=== PATIENT | female | born 1945 | race Caucasian/White ===

== ENCOUNTER 2016-04-08 10:30 | Inpatient (IN) | payer OTHER ==
[~2016-04-08] VITALS: Ht 165.1 cm; Wt 132.3 kg
[~2016-04-08 10:30] MED LIST: AMLO2.5T PO; CEPH500C2 PO; CYAN3INJ IM; HYDR12.56 PO; METH500T PO; PRAV20TA PO
[2016-04-08] MEDS ORDERED: SODIUM CHLORIDE 0.9% 1000ML 1,000 ML IV STA ×2 (10:47)
[2016-04-08] MEDS ORDERED: ONDANSETRON INJ 2 MG/ML 2 ML VIAL IV STA ×2 (10:47→12:35)
--- NOTE | 2016-04-08 10:55 | EMERGENCY ROOM VISIT NOTE ---
History Report prepared by Jordan: Chauncey Pinto Under the Supervision of: Dr. Stevie Kenney D.O. First contact with patient: 10:42 Stated Complaint: WEAKNESS, AB PAIN History of Present Illness The patient is a 70 year old female who presents to the Emergency Room with complaints of constant abdominal pain starting this morning. The patient states that she woke up and it felt like her muscles and organs were "rolling around". She additionally is complaining of nausea and vomiting. The patient denies any chest pain or shortness of breath. She states that she has a history of a hysterectomy, hernia repair, gastric bypass surgery, and a cholecystectomy. She states that she takes medication for hypertension, and she states that she took it this morning. The patient states that her last bowel movement was a day and a half ago, and she denies any diarrhea or hematochezia. Source of History: patient Onset: this morning Position: abdomen Timing: constant Associated Symptoms: + nausea, + vomiting, No SOB, No chest pain, No diarrhea, No hematochezia Review of Systems See HPI for pertinent positives & negatives. A total of 10 systems reviewed and were otherwise negative. Past Medical & Surgical Medical Problems: (1) Bowel obstruction (2) Hypertensive urgency Surgical Problems: (1) H/O gastric bypass (2) Hx of cholecystectomy Family History Patient reports no known family medical history. Social History Smoking Status: Former Smoker Alcohol Use: none Drug Use: none Marital Status: Occupation Status: retired Current/Historical Medications Scheduled Amlodipine Besylate (Norvasc), 2.5 MG PO DAILY Atorvastatin (Lipitor), 1 TAB PO DAILY Hydrochlorothiazide (Hctz), 12.5 MG PO DAILY Methocarbamol (Robaxin), 500 MG PO QID Allergies Coded Allergies: Oseltamivir (Verified Allergy, Mild, 04/08/16) Aspirin (Verified Adverse Reaction, Unknown, NO ASA DUE TO GASTRIC BYPASS , 04/08/16) NSAIDs (Unverified Adverse Reaction, Unknown, GI SXS, no NSAIDS due to gastric bypass, 04/08/16) Physical Exam Vital Signs Date Time Temp Pulse Resp B/P Pulse Ox O2 Delivery O2 Flow Rate FiO2 04/08/16 15:34 89 204/118 95 Nasal Cannula 2.0 04/08/16 15:08 85 04/08/16 14:26 88 16 190/93 91 Room Air 04/08/16 12:07 94 16 163/98 95 Room Air 04/08/16 10:46 90 04/08/16 10:44 36.7 90 16 200/118 94 Room Air Physical Exam GENERAL: Patient is awake, alert, and somewhat anxious and uncomfortable appearing. EYES: The conjunctivae are clear. The pupils are round and reactive. EARS, NOSE, MOUTH AND THROAT: The nose is without any evidence of any deformity. Mucous membranes are moist tongue is midline NECK: The neck is nontender and supple. RESPIRATORY: Normal respiratory effort is noted there is no evidence of wheezing rhonchi or rales CARDIOVASCULAR: Regular rate and rhythm noted there no murmurs rubs or gallops normal S1 normal S2 GASTROINTESTINAL: The abdomen is moderately distended and diffuse tenderness. No guarding or rigidity appreciated. Small open area on the lateral aspect of the horizontal surgical scar. Clear drainage noted MUSCULOSKELETAL/EXTREMITIES: There is no evidence of gross deformity full range of motion is noted in the hips and shoulders SKIN: Pedal edema bilaterally NEUROLOGIC: Patient is awake alert and oriented x3 strength Medical Decision & Procedures ER Provider Diagnostic Interpretation: Radiology results as stated below per my review and radiologist interpretation: KUB CLINICAL HISTORY: Abdominal pain and weakness COMPARISON STUDY: 01/09/2012 FINDINGS: There are postsurgical changes of bilateral total hip arthroplasties. There are postsurgical changes of a lower lumbar spinal fusion. There is nonspecific bowel gas pattern with mildly dilated left mid abdominal small bowel loops. IMPRESSION: Nonspecific bowel gas pattern with mildly dilated left mid abdominal small bowel loops measuring up to 43 mm in diameter Electronically signed by: Urbano Parry M.D. 04/08/2016 11:29 AM Dictated Date/Time: 04/08/2016 11:28 AM CHEST ONE VIEW PORTABLE CLINICAL HISTORY: Pain rating to the abdomen. Weakness. COMPARISON STUDY: 01/09/2012 FINDINGS: The heart is at the upper limits of normal in size given the AP technique. There is no focal pulmonary consolidation. There is no overt failure. There are no pleural effusions. There is no pneumoperitoneum. Postsurgical changes are present within the shoulders.[ IMPRESSION: No active disease in the chest. Electronically signed by: Urbano Parry M.D. 04/08/2016 11:31 AM Dictated Date/Time: 04/08/2016 11:[address] OF THE ABDOMEN AND PELVIS WITH CONTRAST CLINICAL HISTORY: Lower abdominal pain and vomiting. COMPARISON STUDY: CT of the abdomen and pelvis January 08, 2012 and KUB performed earlier today. TECHNIQUE: Following IV administration of 93 mL of Optiray-320, axial images of the abdomen and pelvis were obtained from the lung bases to the proximal femurs. Images were reviewed in the axial, sagittal, and coronal planes. IV contrast was administered without complication. Oral contrast was administered. CT DOSE: 1703.37 mGy.cm FINDINGS: The heart is moderately enlarged. There is no pneumatosis, free air or portal venous gas. Biliary ductal dilatation is unchanged since CT of January 08, 2012 and likely due to cholecystectomy. 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 The proximal to mid small bowel is fluid-filled and dilated. The distal small bowel is decompressed. There is a small amount of feces within several small bowel loops within the lower anterior aspect of the abdomen with a suspected transition shown on image 343 of 521. The small bowel proximal to the jejunojejunal anastomosis is also dilated and fluid-filled. There is mild infiltration adjacent to the duodenum which is moderately dilated and fluid-filled. The excluded stomach is not significantly distended. The jejunojejunal anastomosis appears widely patent. Images of the pelvis are degraded by streak artifact from bilateral hip arthroplasties. There is no lymphadenopathy. The spleen, adrenal glands, kidneys and pancreas are unremarkable. A fat-containing ventral hernia does not result in the bowel obstruction. IMPRESSION: Findings consistent with a moderate grade partial small bowel obstruction with transition within the anterior lower abdomen, likely within the mid ileum. Statistically, this obstruction is due to adhesions. Moderately dilated, fluid-filled duodenum without significant distention of the excluded stomach status post Indigo-en-Y gastric bypass. Mild infiltration adjacent to the duodenum is nonspecific but likely related to the obstruction. Close clinical monitoring is recommended. No free air, pneumatosis or portal venous gas. Electronically signed by: Sid Bravo M.D. 04/08/2016 2:17 PM Dictated Date/Time: 04/08/2016 1:54 PM Laboratory Results 04/08/16 11:05 Red Blood Count 5.58, Mean Corpuscular Volume 81.7, Mean Corpuscular Hemoglobin 27.2, Mean Corpuscular Hemoglobin Concent 33.3, Mean Platelet Volume 10.4, Neutrophils (%) (Auto) 89.6, Lymphocytes (%) (Auto) 5.0, Monocytes (%) (Auto) 4.8, Eosinophils (%) (Auto) 0.0, Basophils (%) (Auto) 0.1, Neutrophils # (Auto) 15.62, Lymphocytes # (Auto) 0.88, Monocytes # (Auto) 0.84, Eosinophils # (Auto) 0.00, Basophils # (Auto) 0.01 04/08/16 11:05 Test 04/08/16 11:05 White Blood Count 17.44 K/uL (4.8-10.8) Red Blood Count 5.58 M/uL (4.2-5.4) Hemoglobin 15.2 g/dL (12.0-16.0) Hematocrit 45.6 % (37-47) Mean Corpuscular Volume 81.7 fL (80-100) Mean Corpuscular Hemoglobin 27.2 pg (25-34) Mean Corpuscular Hemoglobin Concent 33.3 g/dl (32-36) Platelet Count 371 K/uL (130-400) Mean Platelet Volume 10.4 fL (7.4-10.4) Neutrophils (%) (Auto) 89.6 % Lymphocytes (%) (Auto) 5.0 % Monocytes (%) (Auto) 4.8 % Eosinophils (%) (Auto) 0.0 % Basophils (%) (Auto) 0.1 % Neutrophils # (Auto) 15.62 K/uL (1.4-6.5) Lymphocytes # (Auto) 0.88 K/uL (1.2-3.4) Monocytes # (Auto) 0.84 K/uL (0.11-0.59) Eosinophils # (Auto) 0.00 K/uL (0-0.5) Basophils # (Auto) 0.01 K/uL (0-0.2) RDW Standard Deviation 48.9 fL (36.4-46.3) RDW Coefficient of Variation 16.4 % (11.5-14.5) Immature Granulocyte % (Auto) 0.5 % Immature Granulocyte # (Auto) 0.09 K/uL (0.00-0.02) Prothrombin Time 11.0 SECONDS (9.0-12.0) Prothromb Time International Ratio 1.0 (0.9-1.1) Activated Partial Thromboplast Time 30.2 SECONDS (21.0-31.0) Partial Thromboplastin Ratio 1.2 Anion Gap 14.0 mmol/L (3-11) Est Creatinine Clear Calc Drug Dose 57.7 ml/min Estimated GFR () 53.0 Estimated GFR (Non- 45.8 BUN/Creatinine Ratio 13.6 (10-20) Calcium Level 9.7 mg/dl (8.5-10.1) Total Bilirubin 0.6 mg/dl (0.2-1) Direct Bilirubin 0.2 mg/dl (0-0.2) Aspartate Amino Transf (AST/SGOT) 23 U/L (15-37) Alanine Aminotransferase (ALT/SGPT) 26 U/L (12-78) Alkaline Phosphatase 115 U/L (45-117) Total Creatine Kinase 82 U/L (26-192) Creatine Kinase MB 4.7 ng/ml (0.5-3.6) Creatine Kinase MB Ratio 5.7 (0-3.0) Troponin I < 0.015 ng/ml (0-0.045) Total Protein 9.3 gm/dl (6.4-8.2) Albumin 3.8 gm/dl (3.4-5.0) Lipase 298 U/L (73-393) Laboratory results per my review. Medications Administered Medications (Trade) Dose Ordered Sig/Martha Route Start Time Stop Time Status Last Admin Dose Admin Sodium Chloride 1,000 ml @ 999 mls/hr Q1H1M STAT IV 04/08/16 10:47 04/08/16 11:47 DC 04/08/16 11:28 999 MLS/HR Sodium Chloride (Nss 1000ml) 1,000 ml @ 125 mls/hr Q8H STAT IV 04/08/16 10:47 04/08/16 18:46 04/08/16 12:05 125 MLS/HR Morphine Sulfate (MoRPHine SULFATE INJ) 4 mg Q15M PRN IV 04/08/16 11:00 04/22/16 10:59 04/08/16 15:31 4 MG Ondansetron HCl (Zofran Inj) 4 mg NOW STAT IV 04/08/16 10:47 04/08/16 10:49 DC 04/08/16 11:28 4 MG Ondansetron HCl (Zofran Inj) 4 mg NOW STAT IV 04/08/16 12:35 04/08/16 12:36 DC 04/08/16 12:37 4 MG ECG Indication: weakness Rate (beats per minute): 89 Rhythm: normal sinus Findings: ST depression (diffuse), no ectopy, other (No PVC) Comparison ECG Date: 01/13/2013 Change: Changes are new ED Course 1042: The patient was evaluated in room B8. A complete history and physical examination were performed. 1047: Zofran Inj 4mg IV, NSS 1,000 ml @ 125 mls/hr IV, NSS 1,000 ml @ 999 mls/ hr IV 1100: Morphine Sulfate 4mg IV 1235: Zofran Inj 4mg IV 1438: I discussed the patient's case with Dr. Mendoza. He is going to evaluate the patient for further treatment Medical Decision Differential diagnosis: Etiologies such as appendicitis, diverticulitis, PUD, biliary pathology, UTI, pancreatitis, obstruction, mesenteric ischemia, aortic pathology, infections, inflammatory bowel disease, renal colic, as well as others were entertained. Nursing notes reviewed. Additional history is obtained from the patient's family members. The patient is a 70-year-old female who presented to the emergency department for an evaluation of diffuse abdominal pain abdominal distention and nausea. The patient has had previous surgery in the past. The patient is had a history of bowel obstruction in the past. The patient was treated with IV fluids IV pain medicine and IV antiemetics. She was found have a significant elevation in the right blood cell count. CAT scan did reveal signs of small bowel obstruction. I discussed patient's laboratory and radiographic studies with her and her family members. I also discussed his case with the on-call [facility] hospitalist group. They have agreed to evaluate the patient in the emergency department for further management and disposition. Consults Time Called: 1431 Consulting Physician: Dr. Mendoza Returned Call: [phone] I discussed the patient's case with Dr. Mendoza. He is going to evaluate the patient for further treatment Impression Primary Impression: Small bowel obstruction Additional Impressions: Abdominal pain Nausea Scribe Attestation The scribe's documentation has been prepared under my direction and personally reviewed by me in its entirety. I confirm that the note above accurately reflects all work, treatment, procedures, and medical decision making performed by me. Departure Information Dispostion Being Evaluated By Hospitalist Referrals Daniel Escamilla III, M.D. (PCP) Problem Qualifiers Additional Impressions: Abdominal pain Abdominal location: generalized Qualified Codes: R10.84 - Generalized abdominal pain
[2016-04-08] MEDS ORDERED: OPTIRAY 320 IV PRN (11:00)
[2016-04-08] MEDS ORDERED: ATOR-22 PO (11:17)
[2016-04-08] MEDS: MoRPHine SULFATE 4 MG/ML 1 ML CARP\\VIAL IV PRN ×3 (11:28→15:31)
--- NOTE | 2016-04-08 11:30 | DIAGNOSTIC IMAGING REPORT ---
KUB CLINICAL HISTORY: Abdominal pain and weakness COMPARISON STUDY: 01/09/2012 FINDINGS: There are postsurgical changes of bilateral total hip arthroplasties. There are postsurgical changes of a lower lumbar spinal fusion. There is nonspecific bowel gas pattern with mildly dilated left mid abdominal small bowel loops. IMPRESSION: Nonspecific bowel gas pattern with mildly dilated left mid abdominal small bowel loops measuring up to 43 mm in diameter Electronically signed by: Urbano Parry M.D. 04/08/2016 11:29 AM Dictated Date/Time: 04/08/2016 11:28 AM
--- NOTE | 2016-04-08 11:33 | DIAGNOSTIC IMAGING REPORT ---
CHEST ONE VIEW PORTABLE CLINICAL HISTORY: Pain rating to the abdomen. Weakness. COMPARISON STUDY: 01/09/2012 FINDINGS: The heart is at the upper limits of normal in size given the AP technique. There is no focal pulmonary consolidation. There is no overt failure. There are no pleural effusions. There is no pneumoperitoneum. Postsurgical changes are present within the shoulders.[ IMPRESSION: No active disease in the chest. Electronically signed by: Urbano Parry M.D. 04/08/2016 11:31 AM Dictated Date/Time: 04/08/2016 11:31 AM
[2016-04-08 11:41] LABS: BASO % 0.1 %; BASO ABS # 0.01 K/uL (0-0.2); COMPLETE YES; HEMATOCRIT 45.6 % (37-47); IG% 0.5 %; LYMPH ABS # 0.88 K/uL (1.2-3.4); MEAN CELL VOLUME 81.7 fL (80-100); MEAN CORPUSCULAR HEMOGLOBIN 27.2 pg (25-34); MEAN CORPUSCULAR HGB CONC 33.3 g/dl (32-36); MEAN PLATELET VOLUME 10.4 fL (7.4-10.4); MONO % 4.8 %; NEUT % 89.6 %; PLATELET COUNT 371 K/uL (130-400); RED BLOOD COUNT 5.58 M/uL (4.2-5.4); WHITE BLOOD COUNT 17.44 K/uL (4.8-10.8)
[2016-04-08 11:54] LABS: PARTIAL THROMBOPLASTIN RATIO 1.2
[2016-04-08 12:00] LABS: ALT/SGPT 26 U/L (12-78); AST/SGOT 23 U/L (15-37); BLOOD UREA NITROGEN 16 mg/dl (7-18); BUN/CREATININE RATIO 13.6 (10-20); CALCIUM 9.7 mg/dl (8.5-10.1); CARBON DIOXIDE 26 mmol/L (21-32); CHLORIDE 96 mmol/L (98-107); GLUCOSE 137 mg/dl (70-99); POTASSIUM 3.5 mmol/L (3.5-5.1); SODIUM 136 mmol/L (136-145)
[2016-04-08 12:05] LABS: ALKALINE PHOSPHATASE 115 U/L (45-117); CKMB/CK RATIO 5.7 (0-3.0)
--- NOTE | 2016-04-08 14:18 | DIAGNOSTIC IMAGING REPORT ---
CT OF THE ABDOMEN AND PELVIS WITH CONTRAST CLINICAL HISTORY: Lower abdominal pain and vomiting. COMPARISON STUDY: CT of the abdomen and pelvis January 08, 2012 and KUB performed earlier today. TECHNIQUE: Following IV administration of 93 mL of Optiray-320, axial images of the abdomen and pelvis were obtained from the lung bases to the proximal femurs. Images were reviewed in the axial, sagittal, and coronal planes. IV contrast was administered without complication. Oral contrast was administered. CT DOSE: 1703.37 mGy.cm FINDINGS: The heart is moderately enlarged. There is no pneumatosis, free air or portal venous gas. Biliary ductal dilatation is unchanged since CT of January 08, 2012 and likely due to cholecystectomy. 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 The proximal to mid small bowel is fluid-filled and dilated. The distal small bowel is decompressed. There is a small amount of feces within several small bowel loops within the lower anterior aspect of the abdomen with a suspected transition shown on image 343 of 521. The small bowel proximal to the jejunojejunal anastomosis is also dilated and fluid-filled. There is mild infiltration adjacent to the duodenum which is moderately dilated and fluid-filled. The excluded stomach is not significantly distended. The jejunojejunal anastomosis appears widely patent. Images of the pelvis are degraded by streak artifact from bilateral hip arthroplasties. There is no lymphadenopathy. The spleen, adrenal glands, kidneys and pancreas are unremarkable. A fat-containing ventral hernia does not result in the bowel obstruction. IMPRESSION: Findings consistent with a moderate grade partial small bowel obstruction with transition within the anterior lower abdomen, likely within the mid ileum. Statistically, this obstruction is due to adhesions. Moderately dilated, fluid-filled duodenum without significant distention of the excluded stomach status post Indigo-en-Y gastric bypass. Mild infiltration adjacent to the duodenum is nonspecific but likely related to the obstruction. Close clinical monitoring is recommended. No free air, pneumatosis or portal venous gas. Electronically signed by: Sid Bravo M.D. 04/08/2016 2:17 PM Dictated Date/Time: 04/08/2016 1:54 PM
[2016-04-08] MEDS ORDERED: HYDROmorphone INJ 1 MG/ML SYR ONE (17:31)
--- NOTE | 2016-04-08 17:31 | History and Physical ---
History & Physical Date & Time of Service: Apr 08, 2016 at 17:31 . Chief Complaint: abdominal pain, nausea, vomiting . Primary Care Physician: Daniel Escamilla III, M.D. . History of Present Illness Source: patient, clinic records, hospital records 70 [address] followed by Dr[address] Escamilla. History of Indigo-en-Y gastric bypass for obesity several years ago. History of hypertension and other medical problems noted below. Developed onset of abdominal pain 2 nights prior to admission. Pain initially localized in the upper abdomen, but became more diffuse. Developed nausea and vomiting. Last bowel movement was about 24 hours prior to admission. Passed some flatus earlier today. No hematemesis, melena, hematochezia. Tried acetaminophen without relief. [place] warm last night, but no documented fever. . Family History FATHER Seizure disorder MOTHER COPD (chronic obstructive pulmonary disease) GRANDMOTHER Diabetes mellitus Social History Smoking Status: Former Smoker Alcohol Use: rarely Drug Use: none Marital Status: Housing status: lives with family Occupational Status: retired Immunizations History of Influenza Vaccine: Yes History of Tetanus Vaccine?: Yes Tetanus Immunization Date: Feb 14, 2005 History of Pneumococcal: Yes History of Hepatitis B Vaccine: No Multi-Drug Resistant Organisms History of MDRO: No Allergies Coded Allergies: Oseltamivir (Verified Allergy, Mild, 04/08/16) Aspirin (Verified Adverse Reaction, Unknown, NO ASA DUE TO GASTRIC BYPASS , 04/08/16) NSAIDs (Unverified Adverse Reaction, Unknown, GI SXS, no NSAIDS due to gastric bypass, 04/08/16) Home Medications Scheduled Amlodipine Besylate (Norvasc), 2.5 MG PO DAILY Atorvastatin (Lipitor), 1 TAB PO DAILY Hydrochlorothiazide (Hctz), 12.5 MG PO DAILY Methocarbamol (Robaxin), 500 MG PO QID Review of Systems Constitutional: + chills, + fever, No weight loss Eyes: No diplopia, No worsening of vision ENT: No hearing loss, No sore throat Respiratory: + cough (bronchitis about 6 weeks ago, resolved), + dyspnea on exertion (occasional) Cardiovascular: + edema (chronic), No chest pain Abdomen: + problem reported (as noted above in HPI) Musculoskeletal: + joint pain Genitourinary - Female: No dysuria, No hematuria Neurologic: + problem reported (occasional headache) Endocrine: No excessive thirst, No excessive urination Hematologic / Lymphatic: + abnormal bleeding/bruising Integumentary: No new/changing skin lesions Physical Exam Vital Signs Date Time Temp Pulse Resp B/P Pulse Ox O2 Delivery O2 Flow Rate FiO2 04/08/16 15:34 89 204/118 95 Nasal Cannula 2.0 04/08/16 15:08 85 04/08/16 14:26 88 16 190/93 91 Room Air 04/08/16 12:07 94 16 163/98 95 Room Air 04/08/16 10:46 90 04/08/16 10:44 36.7 90 16 200/118 94 Room Air General Appearance: WD/WN, + mild distress Head: normocephalic, atraumatic Eyes: normal inspection, PERRL, EOMI, sclerae normal ENT: normal ENT inspection, hearing grossly normal, pharynx normal Neck: supple, no adenopathy, thyroid normal, no JVD, trachea midline Respiratory/Chest: lungs clear, no respiratory distress, no accessory muscle use Cardiovascular: regular rate, rhythm, no edema, no gallop, no JVD, no murmur, normal peripheral pulses Abdomen/GI: + pertinent finding (distended, intermittent bowel sounds, diffuse moderate tenderness without rebound or guarding, no masses or organomegaly appreciated, RUQ scar with about 1 cm open area with minimal drainage) Extremities/Musculoskelatal: no calf tenderness, normal capillary refill, + pedal edema (trace), + pertinent finding (well-healed scars bilat knees) 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 as 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 (PERRL, EOMI), no motor/sensory deficits (strength upper and lower extremities grossly intact), alert, normal mood/affect, normal reflexes, oriented x 3 Skin: normal color, warm/dry Lymphatic: no adenopathy Diagnostics Laboratory Results Results Past 24 Hours Test 04/08/16 11:05 Range/Units White Blood Count 17.44 4.8-10.8 K/uL Red Blood Count 5.58 4.2-5.4 M/uL Hemoglobin 15.2 12.0-16.0 g/dL Hematocrit 45.6 37-47 % Mean Corpuscular Volume 81.7 80-100 fL Mean Corpuscular Hemoglobin 27.2 25-34 pg Mean Corpuscular Hemoglobin Concent 33.3 32-36 g/dl Platelet Count 371 130-400 K/uL Mean Platelet Volume 10.4 7.4-10.4 fL Neutrophils (%) (Auto) 89.6 % Lymphocytes (%) (Auto) 5.0 % Monocytes (%) (Auto) 4.8 % Eosinophils (%) (Auto) 0.0 % Basophils (%) (Auto) 0.1 % Neutrophils # (Auto) 15.62 1.4-6.5 K/uL Lymphocytes # (Auto) 0.88 1.2-3.4 K/uL Monocytes # (Auto) 0.84 0.11-0.59 K/uL Eosinophils # (Auto) 0.00 0-0.5 K/uL Basophils # (Auto) 0.01 0-0.2 K/uL RDW Standard Deviation 48.9 36.4-46.3 fL RDW Coefficient of Variation 16.4 11.5-14.5 % Immature Granulocyte % (Auto) 0.5 % Immature Granulocyte # (Auto) 0.09 0.00-0.02 K/uL Prothrombin Time 11.0 9.0-12.0 SECONDS Prothromb Time International Ratio 1.0 0.9-1.1 Activated Partial Thromboplast Time 30.2 21.0-31.0 SECONDS Partial Thromboplastin Ratio 1.2 Sodium Level 136 136-145 mmol/L Potassium Level 3.5 3.5-5.1 mmol/L Chloride Level 96 98-107 mmol/L Carbon Dioxide Level 26 21-32 mmol/L Anion Gap 14.0 3-11 mmol/L Blood Urea Nitrogen 16 7-18 mg/dl Creatinine 1.20 0.60-1.20 mg/dl Est Creatinine Clear Calc Drug Dose 57.7 ml/min Estimated GFR () 53.0 Estimated GFR (Non- 45.8 BUN/Creatinine Ratio 13.6 10-20 Random Glucose 137 70-99 mg/dl Calcium Level 9.7 8.5-10.1 mg/dl Total Bilirubin 0.6 0.2-1 mg/dl Direct Bilirubin 0.2 0-0.2 mg/dl Aspartate Amino Transf (AST/SGOT) 23 15-37 U/L Alanine Aminotransferase (ALT/SGPT) 26 12-78 U/L Alkaline Phosphatase 115 45-117 U/L Total Creatine Kinase 82 26-192 U/L Creatine Kinase MB 4.7 0.5-3.6 ng/ml Creatine Kinase MB Ratio 5.7 0-3.0 Troponin I < 0.015 0-0.045 ng/ml Total Protein 9.3 6.4-8.2 gm/dl Albumin 3.8 3.4-5.0 gm/dl Lipase 298 73-393 U/L Diagnostic Radiology CHEST ONE VIEW PORTABLE IMPRESSION: No active disease in the chest. Electronically signed by: Urbano Parry M.D. 04/08/2016 11:31 AM KUB IMPRESSION: Nonspecific bowel gas pattern with mildly dilated left mid abdominal small bowel loops measuring up to 43 mm in diameter Electronically signed by: Urbano Parry M.D. 04/08/2016 11:[address] OF THE ABDOMEN AND PELVIS WITH CONTRAST IMPRESSION: Findings consistent with a moderate grade partial small bowel obstruction with transition within the anterior lower abdomen, likely within the mid ileum. Statistically, this obstruction is due to adhesions. Moderately dilated, fluid-filled duodenum without significant distention of the excluded stomach status post Indigo-en-Y gastric bypass. Mild infiltration adjacent to the duodenum is nonspecific but likely related to the obstruction. Close clinical monitoring is recommended. No free air, pneumatosis or portal venous gas. Electronically signed by: Sid Bravo M.D. 04/08/2016 2:17 PM . EKG EKG performed at 11:11 reviewed and demonstrated NSR at 90 / minute, poor R- wave progression, NSSTTWA's. . Impression Assessment and Plan SMALL BOWEL OBSTRUCTION Clinical picture and CT consistent with partial small bowel obstruction, most likely secondary to adhesions from previous surgeries. Initial management will consist of bowel rest, IV fluids, analgesics, anti- emetics, NGT. Consult General Surgery. LEUKOCYTOSIS WBC = 17,440. Small bowel obstruction as discussed above, but no apparent perforation, abscess , etc. No infiltrates on chest x-ray. UA pending. Empiric Rx with IV piperacillin / tazobactam. Check procalcitonin. Follow VS, symptoms, WBC. ESSENTIAL HYPERTENSION / HYPERTENSIVE URGENCY History of hypertension, managed with HCTZ + amlodipine. BP 200/118 in ED, improved with analgesics. IV enalapril + PRN IV labetalol while NPO. Follow and titrate Rx. VTE PROPHYLAXIS No anticoagulants at this time in case surgical intervention is necessary. SCD's. Ambulate as able. RESUSCITATION STATUS Discussed with patient. She does not have a Living Will. She indicates that she would want resuscitation attempted in the event of a cardiopulmonary arrest, but would only want aggressive measures for a short period of time. Specifically, she indicated that she would not want to be on mechanical ventilation for weeks. DISPOSITION Admit to Telemetry Unit due to hypertensive urgency and need for parenteral cardiovascular meds. Expected discharge to home. Medical follow-up with Dr. Escamilla. . VTE Prophylaxis VTE Risk Assessment Done? Y/N: Yes Risk Level: Moderate Given or contraindicated: SCD's
[2016-04-08] MEDS ORDERED: HYDROmorphone INJ 1 MG/ML SYR IV STA (17:34)
[2016-04-08] MEDS ORDERED: LABETALOL HCL IV 5 MG/ML 20ML IV STA (17:34)
[2016-04-08] MEDS ORDERED: PANTOprazole INJ 40 MG in SYRINGE 0 ML IV SCH (18:00)
[2016-04-08 18:10] VITALS: O2SAT 93; Ht 165.1 cm; Wt 132.3 kg
[2016-04-08 18:43] VITALS: BP 176/87; PULSE 92; TEMP 36.4; O2SAT 95
--- NOTE | 2016-04-08 19:16 | Medical Consult ---
Consultation Date of Consultation: Apr 08, 2016. Attending Physician: Aparna Salas M.D. Reason for Consultation: partial sbo History of Present Illness pt with N/V, abd pain CT shows evidence of partial sbo- pt with h/o elizabeth en Y gastric bypass 2002 stomach large, dilated duodenum, pt morbidly obese Past Medical/Surgical History Medical Problems: (1) Abdominal pain Status: Acute (2) Nausea Status: Acute (3) Small bowel obstruction Status: Acute Family History Patient reports no known family medical history. Social History Smoking Status: Former Smoker Drug Use: none Marital Status: Occupation Status: retired Allergies Coded Allergies: Oseltamivir (Verified Allergy, Mild, 04/08/16) Aspirin (Verified Adverse Reaction, Unknown, NO ASA DUE TO GASTRIC BYPASS , 04/08/16) NSAIDs (Unverified Adverse Reaction, Unknown, GI SXS, no NSAIDS due to gastric bypass, 04/08/16) Current Inpatient Medications Current Inpatient Medications Medications (Trade) Dose Ordered Sig/Martha Route Start Time Stop Time Status Last Admin Dose Admin Morphine Sulfate (MoRPHine SULFATE INJ) 4 mg Q15M PRN IV 04/08/16 11:00 04/22/16 10:59 04/08/16 15:31 4 MG Ioversol 120 ml 120 ml UD PRN IV 04/08/16 11:00 04/12/16 10:59 Dextrose/Lactated Ringer's (D5W And Lactated Ringers) 1,000 ml @ 125 mls/hr Q8H IV 04/08/16 17:45 05/08/16 17:44 Hydromorphone HCl 1 mg 1 mg Q3H PRN IV 04/08/16 17:45 04/22/16 17:44 Acetaminophen 100 ml @ 400 mls/hr Q8H PRN IV 04/08/16 17:45 05/08/16 17:44 Pantoprazole Sodium/Syringe (Protonix Inj/ Syringe) 10 ml @ 5 mls/min DAILY@11 IV 04/09/16 11:00 05/09/16 10:59 UNV Labetalol HCl 10 mg 10 mg Q1H PRN IV 04/08/16 17:45 05/08/16 17:44 Enalaprilat/ Dextrose (Vasotec IV/D5 25ml) 25.5 ml @ 100 mls/hr Q6 IV 04/08/16 18:00 05/08/16 17:59 UNV Review of Systems Constitutional: No chills, No fever Respiratory: No cough, No shortness of breath, No sputum Cardiovascular: No chest pain Abdomen: + nausea, + pain, + vomiting Genitourinary - Female: No dysuria Neurologic: No weakness Endocrine: No fatigue Integumentary: No rash Physical Exam Date Time Temp Pulse Resp B/P Pulse Ox O2 Delivery O2 Flow Rate FiO2 04/08/16 18:16 99 20 156/90 93 Nasal Cannula 2.0 04/08/16 18:10 93 Nasal Cannula 2.0 04/08/16 17:30 90 18 185/119 91 Room Air 04/08/16 15:34 89 204/118 95 Nasal Cannula 2.0 04/08/16 15:08 85 04/08/16 14:26 88 16 190/93 91 Room Air 04/08/16 12:07 94 16 163/98 95 Room Air 04/08/16 10:46 90 04/08/16 10:44 36.7 90 16 200/118 94 Room Air General Appearance: no apparent distress Head: normocephalic Eyes: sclerae normal Neck: supple Respiratory/Chest: no respiratory distress Cardiovascular: regular rate, rhythm Abdomen/GI: normal bowel sounds, soft, + tenderness (some mild tenderness) Extremities/Musculoskelatal: no pedal edema Skin: warm/dry, no rash Laboratory Results Last 24 Hours Test 04/08/16 11:05 White Blood Count 17.44 K/uL Red Blood Count 5.58 M/uL Hemoglobin 15.2 g/dL Hematocrit 45.6 % Mean Corpuscular Volume 81.7 fL Mean Corpuscular Hemoglobin 27.2 pg Mean Corpuscular Hemoglobin Concent 33.3 g/dl Platelet Count 371 K/uL Mean Platelet Volume 10.4 fL Neutrophils (%) (Auto) 89.6 % Lymphocytes (%) (Auto) 5.0 % Monocytes (%) (Auto) 4.8 % Eosinophils (%) (Auto) 0.0 % Basophils (%) (Auto) 0.1 % Neutrophils # (Auto) 15.62 K/uL Lymphocytes # (Auto) 0.88 K/uL Monocytes # (Auto) 0.84 K/uL Eosinophils # (Auto) 0.00 K/uL Basophils # (Auto) 0.01 K/uL RDW Standard Deviation 48.9 fL RDW Coefficient of Variation 16.4 % Immature Granulocyte % (Auto) 0.5 % Immature Granulocyte # (Auto) 0.09 K/uL Prothrombin Time 11.0 SECONDS Prothromb Time International Ratio 1.0 Activated Partial Thromboplast Time 30.2 SECONDS Partial Thromboplastin Ratio 1.2 Sodium Level 136 mmol/L Potassium Level 3.5 mmol/L Chloride Level 96 mmol/L Carbon Dioxide Level 26 mmol/L Anion Gap 14.0 mmol/L Blood Urea Nitrogen 16 mg/dl Creatinine 1.20 mg/dl Est Creatinine Clear Calc Drug Dose 57.7 ml/min Estimated GFR () 53.0 Estimated GFR (Non- 45.8 BUN/Creatinine Ratio 13.6 Random Glucose 137 mg/dl Calcium Level 9.7 mg/dl Total Bilirubin 0.6 mg/dl Direct Bilirubin 0.2 mg/dl Aspartate Amino Transf (AST/SGOT) 23 U/L Alanine Aminotransferase (ALT/SGPT) 26 U/L Alkaline Phosphatase 115 U/L Total Creatine Kinase 82 U/L Creatine Kinase MB 4.7 ng/ml Creatine Kinase MB Ratio 5.7 Troponin I < 0.015 ng/ml Total Protein 9.3 gm/dl Albumin 3.8 gm/dl Lipase 298 U/L Assessment & Plan 04/08/16- adm with partial sbo- pt has relatively active bowel sounds. NPO, NG decompression, check film- monitor progress if worsens or no progress- operation
--- NOTE | 2016-04-08 20:46 | DIAGNOSTIC IMAGING REPORT ---
ABDOMEN 2 VIEWS HISTORY: Small bowel obstruction. NG tube placement. COMPARISON: Abdomen and pelvis CT 04/08/2016. FINDINGS: Nasogastric tube terminates in the proximal stomach. Multiple gas and fluid-filled loops of distended small bowel within the upper abdomen are again noted. This is consistent with the patient's history of a small bowel obstruction. Posterior fusion hardware within the lower lumbar spine. Contrast within the renal collecting systems from the prior CT examination. No pneumoperitoneum or pneumatosis identified. Bilateral total hip arthroplasties. IMPRESSION: 1. Nasogastric tube terminates in the proximal stomach. 2. Persistent small bowel obstruction. This is not significantly changed. Electronically signed by: Mark Tamez M.D. 04/08/2016 8:45 PM Dictated Date/Time: 04/08/2016 8:43 PM
[2016-04-08] MEDS: D5W AND LACTATED RINGERS 1,000 ML IV SCH (21:01)
[2016-04-08] MEDS: ENALAPRILAT IV 0.625 MG in DEXTROSE 5% 25ML 25 ML IV SCH (21:01)
[2016-04-08] MEDS ORDERED: PIPERACILL/TAZOBAC IV 4.5 GM in DEXTROSE 5% 100ML 100 ML IV SCH (22:15)
[2016-04-08 22:19] LABS: URINE APPEARANCE CLEAR (CLEAR); URINE BILIRUBIN NEG (NEG); URINE COLOR YELLOW; URINE EPITHELIAL CELL AUTO >30 /lpf (0-5); URINE NITRITE NEG (NEG); URINE SPECIFIC GRAVITY > 1.045 (1.000-1.030); UROBILINOGEN NEG (NEG)
[2016-04-08 22:23] LABS: MANUAL MICROSCOPIC REQUIRED? NO; REVIEW REQ? YES
[2016-04-08] MEDS ORDERED: PIPERACILL/TAZOBAC CONSULT ACTIVE PRN (22:30)
[2016-04-08] MEDS ORDERED: PIPERACILL/TAZOBAC IV 4.5 GM in DEXTROSE 5% 100ML IV ONE (22:30)
[2016-04-08 22:32] LABS: URINE PATH CASTS 0-3 GRANULAR CASTS /lpf (0)
[2016-04-08 23:06] VITALS: BP 149/86; PULSE 94; TEMP 36.8; O2SAT 91
[2016-04-09] MEDS: HYDROmorphone INJ 1 MG/ML SYR IV PRN (02:09)
[2016-04-09] MEDS: ENALAPRILAT IV 0.625 MG in DEXTROSE 5% 25ML 25 ML IV SCH ×2 (02:11→08:38)
[2016-04-09 03:28] VITALS: BP 108/57; PULSE 78; TEMP 36.6; O2SAT 90
[2016-04-09] MEDS: PIPERACILL/TAZOBAC IV 4.5 GM in DEXTROSE 5% 100ML IV SCH ×3 (03:32→22:41)
[2016-04-09 05:36] LABS: HEMATOCRIT 40.7 % (37-47); MEAN CELL VOLUME 83.4 fL (80-100); MEAN CORPUSCULAR HEMOGLOBIN 27.3 pg (25-34); MEAN CORPUSCULAR HGB CONC 32.7 g/dl (32-36); MEAN PLATELET VOLUME 10.1 fL (7.4-10.4); PLATELET COUNT 333 K/uL (130-400); RED BLOOD COUNT 4.88 M/uL (4.2-5.4)
[2016-04-09 06:11] LABS: BUN/CREATININE RATIO 19.2 (10-20); CALCIUM 8.7 mg/dl (8.5-10.1); CREATININE 1.4 mg/dl (0.60-1.20); MAGNESIUM 2.2 mg/dl (1.8-2.4); PHOSPHORUS 4.3 mg/dl (2.5-4.9); POTASSIUM 3.7 mmol/L (3.5-5.1)
--- NOTE | 2016-04-09 06:21 | Surgery Progress Note ---
Surgery Progress Note Date of Service Apr 09, 2016. Subjective still having some pain- NG in- min output Objective Vital Signs: Date Time Temp Pulse Resp B/P Pulse Ox O2 Delivery O2 Flow Rate FiO2 04/09/16 04:00 Room Air 04/09/16 03:28 36.6 78 22 108/57 90 Room Air 04/08/16 23:59 Room Air 04/08/16 23:06 36.8 94 20 149/86 91 Room Air 04/08/16 20:00 Nasal Cannula 2.0 04/08/16 18:43 36.4 92 18 176/87 95 Nasal Cannula 2.0 04/08/16 18:16 99 20 156/90 93 Nasal Cannula 2.0 04/08/16 18:10 93 Nasal Cannula 2.0 04/08/16 17:30 90 18 185/119 91 Room Air 04/08/16 15:34 89 204/118 95 Nasal Cannula 2.0 04/08/16 15:08 85 04/08/16 14:26 88 16 190/93 91 Room Air 04/08/16 12:07 94 16 163/98 95 Room Air 04/08/16 10:46 90 04/08/16 10:44 36.7 90 16 200/118 94 Room Air General Appearance: no apparent distress Respiratory/Chest: no respiratory distress Abdomen: + distended (decreased bowel sounds) Laboratory Results: Results Past 24 Hours Test 04/08/16 11:05 04/08/16 21:30 04/09/16 05:20 Range/Units White Blood Count 17.44 15.10 4.8-10.8 K/uL Red Blood Count 5.58 4.88 4.2-5.4 M/uL Hemoglobin 15.2 13.3 12.0-16.0 g/dL Hematocrit 45.6 40.7 37-47 % Mean Corpuscular Volume 81.7 83.4 80-100 fL Mean Corpuscular Hemoglobin 27.2 27.3 25-34 pg Mean Corpuscular Hemoglobin Concent 33.3 32.7 32-36 g/dl Platelet Count 371 333 130-400 K/uL Mean Platelet Volume 10.4 10.1 7.4-10.4 fL Neutrophils (%) (Auto) 89.6 % Lymphocytes (%) (Auto) 5.0 % Monocytes (%) (Auto) 4.8 % Eosinophils (%) (Auto) 0.0 % Basophils (%) (Auto) 0.1 % Neutrophils # (Auto) 15.62 1.4-6.5 K/uL Lymphocytes # (Auto) 0.88 1.2-3.4 K/uL Monocytes # (Auto) 0.84 0.11-0.59 K/uL Eosinophils # (Auto) 0.00 0-0.5 K/uL Basophils # (Auto) 0.01 0-0.2 K/uL RDW Standard Deviation 48.9 51.5 36.4-46.3 fL RDW Coefficient of Variation 16.4 17.0 11.5-14.5 % Immature Granulocyte % (Auto) 0.5 % Immature Granulocyte # (Auto) 0.09 0.00-0.02 K/uL Prothrombin Time 11.0 9.0-12.0 SECONDS Prothromb Time International Ratio 1.0 0.9-1.1 Activated Partial Thromboplast Time 30.2 21.0-31.0 SECONDS Partial Thromboplastin Ratio 1.2 Sodium Level 136 143 136-145 mmol/L Potassium Level 3.5 3.7 3.5-5.1 mmol/L Chloride Level 96 103 98-107 mmol/L Carbon Dioxide Level 26 29 21-32 mmol/L Anion Gap 14.0 11.0 3-11 mmol/L Blood Urea Nitrogen 16 7-18 mg/dl Creatinine 1.20 1.40 0.60-1.20 mg/dl Est Creatinine Clear Calc Drug Dose 57.7 49.2 ml/min Estimated GFR () 53.0 44.0 Estimated GFR (Non- 45.8 38.0 BUN/Creatinine Ratio 13.6 19.2 10-20 Random Glucose 137 111 70-99 mg/dl Calcium Level 9.7 8.7 8.5-10.1 mg/dl Total Bilirubin 0.6 0.2-1 mg/dl Direct Bilirubin 0.2 0-0.2 mg/dl Aspartate Amino Transf (AST/SGOT) 23 15-37 U/L Alanine Aminotransferase (ALT/SGPT) 26 12-78 U/L Alkaline Phosphatase 115 45-117 U/L Total Creatine Kinase 82 26-192 U/L Creatine Kinase MB 4.7 0.5-3.6 ng/ml Creatine Kinase MB Ratio 5.7 0-3.0 Troponin I < 0.015 0-0.045 ng/ml Total Protein 9.3 6.4-8.2 gm/dl Albumin 3.8 3.4-5.0 gm/dl Lipase 298 73-393 U/L Urine Color YELLOW Urine Appearance CLEAR CLEAR Urine pH 5.0 4.5-7.5 Urine Specific [place] > 1.045 1.000-1.030 Urine Protein 3+ NEG Urine Glucose (UA) NEG NEG Urine Ketones NEG NEG Urine Occult Blood NEG NEG Urine Nitrite NEG NEG Urine Bilirubin NEG NEG Urine Urobilinogen NEG NEG Urine Leukocyte Esterase NEG NEG Urine WBC (Auto) 1-5 0-5 /hpf Urine RBC (Auto) 0-4 0-4 /hpf Urine Hyaline Casts (Auto) 1-5 0-5 /lpf Urine Epithelial Cells (Auto) >30 0-5 /lpf Urine Bacteria (Auto) 1+ NEG Urine Pathogenic Casts 0-3 GRANULAR CASTS 0 /lpf Phosphorus Level 4.3 2.5-4.9 mg/dl Magnesium Level 2.2 1.8-2.4 mg/dl Assessment & Plan 04/09/16- adm with small bowel obstruction- film pending. Still concerned pt may need abd exploration , lysis of adhesions- reassess this am check labs
--- NOTE | 2016-04-09 07:49 | DIAGNOSTIC IMAGING REPORT ---
ABDOMEN 2 VIEWS CLINICAL HISTORY: bowel obstruction pain COMPARISON STUDY: 04/08/2016 FINDINGS: Nasogastric tube is at the gastroesophageal junction. Moderate bowel distention similar as compared to the prior study. No secondary signs of free air. Stable postoperative changes of the lumbar spine or right hip. IMPRESSION: Partial small bowel obstruction unchanged in the prior study. Nasogastric tube at the gastroesophageal junction. Electronically signed by: Aidan Pham M.D. 04/09/2016 7:48 AM Dictated Date/Time: 04/09/2016 7:46 AM
[2016-04-09 08:21] VITALS: BP 122/69; PULSE 83; TEMP 36.6; O2SAT 98
[2016-04-09] MEDS ORDERED: SUCCINYLCHOLINE 100MG/5ML SYR IV ONE (10:08)
[2016-04-09] MEDS ORDERED: NEOSTIGMINE METHYLSULFATE 5 MG/5 ML SYR ONE (10:08)
[2016-04-09] MEDS ORDERED: ONDANSETRON INJ 2 MG/ML 2 ML VIAL ONE (10:08)
[2016-04-09] MEDS ORDERED: GLYCOPYRROLATE INJ 0.2 MG/ML VIAL ONE (10:08)
[2016-04-09] MEDS ORDERED: DEXAMETHASONE SOD INJ 4 MG/ML VIAL ONE (10:08)
[2016-04-09] MEDS ORDERED: ROCURONIUM BROMIDE 10 MG/ML 5 ML VIAL ONE (10:08)
[2016-04-09] MEDS ORDERED: LIDOCAINE HCL 2% 2 ML VIAL (20MG/ML) ONE (10:08)
[2016-04-09] MEDS ORDERED: PROPOFOL IV EMULSION 10 MG/ML 20 ML VIAL IV ONE (10:08)
[2016-04-09] MEDS ORDERED: FENTANYL CITRATE INJ 50 MCG/1 ML 2 ML VIAL ONE ×3 (10:09→13:53)
[2016-04-09] MEDS ORDERED: MIDAZOLAM HCL 1 MG/ML 2ML VIAL ONE ×2 (10:09→14:10)
[2016-04-09] MEDS ORDERED: MoRPHine SULFATE 2 MG/ML CARP ONE ×2 (10:09→12:40)
[2016-04-09] MEDS ORDERED: CEFOXITIN SOD 2 GM VIAL ONE (10:20)
[2016-04-09] MEDS ORDERED: PANTOprazole INJ 40 MG in SYRINGE 0 ML IV SCH (11:00)
[2016-04-09] MEDS ORDERED: CEFOXITIN SOD 1 GM VIAL ONE (13:53)
--- NOTE | 2016-04-09 14:36 | Anesthesiology Progress Note ---
Anesthesia Progress Note Date of Service Apr 09, 2016. Progress Notes Called ICU kiln charger at 1416 to report that this pt is going to remain intubated and require post-op mechanical ventilation. THis is a morbidly obese w female w/COPD,HTN,Hyperlipidemia,CKD,Hx/o Lyme's disease and remote SDH for which she required DAR Holes.She now presents with a small bowel obstruction for exploratory laparotomy and resection. I have spoken w/Dr Frida Corral at 1420 and have given her a detailed report. Dr Maldonado requested that we keep the pt intubated and ventilated w/sedation for the near future as he is concerned that she may eviscerate.He stated the procedure was very difficult and the tissues are tenuous at best.She has two PIV's and a left radial arterial line. Pt is edentulous and the intubation was easy.
--- NOTE | 2016-04-09 15:02 | [facility] Post Operative Brief Note ---
Immediate Operative Summary Operative Date Apr 09, 2016. Pre-Operative Diagnosis Small Bowel Obstruction Post-Operative Diagnosis Small Bowel Obstruction with Adhesions Procedure(s) Performed Exploratory Laparotomy, Lysis of Adhesions- extensive Surgeon Dr. Maldonado Fringe Maker Surgeon(s) DEON Bennett Estimated Blood Loss 100 ml Findings severe small bowel adhesions- essentially a hostile abd Specimens none per surgeon Drains #19 Rd to pelvis, #15 Rd to subcu Anesthesia gen Complication(s) None Disposition Surgical ICU
--- NOTE | 2016-04-09 15:07 | Progress Note ---
Internal Med Progress Note Date of Service: Apr 09, 2016. Provider Documentation: SUBJECTIVE: The patient was seen and examined Abdominal pain and distension are better NGT in with low suction Denies any cardiac history OBJECTIVE: Vital Signs-as noted below Exam: General-minimal distress at rest Eyes-Normal ENT-normal Neck-supple Lungs-Clear to auscultate bilaterally Heart-Regular Abdomen-Mildly distended,tender epigastrium ,bowel sound exaggerated Extremities-No edema Neuro-AAOx3 Lab data as noted below. ASSESSMENT & PLAN: RECURRENT SMALL BOWEL OBSTRUCTION H/O Gastric Bypass years ago Clinical picture and CT consistent with partial small bowel obstruction, Most likely secondary to adhesions from previous surgeries. NPO,NGT suction,Analgesic and Antibiotic Consult General Surgery.-appreciated input Surgery this afternoon No contraindication to surgery HYPERTENSIVE URGENCY Likely secondary to Anxiety History of hypertension, managed with HCTZ + amlodipine. BP 200/118 in ED, improved with analgesics. IV enalapril + PRN IV labetalol while NPO. BP is controlled this morning Acute Renal Failure Creatinine elevated Continue IF fluid Monitor PRP LEUKOCYTOSIS WBC = 17,440. Likely secondary to Bowel obstruction -no perforation. No infiltrates on chest x-ray. UA does not look infected. Empiric Rx with IV piperacillin / tazobactam. VTE PROPHYLAXIS No anticoagulants at this time in case surgical intervention is necessary. SCD's. Ambulate as able. RESUSCITATION STATUS Full code DISPOSITION Admit to Telemetry Unit due to hypertensive urgency and need for parenteral cardiovascular meds. Expected discharge to home. Medical follow-up with Dr. Escamilla. Vital Signs: Date Time Temp Pulse Resp B/P Pulse Ox O2 Delivery O2 Flow Rate FiO2 04/09/16 08:21 36.6 83 18 122/69 98 04/09/16 08:00 Room Air 04/09/16 04:00 Room Air 04/09/16 03:28 36.6 78 22 108/57 90 Room Air 04/08/16 23:59 Room Air 04/08/16 23:06 36.8 94 20 149/86 91 Room Air 04/08/16 20:00 Nasal Cannula 2.0 04/08/16 18:43 36.4 92 18 176/87 95 Nasal Cannula 2.0 04/08/16 18:16 99 20 156/90 93 Nasal Cannula 2.0 04/08/16 18:10 93 Nasal Cannula 2.0 04/08/16 17:30 90 18 185/119 91 Room Air 04/08/16 15:34 89 204/118 95 Nasal Cannula 2.0 Lab Results: Results Past 24 Hours Test 04/08/16 21:30 04/09/16 05:20 04/09/16 15:00 04/09/16 15:20 Range/Units Urine Color YELLOW Urine Appearance CLEAR CLEAR Urine pH 5.0 4.5-7.5 Urine Specific [place] > 1.045 1.000-1.030 Urine Protein 3+ NEG Urine Glucose (UA) NEG NEG Urine Ketones NEG NEG Urine Occult Blood NEG NEG Urine Nitrite NEG NEG Urine Bilirubin NEG NEG Urine Urobilinogen NEG NEG Urine Leukocyte Esterase NEG NEG Urine WBC (Auto) 1-5 0-5 /hpf Urine RBC (Auto) 0-4 0-4 /hpf Urine Hyaline Casts (Auto) 1-5 0-5 /lpf Urine Epithelial Cells (Auto) >30 0-5 /lpf Urine Bacteria (Auto) 1+ NEG Urine Pathogenic Casts 0-3 GRANULAR CASTS 0 /lpf White Blood Count 15.10 4.8-10.8 K/uL Red Blood Count 4.88 4.2-5.4 M/uL Hemoglobin 13.3 12.0-16.0 g/dL Hematocrit 40.7 37-47 % Mean Corpuscular Volume 83.4 80-100 fL Mean Corpuscular Hemoglobin 27.3 25-34 pg Mean Corpuscular Hemoglobin Concent 32.7 32-36 g/dl RDW Standard Deviation 51.5 36.4-46.3 fL RDW Coefficient of Variation 17.0 11.5-14.5 % Platelet Count 333 130-400 K/uL Mean Platelet Volume 10.1 7.4-10.4 fL Sodium Level 143 136-145 mmol/L Potassium Level 3.7 3.5-5.1 mmol/L Chloride Level 103 98-107 mmol/L Carbon Dioxide Level 29 21-32 mmol/L Anion Gap 11.0 3-11 mmol/L Blood Urea Nitrogen 27 7-18 mg/dl Creatinine 1.40 0.60-1.20 mg/dl Est Creatinine Clear Calc Drug Dose 49.2 ml/min Estimated GFR () 44.0 Estimated GFR (Non- 38.0 BUN/Creatinine Ratio 19.2 10-20 Random Glucose 111 70-99 mg/dl Calcium Level 8.7 8.5-10.1 mg/dl Phosphorus Level 4.3 2.5-4.9 mg/dl Magnesium Level 2.2 1.8-2.4 mg/dl Procalcitonin 0.08 0-0.5 ng/mL
[2016-04-09] MEDS ORDERED: PROMETHAZINE HCL INJ 25 MG in SODIUM CHLORIDE 0.9% 50ML 50 ML IV PRN (15:15)
[2016-04-09] MEDS ORDERED: HYDROmorphone INJ 1 MG/ML SYR IV PRN ×2 (15:15→15:30)
--- NOTE | 2016-04-09 15:20 | Anesthesiology Progress Note ---
Anesthesia Progress Note Date of Service Apr 09, 2016. Progress Notes Report given to [employer].Pt remains intubated.Report completed,pt care turned over to ICU staff.
[2016-04-09] MEDS ORDERED: PROPOFOL IV EMULSION 10 MG/ML 100 ML VIAL IV ONE (15:26)
--- NOTE | 2016-04-09 15:28 | Anesthesiology Progress Note ---
Anesthesia Post Op Note Date & Time Apr 09, 2016 at 15:27 Vital Signs Pain Intensity: 0 Vital Signs Past 12 Hours Date Time Temp Pulse Resp B/P Pulse Ox O2 Delivery O2 Flow Rate FiO2 04/09/16 08:21 36.6 83 18 122/69 98 04/09/16 08:00 Room Air 04/09/16 04:00 Room Air 04/09/16 03:28 36.6 78 22 108/57 90 Room Air Notes Mental Status: see Notes (pt remains intubated) Pt Amnestic to Procedure: Yes Nausea / Vomiting: adequately controlled Pain: adequately controlled Airway Patency, RR, SpO2: stable & adequate BP & HR: stable & adequate Hydration State: stable & adequate Anesthetic Complications: no major complications apparent
[2016-04-09] MEDS ORDERED: PROPOFOL IV EMULSION 10 MG/ML 100 ML VIAL IV PRN ×2 (15:30→15:34)
[2016-04-09] MEDS ORDERED: NALOXONE HCL 0.4 MG/1 ML VIAL/CARP IV PRN (15:30)
[2016-04-09] MEDS ORDERED: PROMETHAZINE HCL INJ 12.5 MG in SODIUM CHLORIDE 0.9% 50ML 50 ML IV PRN ×4 (15:30)
[2016-04-09] MEDS ORDERED: ONDANSETRON INJ 2 MG/ML 2 ML VIAL IV PRN (15:30)
[2016-04-09] MEDS ORDERED: ATROPINE SULFATE 0.1 MG/ML 5ML SYR IV PRN (15:30)
[2016-04-09] MEDS ORDERED: EpHEDrine SULFATE INJ 50 MG/ML AMP IV PRN (15:30)
[2016-04-09] MEDS ORDERED: LABETALOL HCL IV 5 MG/ML 20ML IV PRN (15:30)
[2016-04-09] MEDS ORDERED: FLUMAZENIL 0.1 MG/1 ML 10 ML VIAL IV PRN (15:30)
[2016-04-09] MEDS: D5W AND LACTATED RINGERS 1,000 ML IV SCH ×2 (15:43→15:44)
[2016-04-09 15:57] LABS: BASO % 0.1 %; BASO ABS # 0.01 K/uL (0-0.2); HEMATOCRIT 39.6 % (37-47); IG% 0.3 %; LYMPH % 4.3 %; LYMPH ABS # 0.77 K/uL (1.2-3.4); MEAN CELL VOLUME 84.4 fL (80-100); MEAN CORPUSCULAR HEMOGLOBIN 27.1 pg (25-34); MEAN PLATELET VOLUME 10.5 fL (7.4-10.4); MONO % 7.3 %; PLATELET COUNT 339 K/uL (130-400); RED BLOOD COUNT 4.69 M/uL (4.2-5.4); WHITE BLOOD COUNT 17.76 K/uL (4.8-10.8)
--- NOTE | 2016-04-09 15:59 | DIAGNOSTIC IMAGING REPORT ---
CHEST ONE VIEW PORTABLE CLINICAL HISTORY: Intubation. Postoperative evaluation. COMPARISON STUDY: Chest radiograph April 08, 2016. FINDINGS: There is no pneumothorax or pleural effusion. Mild left basilar opacity favors atelectasis. The tip of the nasogastric tube projects over the proximal stomach or gastrojejunostomy. There is no evidence of pulmonary edema. Mild cardiomegaly is unchanged. The tip of the endotracheal tube is 3.1 cm above the kim IMPRESSION: 1. Tip of endotracheal tube 3.1 cm above the kim. 2. Mild left basilar opacity which favors atelectasis. 3. No pneumothorax. Electronically signed by: Sid Bravo M.D. 04/09/2016 3:57 PM Dictated Date/Time: 04/09/2016 3:53 PM
--- NOTE | 2016-04-09 16:01 | OPERATIVE REPORT ---
DATE OF OPERATION: 04/09/2016 NAME OF OPERATION: Laparotomy with extensive lysis of adhesions. PREOPERATIVE DIAGNOSIS: Small bowel obstruction. POSTOPERATIVE DIAGNOSIS: Same from dense extensive adhesions. STAFF SURGEON: Dr. Arsh Maldonado. LUGGAGE ATTENDANT: Azam Patel PA-C DESCRIPTION OF PROCEDURE: The patient was brought into the operating room and placed on the operating table in the supine position. Arterial line and Gamino catheter were placed after appropriate anesthetic. Pneumatic stockings were also placed. Her abdomen was prepped and draped in the usual fashion. Incision was made in the midline above the umbilicus and just below the umbilicus, carrying dissection down through significant adipose tissue, initially encountering a polypropylene mesh in the upper part of the incision over approximately 6-8 cm and then dense adhesions in the lower part of the incision. Upon inspection, the patient's small bowel was densely adherent to the fascia. Using a scalpel, I was able to slowly mobilize the tissue. It was evident that the patient had a very extensive dense adhesions, causing what I considered a hostile abdomen. With some difficulty, I was able to mobilize the distal ileum, which was considerably decompressed and I traced it to the cecum. Then moving more proximal, I was able to mobilize the small bowel with some difficulty, tracing it to the area of the anastomosis. I did have to increase the length of the incision superiorly because of the anastomosis being in the left upper quadrant and also the difficulty in identifying the Indigo-en-Y limb. I was eventually able to identify the Indigo-en-Y limb, which was decompressed and then the anastomosis and then the ligament of Treitz, which was dilated and on a CT scan, this was dilated back to the duodenum. There was no evidence of obstruction in this area. I do feel that the obstruction was from the patient's severe dense adhesions distally. After this was performed, the abdomen was irrigated. A 19 round Anderson-Montes drain placed into the pelvis, secured to the skin using 3-0 nylon suture and then the mesh reapproximated using interrupted #1 Ethibond suture. The abdominal fascia was reapproximated using both running and interrupted #1 PDS suture with retention sutures placed of #1 nylon. The subcutaneous tissue was reapproximated after placing a 15 round Anderson-Montes drain, securing it using 3-0 nylon suture. Skin was reapproximated using meche. The retention sutures secured and then, a binder placed after dressing and the patient transferred to the intensive care unit in stable condition. I did not want the patient to be combative on awakening and eviscerate. The operation took approximately 2 hours and 45 minutes, which was probably 1 hour additional secondary to the extensive adhesions. I attest to the content of the Intraoperative Record and any orders documented therein. Any exceptio ns are noted below.
[2016-04-09 16:08] LABS: COMPLETE YES; MEAN CORPUSCULAR HGB CONC 32.1 g/dl (32-36)
[2016-04-09 16:29] LABS: BUN/CREATININE RATIO 22.9 (10-20); CALCIUM 8.1 mg/dl (8.5-10.1); CREATININE 1.4 mg/dl (0.60-1.20); MAGNESIUM 1.9 mg/dl (1.8-2.4); PHOSPHORUS 2.7 mg/dl (2.5-4.9)
--- NOTE | 2016-04-09 16:53 | CRITICAL CARE CONSULTATION ---
DATE OF CONSULTATION: 04/09/2016 CHIEF COMPLAINT: Abdominal pain. HISTORY OF PRESENT ILLNESS: The patient is a 70-year-old morbidly obese female with a history of hypertension, who presented to the Emergency Department complaining of abdominal pain, which started 2 nights earlier as well as weakness. She developed nausea and vomiting and presented to the Emergency Department last night, where she was found to have a blood pressure of 204/118. She was given Zofran, 2 liters of normal saline, morphine and underwent CT scan of the abdomen, which revealed moderate grade partial small-bowel obstruction with transition within the anterior lower abdomen, likely within the mid ileum. Moderately dilated fluid filled duodenum without significant distention of the excluded stomach, status post Indigo-en-Y gastric bypass surgery. She was taken to the operating room today for an exploratory laparotomy and lysis of adhesions. In talking to Dr. Maldonado, he said it was a quite challenging surgery and there were possible adhesions. She was brought to the intensive care unit postoperatively due to concerns of her size and tension that might be put on the wound if she was to have difficulty on the ventilator. Intraoperatively, she had 2.3 liters of IV fluid, 100 mL of estimated blood loss and 60 mL of urine. There were no reported difficulties with her airway. She has a 7.0 endotracheal tube. PAST MEDICAL HISTORY: Hypertension, hyperlipidemia, subdural hematoma status post bur holes, and a Indigo-en-Y gastric bypass in 2002 resulting in an incisional hernia, which was repaired in 2006. She required a wound VAC at some point for that and has been seen by the wound center in January of last year secondary to a small abdominal wound. Chronic obstructive pulmonary disease, bronchitis, osteoarthritis, and chronic kidney disease. PAST SURGICAL HISTORY: Status post cataract extraction, gastric bypass in 2002, incisional hernia repair in 2006, bilateral rotator cuff surgery, hysterectomy with tubal ligation, cholecystectomy, left hip replacement, and bilateral knee replacements. ALLERGIES: TO OSELTAMIVIR, ASPIRIN, AND NSAIDS. PREHOSPITAL MEDICATIONS: Amlodipine 2.5 mg daily, Lipitor 20 mg daily, hydrochlorothiazide 12.5 mg daily and Robaxin 500 mg p.o. q.i.d. 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 She drinks alcohol occasionally and is a former smoker. FAMILY HISTORY: Significant for mother with COPD and father with seizures. REVIEW OF SYSTEMS: Not obtainable as she is intubated and sedated. PHYSICAL EXAMINATION: GENERAL: This is a morbidly obese woman, lying in bed, unresponsive to painful stimuli. VITAL SIGNS: As follows, temperature 37.2, heart rate 100, respiratory rate 26, blood pressure 130/81, and oxygen saturation 100%. Ventilator settings, assist control rate 12, tidal volume 450, FiO2 of 100%, and PEEP 5. HEENT: Pupils are about 2 mm and round. There are bilateral arcus senilis. Endotracheal tube is in place with an orogastric tube. NECK: Large. No adenopathy noted. LUNGS: Decreased breath sounds in the bilateral bases. Sounds are distant. No rales, rhonchi or wheezes. HEART: Tachycardic, regular, no murmurs. CHEST: Symmetric expansion with very pendulous breasts. ABDOMEN: Morbidly obese with a large bulky dressing, which is clean, dry and intact. There are 2 GONZALO drains, which appear to be coming from the left upper and lower quadrants, draining some primarily sanguinous, but thin nonclotting fluid. She has a binder in place after my exam. EXTREMITIES: Warm. No edema. LABORATORY DATA: Postop labs are pending. Preoperative BUN 27 and creatinine 1.4. Procalcitonin 0.08. IMAGING STUDIES: Portable chest x-ray postop revealed left basilar infiltrate, possible small effusion and an endotracheal tube about 3 cm above the kim. Preoperative EKG shows normal sinus rhythm with nonspecific ST-T wave changes. IMPRESSION: 1. Status post exploratory laparotomy and lysis of adhesions secondary to small bowel obstruction. 2. Postoperative respiratory failure. She is being kept sedated and intubated at least overnight due to concerns of pressure that might be put upon her fragile incision. 3. Hypertensive urgency in the Emergency Department. She is getting enalapril q. 6 hours and also has as-needed labetalol. 4. Chronic kidney disease, which may be worsening somewhat. Her creatinine is rising. 5. History of gastric bypass surgery. 6. Hyperlipidemia. 7. Osteoarthritis. PLAN: NEUROLOGIC: Continue propofol for sedation and use Dilaudid for pain control. Treat pain aggressively. PULMONARY: Check arterial blood gas and support and sedate on the ventilator overnight. Sedation vacation in the morning and possible extubation. Consider p.r.n. albuterol with a history of COPD, although she is not wheezing now. CARDIOVASCULAR: Discontinue the enalapril secondary to her renal insufficiency. Treat hypertension with labetalol and hydralazine. RENAL: Follow up labs and provide maintenance IV fluids. Continue Zosyn and follow any cultures. GASTROINTESTINAL: N.p.o. for now. Follow NG tube output and await return of bowel function. HEMATOLOGY: She is on subcutaneous heparin. ID: Continue zosyn post op for now. MISC: Begin Sc heparin tomorrow morning and provide PPI for GI prophylaxis. Critical care time 60 minutes. MTDD
[2016-04-09 16:57] LABS: ISTAT ARTERIAL BLOOD GAS HCO3 28 meq/L (19-24); ISTAT ARTERIAL BLOOD GAS PCO2 53 mmHg (35-46); ISTAT ARTERIAL BLOOD GAS PO2 212 mmHg (80-95); ISTAT ARTERIAL BLOOD GAS pH 7.33 (7.35-7.45); ISTAT CARBON DIOXIDE 29 mEq/l (24-31); ISTAT DELIVERY SYSTEM Ventilator; ISTAT FIO2 100 %; ISTAT PEEP 5; ISTAT RATE 12; ISTAT SITE Art Line; VE 6.8; Vt 450
[2016-04-09] MEDS: D5W AND 1/2NSS 1,000 ML IV SCH (17:10)
[2016-04-09] MEDS: HYDROmorphone INJ 2 MG/ML SYR/VIAL IV PRN ×2 (17:11→19:41)
[2016-04-09] MEDS: PROPOFOL IV EMULSION 10 MG/ML 100 ML VIAL IV PRN ×2 (17:11→19:42)
[2016-04-09] MEDS: HEPARIN SOD 5000 UNIT/0.5 ML CARP SQ SCH (17:12)
[2016-04-09] MEDS ORDERED: NURSING VERBAL MED ORDER ONE (17:15)
[2016-04-09 18:02] LABS: POTASSIUM 3.1 mmol/L (3.5-5.1)
[2016-04-09 18:06] VITALS: BP 114/71; PULSE 85; TEMP 37.2
[2016-04-09 20:00] VITALS: BP 109/59; PULSE 83; TEMP 36.7; O2SAT 100; O2SAT 99
[2016-04-09] MEDS ORDERED: SODIUM CHLORIDE 0.9% 1000ML 1,000 ML IV SCH (20:45)
[2016-04-09 22:00] VITALS: BP 113/91; PULSE 77; O2SAT 100
[2016-04-09 23:59] VITALS: O2SAT 100
[2016-04-10] VITALS (15 sets, daily range): BP systolic 108–171; BP diastolic 54–99; PULSE 69–81; TEMP 36.9–37; O2SAT 93–100
[2016-04-10] MEDS: D5W AND 1/2NSS 1,000 ML IV SCH ×2 (00:27→07:42)
[2016-04-10] MEDS: HYDROmorphone INJ 2 MG/ML SYR/VIAL IV PRN (01:19)
[2016-04-10] MEDS: CHLORHEXIDINE GLUCONATE 0.12% 480 ML MT SCH ×2 (01:21→07:41)
[2016-04-10] MEDS: PIPERACILL/TAZOBAC IV 4.5 GM in DEXTROSE 5% 100ML IV SCH (03:23)
[2016-04-10 05:47] LABS: HEMATOCRIT 35.6 % (37-47); MEAN CELL VOLUME 85.4 fL (80-100); MEAN CORPUSCULAR HEMOGLOBIN 27.3 pg (25-34); MEAN PLATELET VOLUME 10.7 fL (7.4-10.4); PLATELET COUNT 287 K/uL (130-400); RED BLOOD COUNT 4.17 M/uL (4.2-5.4); WHITE BLOOD COUNT 13.51 K/uL (4.8-10.8)
[2016-04-10] MEDS ORDERED: NURSING VERBAL MED ORDER ONE (06:00)
[2016-04-10] MEDS ORDERED: SODIUM CHLORIDE 0.9% 500ML 500 ML IV ONE (06:15)
[2016-04-10] MEDS ORDERED: DEXTROSE 10% 1,000 ML IV PRN (06:15)
[2016-04-10] MEDS ORDERED: TPN/PPN CONSULT PHARMACY PRN (06:15)
[2016-04-10] MEDS ORDERED: CUSTOM PERIPHERAL PN 1 BAG IV SCH (06:15)
[2016-04-10 06:28] LABS: BUN/CREATININE RATIO 23.4 (10-20); CALCIUM 7.5 mg/dl (8.5-10.1); CREATININE 1.4 mg/dl (0.60-1.20); MAGNESIUM 2.1 mg/dl (1.8-2.4); PHOSPHORUS 3.8 mg/dl (2.5-4.9); POTASSIUM 3.6 mmol/L (3.5-5.1)
[2016-04-10] MEDS ORDERED: FUROSEMIDE INJ 20 MG in SYRINGE 0 ML IV STA (06:33)
--- NOTE | 2016-04-10 06:38 | Surgery Progress Note ---
Surgery Progress Note Date of Service Apr 10, 2016. Subjective awake , on ventilator- HR, BP stable decreased urine output- given IV fluid boluses Objective Vital Signs: Date Time Temp Pulse Resp B/P Pulse Ox O2 Delivery O2 Flow Rate FiO2 04/10/16 05:30 50 04/10/16 04:00 100 Mechanical Ventilator 70 04/10/16 04:00 37.0 76 16 132/56 99 Mechanical Ventilator 70 04/10/16 04:00 70 04/10/16 02:30 70 04/10/16 02:00 81 16 127/59 95 Mechanical Ventilator 04/10/16 00:01 69 14 128/54 100 Mechanical Ventilator 70 04/09/16 23:59 70 04/09/16 23:59 100 Mechanical Ventilator 70 04/09/16 23:00 70 04/09/16 22:00 77 20 113/91 100 Mechanical Ventilator 70 04/09/16 20:00 70 04/09/16 20:00 100 Mechanical Ventilator 70 04/09/16 20:00 36.7 83 22 109/59 99 Mechanical Ventilator 70 04/09/16 20:00 70 04/09/16 18:06 37.2 85 16 114/71 Mechanical Ventilator 99 04/09/16 17:45 70 04/09/16 15:40 37.2 86 12 129/62 100 Mechanical Ventilator 100 04/09/16 15:30 37.2 100 26 130/81 100 Mechanical Ventilator 100 04/09/16 15:20 37.2 86 26 120/75 100 Mechanical Ventilator 100 04/09/16 15:15 100 04/09/16 15:10 37.3 90 19 117/66 100 Mechanical Ventilator 100 04/09/16 08:21 36.6 83 18 122/69 98 04/09/16 08:00 Room Air General Appearance: no apparent distress Respiratory/Chest: no respiratory distress (on vent) Abdomen: + distended (binder in place) Incision(s): intact, drainage (serosang) Laboratory Results: Results Past 24 Hours Test 04/09/16 15:43 04/09/16 16:44 04/10/16 05:15 Range/Units White Blood Count 17.76 13.51 4.8-10.8 K/uL Red Blood Count 4.69 4.17 4.2-5.4 M/uL Hemoglobin 12.7 11.4 12.0-16.0 g/dL Hematocrit 39.6 35.6 37-47 % Mean Corpuscular Volume 84.4 85.4 80-100 fL Mean Corpuscular Hemoglobin 27.1 27.3 25-34 pg Mean Corpuscular Hemoglobin Concent 32.1 32.0 32-36 g/dl Platelet Count 339 287 130-400 K/uL Mean Platelet Volume 10.5 10.7 7.4-10.4 fL Neutrophils (%) (Auto) 88.0 % Lymphocytes (%) (Auto) 4.3 % Monocytes (%) (Auto) 7.3 % Eosinophils (%) (Auto) 0.0 % Basophils (%) (Auto) 0.1 % Neutrophils # (Auto) 15.64 1.4-6.5 K/uL Lymphocytes # (Auto) 0.77 1.2-3.4 K/uL Monocytes # (Auto) 1.29 0.11-0.59 K/uL Eosinophils # (Auto) 0.00 0-0.5 K/uL Basophils # (Auto) 0.01 0-0.2 K/uL RDW Standard Deviation 52.9 54.2 36.4-46.3 fL RDW Coefficient of Variation 17.1 17.2 11.5-14.5 % Immature Granulocyte % (Auto) 0.3 % Immature Granulocyte # (Auto) 0.05 0.00-0.02 K/uL Sodium Level 138 140 136-145 mmol/L Potassium Level 3.1 3.6 3.5-5.1 mmol/L Chloride Level 101 104 98-107 mmol/L Carbon Dioxide Level 27 27 21-32 mmol/L Anion Gap 10.0 9.0 3-11 mmol/L Blood Urea Nitrogen 32 33 7-18 mg/dl Creatinine 1.40 1.40 0.60-1.20 mg/dl Est Creatinine Clear Calc Drug Dose 49.2 49.2 ml/min Estimated GFR () 44.0 44.0 Estimated GFR (Non- 38.0 38.0 BUN/Creatinine Ratio 22.9 23.4 10-20 Random Glucose 139 146 70-99 mg/dl Calcium Level 8.1 7.5 8.5-10.1 mg/dl Phosphorus Level 2.7 3.8 2.5-4.9 mg/dl Magnesium Level 1.9 2.1 1.8-2.4 mg/dl Blood Gas Sample Site Art Line Bedside Blood Gas pH (LAB) 7.33 7.35-7.45 Bedside Blood Gas pCO2 (LAB) 53 35-46 mmHg Bedside Blood Gas pO2 (LAB) 212 80-95 mmHg Bedside Blood Gas HCO3 (LAB) 28 19-24 meq/L Bedside Blood Gas Total CO2 29 24-31 mEq/l Bedside Blood Gas Base Excess (LAB) 2.0 -9-1.8 meq/L Bedside Blood Gas O2 Saturation 100.0 90-95 % Jaspal Test NA Oxygen Delivery Device Ventilator Bedside Oxygen Rate (breaths/min) 12 Blood Gas Minute Ventilation 6.8 Bedside FiO2 100 % Blood Gas Tidal Volume 450 Blood Gas PEEP 5 Assessment & Plan 04/10/16- s/p expl laparotomy- extensive, dense adhesions- enterolysis. No enterotomies or bowel resection. 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 No ischemia. wean from vent, pain control, will give dose of lasix, order ppn- will probably need picc/ or IJ line. NG will not function well with bypass- can d/c when extubated 04/09/16- adm with small bowel obstruction- film pending. Still concerned pt may need abd exploration , lysis of adhesions- reassess this am check labs 04/09/16- adm with small bowel obstruction- film pending. Still concerned pt may need abd exploration , lysis of adhesions- reassess this am check labs
--- NOTE | 2016-04-10 07:25 | DIAGNOSTIC IMAGING REPORT ---
CHEST ONE VIEW PORTABLE CLINICAL HISTORY: reps failure s/p ex lap pain COMPARISON STUDY: 04/09/2016 FINDINGS: Endotracheal tube 3 cm above the kim. Lungs are considered clear. Minimal bibasilar atelectasis improved from the prior study. Nasogastric tube within the stomach. IMPRESSION: Endotracheal tube 3 cm above the kim. Minimal bibasilar atelectasis improved from the prior study. Electronically signed by: Aidan Pham M.D. 04/10/2016 7:23 AM Dictated Date/Time: 04/10/2016 7:22 AM
[2016-04-10] MEDS: HYDROmorphone INJ 0.5 MG/0.5 ML SYR IV PRN ×2 (07:42→11:59)
[2016-04-10] MEDS: POTASSIUM CHLORIDE 20 MEQ/15 ML UDC PO ONE ×2 (08:00→08:46)
[2016-04-10] MEDS: PANTOprazole INJ 40 MG in SYRINGE 0 ML IV SCH (08:47)
[2016-04-10] MEDS ORDERED: METHOCARBAMOL 500 MG TAB PO ONE (09:30)
[2016-04-10] MEDS ORDERED: ALBUT/IPRATROP 3MG/0.5MG NEB 3 ML VIAL INH PRN (11:00)
--- NOTE | 2016-04-10 11:02 | Critical Care Progress Note ---
Critical Care Progress Note Date of Service Apr 10, 2016. ICU Day ICU Day Number: [address] Corral Subjective Sedates and intubated, opens eyes to voice and following simple commands. Explorative laparotomy and adhesiolysis 04/[address] Maldonado. Kept intubated overnight as concern if she desaturated and required CPAP/BiPAP then it would put additional pressure on the surgical scar. No acute issues overnight. On Vent Assist Control Rate 14, FiO2 50%, TV. 450 ml, PEEP 7. Objective VITAL SIGNS: were reviewed as above GENERAL: morbidly obese, sedated and intubated but awakes easily to voice. SKIN: Warm dry and pink HEAD: Normocephalic and atraumatic EYES: pupils equal and reactive to light NECK: Very large circumference, no Hx of SAYDA but also not had a sleep study LUNGS: coarse but equal breath sounds bilaterally auscultation, no respiratory distress, intubated in vent A/C rate 14, Fi O2 50%, TV 450 ml, PEEP 7. HEART: Regular rate and rhythm, quiet heart sounds 1+2, no murmurs ABDOMEN: Soft and nontender, dressing and abdominal band not removed but listened underneath and bowel sounds present EXTREMITIES: Warm and well perfused, no calf tenderness/swelling, trace pedal edema NEUROLOGICALLY: Awake alert and oriented without focal deficit. Cranial nerves 2 -12 intact. Cerebellar testing is within normal limits. There is no nystagmus. There is no facial droop. Speech is clear. Vision is grossly normal. MUSCULOSKELETAL: Good muscle tone. No evidence of trauma Assessment & Plan Assessment: 1. Small bowel obstruction s/p exploratory laparotomy and extensive adhesiolysis (04/09/16) 2. Postoperative respiratory failure. She is being kept sedated and intubated at least overnight due to concerns of pressure that might be put upon her fragile incision. 3. Hypertensive urgency in the Emergency Department. 4. Chronic kidney disease, Cr stable. 5. History of gastric bypass surgery (Elizabeth en Y). 6. Hyperlipidemia. 7. Osteoarthritis. Plan: Neuro: Continue propofol for sedation until she has PICC line in place and use Dilaudid for pain control. Treat pain aggressively to avoid increase abdominal pressure. Will take off propofol and attempt extubation later today. Pulmonary: As above sedation vacation PRN duonebs for wheezing, none currently. Cardiovascular: HTN - PRN labetalol, no needed any doses currently Renal//electrolytes: Continue D5 0.5NSS @ 125 MLS/HR. When TPN starts keep total fluid @ 125 MLS/HR. Continue to monitor PO, MG, CMP daily while on TPN. Cr appears stable at present @ 1.4 slightly above baseline. Continue to monitor ACEi held. Gastrointestinal: Continue NPO. Discussed with Dr Maldonado and will start TPN today. Can take NG tube out once extubated if not draining anything. B12, folate and iron profile tomorrow due to elizabeth en y procedure and possible need for vitamin/mineral replacement. Heme: Leukocytosis - stress, SIRS. No obvious source of infection but given extent of adhesions and prolonged surgery will cover potential abdominal/wound with cefoxitin 1g IV Q8H (stop Zosyn) as discussed with Dr Maldonado. Infectious Disease: As above discussed with Dr Maldonado and patient to receive 72 hours of cefoxitin. No cultures taken, if spikes temperature will get a blood culture. CXR shows atelectasis only. Miscellaneous: hold off on PT/OT at current time due preserve wound. VTE/GI Prophylaxis: Held post surgery and will be restarted @ 16:00, 5000 units Q12H Pantoprazole 40 mg IV daily Code Full Disposition - remain in ICU while intubated. Likely will be in ICU overnight to make sure stable, as probably has obstructive sleep apnea and will have to be cautious with use of NIV. Resident Physician Supervision Note: I interviewed and examined the patient. Discussed with Dr. Jacome and agree with findings and plan as documented in the note. Any exceptions or clarifications are listed here: She received lasix 40mg IV this morning from Dr. Maldonado and is starting TPN this afternoon. She is now extubated and I examined her prior to extubation. She continues to do well. Will order incentive spirometry as well as PT/OT for tomorrow. Keep fluids at 125ml/hr total with TPN. Abx for 72 hours. D/C radial a line later today or tomorrow. Potassium has been ordered. Family was updated. Her biggest risks are respiratory insufficiency due to her obesity in combination with pain meds as well as poor wound healing. Critical care time 45 min. Documented By: Frida Corral Consults & Procedures Consultants: [facility] consult - Dr Maldonado Procedures: 04/09/16 - Explorative laparotomy and extensive adhesiolysis - Dr Maldonado Data Medications: Current Inpatient Medications Medications (Trade) Dose Ordered Sig/Martha Route Start Time Stop Time Status Last Admin Dose Admin Ioversol (Optiray 320) 120 ml UD PRN IV 04/08/16 11:00 04/12/16 10:59 Hydromorphone HCl 1 mg 1 mg Q3H PRN IV 04/08/16 17:45 04/22/16 17:44 04/09/16 02:09 1 MG Acetaminophen (Ofirmev Iv) 100 ml @ 400 mls/hr Q8H PRN IV 04/08/16 17:45 05/08/16 17:44 Labetalol HCl 10 mg 10 mg Q1H PRN IV 04/08/16 17:45 05/08/16 17:44 Piperacillin Sod/ Tazobactam Sod/ Dextrose (Zosyn Iv/D5 100ml) 120 ml @ 30 mls/hr Q8H IV 04/09/16 04:00 04/19/16 03:59 04/10/16 03:23 30 MLS/HR Piperacillin Sod/ Tazobactam Sod (Consult) 1 ea UD PRN N/A 04/08/16 22:30 05/08/16 22:29 Hydromorphone HCl (Dilaudid Inj) 0.5 mg Q3H PRN IV 04/09/16 15:15 04/23/16 15:14 04/10/16 07:42 0.5 MG Hydromorphone HCl 2 mg 2 mg Q3H PRN IV 04/09/16 15:15 04/23/16 15:14 04/10/16 01:19 2 MG Promethazine HCl 25 mg/Sodium Chloride 51 ml @ 204 mls/hr Q6H PRN IV 04/09/16 15:15 05/09/16 15:14 Pantoprazole Sodium/Syringe (Protonix Inj/ Syringe) 10 ml @ 5 mls/min DAILY@11 IV 04/10/16 11:00 05/10/16 10:59 04/10/16 08:47 5 MLS/MIN Heparin Sodium (Porcine) (Heparin Sq 5000 Unit/0.5ml) 5,000 unit Q12H SQ 04/09/16 16:00 05/09/16 15:59 Future hold Ondansetron HCl 4 mg 4 mg Q6H PRN IV 04/09/16 15:15 05/09/16 15:14 Promethazine HCl/ Sodium Chloride (Phenergan Inj/ Nss 50ml) 50.5 ml @ 204 mls/hr Q6H PRN IV 04/09/16 15:30 05/09/16 15:29 Chlorhexidine Gluconate (Peridex Oral Soln) 15 ml BID MT 04/09/16 21:00 05/09/16 20:59 04/10/16 07:41 15 ML Propofol 1 dose 1 dose UD PRN IV 04/09/16 15:34 04/12/16 15:33 04/10/16 06:03 1 DOSE Dextrose/Sodium Chloride 1,000 ml @ 125 mls/hr Q8H IV 04/09/16 17:00 05/09/16 16:59 04/10/16 07:42 125 MLS/HR Nutrition (Parenteral) 0 ml @ 0 mls/hr TODAY IV 04/10/16 06:15 04/11/16 06:14 UNV Dextrose (D10w) 1,000 ml @ 0 mls/hr Q0M PRN IV 04/10/16 06:15 05/10/16 06:14 Miscellaneous Information (Pharmacy Tpn/ Ppn Consult Active) 1 ea UD PRN N/A 04/10/16 06:15 05/10/16 06:14 I & O: 24-Hour Column 04/10/16 07:59 Intake Total 3056 ml Output Total 505 ml Balance 2551 ml Vital Signs: Date Time Temp Pulse Resp B/P Pulse Ox O2 Delivery O2 Flow Rate FiO2 04/10/16 08:00 78 14 148/59 99 Mechanical Ventilator 50 04/10/16 08:00 99 Mechanical Ventilator 50 04/10/16 08:00 50 04/10/16 06:00 72 14 157/99 100 Mechanical Ventilator 50 04/10/16 05:30 50 04/10/16 04:00 100 Mechanical Ventilator 70 04/10/16 04:00 37.0 76 16 132/56 99 Mechanical Ventilator 70 04/10/16 04:00 70 04/10/16 02:30 70 04/10/16 02:00 81 16 127/59 95 Mechanical Ventilator 04/10/16 00:01 69 14 128/54 100 Mechanical Ventilator 70 04/09/16 23:59 70 04/09/16 23:59 100 Mechanical Ventilator 70 04/09/16 23:00 70 04/09/16 22:00 77 20 113/91 100 Mechanical Ventilator 70 04/09/16 20:00 70 04/09/16 20:00 100 Mechanical Ventilator 70 04/09/16 20:00 36.7 83 22 109/59 99 Mechanical Ventilator 70 04/09/16 20:00 70 04/09/16 18:06 37.2 85 16 114/71 Mechanical Ventilator 99 04/09/16 17:45 70 04/09/16 15:40 37.2 86 12 129/62 100 Mechanical Ventilator 100 04/09/16 15:30 37.2 100 26 130/81 100 Mechanical Ventilator 100 04/09/16 15:20 37.2 86 26 120/75 100 Mechanical Ventilator 100 04/09/16 15:15 100 04/09/16 15:10 37.3 90 19 117/66 100 Mechanical Ventilator 100 Laboratory Results: Last 24 Hours Test 04/09/16 15:43 04/09/16 16:44 04/10/16 05:15 White Blood Count 17.76 K/uL 13.51 K/uL Red Blood Count 4.69 M/uL 4.17 M/uL Hemoglobin 12.7 g/dL 11.4 g/dL Hematocrit 39.6 % 35.6 % Mean Corpuscular Volume 84.4 fL 85.4 fL Mean Corpuscular Hemoglobin 27.1 pg 27.3 pg Mean Corpuscular Hemoglobin Concent 32.1 g/dl 32.0 g/dl Platelet Count 339 K/uL 287 K/uL Mean Platelet Volume 10.5 fL 10.7 fL Neutrophils (%) (Auto) 88.0 % Lymphocytes (%) (Auto) 4.3 % Monocytes (%) (Auto) 7.3 % Eosinophils (%) (Auto) 0.0 % Basophils (%) (Auto) 0.1 % Neutrophils # (Auto) 15.64 K/uL Lymphocytes # (Auto) 0.77 K/uL Monocytes # (Auto) 1.29 K/uL Eosinophils # (Auto) 0.00 K/uL Basophils # (Auto) 0.01 K/uL RDW Standard Deviation 52.9 fL 54.2 fL RDW Coefficient of Variation 17.1 % 17.2 % Immature Granulocyte % (Auto) 0.3 % Immature Granulocyte # (Auto) 0.05 K/uL Sodium Level 138 mmol/L 140 mmol/L Potassium Level 3.1 mmol/L 3.6 mmol/L Chloride Level 101 mmol/L 104 mmol/L Carbon Dioxide Level 27 mmol/L 27 mmol/L Anion Gap 10.0 mmol/L 9.0 mmol/L Blood Urea Nitrogen 32 mg/dl 33 mg/dl Creatinine 1.40 mg/dl 1.40 mg/dl Est Creatinine Clear Calc Drug Dose 49.2 ml/min 49.2 ml/min Estimated GFR () 44.0 44.0 Estimated GFR (Non- 38.0 38.0 BUN/Creatinine Ratio 22.9 23.4 Random Glucose 139 mg/dl 146 mg/dl Calcium Level 8.1 mg/dl 7.5 mg/dl Phosphorus Level 2.7 mg/dl 3.8 mg/dl Magnesium Level 1.9 mg/dl 2.1 mg/dl Blood Gas Sample Site Art Line Bedside Blood Gas pH (LAB) 7.33 Bedside Blood Gas pCO2 (LAB) 53 mmHg Bedside Blood Gas pO2 (LAB) 212 mmHg Bedside Blood Gas HCO3 (LAB) 28 meq/L Bedside Blood Gas Total CO2 29 mEq/l Bedside Blood Gas Base Excess (LAB) 2.0 meq/L Bedside Blood Gas O2 Saturation 100.0 % Jaspal Test NA Oxygen Delivery Device Ventilator Bedside Oxygen Rate (breaths/min) 12 Blood Gas Minute Ventilation 6.8 Bedside FiO2 100 % Blood Gas Tidal Volume 450 Blood Gas PEEP 5 Resident Tracking Resident Involvement: Resident Care Provided Care Provided: Adult Hospital Medicine (ICU)
[2016-04-10] MEDS: LABETALOL HCL IV 5 MG/ML 20ML IV PRN (11:45)
[2016-04-10] MEDS: CEFOXITIN IV 1,000 MG in DEXTROSE 5% 50ML 50 ML IV SCH ×2 (11:46→20:59)
--- NOTE | 2016-04-10 13:05 | Pharmacy Progress Note ---
Parenteral Nutrition Consult Date of Service Apr 10, 2016. Scope Pharmacy has been consulted to manage parenteral nutrition orders and order appropriate labs. As part of the Nutrition Support Team guidelines, pharmacy will work in conjunction with dietary when determining the patients caloric needs. Subjective The patient is a 70 year old female admitted on Apr 08, 2016 at 16:07 for sm bowel obstruction requiring exp lap w/ MATT on 04/09/16. Pertinent PMH: * Gastric Bypass * CKD3 * Hyperlipidemia * h/o incisional hernia repair * Abdominal wound * HTN * SDH Objective Height (Feet): 5 Height (Inches): 5.00 Weight (Kilograms): 129.300 Diet: NPO Vascular Access: PICC line is being placed Intake & Output (Last 72 Hr): 04/08/16 04/09/16 04/10/16 07:59 07:59 07:59 Intake Total 937 ml 3056 ml Output Total 350 ml 505 ml Balance 587 ml 2551 ml Additional Fluid Losses/Gains: D5 1/2 NS @ 125cc/hr IV ABX provide ~150cc/day Laboratory Data (Last 24 Hr): Test 04/09/16 15:43 04/10/16 05:15 Blood Urea Nitrogen 32 mg/dl (7-18) 33 mg/dl (7-18) Calcium Level 8.1 mg/dl (8.5-10.1) 7.5 mg/dl (8.5-10.1) Carbon Dioxide Level 27 mmol/L (21-32) 27 mmol/L (21-32) Chloride Level 101 mmol/L (98-107) 104 mmol/L (98-107) Creatinine 1.40 mg/dl (0.60-1.20) 1.40 mg/dl (0.60-1.20) Magnesium Level 1.9 mg/dl (1.8-2.4) 2.1 mg/dl (1.8-2.4) Phosphorus Level 2.7 mg/dl (2.5-4.9) 3.8 mg/dl (2.5-4.9) Potassium Level 3.1 mmol/L (3.5-5.1) 3.6 mmol/L (3.5-5.1) Random Glucose 139 mg/dl (70-99) 146 mg/dl (70-99) Sodium Level 138 mmol/L (136-145) 140 mmol/L (136-145) Recent Pertinent Medications: Propofol was running @ 30mcg/kg/min this AM but was being weaned down for a SBT ; if running at 30mcg/kg/min would provide ~23cc/hr or ~600kcal from fat per day Pantoprazole IVP Phenergan IVPB Zofran IVP Nutrition Assessment See pvc monitor's assessment Assessment 70 yo female admitted with SBO requiring exp lap w/ MATT She required intubation and remains intubated this AM, sedated with propofol, which is providing significant fat calories. There are plans to wean propofol and conduct a SBT today. TPN prepared per provider's request. If a PICC line is not successfully placed today, cna pct plans to place a central line. She could be at risk for refeeding syndrome given her h/o gastric bypass and associated malabsorption. She has been receiving Dextrose containing IVF's along w/ the propofol following surgery and thus far large e-lyte shifts have not been observed. Dextrose containing IVF's would have provided ~150gm dextrose per day. Will plan to continue the same dextrose quantity today and add lower end of Protein requirement to today's bag. No fats will be added to the bag given the possibility that propofol may continue into tomorrow if not extubated today. Given refeeding risks, will check e-lytes this evening and tomorrow AM. E-lytes reviewed. Calcium appears low, albumin not low - will supplement in TPN. Other e-lytes will be added in usual amounts - moderate amounts K, Mg and Phos added should refeeding occur. TPN to be mixed in minimum volume. Provider will be changing maintenance IVF's to 1/2 NS when TPN hung. Total IVF's are to run at 125cc/hr (TPN + maint IVF's ) per provider's order. Plan For day 1 of PN administration, the following will be ordered: Macronutrients Amino acids 115 grams/day Dextrose 150 grams/day Lipids 0 grams/day Micronutrients Combined electrolytes 0 mL - contains 35 mEq Na, 20 meq K, 4.5 mEq Ca, 5 mEq Mg , 35 mEq Cl, 29.5 mEq acetate per 20 mL Sodium phosphate 0 MMol Sodium chloride 50 mEq Sodium acetate 0 mEq Potassium phosphate 21 mMol Potassium chloride 40 mEq Potassium acetate 10 mEq Magnesium sulfate 8.12 mEq Calcium gluconate 9.3 mEq Multivitamins 10 mL Trace Elements 1 mL Additional additives: Thiamine 200mg Total volume 1449 mL to be infused over 24 hrs will provide 970 kcal/day Labs to be ordered per PN order protocol Pharmacy will follow and adjust parenteral nutrition orders on a daily basis. Thank you.
[2016-04-10] MEDS: HYDROmorphone INJ 1 MG/ML SYR IV PRN ×2 (14:12→21:13)
[2016-04-10] MEDS ORDERED: [UNRECOGNIZED DRUG - REMARK] ONE (16:00)
[2016-04-10] MEDS ORDERED: CUSTOM CENTRAL PN 1 BAG IV SCH (16:00)
[2016-04-10] MEDS: SODIUM CHLORIDE 0.45% 1000ML 1,000 ML IV SCH ×2 (16:00→17:46)
[2016-04-10] MEDS: ACETAMINOPHEN IV 100 ML IV PRN (16:01)
--- NOTE | 2016-04-10 16:39 | Progress Note ---
Internal Med Progress Note Date of Service: Apr 10, 2016. Provider Documentation: SUBJECTIVE: The patient was seen and examined S/P expl laparotomy- extensive, dense adhesions- enterolysis. Patient in Intubated in ICU OBJECTIVE: Vital Signs-as noted below Exam: General-no distress at rest Remains stable on VENT Eyes-Normal ENT-normal Neck-supple Lungs-Clear to auscultate bilaterally Heart-Regular Abdomen-Mildly distended,tender epigastrium ,bowel sound exaggerated Extremities-No edema Neuro-AA Lab data as noted below. ASSESSMENT & PLAN: S/P expl laparotomy- extensive, dense adhesions- enterolysis. Remains stable on VENT in ICU -management as per [employer] NG suction TPN has been Started RECURRENT SMALL BOWEL OBSTRUCTION H/O Gastric Bypass years ago Clinical picture and CT consistent with partial small bowel obstruction, Most likely secondary to adhesions from previous surgeries. NPO,NGT suction,Analgesic and Antibiotic Consult General Surgery.-appreciated input No contraindication to surgery HYPERTENSIVE URGENCY Likely secondary to Anxiety History of hypertension, managed with HCTZ + amlodipine. BP 200/118 in ED, improved with analgesics. IV enalapril + PRN IV labetalol while NPO. BP is controlled now Labetalol IV as needed Acute Renal Failure Creatinine elevated Continue IF fluid Monitor PRP-Creatinine remains elevated at 1.4 LEUKOCYTOSIS WBC = 17,440.on admission Likely secondary to Bowel obstruction -no perforation. No infiltrates on chest x-ray. UA does not look infected. Empiric Rx with IV piperacillin / tazobactam. Antibiotic is changed to Cefoxitin for broader coverage 04/10/16 VTE PROPHYLAXIS No anticoagulants at this time in case surgical intervention is necessary. SCD's. Ambulate as able. RESUSCITATION STATUS Full code DISPOSITION Admit to Telemetry Unit due to hypertensive urgency and need for parenteral cardiovascular meds. Expected discharge to home. Medical follow-up with Dr. Escamilla. Vital Signs: Date Time Temp Pulse Resp B/P Pulse Ox O2 Delivery O2 Flow Rate FiO2 04/10/16 14:00 80 14 108/60 93 Nasal Cannula 2.0 04/10/16 12:00 Mechanical Ventilator 30 04/10/16 12:00 50 04/10/16 12:00 74 14 142/58 95 Mechanical Ventilator 30 04/10/16 11:20 50 04/10/16 10:29 80 18 171/74 96 Mechanical Ventilator 30 04/10/16 08:00 Mechanical Ventilator 50 04/10/16 08:00 78 14 148/59 99 Mechanical Ventilator 50 04/10/16 08:00 99 Mechanical Ventilator 50 04/10/16 08:00 50 04/10/16 07:30 50 04/10/16 06:00 72 14 157/99 100 Mechanical Ventilator 50 04/10/16 05:30 50 04/10/16 04:00 100 Mechanical Ventilator 70 04/10/16 04:00 37.0 76 16 132/56 99 Mechanical Ventilator 70 04/10/16 04:00 70 04/10/16 02:30 70 04/10/16 02:00 81 16 127/59 95 Mechanical Ventilator 04/10/16 00:01 69 14 128/54 100 Mechanical Ventilator 70 04/09/16 23:59 70 04/09/16 23:59 100 Mechanical Ventilator 70 04/09/16 23:00 70 04/09/16 22:00 77 20 113/91 100 Mechanical Ventilator 70 04/09/16 20:00 70 04/09/16 20:00 100 Mechanical Ventilator 70 04/09/16 20:00 36.7 83 22 109/59 99 Mechanical Ventilator 70 04/09/16 20:00 70 04/09/16 18:06 37.2 85 16 114/71 Mechanical Ventilator 99 04/09/16 17:45 70 Lab Results: Results Past 24 Hours Test 04/09/16 16:44 04/10/16 05:15 Range/Units Blood Gas Sample Site Art Line Bedside Blood Gas pH (LAB) 7.33 7.35-7.45 Bedside Blood Gas pCO2 (LAB) 53 35-46 mmHg Bedside Blood Gas pO2 (LAB) 212 80-95 mmHg Bedside Blood Gas HCO3 (LAB) 28 19-24 meq/L Bedside Blood Gas Total CO2 29 24-31 mEq/l Bedside Blood Gas Base Excess (LAB) 2.0 -9-1.8 meq/L Bedside Blood Gas O2 Saturation 100.0 90-95 % Jaspal Test NA Oxygen Delivery Device Ventilator Bedside Oxygen Rate (breaths/min) 12 Blood Gas Minute Ventilation 6.8 Bedside FiO2 100 % Blood Gas Tidal Volume 450 Blood Gas PEEP 5 White Blood Count 13.51 4.8-10.8 K/uL Red Blood Count 4.17 4.2-5.4 M/uL Hemoglobin 11.4 12.0-16.0 g/dL Hematocrit 35.6 37-47 % Mean Corpuscular Volume 85.4 80-100 fL Mean Corpuscular Hemoglobin 27.3 25-34 pg Mean Corpuscular Hemoglobin Concent 32.0 32-36 g/dl RDW Standard Deviation 54.2 36.4-46.3 fL RDW Coefficient of Variation 17.2 11.5-14.5 % Platelet Count 287 130-400 K/uL Mean Platelet Volume 10.7 7.4-10.4 fL Sodium Level 140 136-145 mmol/L Potassium Level 3.6 3.5-5.1 mmol/L Chloride Level 104 98-107 mmol/L Carbon Dioxide Level 27 21-32 mmol/L Anion Gap 9.0 3-11 mmol/L Blood Urea Nitrogen 33 7-18 mg/dl Creatinine 1.40 0.60-1.20 mg/dl Est Creatinine Clear Calc Drug Dose 49.2 ml/min Estimated GFR () 44.0 Estimated GFR (Non- 38.0 BUN/Creatinine Ratio 23.4 10-20 Random Glucose 146 70-99 mg/dl Calcium Level 7.5 8.5-10.1 mg/dl Phosphorus Level 3.8 2.5-4.9 mg/dl Magnesium Level 2.1 1.8-2.4 mg/dl
[2016-04-10] MEDS: HEPARIN SOD 5000 UNIT/0.5 ML CARP SQ SCH (17:46)
[2016-04-10] MEDS: POTASSIUM CHLR 20 MEQ / WTR 20 MEQ in PREMIXED WATER 100 ML IV SCH ×2 (20:59→23:10)
[2016-04-10 23:18] LABS: PHOSPHORUS 2.7 mg/dl (2.5-4.9)
[2016-04-11] VITALS (23 sets, daily range): BP systolic 141–175; BP diastolic 57–81; PULSE 69–94; TEMP 37; O2SAT 90–99
[2016-04-11] MEDS: HYDROmorphone INJ 1 MG/ML SYR IV PRN ×3 (00:32→23:56)
[2016-04-11] MEDS: POTASSIUM CHLR 20 MEQ / WTR 20 MEQ in PREMIXED WATER 100 ML IV SCH (01:29)
[2016-04-11] MEDS: HEPARIN SOD 5000 UNIT/0.5 ML CARP SQ SCH ×2 (03:31→16:05)
[2016-04-11] MEDS: CEFOXITIN IV 1,000 MG in DEXTROSE 5% 50ML 50 ML IV SCH ×3 (03:36→21:06)
[2016-04-11 06:35] LABS: BASO % 0.1 %; BASO ABS # 0.02 K/uL (0-0.2); COMPLETE YES; EOS % 0.8 %; HEMATOCRIT 34.6 % (37-47); IG% 0.6 %; LYMPH % 8.4 %; LYMPH ABS # 1.22 K/uL (1.2-3.4); MEAN CELL VOLUME 84.4 fL (80-100); MEAN CORPUSCULAR HEMOGLOBIN 26.3 pg (25-34); MEAN CORPUSCULAR HGB CONC 31.2 g/dl (32-36); MEAN PLATELET VOLUME 10.3 fL (7.4-10.4); MONO % 11.5 %; NEUT % 78.6 %; PLATELET COUNT 279 K/uL (130-400); WHITE BLOOD COUNT 14.47 K/uL (4.8-10.8)
--- NOTE | 2016-04-11 07:27 | DIAGNOSTIC IMAGING REPORT ---
CHEST ONE VIEW PORTABLE CLINICAL HISTORY: respiratory failure COMPARISON STUDY: 04/10/2016 FINDINGS: The cardiac and mediastinal contours remain stable. There has been interval removal of the endotracheal tube and nasogastric tubes. A right-sided PICC catheter has been placed the tip of which projects over the superior vena cava. There is no failure. There are progressive left basilar opacities, likely atelectatic. There is persistent right perihilar atelectasis. There is no significant pleural fluid.[ IMPRESSION: 1. Interval removal of the endotracheal tube and nasogastric tube 2. Interval placement of a right-sided PICC catheter 3. Progressive left basilar opacities, likely atelectatic. Right perihilar atelectasis Electronically signed by: Urbano Parry M.D. 04/11/2016 7:26 AM Dictated Date/Time: 04/11/2016 7:24 AM
[2016-04-11 07:43] LABS: ALB/GLOB RATIO 0.6 (0.9-2); CALCIUM 8.1 mg/dl (8.5-10.1); MAGNESIUM 2.1 mg/dl (1.8-2.4); PHOSPHORUS 1.8 mg/dl (2.5-4.9); POTASSIUM 4.1 mmol/L (3.5-5.1)
[2016-04-11] MEDS: SODIUM CHLORIDE 0.45% 1000ML 1,000 ML IV SCH (08:14)
[2016-04-11] MEDS: LABETALOL HCL IV 5 MG/ML 20ML IV PRN (08:14)
[2016-04-11] MEDS ORDERED: SODIUM PHOSPHATE 3 MMOL/1 ML INFUSION IV STA ×2 (08:24→17:28)
[2016-04-11] MEDS ORDERED: ENALAPRILAT IV 2.5 MG in DEXTROSE 5% 25ML 25 ML IV SCH (08:30)
[2016-04-11] MEDS ORDERED: FUROSEMIDE 40 MG/4 ML VIAL IV STA (08:45)
[2016-04-11] MEDS ORDERED: SODIUM PHOSPHATE INJ 15 MMOL in SODIUM CHLORIDE 0.9% 250ML 250 ML IV ONE (08:45)
[2016-04-11] MEDS ORDERED: MAGNESIUM SULFATE 1GM / D5W 1 GM in PREMIXED IN D5W 100 ML IV ONE (09:00)
--- NOTE | 2016-04-11 11:17 | CRITICAL CARE PROGRESS NOTE ---
DATE: 04/11/2016 HISTORY OF PRESENT ILLNESS: This is a 70-year-old woman who is postop day 2, status post exploratory laparotomy and lysis of adhesions for small bowel obstruction. She has a history of gastric bypass and a ventral hernia repair with some wound healing problems in the past. She was extubated successfully yesterday and has no specific complaints today other than she did not get much sleep. Her nurse tells me she was nauseated overnight and received Zofran and Phenergan. She denies nausea presently and denies shortness of breath. She had several runs of ventricular tachycardia, the most recent being 14 beats this morning around 8:25 a.m. She was sleeping at that time. She is passing flatus and has expressed interest in taking some ice chips. She is getting labetalol and hydralazine as needed for hypertension. Her pain is adequately controlled with Dilaudid according to her. TPN was started yesterday. PHYSICAL EXAMINATION: VITAL SIGNS: Maximum temperature 37, heart rate 80, respiratory rate 15-21, blood pressure 109-175/60s-80s, oxygen saturation 95% on 2 liters nasal cannula. 24-hour fluid balance is positive 2.7 liters. GONZALO #1 had 30 mL over 24 hours. GONZALO #2 had 35 mL over 24 hours. NEUROLOGIC: She awakens and is able to carry on a conversation. She follows commands and moves all 4 extremities. LUNGS: Sounds are distant but clear when I listen posteriorly. No rales, rhonchi or wheezes. HEART: Regular rate and rhythm, no murmurs. ABDOMEN: Obese with a binder in place. GONZALO drain x2 with minimal output. EXTREMITIES: Warm. No edema. She has a right upper extremity PICC line. LABORATORY DATA: White blood cell count 14.47, hemoglobin 10.8, hematocrit 34.6, platelets 279. Sodium 138, potassium 4.1, chloride 103, CO2 28, BUN 27, creatinine 1, blood sugar 120, calcium 8.1, phosphorus 1.8. Total protein 6.2, albumin 2.2. MEDICATIONS: Acetaminophen, DuoNeb, cefoxitin day 2, subcutaneous heparin, Dilaudid, labetalol, TPN, Zofran, Protonix, promethazine, normal saline at 65 mL per hour. IMAGING: Portable chest x-ray from this morning was reviewed and shows progressive left basilar opacities, likely atelectatic and right perihilar atelectasis. IMPRESSION: 1. Postop day #2 status post exploratory laparotomy and lysis of adhesions secondary to small bowel obstruction, doing well and passing some flatus. 2. Postoperative respiratory failure, resolved, extubated 04/10/2016. 3. Protein-calorie malnutrition with history of problematic abdominal wound healing in the past. 4. Nonsustained ventricular tachycardia with 2 runs since 6:00 this morning. None further. She has no chest pain and electrolytes are being repleted. 5. Hypertension, I do not think this is secondary to pain. She takes amlodipine and hydrochlorothiazide as an outpatient, but is presently n.p.o. and getting PRN hydralazine and labetalol. 6. History of chronic kidney disease, improved. 7. Hypertensive urgency in the Emergency Department, resolved. 8. History of gastric bypass. 9. History of subdural hematoma requiring sammi holes. 10. Morbid obesity. 11. Osteoarthritis. PLAN: 1. Neurologic: Continue Dilaudid for pain. 2. Pulmonary: I do not see an incentive spirometer in her room. I will order that. 3. Cardiovascular: Replete electrolytes. Scheduled Lopressor was added today. Discontinue arterial line. 4. Gastrointestinal: Await surgery recommendations. She was nauseated last night but I have given her some ice chips today. Consider advancing diet if she is not nauseated. 5. Infectious disease: No acute issues. White blood cell count is still mildly elevated but there are no signs of infection. She is on antibiotics for [address] Maldonado's request. 6. Renal: Creatinine has improved. I have given her 40 mg of IV Lasix x1. 7. Fluids, electrolytes and nutrition: Continue TPN and adjust fluids for a total intake of 125 mL per hour. Consider discontinuing IV fluids altogether. Replete electrolytes and recheck them this afternoon. 8. Prophylaxis: She is on subcutaneous heparin b.i.d. as well as a proton pump inhibitor. Consider adding Pepcid to her TPN and increasing her heparin to q. 8 hours. 9. Physical therapy, occupational therapy have been ordered and I would like to get her out of bed today. MTDD
--- NOTE | 2016-04-11 11:19 | Progress Note ---
Internal Med Progress Note Date of Service: Apr 11, 2016. Provider Documentation: SUBJECTIVE: The patient was seen and examined S/P expl laparotomy- extensive, dense adhesions- enterolysis. Patient extubated and doing well BP is on the higher side OBJECTIVE: Vital Signs-as noted below Exam: General-no distress at rest Eyes-Normal ENT-normal Neck-supple Lungs-Clear to auscultate bilaterally With decreased breath sound bilaterally Heart-Regular Abdomen-Mildly distended,tender epigastrium ,bowel sound exaggerated Extremities-No edema Neuro-AA Lab data as noted below. ASSESSMENT & PLAN: S/P expl laparotomy- extensive, dense adhesions- enterolysis. POD#01 Extubated and NGT is out Remains stable Has been on TPN Electrolytes abnormalities Will supplement Monitor electrolytes Nonsustained VT Short runs No symptoms Has been started on IV Lopressor round the clock Monitor RECURRENT SMALL BOWEL OBSTRUCTION H/O Gastric Bypass years ago Clinical picture and CT consistent with partial small bowel obstruction, Most likely secondary to adhesions from previous surgeries. NPO,NGT suction,Analgesic and Antibiotic Consult General Surgery.-appreciated input No contraindication to surgery S/P expl laparotomy- extensive, dense adhesions- enterolysis. HYPERTENSIVE URGENCY Likely secondary to Anxiety History of hypertension, managed with HCTZ + amlodipine. BP 200/118 in ED, improved with analgesics. IV enalapril + PRN IV labetalol while NPO. BP is controlled now Labetalol IV as needed Lopressor IV started Acute Renal Failure Creatinine elevated Continue IF fluid Monitor PRP-Creatinine remains elevated at 1.4 LEUKOCYTOSIS WBC = 17,440.on admission Likely secondary to Bowel obstruction -no perforation. No infiltrates on chest x-ray. UA does not look infected. Empiric Rx with IV piperacillin / tazobactam. Antibiotic is changed to Cefoxitin for broader coverage 04/10/16 VTE PROPHYLAXIS No anticoagulants at this time in case surgical intervention is necessary. SCD's. Ambulate as able. RESUSCITATION STATUS Full code DISPOSITION Admit to Telemetry Unit due to hypertensive urgency and need for parenteral cardiovascular meds. Expected discharge to home. Medical follow-up with Dr. Escamilla. Vital Signs: Date Time Temp Pulse Resp B/P Pulse Ox O2 Delivery O2 Flow Rate FiO2 04/11/16 10:00 37.0 78 23 170/75 95 Nasal Cannula 2.0 166/59 04/11/16 08:00 95 Nasal Cannula 2.0 04/11/16 08:00 37.0 72 23 172/72 95 Nasal Cannula 2.0 157/57 04/11/16 06:00 81 21 160/60 95 04/11/16 05:00 94 15 95 04/11/16 04:12 97 Nasal Cannula 2.0 04/11/16 04:00 82 18 96 04/11/16 03:00 81 17 97 04/11/16 02:00 79 18 169/60 90 04/11/16 01:00 37.0 82 16 97 04/11/16 00:22 97 Nasal Cannula 2.0 04/11/16 00:00 79 31 175/81 99 04/10/16 23:00 79 21 96 04/10/16 22:00 79 14 109/86 95 04/10/16 22:00 79 14 95 04/10/16 21:00 79 20 96 04/10/16 21:00 79 20 96 04/10/16 20:00 79 18 97 04/10/16 20:00 97 Nasal Cannula 2.0 04/10/16 20:00 36.9 79 18 140/ 97 04/10/16 19:00 78 22 94 04/10/16 19:00 78 22 94 04/10/16 18:41 79 14 138/54 98 Nasal Cannula 2.0 04/10/16 16:00 79 14 148/55 95 Nasal Cannula 2.0 04/10/16 16:00 96 Nasal Cannula 2.0 04/10/16 14:00 80 14 108/60 93 Nasal Cannula 2.0 04/10/16 12:00 Mechanical Ventilator 30 04/10/16 12:00 50 04/10/16 12:00 74 14 142/58 95 Mechanical Ventilator 30 04/10/16 11:20 50 Lab Results: Results Past 24 Hours Test 04/10/16 18:44 04/10/16 22:28 04/11/16 00:10 04/11/16 06:12 Range/Units Bedside Glucose 118 113 108 70-90 mg/dl Phosphorus Level 2.7 2.5-4.9 mg/dl Magnesium Level 2.0 1.8-2.4 mg/dl Test 04/11/16 06:17 Range/Units White Blood Count 14.47 4.8-10.8 K/uL Red Blood Count 4.10 4.2-5.4 M/uL Hemoglobin 10.8 12.0-16.0 g/dL Hematocrit 34.6 37-47 % Mean Corpuscular Volume 84.4 80-100 fL Mean Corpuscular Hemoglobin 26.3 25-34 pg Mean Corpuscular Hemoglobin Concent 31.2 32-36 g/dl Platelet Count 279 130-400 K/uL Mean Platelet Volume 10.3 7.4-10.4 fL Neutrophils (%) (Auto) 78.6 % Lymphocytes (%) (Auto) 8.4 % Monocytes (%) (Auto) 11.5 % Eosinophils (%) (Auto) 0.8 % Basophils (%) (Auto) 0.1 % Neutrophils # (Auto) 11.36 1.4-6.5 K/uL Lymphocytes # (Auto) 1.22 1.2-3.4 K/uL Monocytes # (Auto) 1.67 0.11-0.59 K/uL Eosinophils # (Auto) 0.11 0-0.5 K/uL Basophils # (Auto) 0.02 0-0.2 K/uL RDW Standard Deviation 52.7 36.4-46.3 fL RDW Coefficient of Variation 17.2 11.5-14.5 % Immature Granulocyte % (Auto) 0.6 % Immature Granulocyte # (Auto) 0.09 0.00-0.02 K/uL Sodium Level 138 136-145 mmol/L Potassium Level 4.1 3.5-5.1 mmol/L Chloride Level 103 98-107 mmol/L Carbon Dioxide Level 28 21-32 mmol/L Anion Gap 7.0 3-11 mmol/L Blood Urea Nitrogen 27 7-18 mg/dl Creatinine 1.00 0.60-1.20 mg/dl Est Creatinine Clear Calc Drug Dose 71.0 ml/min Estimated GFR () 66.1 Estimated GFR (Non- 57.0 BUN/Creatinine Ratio 27.0 10-20 Random Glucose 120 70-99 mg/dl Calcium Level 8.1 8.5-10.1 mg/dl Phosphorus Level 1.8 2.5-4.9 mg/dl Magnesium Level 2.1 1.8-2.4 mg/dl Total Bilirubin 0.4 0.2-1 mg/dl Aspartate Amino Transf (AST/SGOT) 36 15-37 U/L Alanine Aminotransferase (ALT/SGPT) 70 12-78 U/L Alkaline Phosphatase 73 45-117 U/L Total Protein 6.2 6.4-8.2 gm/dl Albumin 2.2 3.4-5.0 gm/dl Globulin 4.0 2.5-4.0 gm/dl Albumin/Globulin Ratio 0.6 0.9-2 Microbiology Results 04/10/16 MRSA DNA Surveillance Screen - Final, Complete Specimen Negative for MRSA by DNA Probe
[2016-04-11] MEDS: PANTOprazole INJ 40 MG in SYRINGE 0 ML IV SCH (11:28)
[2016-04-11] MEDS: METOPROLOL TARTRATE 1 MG/ML VIAL IV. SCH ×3 (11:31→23:54)
--- NOTE | 2016-04-11 11:59 | Surgery Progress Note ---
Surgery Progress Note Date of Service Apr 11, 2016. Subjective Episodes of nonsustained v tach last night. Nausea yesterday but none today. Not OOB yet. Taking in ice chips for comfort. Pain controlled. May have passed flatus but no bowel movement yet. Objective Vital Signs: Date Time Temp Pulse Resp B/P Pulse Ox O2 Delivery O2 Flow Rate FiO2 04/11/16 11:31 82 04/11/16 10:00 37.0 78 23 170/75 95 Nasal Cannula 2.0 166/59 04/11/16 08:00 95 Nasal Cannula 2.0 04/11/16 08:00 37.0 72 23 172/72 95 Nasal Cannula 2.0 157/57 04/11/16 06:00 81 21 160/60 95 04/11/16 05:00 94 15 95 04/11/16 04:12 97 Nasal Cannula 2.0 04/11/16 04:00 82 18 96 04/11/16 03:00 81 17 97 04/11/16 02:00 79 18 169/60 90 04/11/16 01:00 37.0 82 16 97 04/11/16 00:22 97 Nasal Cannula 2.0 04/11/16 00:00 79 31 175/81 99 04/10/16 23:00 79 21 96 04/10/16 22:00 79 14 109/86 95 04/10/16 22:00 79 14 95 04/10/16 21:00 79 20 96 04/10/16 21:00 79 20 96 04/10/16 20:00 79 18 97 04/10/16 20:00 97 Nasal Cannula 2.0 04/10/16 20:00 36.9 79 18 140/ 97 04/10/16 19:00 78 22 94 04/10/16 19:00 78 22 94 04/10/16 18:41 79 14 138/54 98 Nasal Cannula 2.0 04/10/16 16:00 79 14 148/55 95 Nasal Cannula 2.0 04/10/16 16:00 96 Nasal Cannula 2.0 04/10/16 14:00 80 14 108/60 93 Nasal Cannula 2.0 04/10/16 12:00 Mechanical Ventilator 30 04/10/16 12:00 50 04/10/16 12:00 74 14 142/58 95 Mechanical Ventilator 30 Physical Exam: GONZALO drainage (serosanguinous) General Appearance: no apparent distress Respiratory/Chest: lungs clear, no accessory muscle use Cardiovascular: regular rate, rhythm, no JVD Abdomen: non tender, soft, + abnormal bowel sounds (hypoactive), + distended ( mild) Incision(s): clean, dry, intact Extremities: non-tender Laboratory Results: Results Past 24 Hours Test 04/10/16 18:44 04/10/16 22:28 04/11/16 00:10 04/11/16 06:12 Range/Units Bedside Glucose 118 113 108 70-90 mg/dl Phosphorus Level 2.7 2.5-4.9 mg/dl Magnesium Level 2.0 1.8-2.4 mg/dl Test 04/11/16 06:17 Range/Units White Blood Count 14.47 4.8-10.8 K/uL Red Blood Count 4.10 4.2-5.4 M/uL Hemoglobin 10.8 12.0-16.0 g/dL Hematocrit 34.6 37-47 % Mean Corpuscular Volume 84.4 80-100 fL Mean Corpuscular Hemoglobin 26.3 25-34 pg Mean Corpuscular Hemoglobin Concent 31.2 32-36 g/dl Platelet Count 279 130-400 K/uL Mean Platelet Volume 10.3 7.4-10.4 fL Neutrophils (%) (Auto) 78.6 % Lymphocytes (%) (Auto) 8.4 % Monocytes (%) (Auto) 11.5 % Eosinophils (%) (Auto) 0.8 % Basophils (%) (Auto) 0.1 % Neutrophils # (Auto) 11.36 1.4-6.5 K/uL Lymphocytes # (Auto) 1.22 1.2-3.4 K/uL Monocytes # (Auto) 1.67 0.11-0.59 K/uL Eosinophils # (Auto) 0.11 0-0.5 K/uL Basophils # (Auto) 0.02 0-0.2 K/uL RDW Standard Deviation 52.7 36.4-46.3 fL RDW Coefficient of Variation 17.2 11.5-14.5 % Immature Granulocyte % (Auto) 0.6 % Immature Granulocyte # (Auto) 0.09 0.00-0.02 K/uL Sodium Level 138 136-145 mmol/L Potassium Level 4.1 3.5-5.1 mmol/L Chloride Level 103 98-107 mmol/L Carbon Dioxide Level 28 21-32 mmol/L Anion Gap 7.0 3-11 mmol/L Blood Urea Nitrogen 27 7-18 mg/dl Creatinine 1.00 0.60-1.20 mg/dl Est Creatinine Clear Calc Drug Dose 71.0 ml/min Estimated GFR () 66.1 Estimated GFR (Non- 57.0 BUN/Creatinine Ratio 27.0 10-20 Random Glucose 120 70-99 mg/dl Calcium Level 8.1 8.5-10.1 mg/dl Phosphorus Level 1.8 2.5-4.9 mg/dl Magnesium Level 2.1 1.8-2.4 mg/dl Total Bilirubin 0.4 0.2-1 mg/dl Aspartate Amino Transf (AST/SGOT) 36 15-37 U/L Alanine Aminotransferase (ALT/SGPT) 70 12-78 U/L Alkaline Phosphatase 73 45-117 U/L Total Protein 6.2 6.4-8.2 gm/dl Albumin 2.2 3.4-5.0 gm/dl Globulin 4.0 2.5-4.0 gm/dl Albumin/Globulin Ratio 0.6 0.9-2 Microbiology Results 04/10/16 MRSA DNA Surveillance Screen - Final, Complete Specimen Negative for MRSA by DNA Probe Assessment & Plan 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 History of gastic bypass. Go slow with diet advancement - will continue ice chips and tpn for now. OK to increase activity - PT/ OT ordered by ICU. Continue abdominal binder.
[2016-04-11] MEDS ORDERED: HYDROmorphone INJ 0.5 MG/0.5 ML SYR IV ONE (14:15)
[2016-04-11] MEDS ORDERED: CUSTOM CENTRAL PN 1 BAG IV SCH (16:00)
[2016-04-11 16:36] LABS: CALCIUM 8.2 mg/dl (8.5-10.1); MAGNESIUM 2.2 mg/dl (1.8-2.4)
[2016-04-11 16:55] LABS: PHOSPHORUS 2.4 mg/dl (2.5-4.9)
[2016-04-11] MEDS ORDERED: SODIUM PHOSPHATE INJ 15 MMOL in SODIUM CHLORIDE 0.9% 250ML 250 ML IV SCH (17:45)
[2016-04-11] MEDS ORDERED: NURSING VERBAL MED ORDER ONE (18:00)
[2016-04-11] MEDS ORDERED: FUROSEMIDE INJ 40 MG in SYRINGE 0 ML IV SCH (20:00)
[2016-04-11] MEDS ORDERED: FUROSEMIDE 40 MG/4 ML VIAL ONE (20:26)
[2016-04-12] VITALS (17 sets, daily range): BP systolic 144–169; BP diastolic 63–88; PULSE 72–84; TEMP 36.4–37.1; O2SAT 5–96
[2016-04-12] MEDS: CEFOXITIN IV 1,000 MG in DEXTROSE 5% 50ML 50 ML IV SCH ×3 (03:34→19:34)
[2016-04-12] MEDS: HEPARIN SOD 5000 UNIT/0.5 ML CARP SQ SCH ×2 (03:35→15:51)
[2016-04-12] MEDS ORDERED: HydrALAZINE HCL 20 MG/ML VIAL ONE (04:21)
[2016-04-12] MEDS ORDERED: NURSING VERBAL MED ORDER ONE ×2 (04:30→20:15)
[2016-04-12] MEDS: HydrALAZINE HCL 20 MG/ML VIAL IV. PRN (04:32)
[2016-04-12] MEDS: METOPROLOL TARTRATE 1 MG/ML VIAL IV. SCH ×2 (05:13→11:24)
[2016-04-12 06:00] LABS: BASO % 0.1 %; BASO ABS # 0.02 K/uL (0-0.2); COMPLETE YES; EOS % 1.3 %; HEMATOCRIT 32.5 % (37-47); IG% 0.8 %; LYMPH % 9.6 %; LYMPH ABS # 1.45 K/uL (1.2-3.4); MEAN CELL VOLUME 83.8 fL (80-100); MEAN CORPUSCULAR HEMOGLOBIN 27.1 pg (25-34); MEAN CORPUSCULAR HGB CONC 32.3 g/dl (32-36); MEAN PLATELET VOLUME 10.3 fL (7.4-10.4); MONO % 12.1 %; NEUT % 76.1 %; PLATELET COUNT 270 K/uL (130-400); RED BLOOD COUNT 3.88 M/uL (4.2-5.4); WHITE BLOOD COUNT 15.09 K/uL (4.8-10.8)
[2016-04-12] MEDS: ACETAMINOPHEN IV 100 ML IV PRN (06:02)
[2016-04-12 06:35] LABS: BUN/CREATININE RATIO 35.9 (10-20); CREATININE 0.95 mg/dl (0.60-1.20); POTASSIUM 3.8 mmol/L (3.5-5.1)
[2016-04-12 06:38] LABS: ALB/GLOB RATIO 0.5 (0.9-2); PHOSPHORUS 2.3 mg/dl (2.5-4.9)
[2016-04-12] MEDS ORDERED: POTASSIUM PHOS 3 MMOL/1 ML INFUSION IV STA (07:30)
--- NOTE | 2016-04-12 07:57 | DIAGNOSTIC IMAGING REPORT ---
CHEST ONE VIEW PORTABLE HISTORY: edema, hypoxia COMPARISON: Chest 04/11/2016. FINDINGS: There are low lung volumes. The heart remains mildly enlarged. Left basilar consolidation persists. No pneumothorax. No pleural effusions. The right lung is essentially clear. IMPRESSION: Left basilar consolidation. This could represent atelectasis or pneumonia. This remains unchanged. Electronically signed by: Mark Tamez M.D. 04/12/2016 7:56 AM Dictated Date/Time: 04/12/2016 7:55 AM
[2016-04-12] MEDS ORDERED: ENALAPRILAT IV 2.5 MG in DEXTROSE 5% 25ML 25 ML IV SCH (08:00)
[2016-04-12] MEDS ORDERED: POTASSIUM PHOSPHATE INJ 21 MMOL in SODIUM CHLORIDE 0.9% 500ML 500 ML IV SCH (08:00)
--- NOTE | 2016-04-12 10:13 | Surgery Progress Note ---
Surgery Progress Note Date of Service Apr 12, 2016. Subjective + feeling well Sat in chair yesterday. Passed some flatus. Not hungry. No nausea. Pain is controlled. Objective Vital Signs: Date Time Temp Pulse Resp B/P Pulse Ox O2 Delivery O2 Flow Rate FiO2 04/12/16 08:00 95 Nasal Cannula 2.0 04/12/16 08:00 36.8 79 23 159/66 5 Nasal Cannula 2.0 04/12/16 06:00 80 22 94 04/12/16 05:59 78 25 158/75 94 04/12/16 05:13 83 152/70 04/12/16 05:00 83 23 94 04/12/16 04:09 36.9 04/12/16 04:05 94 Nasal Cannula 2.0 04/12/16 02:00 75 19 96 04/12/16 01:59 74 19 165/71 95 04/12/16 01:00 75 20 95 04/12/16 00:05 94 Nasal Cannula 2.0 04/12/16 00:00 37.1 72 16 95 04/11/16 23:59 78 22 153/70 93 04/11/16 23:54 84 172/86 04/11/16 23:00 80 24 95 04/11/16 22:00 83 17 163/81 95 04/11/16 21:00 78 23 94 04/11/16 20:59 79 22 163/80 93 04/11/16 20:00 37.0 77 22 94 04/11/16 20:00 94 Nasal Cannula 2.0 04/11/16 19:59 77 23 162/75 93 04/11/16 19:00 75 21 94 04/11/16 18:00 37.0 69 22 171/64 95 Nasal Cannula 2.0 04/11/16 17:55 79 04/11/16 16:00 37.0 77 20 144/72 96 Nasal Cannula 2.0 04/11/16 16:00 96 Nasal Cannula 2.0 04/11/16 14:00 37.0 86 20 141/80 94 Nasal Cannula 2.0 04/11/16 12:00 95 Nasal Cannula 2.0 04/11/16 11:31 82 Physical Exam: GONZALO drainage (serosanguinous) General Appearance: WD/WN, no apparent distress Respiratory/Chest: normal breath sounds, no accessory muscle use Cardiovascular: regular rate, rhythm Abdomen: normal bowel sounds, non distended, soft, + pertinent finding (obese) Incision(s): clean, dry, intact Laboratory Results: Results Past 24 Hours Test 04/11/16 11:54 04/11/16 15:53 04/11/16 17:41 04/12/16 00:04 Range/Units Bedside Glucose 120 107 125 70-90 mg/dl Sodium Level 139 136-145 mmol/L Potassium Level 4.0 3.5-5.1 mmol/L Chloride Level 101 98-107 mmol/L Carbon Dioxide Level 30 21-32 mmol/L Anion Gap 8.0 3-11 mmol/L Blood Urea Nitrogen 30 7-18 mg/dl Creatinine 1.00 0.60-1.20 mg/dl Est Creatinine Clear Calc Drug Dose 71.0 ml/min Estimated GFR () 66.1 Estimated GFR (Non- 57.0 BUN/Creatinine Ratio 30.0 10-20 Random Glucose 117 70-99 mg/dl Calcium Level 8.2 8.5-10.1 mg/dl Phosphorus Level 2.4 2.5-4.9 mg/dl Magnesium Level 2.2 1.8-2.4 mg/dl Test 04/12/16 05:21 04/12/16 05:45 Range/Units Bedside Glucose 121 70-90 mg/dl White Blood Count 15.09 4.8-10.8 K/uL Red Blood Count 3.88 4.2-5.4 M/uL Hemoglobin 10.5 12.0-16.0 g/dL Hematocrit 32.5 37-47 % Mean Corpuscular Volume 83.8 80-100 fL Mean Corpuscular Hemoglobin 27.1 25-34 pg Mean Corpuscular Hemoglobin Concent 32.3 32-36 g/dl Platelet Count 270 130-400 K/uL Mean Platelet Volume 10.3 7.4-10.4 fL Neutrophils (%) (Auto) 76.1 % Lymphocytes (%) (Auto) 9.6 % Monocytes (%) (Auto) 12.1 % Eosinophils (%) (Auto) 1.3 % Basophils (%) (Auto) 0.1 % Neutrophils # (Auto) 11.48 1.4-6.5 K/uL Lymphocytes # (Auto) 1.45 1.2-3.4 K/uL Monocytes # (Auto) 1.82 0.11-0.59 K/uL Eosinophils # (Auto) 0.20 0-0.5 K/uL Basophils # (Auto) 0.02 0-0.2 K/uL RDW Standard Deviation 52.2 36.4-46.3 fL RDW Coefficient of Variation 17.2 11.5-14.5 % Immature Granulocyte % (Auto) 0.8 % Immature Granulocyte # (Auto) 0.12 0.00-0.02 K/uL Nucleated RBC Absolute Count (auto) 0.02 0-0 K/uL Nucleated Red Blood Cells % 0.1 % Sodium Level 140 136-145 mmol/L Potassium Level 3.8 3.5-5.1 mmol/L Chloride Level 101 98-107 mmol/L Carbon Dioxide Level 31 21-32 mmol/L Anion Gap 8.0 3-11 mmol/L Blood Urea Nitrogen 34 7-18 mg/dl Creatinine 0.95 0.60-1.20 mg/dl Est Creatinine Clear Calc Drug Dose 73.6 ml/min Estimated GFR () 70.3 Estimated GFR (Non- 60.7 BUN/Creatinine Ratio 35.9 10-20 Random Glucose 115 70-99 mg/dl Calcium Level 8.0 8.5-10.1 mg/dl Phosphorus Level 2.3 2.5-4.9 mg/dl Magnesium Level 2.0 1.8-2.4 mg/dl Total Bilirubin 0.3 0.2-1 mg/dl Aspartate Amino Transf (AST/SGOT) 20 15-37 U/L Alanine Aminotransferase (ALT/SGPT) 49 12-78 U/L Alkaline Phosphatase 74 45-117 U/L Total Protein 6.2 6.4-8.2 gm/dl Albumin 2.0 3.4-5.0 gm/dl Globulin 4.2 2.5-4.0 gm/dl Albumin/Globulin Ratio 0.5 0.9-2 Assessment & Plan 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 History of gastic bypass. Go slow with diet advancement - will do sips of water and ice and tpn for now. PT/OT ordered. Overall looks quite well.
--- NOTE | 2016-04-12 10:53 | Progress Note ---
Internal Med Progress Note Date of Service: Apr 12, 2016. Provider Documentation: SUBJECTIVE: The patient was seen and examined S/P expl laparotomy- extensive, dense adhesions- enterolysis. Patient extubated and doing well BP is on the higher side Denies any symptoms except tiredness OBJECTIVE: Vital Signs-as noted below Exam: General-no distress at rest Eyes-Normal ENT-normal Neck-supple Lungs-Clear to auscultate bilaterally With decreased breath sound bilaterally Heart-Regular Abdomen-Mildly distended,tender epigastrium ,bowel sound present Extremities-trace edema Neuro-AA Lab data as noted below. ASSESSMENT & PLAN: S/P expl laparotomy- extensive, dense adhesions- enterolysis. POD#3 Extubated and NGT is out Remains stable Has been on TPN Sips of water started Electrolytes abnormalities getting supplement Monitor electrolytes Nonsustained VT Short runs No symptoms Has been started on IV Lopressor round the clock Monitor -no more episodes RECURRENT SMALL BOWEL OBSTRUCTION H/O Gastric Bypass years ago Clinical picture and CT consistent with partial small bowel obstruction, Most likely secondary to adhesions from previous surgeries. NPO,NGT suction,Analgesic and Antibiotic Consult General Surgery.-appreciated input No contraindication to surgery S/P expl laparotomy- extensive, dense adhesions- enterolysis. Appreciate surgery input HYPERTENSIVE URGENCY Likely secondary to Anxiety History of hypertension, managed with HCTZ + amlodipine. BP 200/118 in ED, improved with analgesics. IV enalapril + PRN IV labetalol while NPO. BP is controlled now Labetalol IV as needed Lopressor IV and Vasotec IV started and also PRN Hydralazine Acute Renal Failure Creatinine elevated Continue IF fluid Monitor PRP-Creatinine remains elevated at 1.4 Creatinine is normalized LEUKOCYTOSIS WBC = 17,440.on admission Likely secondary to Bowel obstruction -no perforation. No infiltrates on chest x-ray. UA does not look infected. Empiric Rx with IV piperacillin / tazobactam. Antibiotic is changed to Cefoxitin for broader coverage 04/10/16 VTE PROPHYLAXIS No anticoagulants at this time in case surgical intervention is necessary. SCD's. Ambulate as able. RESUSCITATION STATUS Full code DISPOSITION Admit to Telemetry Unit due to hypertensive urgency and need for parenteral cardiovascular meds. Expected discharge to home. Medical follow-up with Dr. Escamilla. Vital Signs: Date Time Temp Pulse Resp B/P Pulse Ox O2 Delivery O2 Flow Rate FiO2 04/12/16 08:00 95 Nasal Cannula 2.0 04/12/16 08:00 36.8 79 23 159/66 5 Nasal Cannula 2.0 04/12/16 06:00 80 22 94 04/12/16 05:59 78 25 158/75 94 04/12/16 05:13 83 152/70 04/12/16 05:00 83 23 94 04/12/16 04:09 36.9 04/12/16 04:05 94 Nasal Cannula 2.0 04/12/16 02:00 75 19 96 04/12/16 01:59 74 19 165/71 95 04/12/16 01:00 75 20 95 04/12/16 00:05 94 Nasal Cannula 2.0 04/12/16 00:00 37.1 72 16 95 04/11/16 23:59 78 22 153/70 93 04/11/16 23:54 84 172/86 04/11/16 23:00 80 24 95 04/11/16 22:00 83 17 163/81 95 04/11/16 21:00 78 23 94 04/11/16 20:59 79 22 163/80 93 04/11/16 20:00 37.0 77 22 94 04/11/16 20:00 94 Nasal Cannula 2.0 04/11/16 19:59 77 23 162/75 93 04/11/16 19:00 75 21 94 04/11/16 18:00 37.0 69 22 171/64 95 Nasal Cannula 2.0 04/11/16 17:55 79 04/11/16 16:00 37.0 77 20 144/72 96 Nasal Cannula 2.0 04/11/16 16:00 96 Nasal Cannula 2.0 04/11/16 14:00 37.0 86 20 141/80 94 Nasal Cannula 2.0 04/11/16 12:00 95 Nasal Cannula 2.0 04/11/16 11:31 82 Lab Results: Results Past 24 Hours Test 04/11/16 11:54 04/11/16 15:53 04/11/16 17:41 04/12/16 00:04 Range/Units Bedside Glucose 120 107 125 70-90 mg/dl Sodium Level 139 136-145 mmol/L Potassium Level 4.0 3.5-5.1 mmol/L Chloride Level 101 98-107 mmol/L Carbon Dioxide Level 30 21-32 mmol/L Anion Gap 8.0 3-11 mmol/L Blood Urea Nitrogen 30 7-18 mg/dl Creatinine 1.00 0.60-1.20 mg/dl Est Creatinine Clear Calc Drug Dose 71.0 ml/min Estimated GFR () 66.1 Estimated GFR (Non- 57.0 BUN/Creatinine Ratio 30.0 10-20 Random Glucose 117 70-99 mg/dl Calcium Level 8.2 8.5-10.1 mg/dl Phosphorus Level 2.4 2.5-4.9 mg/dl Magnesium Level 2.2 1.8-2.4 mg/dl Test 04/12/16 05:21 04/12/16 05:45 Range/Units Bedside Glucose 121 70-90 mg/dl White Blood Count 15.09 4.8-10.8 K/uL Red Blood Count 3.88 4.2-5.4 M/uL Hemoglobin 10.5 12.0-16.0 g/dL Hematocrit 32.5 37-47 % Mean Corpuscular Volume 83.8 80-100 fL Mean Corpuscular Hemoglobin 27.1 25-34 pg Mean Corpuscular Hemoglobin Concent 32.3 32-36 g/dl Platelet Count 270 130-400 K/uL Mean Platelet Volume 10.3 7.4-10.4 fL Neutrophils (%) (Auto) 76.1 % Lymphocytes (%) (Auto) 9.6 % Monocytes (%) (Auto) 12.1 % Eosinophils (%) (Auto) 1.3 % Basophils (%) (Auto) 0.1 % Neutrophils # (Auto) 11.48 1.4-6.5 K/uL Lymphocytes # (Auto) 1.45 1.2-3.4 K/uL Monocytes # (Auto) 1.82 0.11-0.59 K/uL Eosinophils # (Auto) 0.20 0-0.5 K/uL Basophils # (Auto) 0.02 0-0.2 K/uL RDW Standard Deviation 52.2 36.4-46.3 fL RDW Coefficient of Variation 17.2 11.5-14.5 % Immature Granulocyte % (Auto) 0.8 % Immature Granulocyte # (Auto) 0.12 0.00-0.02 K/uL Nucleated RBC Absolute Count (auto) 0.02 0-0 K/uL Nucleated Red Blood Cells % 0.1 % Sodium Level 140 136-145 mmol/L Potassium Level 3.8 3.5-5.1 mmol/L Chloride Level 101 98-107 mmol/L Carbon Dioxide Level 31 21-32 mmol/L Anion Gap 8.0 3-11 mmol/L Blood Urea Nitrogen 34 7-18 mg/dl Creatinine 0.95 0.60-1.20 mg/dl Est Creatinine Clear Calc Drug Dose 73.6 ml/min Estimated GFR () 70.3 Estimated GFR (Non- 60.7 BUN/Creatinine Ratio 35.9 10-20 Random Glucose 115 70-99 mg/dl Calcium Level 8.0 8.5-10.1 mg/dl Phosphorus Level 2.3 2.5-4.9 mg/dl Magnesium Level 2.0 1.8-2.4 mg/dl Total Bilirubin 0.3 0.2-1 mg/dl Aspartate Amino Transf (AST/SGOT) 20 15-37 U/L Alanine Aminotransferase (ALT/SGPT) 49 12-78 U/L Alkaline Phosphatase 74 45-117 U/L Total Protein 6.2 6.4-8.2 gm/dl Albumin 2.0 3.4-5.0 gm/dl Globulin 4.2 2.5-4.0 gm/dl Albumin/Globulin Ratio 0.5 0.9-2
[2016-04-12] MEDS: HYDROmorphone INJ 1 MG/ML SYR IV PRN ×2 (11:20→23:25)
[2016-04-12] MEDS: PANTOprazole INJ 40 MG in SYRINGE 0 ML IV SCH (11:21)
[2016-04-12] MEDS ORDERED: AMLODIPINE BESYLATE 5 MG TAB PO ONE (12:00)
--- NOTE | 2016-04-12 13:24 | CRITICAL CARE PROGRESS NOTE ---
DATE: 04/12/2016 HISTORY OF PRESENT ILLNESS: This is a 70-year-old woman with multiple medical problems and a history of gastric bypass surgery, who presented to the Emergency Department on April 08 with abdominal pain. She was felt to have a small bowel obstruction and was taken to the operating room on April 09 for exploratory laparotomy and lysis of adhesions. She was kept on the ventilator the night after her surgery and extubated the following day. She has since been started on TPN and remains n.p.o. She does not have an NG tube in place. She has had problems with wound healing in the past and continues to wear her abdominal binder. There were no acute events overnight. She has not had any further nonsustained ventricular tachycardia. She is passing flatus and taking ice chips without nausea and vomiting. She has been requiring p.r.n. medications for hypertension and she denies pain. She is not doing very well with her incentive spirometry. She has not had a bowel movement. PHYSICAL EXAMINATION: VITAL SIGNS: Temperature 37.1, heart rate 70-80, respiratory rate 19-25, blood pressure 140-165/70 to 80, oxygen saturation 94% on 2 liters nasal cannula. A 24-hour fluid balance is -610 mL. GENERAL: She is awake, alert and sitting in a wheelchair, ready to be transferred upstairs. She is very talkative today. NEUROLOGIC: She moves all 4 extremities. LUNGS: Have very decreased breath sounds bilaterally but are clear. HEART: Regular rate and rhythm. ABDOMEN: Exam is very limited due to her seated position and a binder in place. JPs are present. EXTREMITIES: Warm. No edema of hands. LABORATORY DATA: Sodium 140, potassium 3.8, chloride 101, CO2 31, BUN 34, creatinine 0.95. Blood sugar 115, phosphorus 2.3, total protein 6.2, albumin 2. White blood cell count 15.09, hemoglobin 10.5, hematocrit 32.5, platelets 270. MEDICATIONS: Acetaminophen, DuoNeb, cefoxitin day-2, subcutaneous heparin, hydralazine, Dilaudid, labetalol, Lopressor, TPN, Zofran, Protonix, promethazine. IMAGING: Portable chest x-ray from this morning was reviewed and shows left basilar consolidation which I believe is secondary to atelectasis. IMPRESSION: 1. Postop day #3 status post exploratory laparotomy and lysis of adhesions secondary to small bowel obstruction, no bowel movement yet, but passing flatus. 2. Hypertension, on scheduled Lopressor with p.r.n. labetalol and hydralazine. The general surgery service has given approval to allow her to take blood pressure medications orally. 3. Nonsustained ventricular tachycardia, seems to be resolved. 4. Protein calorie malnutrition with history of nonhealing abdominal wound in the past. 5. Acute kidney injury, resolved. 6. Hypertensive urgency, resolved. 7. History of gastric bypass surgery. 8. Hypophosphatemia. 9. History of subdural hematoma and sammi holes. 10. Morbid obesity. 11. Osteoarthritis. PLAN: 1. NEUROLOGIC: Continue Dilaudid for pain. Pulmonary encouraged incentive spirometry and mobilization. I think she could benefit from BiPAP a few times a day if she runs into trouble from an oxygenation standpoint or becomes more atelectatic. For now, continue the incentive spirometry. 2. CARDIOVASCULAR: Change Lopressor to p.o. and add back 5 mg of amlodipine daily. She was on 2.5 mg as an outpatient. Consider an YULI inhibitor as well. I initially started Vasotec q. 6 hours 2.5 mg, but will stop that in lieu of the po beta bella. 3. GASTROINTESTINAL: Advance diet per the surgery service. I suggest nutritional supplements when she is able to take p.o. Continue proton pump inhibitor for GI prophylaxis. 4. INFECTIOUS DISEASE: Dr. Maldonado has requested 72 hours of antibiotics. I have adjusted the order for the cefoxitin. 5. RENAL: IV fluids were discontinued this morning. Lasix p.r.n. 6. FLUIDS, ELECTROLYTES, NUTRITION: Phosphorus is being replaced and Continue TPN. 7. PULMONARY: Encourage incentive spirometry and mobilization. 8. HEME: WBC is elevated. Follow. Heparin SC for DVT prophylaxis 9. She is being seen by physical therapy and occupational therapy. She is stable for transfer to the next level of care. MELISSA
[2016-04-12] MEDS: ONDANSETRON INJ 2 MG/ML 2 ML VIAL IV PRN (15:02)
[2016-04-12] MEDS ORDERED: CUSTOM CENTRAL PN 1 BAG IV SCH (16:00)
[2016-04-12] MEDS ORDERED: SODIUM CHLORIDE 0.45% 1000ML 1,000 ML IV SCH (16:00)
[2016-04-12] MEDS ORDERED: METOPROLOL TARTRATE 1 MG/ML VIAL IV. PRN (18:00)
[2016-04-12] MEDS: METOPROLOL TARTRATE 25 MG TAB PO SCH (20:13)
[2016-04-13] VITALS (8 sets, daily range): BP systolic 137–177; BP diastolic 74–90; PULSE 79–92; TEMP 36.4–37.3; O2SAT 90–93
[2016-04-13] MEDS: CEFOXITIN IV 1,000 MG in DEXTROSE 5% 50ML 50 ML IV SCH (03:42)
[2016-04-13] MEDS: HEPARIN SOD 5000 UNIT/0.5 ML CARP SQ SCH ×2 (03:43→15:43)
[2016-04-13 06:27] LABS: BASO % 0.2 %; BASO ABS # 0.02 K/uL (0-0.2); COMPLETE YES; EOS % 2.1 %; HEMATOCRIT 33.2 % (37-47); IG% 1.1 %; LYMPH % 9.4 %; LYMPH ABS # 1.19 K/uL (1.2-3.4); MEAN CELL VOLUME 86.5 fL (80-100); MEAN CORPUSCULAR HEMOGLOBIN 27.6 pg (25-34); MEAN CORPUSCULAR HGB CONC 31.9 g/dl (32-36); MEAN PLATELET VOLUME 10.5 fL (7.4-10.4); MONO % 14.4 %; NEUT % 72.8 %; PLATELET COUNT 293 K/uL (130-400); RED BLOOD COUNT 3.84 M/uL (4.2-5.4); WHITE BLOOD COUNT 12.61 K/uL (4.8-10.8)
--- NOTE | 2016-04-13 06:41 | Surgery Progress Note ---
Surgery Progress Note Date of Service Apr 13, 2016. Subjective Post OP Day: 4 + flatus, No nausea, No vomiting awake , alert- min pain, audible flatus Objective Vital Signs: Date Time Temp Pulse Resp B/P Pulse Ox O2 Delivery O2 Flow Rate FiO2 04/13/16 04:02 Nasal Cannula 1.0 04/13/16 04:01 152/74 04/13/16 03:46 36.9 82 20 160/85 93 Nasal Cannula 1.0 04/13/16 00:02 Nasal Cannula 1.0 04/12/16 23:28 37.0 79 18 150/73 93 Nasal Cannula 1.0 04/12/16 20:04 Nasal Cannula 1.0 04/12/16 19:17 36.9 83 16 165/88 92 Nasal Cannula 1.0 04/12/16 15:54 36.4 82 16 153/71 93 Nasal Cannula 2.0 04/12/16 15:00 Nasal Cannula 2.0 04/12/16 12:00 95 Nasal Cannula 2.0 04/12/16 12:00 36.8 78 25 169/70 95 Nasal Cannula 2.0 04/12/16 11:51 84 94 04/12/16 11:24 83 04/12/16 10:00 36.8 78 24 144/63 94 Nasal Cannula 2.0 04/12/16 08:00 95 Nasal Cannula 2.0 04/12/16 08:00 36.8 79 23 159/66 5 Nasal Cannula 2.0 General Appearance: no apparent distress Respiratory/Chest: no respiratory distress Abdomen: + distended (has bowel sounds) Laboratory Results: Results Past 24 Hours Test 04/12/16 19:02 04/12/16 23:59 04/13/16 06:00 04/13/16 06:05 Range/Units Bedside Glucose 129 122 137 70-90 mg/dl White Blood Count 12.61 4.8-10.8 K/uL Red Blood Count 3.84 4.2-5.4 M/uL Hemoglobin 10.6 12.0-16.0 g/dL Hematocrit 33.2 37-47 % Mean Corpuscular Volume 86.5 80-100 fL Mean Corpuscular Hemoglobin 27.6 25-34 pg Mean Corpuscular Hemoglobin Concent 31.9 32-36 g/dl Platelet Count 293 130-400 K/uL Mean Platelet Volume 10.5 7.4-10.4 fL Neutrophils (%) (Auto) 72.8 % Lymphocytes (%) (Auto) 9.4 % Monocytes (%) (Auto) 14.4 % Eosinophils (%) (Auto) 2.1 % Basophils (%) (Auto) 0.2 % Neutrophils # (Auto) 9.17 1.4-6.5 K/uL Lymphocytes # (Auto) 1.19 1.2-3.4 K/uL Monocytes # (Auto) 1.82 0.11-0.59 K/uL Eosinophils # (Auto) 0.27 0-0.5 K/uL Basophils # (Auto) 0.02 0-0.2 K/uL RDW Standard Deviation 54.8 36.4-46.3 fL RDW Coefficient of Variation 17.6 11.5-14.5 % Immature Granulocyte % (Auto) 1.1 % Immature Granulocyte # (Auto) 0.14 0.00-0.02 K/uL Assessment & Plan 04/13/16- some bowel function- passing flatus- will give ice and popsicles cont tpn, adv diet very slowly. try to mobilize- pt doing much than expected 04/10/16- s/p expl laparotomy- extensive, dense adhesions- enterolysis. No enterotomies or bowel resection. 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 No ischemia. wean from vent, pain control, will give dose of lasix, order ppn- will probably need picc/ or IJ line. NG will not function well with bypass- can d/c when extubated 04/09/16- adm with small bowel obstruction- film pending. Still concerned pt may need abd exploration , lysis of adhesions- reassess this am check labs 04/10/16- s/p expl laparotomy- extensive, dense adhesions- enterolysis. No enterotomies or bowel resection. 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 No ischemia. wean from vent, pain control, will give dose of lasix, order ppn- will probably need picc/ or IJ line. NG will not function well with bypass- can d/c when extubated 04/09/16- adm with small bowel obstruction- film pending. Still concerned pt may need abd exploration , lysis of adhesions- reassess this am check labs
[2016-04-13 07:01] LABS: BUN/CREATININE RATIO 44.8 (10-20); CALCIUM 8.4 mg/dl (8.5-10.1); CREATININE 0.87 mg/dl (0.60-1.20); MAGNESIUM 2.2 mg/dl (1.8-2.4); POTASSIUM 4.2 mmol/L (3.5-5.1)
[2016-04-13 07:04] LABS: ALB/GLOB RATIO 0.4 (0.9-2); PHOSPHORUS 2.6 mg/dl (2.5-4.9)
[2016-04-13] MEDS: HYDROmorphone INJ 1 MG/ML SYR IV PRN ×3 (07:28→23:18)
[2016-04-13] MEDS: AMLODIPINE BESYLATE 5 MG TAB PO SCH (08:19)
[2016-04-13] MEDS: METOPROLOL TARTRATE 25 MG TAB PO SCH ×2 (08:19→20:13)
[2016-04-13] MEDS: HYDROmorphone INJ 0.5 MG/0.5 ML SYR IV PRN ×2 (09:23→12:49)
[2016-04-13] MEDS ORDERED: METOPROLOL TARTRATE 25 MG TAB PO ONE (09:30)
[2016-04-13] MEDS: PANTOprazole INJ 40 MG in SYRINGE 0 ML IV SCH (12:20)
[2016-04-13] MEDS: HydrALAZINE HCL 20 MG/ML VIAL IV. PRN ×2 (15:43→23:42)
[2016-04-13] MEDS ORDERED: CUSTOM CENTRAL PN 1 BAG IV SCH (16:00)
--- NOTE | 2016-04-13 17:43 | Progress Note ---
Internal Med Progress Note Date of Service: Apr 13, 2016. Provider Documentation: SUBJECTIVE: The patient was seen and examined S/P expl laparotomy- extensive, dense adhesions- enterolysis. Feels better BP remains high OBJECTIVE: Vital Signs-as noted below Exam: General-no distress at rest Eyes-Normal ENT-normal Neck-supple Lungs-Clear to auscultate bilaterally With decreased breath sound bilaterally Heart-Regular Abdomen-Mildly distended,tender epigastrium ,bowel sound present Extremities-trace edema Neuro-AA Lab data as noted below. ASSESSMENT & PLAN: S/P expl laparotomy- extensive, dense adhesions- enterolysis. POD#4 Extubated and NGT is out Remains stable Has been on TPN Sips of water started Diet advance as tolerated Electrolytes abnormalities getting supplement Monitor electrolytes-normalized Nonsustained VT Short runs No symptoms Has been started on IV Lopressor round the clock Monitor -no more episodes Has been started on BB RECURRENT SMALL BOWEL OBSTRUCTION H/O Gastric Bypass years ago Clinical picture and CT consistent with partial small bowel obstruction, Most likely secondary to adhesions from previous surgeries. NPO,NGT suction,Analgesic and Antibiotic Consult General Surgery.-appreciated input No contraindication to surgery S/P expl laparotomy- extensive, dense adhesions- enterolysis. Appreciate surgery input HYPERTENSIVE URGENCY Likely secondary to Anxiety History of hypertension, managed with HCTZ + amlodipine. BP 200/118 in ED, improved with analgesics. IV enalapril + PRN IV labetalol while NPO. BP is controlled now Labetalol IV as needed Lopressor IV and Vasotec IV started and also PRN Hydralazine Acute Renal Failure Creatinine elevated Continue IF fluid Monitor PRP-Creatinine remains elevated at 1.4 Creatinine is normalized LEUKOCYTOSIS WBC = 17,440.on admission Likely secondary to Bowel obstruction -no perforation. No infiltrates on chest x-ray. UA does not look infected. Empiric Rx with IV piperacillin / tazobactam. Antibiotic is changed to Cefoxitin for broader coverage 04/10/16 VTE PROPHYLAXIS No anticoagulants at this time in case surgical intervention is necessary. SCD's. Ambulate as able. RESUSCITATION STATUS Full code DISPOSITION Admit to Telemetry Unit due to hypertensive urgency and need for parenteral cardiovascular meds. Expected discharge to home. Medical follow-up with Dr. Escamilla. Vital Signs: Date Time Temp Pulse Resp B/P Pulse Ox O2 Delivery O2 Flow Rate FiO2 04/13/16 16:00 Room Air 2/27/17 15:24 36.8 83 18 170/90 92 Room Air 04/13/16 12:04 36.4 20 153/78 90 Room Air 04/13/16 12:00 Room Air 04/13/16 08:09 36.5 81 16 161/81 93 Nasal Cannula 1.0 04/13/16 08:00 Nasal Cannula 1.0 04/13/16 04:02 Nasal Cannula 1.0 04/13/16 04:01 152/74 04/13/16 03:46 36.9 82 20 160/85 93 Nasal Cannula 1.0 04/13/16 00:02 Nasal Cannula 1.0 04/12/16 23:28 37.0 79 18 150/73 93 Nasal Cannula 1.0 04/12/16 20:04 Nasal Cannula 1.0 04/12/16 19:17 36.9 83 16 165/88 92 Nasal Cannula 1.0 Lab Results: Results Past 24 Hours Test 04/12/16 19:02 04/12/16 23:59 04/13/16 06:00 04/13/16 06:05 Range/Units Bedside Glucose 129 122 137 70-90 mg/dl White Blood Count 12.61 4.8-10.8 K/uL Red Blood Count 3.84 4.2-5.4 M/uL Hemoglobin 10.6 12.0-16.0 g/dL Hematocrit 33.2 37-47 % Mean Corpuscular Volume 86.5 80-100 fL Mean Corpuscular Hemoglobin 27.6 25-34 pg Mean Corpuscular Hemoglobin Concent 31.9 32-36 g/dl Platelet Count 293 130-400 K/uL Mean Platelet Volume 10.5 7.4-10.4 fL Neutrophils (%) (Auto) 72.8 % Lymphocytes (%) (Auto) 9.4 % Monocytes (%) (Auto) 14.4 % Eosinophils (%) (Auto) 2.1 % Basophils (%) (Auto) 0.2 % Neutrophils # (Auto) 9.17 1.4-6.5 K/uL Lymphocytes # (Auto) 1.19 1.2-3.4 K/uL Monocytes # (Auto) 1.82 0.11-0.59 K/uL Eosinophils # (Auto) 0.27 0-0.5 K/uL Basophils # (Auto) 0.02 0-0.2 K/uL RDW Standard Deviation 54.8 36.4-46.3 fL RDW Coefficient of Variation 17.6 11.5-14.5 % Immature Granulocyte % (Auto) 1.1 % Immature Granulocyte # (Auto) 0.14 0.00-0.02 K/uL Sodium Level 137 136-145 mmol/L Potassium Level 4.2 3.5-5.1 mmol/L Chloride Level 99 98-107 mmol/L Carbon Dioxide Level 33 21-32 mmol/L Anion Gap 5.0 3-11 mmol/L Blood Urea Nitrogen 39 7-18 mg/dl Creatinine 0.87 0.60-1.20 mg/dl Est Creatinine Clear Calc Drug Dose 80.4 ml/min Estimated GFR () 78.2 Estimated GFR (Non- 67.5 BUN/Creatinine Ratio 44.8 10-20 Random Glucose 123 70-99 mg/dl Calcium Level 8.4 8.5-10.1 mg/dl Phosphorus Level 2.6 2.5-4.9 mg/dl Magnesium Level 2.2 1.8-2.4 mg/dl Total Bilirubin 0.4 0.2-1 mg/dl Aspartate Amino Transf (AST/SGOT) 18 15-37 U/L Alanine Aminotransferase (ALT/SGPT) 36 12-78 U/L Alkaline Phosphatase 85 45-117 U/L Total Protein 6.5 6.4-8.2 gm/dl Albumin 2.0 3.4-5.0 gm/dl Globulin 4.5 2.5-4.0 gm/dl Albumin/Globulin Ratio 0.4 0.9-2 Test 04/13/16 10:52 Range/Units Bedside Glucose 127 70-90 mg/dl
--- NOTE | 2016-04-13 23:50 | Progress Note ---
Post ICU Progress Note Date & Time Apr 13, 2016 at 23:11 Vital Signs Vital Signs Past 12 Hours Date Time Temp Pulse Resp B/P Pulse Ox O2 Delivery O2 Flow Rate FiO2 04/13/16 19:20 36.6 92 16 161/78 91 Room Air 04/13/16 17:00 137/81 04/13/16 16:00 Room Air 04/13/16 15:24 36.8 83 18 170/90 92 Room Air 04/13/16 12:04 36.4 20 153/78 90 Room Air 04/13/16 12:00 Room Air Notes Mental Status: alert / awake, participated in evaluation Nausea / Vomiting: adequately controlled Pain: adequately controlled Airway Patency, RR, SpO2: stable & adequate BP & HR: stable & adequate Krysta Yi is a 70yo female who presented to [facility] via EMS on for abd pain x 2 days. SBPs were found to be in the low 200's in the ED. She was examined by Dr. Maldonado, underwent a CT abd which demonstrated a moderate grade partial small bowel obstruction and was taken to the OR; where she underwent extensive adhesion lysis. She remained intubated overnight secondary to the concern for the need of BiPap/CPAP after abdominal surgery. She was extubated the following day by Dr. Corral without issue. She remained in the ICU after witnessed runs of unsustained ventricular tachycardia. She was kept overnight for continued observation of the arrhythmia, which, has spontaneously resolved. She was moved from the ICU on 04/12/16. On the floor today, Ms. Yi remains afebrile and in good spirits. She is a very talkative woman, but did express concern about family communication regarding her surgery by her hospitalist. There were no new findings on physical exam. She stated she had no pain at this moment, but would in a couple of hours when nursing performs her bandage change. She denied recent bowel movement but has been passing gas. She denied fever, chills, shortness of breath, cough, chest pain, or nausea. Pt is stable at this time. Consider outpatient follow up in 1 to 2 weeks with: Dr. Daniel Escamilla Repeat imaging needed: N/A Follow up cultures: N/A Reviewed progress notes, labs, and inpatient medication list Continue current management Pt is stable at this time, Critical Care will sign off at this time. Please feel free to reconsult as needed. Thank you for including us in the care of this patient. Consults & Procedures Consultants: Under primary care of Dr Salas ([facility]). Surgery consult - Dr Maldonado Procedures: 04/09/16 - Explorative laparotomy and extensive adhesiolysis - Dr Maldonado
[2016-04-14] VITALS (8 sets, daily range): BP systolic 124–172; BP diastolic 62–85; PULSE 77–87; TEMP 36.8; O2SAT 91–96
[2016-04-14] MEDS: HYDROmorphone INJ 0.5 MG/0.5 ML SYR IV PRN ×2 (03:26→10:38)
[2016-04-14] MEDS: HEPARIN SOD 5000 UNIT/0.5 ML CARP SQ SCH ×2 (03:30→17:59)
[2016-04-14 06:21] LABS: BASO % 0.2 %; BASO ABS # 0.03 K/uL (0-0.2); COMPLETE YES; EOS % 1.5 %; HEMATOCRIT 33.6 % (37-47); IG% 1.6 %; LYMPH % 16.2 %; LYMPH ABS # 2.18 K/uL (1.2-3.4); MEAN CELL VOLUME 85.7 fL (80-100); MEAN CORPUSCULAR HEMOGLOBIN 27.6 pg (25-34); MEAN CORPUSCULAR HGB CONC 32.1 g/dl (32-36); MEAN PLATELET VOLUME 10.4 fL (7.4-10.4); MONO % 1.6 %; NEUT % 78.9 %; PLATELET COUNT 315 K/uL (130-400); RED BLOOD COUNT 3.92 M/uL (4.2-5.4); WHITE BLOOD COUNT 13.44 K/uL (4.8-10.8)
--- NOTE | 2016-04-14 06:55 | Surgery Progress Note ---
Surgery Progress Note Date of Service Apr 14, 2016. Subjective + flatus, + pain controlled, No bowel movement, No nausea, No vomiting Objective Vital Signs: Date Time Temp Pulse Resp B/P Pulse Ox O2 Delivery O2 Flow Rate FiO2 04/14/16 04:33 36.8 87 20 143/62 91 Room Air 04/14/16 04:02 Room Air 04/14/16 00:17 158/72 04/14/16 00:02 Room Air 04/13/16 23:46 37.3 79 20 177/81 90 Room Air 04/13/16 20:00 Room Air 04/13/16 19:20 36.6 92 16 161/78 91 Room Air 04/13/16 17:00 137/81 04/13/16 16:00 Room Air 04/13/16 15:24 36.8 83 18 170/90 92 Room Air 04/13/16 12:04 36.4 20 153/78 90 Room Air 04/13/16 12:00 Room Air 04/13/16 08:09 36.5 81 16 161/81 93 Nasal Cannula 1.0 04/13/16 08:00 Nasal Cannula 1.0 General Appearance: no apparent distress Respiratory/Chest: no respiratory distress Abdomen: normal bowel sounds, non tender Incision(s): intact, drainage (expected- serous) Laboratory Results: Results Past 24 Hours Test 04/13/16 10:52 04/13/16 18:17 04/13/16 23:55 04/14/16 06:10 Range/Units Bedside Glucose 127 128 121 70-90 mg/dl White Blood Count 13.44 4.8-10.8 K/uL Red Blood Count 3.92 4.2-5.4 M/uL Hemoglobin 10.8 12.0-16.0 g/dL Hematocrit 33.6 37-47 % Mean Corpuscular Volume 85.7 80-100 fL Mean Corpuscular Hemoglobin 27.6 25-34 pg Mean Corpuscular Hemoglobin Concent 32.1 32-36 g/dl Platelet Count 315 130-400 K/uL Mean Platelet Volume 10.4 7.4-10.4 fL Neutrophils (%) (Auto) 78.9 % Lymphocytes (%) (Auto) 16.2 % Monocytes (%) (Auto) 1.6 % Eosinophils (%) (Auto) 1.5 % Basophils (%) (Auto) 0.2 % Neutrophils # (Auto) 10.60 1.4-6.5 K/uL Lymphocytes # (Auto) 2.18 1.2-3.4 K/uL Monocytes # (Auto) 0.22 0.11-0.59 K/uL Eosinophils # (Auto) 0.20 0-0.5 K/uL Basophils # (Auto) 0.03 0-0.2 K/uL RDW Standard Deviation 54.6 36.4-46.3 fL RDW Coefficient of Variation 17.6 11.5-14.5 % Immature Granulocyte % (Auto) 1.6 % Immature Granulocyte # (Auto) 0.21 0.00-0.02 K/uL Test 04/14/16 06:40 Range/Units Bedside Glucose 137 70-90 mg/dl Assessment & Plan 04/14/16- seems to be stable- flatus, no bm- begin clears, cont tpn. to reg floor if IV meds ok- can take some po. d/c keys. walk in hallway. add senna syrup- may need rehab 04/13/16- some bowel function- passing flatus- will give ice and popsicles cont tpn, adv diet very slowly. try to mobilize- pt doing much than expected 04/10/16- s/p expl laparotomy- extensive, dense adhesions- enterolysis. No enterotomies or bowel resection. 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 No ischemia. wean from vent, pain control, will give dose of lasix, order ppn- will probably need picc/ or IJ line. NG will not function well with bypass- can d/c when extubated 04/09/16- adm with small bowel obstruction- film pending. Still concerned pt may need abd exploration , lysis of adhesions- reassess this am check labs 04/13/16- some bowel function- passing flatus- will give ice and popsicles cont tpn, adv diet very slowly. try to mobilize- pt doing much than expected 04/10/16- s/p expl laparotomy- extensive, dense adhesions- enterolysis. No enterotomies or bowel resection. 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 No ischemia. wean from vent, pain control, will give dose of lasix, order ppn- will probably need picc/ or IJ line. NG will not function well with bypass- can d/c when extubated 04/09/16- adm with small bowel obstruction- film pending. Still concerned pt may need abd exploration , lysis of adhesions- reassess this am check labs
[2016-04-14 07:07] LABS: ALB/GLOB RATIO 0.5 (0.9-2); BUN/CREATININE RATIO 49.4 (10-20); CALCIUM 8.5 mg/dl (8.5-10.1); CREATININE 0.78 mg/dl (0.60-1.20); MAGNESIUM 2.4 mg/dl (1.8-2.4); PHOSPHORUS 2.6 mg/dl (2.5-4.9); POTASSIUM 4.2 mmol/L (3.5-5.1)
[2016-04-14] MEDS: METOPROLOL TARTRATE 25 MG TAB PO SCH ×2 (08:33→21:52)
[2016-04-14] MEDS: AMLODIPINE BESYLATE 5 MG TAB PO SCH (08:33)
[2016-04-14] MEDS: SENNA 8.8 MG/5 ML UDP PO SCH ×2 (09:00→21:00)
[2016-04-14] MEDS: PANTOprazole INJ 40 MG in SYRINGE 0 ML IV SCH (10:39)
[2016-04-14] MEDS: BOOST BREEZE NUTRITION DRINK 1 BOX PO SCH ×3 (12:30→17:45)
--- NOTE | 2016-04-14 15:30 | Progress Note ---
Medicine Progress Note Date & Time of Visit: Apr 14, 2016 at 15:09. Subjective Pt was seen and examined Lying in bed with no distress pt said that the pain is improved a little she said that she had 3 BM this morning she denies any chest pain, palpitation, dizziness Objective Last 8 Hrs Date Time Temp Pulse Resp B/P Pulse Ox O2 Delivery O2 Flow Rate FiO2 04/14/16 12:00 36.8 84 20 124/76 92 Room Air 04/14/16 11:42 36.8 79 20 153/73 94 04/14/16 11:40 36.8 84 20 92 1.0 04/14/16 08:37 36.8 79 18 134/69 96 04/14/16 08:00 Room Air Physical Exam: General- No acute distress Head- atraumatic Eyes- PERRL, EOMI ENT- oropharynx clear Neck- supple, no JVD Lungs- clear to auscultation and percussion Heart- regular rhythm; no murmur Abdomen- Mild tenderness and distended Extremities- no calf tenderness Neuro- alert, oriented x 3; PERRL, EOMI; no facial palsy Skin- warm & dry Laboratory Results: Last 24 Hours Test 04/13/16 18:17 04/13/16 23:55 04/14/16 06:10 04/14/16 06:40 Bedside Glucose 128 mg/dl 121 mg/dl 137 mg/dl White Blood Count 13.44 K/uL Red Blood Count 3.92 M/uL Hemoglobin 10.8 g/dL Hematocrit 33.6 % Mean Corpuscular Volume 85.7 fL Mean Corpuscular Hemoglobin 27.6 pg Mean Corpuscular Hemoglobin Concent 32.1 g/dl Platelet Count 315 K/uL Mean Platelet Volume 10.4 fL Neutrophils (%) (Auto) 78.9 % Lymphocytes (%) (Auto) 16.2 % Monocytes (%) (Auto) 1.6 % Eosinophils (%) (Auto) 1.5 % Basophils (%) (Auto) 0.2 % Neutrophils # (Auto) 10.60 K/uL Lymphocytes # (Auto) 2.18 K/uL Monocytes # (Auto) 0.22 K/uL Eosinophils # (Auto) 0.20 K/uL Basophils # (Auto) 0.03 K/uL RDW Standard Deviation 54.6 fL RDW Coefficient of Variation 17.6 % Immature Granulocyte % (Auto) 1.6 % Immature Granulocyte # (Auto) 0.21 K/uL Sodium Level 141 mmol/L Potassium Level 4.2 mmol/L Chloride Level 104 mmol/L Carbon Dioxide Level 29 mmol/L Anion Gap 8.0 mmol/L Blood Urea Nitrogen 39 mg/dl Creatinine 0.78 mg/dl Est Creatinine Clear Calc Drug Dose 90.1 ml/min Estimated GFR () 89.3 Estimated GFR (Non- 77.0 BUN/Creatinine Ratio 49.4 Random Glucose 131 mg/dl Calcium Level 8.5 mg/dl Phosphorus Level 2.6 mg/dl Magnesium Level 2.4 mg/dl Total Bilirubin 0.2 mg/dl Aspartate Amino Transf (AST/SGOT) 21 U/L Alanine Aminotransferase (ALT/SGPT) 35 U/L Alkaline Phosphatase 99 U/L Total Protein 6.4 gm/dl Albumin 2.1 gm/dl Globulin 4.3 gm/dl Albumin/Globulin Ratio 0.5 Test 04/14/16 11:37 Bedside Glucose 142 mg/dl Assessment & Plan RECURRENT SMALL BOWEL OBSTRUCTION Clinical picture and CT consistent with partial small bowel obstruction, Most likely secondary to adhesions from previous surgeries. H/O Gastric Bypass years ago S/P exploratory laparotomy- extensive, dense adhesions- enterolysis. Started on clear liquid diet Continue TPN Surgery on board HYPERTENSIVE URGENCY Likely secondary to Anxiety History of hypertension, managed with HCTZ + amlodipine. BP 200/118 on admission BP stable continue current management Acute Renal Failure Resolved LEUKOCYTOSIS WBC = 17,440.on admission Likely secondary to Bowel obstruction -no perforation. Afebrile, UA wnl WBC trending down to 12K Received IV broad spectrum Antibiotic VTE PROPHYLAXIS heparin subQ SCDs RESUSCITATION STATUS Full code Current Inpatient Medications: Current Inpatient Medications Medications (Trade) Dose Ordered Sig/Martha Route Start Time Stop Time Status Last Admin Dose Admin Hydromorphone HCl 1 mg 1 mg Q3H PRN IV 04/08/16 17:45 04/22/16 17:44 04/13/16 23:18 1 MG Acetaminophen (Ofirmev Iv) 100 ml @ 400 mls/hr Q8H PRN IV 04/08/16 17:45 05/08/16 17:44 04/12/16 06:02 400 MLS/HR Labetalol HCl 10 mg 10 mg Q1H PRN IV 04/08/16 17:45 05/08/16 17:44 04/11/16 08:14 10 MG Promethazine HCl 25 mg/Sodium Chloride 51 ml @ 204 mls/hr Q6H PRN IV 04/09/16 15:15 05/09/16 15:14 Pantoprazole Sodium/Syringe (Protonix Inj/ Syringe) 10 ml @ 5 mls/min DAILY@11 IV 04/10/16 11:00 05/10/16 10:59 04/14/16 10:39 5 MLS/MIN Heparin Sodium (Porcine) (Heparin Sq 5000 Unit/0.5ml) 5,000 unit Q12H SQ 04/09/16 16:00 05/09/16 15:59 Future hold 04/14/16 03:30 5,000 UNIT Ondansetron HCl 4 mg 4 mg Q6H PRN IV 04/09/16 15:15 05/09/16 15:14 04/12/16 15:02 4 MG Promethazine HCl 12.5 mg/Sodium Chloride 50.5 ml @ 204 mls/hr Q6H PRN IV 04/09/16 15:30 05/09/16 15:29 04/11/16 00:49 204 MLS/HR Dextrose (D10w) 1,000 ml @ 0 mls/hr Q0M PRN IV 04/10/16 06:15 05/10/16 06:14 Miscellaneous Information (Pharmacy Tpn/ Ppn Consult Active) 1 ea UD PRN N/A 04/10/16 06:15 05/10/16 06:14 Albuterol/ Ipratropium (Duoneb) 3 ml Q2H PRN INH 04/10/16 11:00 05/10/16 10:59 Hydromorphone HCl (Dilaudid Inj) 0.5 mg Q3H PRN IV 04/11/16 14:15 04/25/16 14:14 04/14/16 10:38 0.5 MG Hydralazine HCl (HydrALAZINE INJ) 10 mg Q6H PRN IV. 04/12/16 04:30 05/12/16 04:29 04/13/16 23:42 10 MG Amlodipine Besylate (Norvasc Tab) 5 mg QAM PO 04/13/16 09:00 05/13/16 08:59 04/14/16 08:33 5 MG Heparin Sodium (Porcine) (Heparin 10 Unit/ ml 5 ml Flush) 5 ml PRN PRN FLUSH 04/12/16 20:45 05/12/16 20:44 04/13/16 23:43 5 ML Metoprolol Tartrate 25 mg 25 mg BID PO 04/13/16 21:00 05/13/16 20:59 04/14/16 08:33 25 MG Nutrition (Parenteral) (Custom Central Pn) 0 ml @ 0 mls/hr TODAY@1600 IV 04/13/16 16:00 04/14/16 15:59 04/13/16 15:52 0 MLS/HR Senna (Senokot Syrup) 8.8 mg BID PO 04/14/16 09:00 05/14/16 08:59 Enteral Nutritional Formula 1 box 1 box TIDM PO 04/14/16 11:30 05/14/16 11:29 04/14/16 13:44 1 BOX Nutrition (Parenteral) (Custom Central Pn) 0 ml @ 0 mls/hr TODAY@1600 IV 04/14/16 16:00 04/15/16 15:59
[2016-04-14] MEDS ORDERED: CUSTOM CENTRAL PN 1 BAG IV SCH (16:00)
[2016-04-14] MEDS: HYDROmorphone INJ 1 MG/ML SYR IV PRN (21:58)
[2016-04-15 00:40] VITALS: BP 157/84
[2016-04-15] MEDS: HEPARIN SOD 5000 UNIT/0.5 ML CARP SQ SCH ×2 (04:04→16:52)
[2016-04-15] MEDS: HYDROmorphone INJ 1 MG/ML SYR IV PRN (04:05)
[2016-04-15 06:29] LABS: HEMATOCRIT 32.3 % (37-47); MEAN CORPUSCULAR HEMOGLOBIN 27.1 pg (25-34); MEAN CORPUSCULAR HGB CONC 31.9 g/dl (32-36); MEAN PLATELET VOLUME 10.7 fL (7.4-10.4); PLATELET COUNT 311 K/uL (130-400)
[2016-04-15] MEDS ORDERED: OXYCODONE/ACETAMINOPHEN 5-325 TAB PO PRN (06:30)
[2016-04-15 07:03] LABS: BUN/CREATININE RATIO 45.9 (10-20); CALCIUM 8.4 mg/dl (8.5-10.1); CREATININE 0.73 mg/dl (0.60-1.20); POTASSIUM 3.8 mmol/L (3.5-5.1)
[2016-04-15 07:06] LABS: ALB/GLOB RATIO 0.5 (0.9-2)
[2016-04-15 08:29] VITALS: BP 163/77; PULSE 85; TEMP 36.6; O2SAT 97
[2016-04-15] MEDS: BOOST BREEZE NUTRITION DRINK 1 BOX PO SCH ×2 (08:30→12:30)
--- NOTE | 2016-04-15 08:37 | Surgery Progress Note ---
Surgery Progress Note Date of Service Apr 15, 2016. Subjective Post OP Day: 6 + bowel movement (less frequent), + diet (clears), No nausea Objective Vital Signs: Date Time Temp Pulse Resp B/P Pulse Ox O2 Delivery O2 Flow Rate FiO2 04/15/16 08:29 36.6 85 20 163/77 97 Room Air 04/15/16 00:40 157/84 04/14/16 23:45 Room Air 04/14/16 23:03 36.8 77 17 172/84 92 Room Air 04/14/16 21:49 87 160/85 04/14/16 15:40 Room Air 04/14/16 12:00 36.8 84 20 124/76 92 Room Air 04/14/16 11:42 36.8 79 20 153/73 94 04/14/16 11:40 36.8 84 20 92 1.0 04/14/16 08:37 36.8 79 18 134/69 96 Physical Exam: GONZALO drainage (#1 28 cc, #2 65 cc) Abdomen: non distended, soft Incision(s): clean, dry Laboratory Results: Results Past 24 Hours Test 04/14/16 11:37 04/14/16 17:01 04/14/16 20:56 04/15/16 06:12 Range/Units Bedside Glucose 142 110 121 70-90 mg/dl White Blood Count 14.10 4.8-10.8 K/uL Red Blood Count 3.80 4.2-5.4 M/uL Hemoglobin 10.3 12.0-16.0 g/dL Hematocrit 32.3 37-47 % Mean Corpuscular Volume 85.0 80-100 fL Mean Corpuscular Hemoglobin 27.1 25-34 pg Mean Corpuscular Hemoglobin Concent 31.9 32-36 g/dl RDW Standard Deviation 53.7 36.4-46.3 fL RDW Coefficient of Variation 17.4 11.5-14.5 % Platelet Count 311 130-400 K/uL Mean Platelet Volume 10.7 7.4-10.4 fL Nucleated RBC Absolute Count (auto) 0.04 0-0 K/uL Nucleated Red Blood Cells % 0.3 % Sodium Level 142 136-145 mmol/L Potassium Level 3.8 3.5-5.1 mmol/L Chloride Level 105 98-107 mmol/L Carbon Dioxide Level 27 21-32 mmol/L Anion Gap 10.0 3-11 mmol/L Blood Urea Nitrogen 34 7-18 mg/dl Creatinine 0.73 0.60-1.20 mg/dl Est Creatinine Clear Calc Drug Dose 96.0 ml/min Estimated GFR () 96.7 Estimated GFR (Non- 83.4 BUN/Creatinine Ratio 45.9 10-20 Random Glucose 108 70-99 mg/dl Calcium Level 8.4 8.5-10.1 mg/dl Total Bilirubin 0.3 0.2-1 mg/dl Aspartate Amino Transf (AST/SGOT) 41 15-37 U/L Alanine Aminotransferase (ALT/SGPT) 47 12-78 U/L Alkaline Phosphatase 114 45-117 U/L Total Protein 6.3 6.4-8.2 gm/dl Albumin 2.1 3.4-5.0 gm/dl Globulin 4.2 2.5-4.0 gm/dl Albumin/Globulin Ratio 0.5 0.9-2 Assessment & Plan s/p ex lap, extensive MATT advance to full liquids GONZALO removed from subq, will continue pelvic drain C. diff uncollected WBC remains 14,000, afebrile cont increase diet, activity d/c planning ?[facility]
[2016-04-15] MEDS: METOPROLOL TARTRATE 25 MG TAB PO SCH ×2 (08:57→20:47)
[2016-04-15] MEDS: AMLODIPINE BESYLATE 5 MG TAB PO SCH (08:57)
[2016-04-15] MEDS: SENNA 8.8 MG/5 ML UDP PO SCH ×2 (08:58→20:44)
[2016-04-15 09:43] VITALS: O2SAT 97
[2016-04-15] MEDS: PANTOprazole INJ 40 MG in SYRINGE 0 ML IV SCH (11:03)
[2016-04-15] MEDS: OXYCODONE/ACETAMINOPHEN 5-325 TAB PO PRN ×2 (11:04→15:03)
[2016-04-15 12:03] VITALS: BP 143/71; PULSE 80; TEMP 36.6; O2SAT 93
--- NOTE | 2016-04-15 13:14 | Progress Note ---
Medicine Progress Note Date & Time of Visit: Apr 15, 2016 at 12:59. Subjective Pt was seen and examine Sitting comfortable in chair with granddaughter Pt said that she is feeling much better today compared to yesterday She said that she had watery diarrhea last night her stools is getting soft now she tolerated clear liquid diet denies any chest pain, palpitation, dizziness and sob Objective Last 8 Hrs Date Time Temp Pulse Resp B/P Pulse Ox O2 Delivery O2 Flow Rate FiO2 04/15/16 12:03 36.6 80 18 143/71 93 Room Air 04/15/16 09:43 97 Room Air 04/15/16 08:29 36.6 85 20 163/77 97 Room Air 04/15/16 07:40 Room Air Physical Exam: General- No acute distress Head- atraumatic Eyes- PERRL, EOMI ENT- oropharynx clear Neck- supple, no JVD Lungs- clear to auscultation and percussion Heart- regular rhythm; no murmur Abdomen- Mild tenderness and distended, normal bowel sound Extremities- no calf tenderness Neuro- alert, oriented x 3; PERRL, EOMI; no facial palsy Skin- warm & dry Laboratory Results: Last 24 Hours Test 04/14/16 17:01 04/14/16 20:56 04/15/16 06:12 Bedside Glucose 110 mg/dl 121 mg/dl White Blood Count 14.10 K/uL Red Blood Count 3.80 M/uL Hemoglobin 10.3 g/dL Hematocrit 32.3 % Mean Corpuscular Volume 85.0 fL Mean Corpuscular Hemoglobin 27.1 pg Mean Corpuscular Hemoglobin Concent 31.9 g/dl RDW Standard Deviation 53.7 fL RDW Coefficient of Variation 17.4 % Platelet Count 311 K/uL Mean Platelet Volume 10.7 fL Nucleated RBC Absolute Count (auto) 0.04 K/uL Nucleated Red Blood Cells % 0.3 % Sodium Level 142 mmol/L Potassium Level 3.8 mmol/L Chloride Level 105 mmol/L Carbon Dioxide Level 27 mmol/L Anion Gap 10.0 mmol/L Blood Urea Nitrogen 34 mg/dl Creatinine 0.73 mg/dl Est Creatinine Clear Calc Drug Dose 96.0 ml/min Estimated GFR () 96.7 Estimated GFR (Non- 83.4 BUN/Creatinine Ratio 45.9 Random Glucose 108 mg/dl Calcium Level 8.4 mg/dl Total Bilirubin 0.3 mg/dl Aspartate Amino Transf (AST/SGOT) 41 U/L Alanine Aminotransferase (ALT/SGPT) 47 U/L Alkaline Phosphatase 114 U/L Total Protein 6.3 gm/dl Albumin 2.1 gm/dl Globulin 4.2 gm/dl Albumin/Globulin Ratio 0.5 Date/Time Source Procedure Growth Status 04/15/16 10:30 Stool C.difficile Toxin B Gene (PCR) - Final No C. difficile toxin B gene detected Complete Assessment & Plan RECURRENT SMALL BOWEL OBSTRUCTION Clinical picture and CT consistent with partial small bowel obstruction, Most likely secondary to adhesions from previous surgeries. H/O Gastric Bypass years ago S/P exploratory laparotomy- extensive, dense adhesions- enterolysis. Tolerated liquid diet Continue TPN Surgery on board Clinically stable DIARRHEA Will get stool for cdiff if watery diarrhea continue will hold stools laxative improved HYPERTENSIVE URGENCY Likely secondary to Anxiety History of hypertension, managed with HCTZ + amlodipine. BP 200/118 on admission BP stable continue current management Acute Renal Failure Resolved LEUKOCYTOSIS WBC = 17,440.on admission Likely secondary to Bowel obstruction -no perforation. Afebrile, UA wnl WBC trending down to 14K Received IV broad spectrum Antibiotic VTE PROPHYLAXIS heparin subQ SCDs RESUSCITATION STATUS Full code Consultants: Surgery Current Inpatient Medications: Current Inpatient Medications Medications (Trade) Dose Ordered Sig/Martha Route Start Time Stop Time Status Last Admin Dose Admin Hydromorphone HCl 1 mg 1 mg Q3H PRN IV 04/08/16 17:45 04/22/16 17:44 04/15/16 04:05 1 MG Acetaminophen 100 ml @ 400 mls/hr Q8H PRN IV 04/08/16 17:45 05/08/16 17:44 04/12/16 06:02 400 MLS/HR Promethazine HCl 25 mg/Sodium Chloride 51 ml @ 204 mls/hr Q6H PRN IV 04/09/16 15:15 05/09/16 15:14 Pantoprazole Sodium/Syringe (Protonix Inj/ Syringe) 10 ml @ 5 mls/min DAILY@11 IV 04/10/16 11:00 05/10/16 10:59 04/15/16 11:03 5 MLS/MIN Heparin Sodium (Porcine) (Heparin Sq 5000 Unit/0.5ml) 5,000 unit Q12H SQ 04/09/16 16:00 05/09/16 15:59 Future hold 04/15/16 04:04 5,000 UNIT Ondansetron HCl 4 mg 4 mg Q6H PRN IV 04/09/16 15:15 05/09/16 15:14 04/12/16 15:02 4 MG Promethazine HCl 12.5 mg/Sodium Chloride 50.5 ml @ 204 mls/hr Q6H PRN IV 04/09/16 15:30 05/09/16 15:29 04/11/16 00:49 204 MLS/HR Dextrose (D10w) 1,000 ml @ 0 mls/hr Q0M PRN IV 04/10/16 06:15 05/10/16 06:14 Miscellaneous Information (Pharmacy Tpn/ Ppn Consult Active) 1 ea UD PRN N/A 04/10/16 06:15 05/10/16 06:14 Albuterol/ Ipratropium (Duoneb) 3 ml Q2H PRN INH 04/10/16 11:00 05/10/16 10:59 Hydromorphone HCl (Dilaudid Inj) 0.5 mg Q3H PRN IV 04/11/16 14:15 04/25/16 14:14 04/14/16 10:38 0.5 MG Hydralazine HCl (HydrALAZINE INJ) 10 mg Q6H PRN IV. 04/12/16 04:30 05/12/16 04:29 04/13/16 23:42 10 MG Amlodipine Besylate (Norvasc Tab) 5 mg QAM PO 04/13/16 09:00 05/13/16 08:59 04/15/16 08:57 5 MG Heparin Sodium (Porcine) (Heparin 10 Unit/ ml 5 ml Flush) 5 ml PRN PRN FLUSH 04/12/16 20:45 05/12/16 20:44 04/15/16 11:06 5 ML Metoprolol Tartrate (Lopressor Tab) 25 mg BID PO 04/13/16 21:00 05/13/16 20:59 04/15/16 08:57 25 MG Senna (Senokot Syrup) 8.8 mg BID PO 04/14/16 09:00 05/14/16 08:59 Enteral Nutritional Formula 1 box 1 box TIDM PO 04/14/16 11:30 05/14/16 11:29 04/14/16 13:44 1 BOX Nutrition (Parenteral) (Custom Central Pn) 0 ml @ 0 mls/hr TODAY@1600 IV 04/14/16 16:00 04/15/16 15:59 04/14/16 17:51 0 MLS/HR Oxycodone/ Acetaminophen (Percocet 5-325mg Tab) 1 tab Q4H PRN PO 04/15/16 06:30 04/29/16 06:29 Oxycodone/ Acetaminophen 2 tab 2 tab Q4H PRN PO 04/15/16 06:30 04/29/16 06:29 04/15/16 11:04 2 TAB Nutrition (Parenteral) (Custom Central Pn) 0 ml @ 0 mls/hr TODAY@1600 IV 04/15/16 16:00 04/16/16 15:59 Enteral Nutritional Formula (Boost) 1 can TID PO 04/15/16 14:00 05/15/16 13:59 UNV
[2016-04-15 15:57] VITALS: BP 141/72; PULSE 71; TEMP 36.8; O2SAT 92
[2016-04-15] MEDS ORDERED: CUSTOM CENTRAL PN 1 BAG IV SCH (16:00)
[2016-04-15] MEDS: ONDANSETRON INJ 2 MG/ML 2 ML VIAL IV PRN (16:33)
[2016-04-15] MEDS: BOOST VANILLA PO SCH ×4 (16:45→20:44)
[2016-04-15 23:22] VITALS: BP 155/82; PULSE 72; TEMP 36.5; O2SAT 94
[2016-04-16] MEDS: HEPARIN SOD 5000 UNIT/0.5 ML CARP SQ SCH ×2 (05:28→18:11)
[2016-04-16 06:32] LABS: CREATININE 0.75 mg/dl (0.60-1.20)
[2016-04-16 06:33] LABS: BUN/CREATININE RATIO 48.7 (10-20); CALCIUM 8.4 mg/dl (8.5-10.1); MAGNESIUM 1.9 mg/dl (1.8-2.4); POTASSIUM 4.4 mmol/L (3.5-5.1)
--- NOTE | 2016-04-16 06:34 | Surgery Progress Note ---
Surgery Progress Note Date of Service Apr 16, 2016. Subjective + bowel movement, + flatus, No nausea, No vomiting loose bms, c diff neg, tolerating full liquids, some mild incontinence Objective Vital Signs: Date Time Temp Pulse Resp B/P Pulse Ox O2 Delivery O2 Flow Rate FiO2 04/16/16 00:15 Room Air 04/15/16 23:22 36.5 72 18 155/82 94 Room Air 04/15/16 15:57 36.8 71 18 141/72 92 Room Air 04/15/16 15:45 Room Air 04/15/16 12:03 36.6 80 18 143/71 93 Room Air 04/15/16 09:43 97 Room Air 04/15/16 08:29 36.6 85 20 163/77 97 Room Air 04/15/16 07:40 Room Air General Appearance: no apparent distress Respiratory/Chest: no respiratory distress Abdomen: soft Incision(s): intact Laboratory Results: Results Past 24 Hours Test 04/16/16 05:10 Range/Units Microbiology Results 04/15/16 C.difficile Toxin B Gene (PCR) - Final, Complete No C. difficile toxin B gene detected Assessment & Plan 04/16/16- progressing- adv to low fiber diet and stop tpn after current bag- keep picc line for now- monitor bowel function- still some incontinence. leave all sutures/ meche 04/14/16- seems to be stable- flatus, no bm- begin clears, cont tpn. to reg floor if IV meds ok- can take some po. d/c keys. walk in hallway. add senna syrup- may need rehab 04/13/16- some bowel function- passing flatus- will give ice and popsicles cont tpn, adv diet very slowly. try to mobilize- pt doing much than expected 04/10/16- s/p expl laparotomy- extensive, dense adhesions- enterolysis. No enterotomies or bowel resection. 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 No ischemia. wean from vent, pain control, will give dose of lasix, order ppn- will probably need picc/ or IJ line. NG will not function well with bypass- can d/c when extubated 04/09/16- adm with small bowel obstruction- film pending. Still concerned pt may need abd exploration , lysis of adhesions- reassess this am check labs 04/14/16- seems to be stable- flatus, no bm- begin clears, cont tpn. to reg floor if IV meds ok- can take some po. d/c keys. walk in hallway. add senna syrup- may need rehab 04/13/16- some bowel function- passing flatus- will give ice and popsicles cont tpn, adv diet very slowly. try to mobilize- pt doing much than expected 04/10/16- s/p expl laparotomy- extensive, dense adhesions- enterolysis. No enterotomies or bowel resection. 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 No ischemia. wean from vent, pain control, will give dose of lasix, order ppn- will probably need picc/ or IJ line. NG will not function well with bypass- can d/c when extubated 04/09/16- adm with small bowel obstruction- film pending. Still concerned pt may need abd exploration , lysis of adhesions- reassess this am check labs
[2016-04-16 06:37] LABS: PHOSPHORUS 4.1 mg/dl (2.5-4.9); PREALBUMIN 14.4 mg/dl (20-40)
[2016-04-16 06:48] LABS: HEMATOCRIT 32.2 % (37-47); MEAN CELL VOLUME 85.6 fL (80-100); MEAN CORPUSCULAR HEMOGLOBIN 26.9 pg (25-34); MEAN CORPUSCULAR HGB CONC 31.4 g/dl (32-36); MEAN PLATELET VOLUME 11.7 fL (7.4-10.4); PLATELET COUNT 323 K/uL (130-400); RED BLOOD COUNT 3.76 M/uL (4.2-5.4)
[2016-04-16 07:16] VITALS: BP 161/75; PULSE 84; TEMP 36.7; O2SAT 94
[2016-04-16] MEDS: BOOST VANILLA PO SCH ×4 (09:00→13:02)
[2016-04-16] MEDS: ONDANSETRON INJ 2 MG/ML 2 ML VIAL IV PRN (09:28)
[2016-04-16] MEDS: SENNA 8.8 MG/5 ML UDP PO SCH ×2 (09:54→21:00)
[2016-04-16] MEDS: METOPROLOL TARTRATE 25 MG TAB PO SCH ×2 (10:00→21:12)
[2016-04-16] MEDS: AMLODIPINE BESYLATE 5 MG TAB PO SCH (10:00)
[2016-04-16] MEDS: PANTOprazole SOD 40 MG TAB PO SCH (10:00)
--- NOTE | 2016-04-16 13:26 | Progress Note ---
Medicine Progress Note Date & Time of Visit: Apr 16, 2016 at 13:21. Subjective Pt was seen and examined Sitting in bed with no distress She just finished eating her lunch she tolerated diet well denies any chest pain, palpitation, dizziness and SOB last episodes of diarrhea was last night Objective Last 8 Hrs Date Time Temp Pulse Resp B/P Pulse Ox O2 Delivery O2 Flow Rate FiO2 04/16/16 08:34 Room Air 04/16/16 07:16 36.7 84 15 161/75 94 Room Air Physical Exam: General- No acute distress Head- atraumatic Eyes- PERRL, EOMI ENT- oropharynx clear Neck- supple, no JVD Lungs- clear to auscultation and percussion Heart- regular rhythm; no murmur Abdomen- Mild tenderness, normal bowel sound Extremities- no calf tenderness Neuro- alert, oriented x 3; PERRL, EOMI; no facial palsy Skin- warm & dry Laboratory Results: Last 24 Hours Test 04/16/16 05:10 White Blood Count 13.50 K/uL Red Blood Count 3.76 M/uL Hemoglobin 10.1 g/dL Hematocrit 32.2 % Mean Corpuscular Volume 85.6 fL Mean Corpuscular Hemoglobin 26.9 pg Mean Corpuscular Hemoglobin Concent 31.4 g/dl RDW Standard Deviation 54.0 fL RDW Coefficient of Variation 17.2 % Platelet Count 323 K/uL Mean Platelet Volume 11.7 fL Nucleated RBC Absolute Count (auto) 0.05 K/uL Nucleated Red Blood Cells % 0.3 % Sodium Level 139 mmol/L Potassium Level 4.4 mmol/L Chloride Level 103 mmol/L Carbon Dioxide Level 26 mmol/L Anion Gap 10.0 mmol/L Blood Urea Nitrogen 37 mg/dl Creatinine 0.75 mg/dl Est Creatinine Clear Calc Drug Dose 96.0 ml/min Estimated GFR () 93.6 Estimated GFR (Non- 80.8 BUN/Creatinine Ratio 48.7 Random Glucose 105 mg/dl Calcium Level 8.4 mg/dl Phosphorus Level 4.1 mg/dl Magnesium Level 1.9 mg/dl Total Bilirubin 0.3 mg/dl Aspartate Amino Transf (AST/SGOT) 25 U/L Alanine Aminotransferase (ALT/SGPT) 38 U/L Alkaline Phosphatase 110 U/L Prealbumin 14.4 mg/dl Triglycerides Level 146 mg/dl Assessment & Plan RECURRENT SMALL BOWEL OBSTRUCTION Clinical picture and CT consistent with partial small bowel obstruction, Most likely secondary to adhesions from previous surgeries. H/O Gastric Bypass years ago S/P exploratory laparotomy- extensive, dense adhesions- enterolysis. Diet advance to low fiber D/C TPN Surgery on board Clinically stable Continue monitor DIARRHEA Last episode of diarrhea was last night Stool for C- Diff negative improved HYPERTENSIVE URGENCY Likely secondary to Anxiety History of hypertension, managed with HCTZ + amlodipine. BP 200/118 on admission BP elevated consider to resume HCTZ in am continue monitor BP Acute Renal Failure Resolved LEUKOCYTOSIS WBC = 17,440.on admission Likely secondary to Bowel obstruction -no perforation. Afebrile, UA wnl WBC trending down to 13K Received IV broad spectrum Antibiotic VTE PROPHYLAXIS heparin subQ SCDs RESUSCITATION STATUS Full code Consultants: Surgery Current Inpatient Medications: Current Inpatient Medications Medications (Trade) Dose Ordered Sig/Martha Route Start Time Stop Time Status Last Admin Dose Admin Hydromorphone HCl 1 mg 1 mg Q3H PRN IV 04/08/16 17:45 04/22/16 17:44 04/15/16 04:05 1 MG Acetaminophen 100 ml @ 400 mls/hr Q8H PRN IV 04/08/16 17:45 05/08/16 17:44 04/12/16 06:02 400 MLS/HR Promethazine HCl/ Sodium Chloride (Phenergan Inj/ Nss 50ml) 51 ml @ 204 mls/hr Q6H PRN IV 04/09/16 15:15 05/09/16 15:14 Heparin Sodium (Porcine) (Heparin Sq 5000 Unit/0.5ml) 5,000 unit Q12H SQ 04/09/16 16:00 05/09/16 15:59 Future hold 04/16/16 05:28 5,000 UNIT Ondansetron HCl 4 mg 4 mg Q6H PRN IV 04/09/16 15:15 05/09/16 15:14 04/16/16 09:28 4 MG Promethazine HCl/ Sodium Chloride (Phenergan Inj/ Nss 50ml) 50.5 ml @ 204 mls/hr Q6H PRN IV 04/09/16 15:30 05/09/16 15:29 04/11/16 00:49 204 MLS/HR Albuterol/ Ipratropium (Duoneb) 3 ml Q2H PRN INH 04/10/16 11:00 05/10/16 10:59 Hydromorphone HCl (Dilaudid Inj) 0.5 mg Q3H PRN IV 04/11/16 14:15 04/25/16 14:14 04/14/16 10:38 0.5 MG Hydralazine HCl (HydrALAZINE INJ) 10 mg Q6H PRN IV. 04/12/16 04:30 05/12/16 04:29 04/13/16 23:42 10 MG Amlodipine Besylate (Norvasc Tab) 5 mg QAM PO 04/13/16 09:00 05/13/16 08:59 04/16/16 10:00 5 MG Heparin Sodium (Porcine) (Heparin 10 Unit/ ml 5 ml Flush) 5 ml PRN PRN FLUSH 04/12/16 20:45 05/12/16 20:44 04/16/16 06:28 5 ML Metoprolol Tartrate (Lopressor Tab) 25 mg BID PO 04/13/16 21:00 05/13/16 20:59 04/16/16 10:00 25 MG Senna (Senokot Syrup) 8.8 mg BID PO 04/14/16 09:00 05/14/16 08:59 Oxycodone/ Acetaminophen (Percocet 5-325mg Tab) 1 tab Q4H PRN PO 04/15/16 06:30 04/29/16 06:29 Oxycodone/ Acetaminophen 2 tab 2 tab Q4H PRN PO 04/15/16 06:30 04/29/16 06:29 04/15/16 15:03 2 TAB Nutrition (Parenteral) (Custom Central Pn) 0 ml @ 0 mls/hr TODAY@1600 IV 04/15/16 16:00 04/16/16 15:59 04/15/16 16:34 0 MLS/HR Enteral Nutritional Formula (Boost) 1 can TID PO 04/15/16 14:00 05/15/16 13:59 Miscellaneous (Stop Order) 1 ea TODAY@1600 ONCE N/A 04/16/16 16:00 04/16/16 16:01 Pantoprazole Sodium (Protonix Tab) 40 mg QAM PO 04/16/16 09:00 05/16/16 08:59 04/16/16 10:00 40 MG
[2016-04-16] MEDS ORDERED: BOOST VANILLA PO SCH ×2 (15:00)
[2016-04-16 15:21] VITALS: BP 160/82; PULSE 72; TEMP 37; O2SAT 94
[2016-04-16 16:00] VITALS: BP 166/78; O2SAT 94
[2016-04-16] MEDS ORDERED: [UNRECOGNIZED DRUG - REMARK] ONE (16:00)
[2016-04-16] MEDS: HydrALAZINE HCL 20 MG/ML VIAL IV. PRN (16:24)
[2016-04-16 21:13] VITALS: BP 135/75; PULSE 81
[2016-04-16] MEDS: HYDROmorphone INJ 1 MG/ML SYR IV PRN (21:16)
[2016-04-16 23:08] VITALS: BP 128/81; PULSE 69; TEMP 36.9; O2SAT 92
[2016-04-17] MEDS: HYDROmorphone INJ 1 MG/ML SYR IV PRN ×3 (01:05→13:32)
[2016-04-17 05:26] LABS: HEMATOCRIT 30.6 % (37-47); MEAN CELL VOLUME 82.9 fL (80-100); MEAN CORPUSCULAR HEMOGLOBIN 27.1 pg (25-34); MEAN CORPUSCULAR HGB CONC 32.7 g/dl (32-36); MEAN PLATELET VOLUME 10.6 fL (7.4-10.4); PLATELET COUNT 329 K/uL (130-400); RED BLOOD COUNT 3.69 M/uL (4.2-5.4); WHITE BLOOD COUNT 12.84 K/uL (4.8-10.8)
[2016-04-17] MEDS: HEPARIN SOD 5000 UNIT/0.5 ML CARP SQ SCH ×2 (05:38→18:22)
[2016-04-17 05:54] LABS: CREATININE 0.82 mg/dl (0.60-1.20); POTASSIUM 4.2 mmol/L (3.5-5.1)
--- NOTE | 2016-04-17 07:52 | Surgery Progress Note ---
Surgery Progress Note Date of Service Apr 17, 2016. Subjective + flatus, No bowel movement, No vomiting no bm yesterday, mild nausea with food and fullness not taking senna syrup because of prior diarrhea Objective Vital Signs: Date Time Temp Pulse Resp B/P Pulse Ox O2 Delivery O2 Flow Rate FiO2 04/16/16 23:35 Room Air 04/16/16 23:08 36.9 69 18 128/81 92 Room Air 04/16/16 21:13 81 135/75 04/16/16 16:00 166/78 04/16/16 16:00 94 Room Air 1.0 30 04/16/16 15:21 37.0 72 18 160/82 94 Room Air 04/16/16 08:34 Room Air General Appearance: no apparent distress Respiratory/Chest: no respiratory distress Abdomen: normal bowel sounds Incision(s): intact Laboratory Results: Results Past 24 Hours Test 04/17/16 05:05 Range/Units White Blood Count 12.84 4.8-10.8 K/uL Red Blood Count 3.69 4.2-5.4 M/uL Hemoglobin 10.0 12.0-16.0 g/dL Hematocrit 30.6 37-47 % Mean Corpuscular Volume 82.9 80-100 fL Mean Corpuscular Hemoglobin 27.1 25-34 pg Mean Corpuscular Hemoglobin Concent 32.7 32-36 g/dl RDW Standard Deviation 51.4 36.4-46.3 fL RDW Coefficient of Variation 17.0 11.5-14.5 % Platelet Count 329 130-400 K/uL Mean Platelet Volume 10.6 7.4-10.4 fL Nucleated RBC Absolute Count (auto) 0.04 0-0 K/uL Nucleated Red Blood Cells % 0.3 % Sodium Level 138 136-145 mmol/L Potassium Level 4.2 3.5-5.1 mmol/L Chloride Level 103 98-107 mmol/L Carbon Dioxide Level 27 21-32 mmol/L Anion Gap 8.0 3-11 mmol/L Blood Urea Nitrogen 30 7-18 mg/dl Creatinine 0.82 0.60-1.20 mg/dl Est Creatinine Clear Calc Drug Dose 87.8 ml/min Estimated GFR () 84.0 Estimated GFR (Non- 72.5 BUN/Creatinine Ratio 36.0 10-20 Random Glucose 85 70-99 mg/dl Calcium Level 8.0 8.5-10.1 mg/dl drain - serous Assessment & Plan 04/17/16- some concern for marginal po intake and bowel function- I don't think she is ready for rehab yet- try senna syrup, d/c GONZALO drain Do Not remove picc- may consider leaving it for 1-2 weeks monitor intake and bowel function 04/16/16- progressing- adv to low fiber diet and stop tpn after current bag- keep picc line for now- monitor bowel function- still some incontinence. leave all sutures/ meche 04/14/16- seems to be stable- flatus, no bm- begin clears, cont tpn. to reg floor if IV meds ok- can take some po. d/c keys. walk in hallway. add senna syrup- may need rehab 04/13/16- some bowel function- passing flatus- will give ice and popsicles cont tpn, adv diet very slowly. try to mobilize- pt doing much than expected 04/10/16- s/p expl laparotomy- extensive, dense adhesions- enterolysis. No enterotomies or bowel resection. 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 No ischemia. wean from vent, pain control, will give dose of lasix, order ppn- will probably need picc/ or IJ line. NG will not function well with bypass- can d/c when extubated 04/09/16- adm with small bowel obstruction- film pending. Still concerned pt may need abd exploration , lysis of adhesions- reassess this am check labs 04/16/16- progressing- adv to low fiber diet and stop tpn after current bag- keep picc line for now- monitor bowel function- still some incontinence. leave all sutures/ meche 04/14/16- seems to be stable- flatus, no bm- begin clears, cont tpn. to reg floor if IV meds ok- can take some po. d/c keys. walk in hallway. add senna syrup- may need rehab 04/13/16- some bowel function- passing flatus- will give ice and popsicles cont tpn, adv diet very slowly. try to mobilize- pt doing much than expected 04/10/16- s/p expl laparotomy- extensive, dense adhesions- enterolysis. No enterotomies or bowel resection. 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 No ischemia. wean from vent, pain control, will give dose of lasix, order ppn- will probably need picc/ or IJ line. NG will not function well with bypass- can d/c when extubated 04/09/16- adm with small bowel obstruction- film pending. Still concerned pt may need abd exploration , lysis of adhesions- reassess this am check labs
[2016-04-17 07:59] VITALS: BP 128/76; PULSE 77; TEMP 36.8; O2SAT 94
[2016-04-17] MEDS ORDERED: SENNA 8.8 MG/5 ML UDP PO SCH (09:00)
[2016-04-17] MEDS: SENNA 8.8 MG/5 ML UDP PO SCH ×2 (09:00→19:38)
[2016-04-17] MEDS: PANTOprazole SOD 40 MG TAB PO SCH (09:08)
[2016-04-17] MEDS: METOPROLOL TARTRATE 25 MG TAB PO SCH ×2 (09:08→21:43)
[2016-04-17] MEDS: AMLODIPINE BESYLATE 5 MG TAB PO SCH (09:08)
[2016-04-17 09:19] VITALS: O2SAT 94
[2016-04-17 15:09] VITALS: BP 145/79; PULSE 74; TEMP 36.8; O2SAT 93
--- NOTE | 2016-04-17 20:10 | Progress Note ---
Medicine Progress Note Date & Time of Visit: Apr 17, 2016 at 20:00. Subjective Pt was seen and examined lying in bed with no distress Pt has not had a BM yet Pt said that she is having intermittent pain denies any chest pain, palpitation, dizziness and sob Objective Last 8 Hrs Date Time Temp Pulse Resp B/P Pulse Ox O2 Delivery O2 Flow Rate FiO2 04/17/16 15:09 36.8 74 18 145/79 93 Room Air Physical Exam: General- No acute distress Head- atraumatic Eyes- PERRL, EOMI ENT- oropharynx clear Neck- supple, no JVD Lungs- clear to auscultation and percussion Heart- regular rhythm; no murmur Abdomen- Mild tenderness, normal bowel sound Extremities- no calf tenderness Neuro- alert, oriented x 3; PERRL, EOMI; no facial palsy Skin- warm & dry Laboratory Results: Last 24 Hours Test 04/17/16 05:05 White Blood Count 12.84 K/uL Red Blood Count 3.69 M/uL Hemoglobin 10.0 g/dL Hematocrit 30.6 % Mean Corpuscular Volume 82.9 fL Mean Corpuscular Hemoglobin 27.1 pg Mean Corpuscular Hemoglobin Concent 32.7 g/dl RDW Standard Deviation 51.4 fL RDW Coefficient of Variation 17.0 % Platelet Count 329 K/uL Mean Platelet Volume 10.6 fL Nucleated RBC Absolute Count (auto) 0.04 K/uL Nucleated Red Blood Cells % 0.3 % Sodium Level 138 mmol/L Potassium Level 4.2 mmol/L Chloride Level 103 mmol/L Carbon Dioxide Level 27 mmol/L Anion Gap 8.0 mmol/L Blood Urea Nitrogen 30 mg/dl Creatinine 0.82 mg/dl Est Creatinine Clear Calc Drug Dose 87.8 ml/min Estimated GFR () 84.0 Estimated GFR (Non- 72.5 BUN/Creatinine Ratio 36.0 Random Glucose 85 mg/dl Calcium Level 8.0 mg/dl Assessment & Plan RECURRENT SMALL BOWEL OBSTRUCTION Clinical picture and CT consistent with partial small bowel obstruction, Most likely secondary to adhesions from previous surgeries. H/O Gastric Bypass years ago S/P exploratory laparotomy- extensive, dense adhesions- enterolysis. Diet advance to low fiber No BM yet starting on senna syrup D/C TPN Surgery on board Continue monitor DIARRHEA Last episode of diarrhea was last night Stool for C- Diff negative No BM yet HYPERTENSIVE URGENCY Likely secondary to Anxiety History of hypertension, managed with HCTZ + amlodipine. BP 200/118 on admission BP elevated consider to resume HCTZ in am continue monitor BP Acute Renal Failure Resolved LEUKOCYTOSIS WBC = 17,440.on admission Likely secondary to Bowel obstruction -no perforation. Afebrile, UA wnl WBC trending down to 12K Received IV broad spectrum Antibiotic VTE PROPHYLAXIS heparin subQ SCDs RESUSCITATION STATUS Full code Consultants: Surgery Current Inpatient Medications: Current Inpatient Medications Medications (Trade) Dose Ordered Sig/Martha Route Start Time Stop Time Status Last Admin Dose Admin Hydromorphone HCl 1 mg 1 mg Q3H PRN IV 04/08/16 17:45 04/22/16 17:44 04/17/16 13:32 1 MG Acetaminophen 100 ml @ 400 mls/hr Q8H PRN IV 04/08/16 17:45 05/08/16 17:44 04/12/16 06:02 400 MLS/HR Promethazine HCl/ Sodium Chloride (Phenergan Inj/ Nss 50ml) 51 ml @ 204 mls/hr Q6H PRN IV 04/09/16 15:15 05/09/16 15:14 Heparin Sodium (Porcine) (Heparin Sq 5000 Unit/0.5ml) 5,000 unit Q12H SQ 04/09/16 16:00 05/09/16 15:59 Future hold 04/17/16 18:22 5,000 UNIT Ondansetron HCl 4 mg 4 mg Q6H PRN IV 04/09/16 15:15 05/09/16 15:14 04/16/16 09:28 4 MG Promethazine HCl/ Sodium Chloride (Phenergan Inj/ Nss 50ml) 50.5 ml @ 204 mls/hr Q6H PRN IV 04/09/16 15:30 05/09/16 15:29 04/11/16 00:49 204 MLS/HR Albuterol/ Ipratropium (Duoneb) 3 ml Q2H PRN INH 04/10/16 11:00 05/10/16 10:59 Hydromorphone HCl (Dilaudid Inj) 0.5 mg Q3H PRN IV 04/11/16 14:15 04/25/16 14:14 04/14/16 10:38 0.5 MG Hydralazine HCl (HydrALAZINE INJ) 10 mg Q6H PRN IV. 04/12/16 04:30 05/12/16 04:29 04/16/16 16:24 10 MG Amlodipine Besylate (Norvasc Tab) 5 mg QAM PO 04/13/16 09:00 05/13/16 08:59 04/17/16 09:08 5 MG Heparin Sodium (Porcine) (Heparin 10 Unit/ ml 5 ml Flush) 5 ml PRN PRN FLUSH 04/12/16 20:45 05/12/16 20:44 04/17/16 08:27 5 ML Metoprolol Tartrate (Lopressor Tab) 25 mg BID PO 04/13/16 21:00 05/13/16 20:59 04/17/16 09:08 25 MG Senna (Senokot Syrup) 8.8 mg BID PO 04/14/16 09:00 05/14/16 08:59 Oxycodone/ Acetaminophen (Percocet 5-325mg Tab) 1 tab Q4H PRN PO 04/15/16 06:30 04/29/16 06:29 Oxycodone/ Acetaminophen (Percocet 5-325mg Tab) 2 tab Q4H PRN PO 04/15/16 06:30 04/29/16 06:29 04/15/16 15:03 2 TAB Pantoprazole Sodium (Protonix Tab) 40 mg QAM PO 04/16/16 09:00 05/16/16 08:59 04/17/16 09:08 40 MG
[2016-04-17 21:41] VITALS: BP 151/88; PULSE 74
[2016-04-17 22:57] VITALS: BP 119/65; PULSE 69; TEMP 36.9; O2SAT 93
[2016-04-18 05:57] LABS: HEMATOCRIT 30.1 % (37-47); MEAN CELL VOLUME 82.2 fL (80-100); MEAN CORPUSCULAR HEMOGLOBIN 26.8 pg (25-34); MEAN CORPUSCULAR HGB CONC 32.6 g/dl (32-36); MEAN PLATELET VOLUME 10.3 fL (7.4-10.4); PLATELET COUNT 337 K/uL (130-400); RED BLOOD COUNT 3.66 M/uL (4.2-5.4)
[2016-04-18] MEDS: HEPARIN SOD 5000 UNIT/0.5 ML CARP SQ SCH (06:01)
--- NOTE | 2016-04-18 07:14 | Surgery Progress Note ---
Surgery Progress Note Date of Service Apr 18, 2016. Subjective positive bm- awake , alert Objective Vital Signs: Date Time Temp Pulse Resp B/P Pulse Ox O2 Delivery O2 Flow Rate FiO2 04/17/16 22:57 36.9 69 18 119/65 93 Room Air 04/17/16 21:41 74 151/88 04/17/16 19:48 Room Air 04/17/16 15:09 36.8 74 18 145/79 93 Room Air 04/17/16 09:19 94 Room Air 04/17/16 08:30 Room Air 04/17/16 07:59 36.8 77 18 128/76 94 Room Air General Appearance: no apparent distress Respiratory/Chest: no respiratory distress Abdomen: normal bowel sounds, non distended Incision(s): intact Laboratory Results: Results Past 24 Hours Test 04/18/16 05:36 Range/Units White Blood Count 12.50 4.8-10.8 K/uL Red Blood Count 3.66 4.2-5.4 M/uL Hemoglobin 9.8 12.0-16.0 g/dL Hematocrit 30.1 37-47 % Mean Corpuscular Volume 82.2 80-100 fL Mean Corpuscular Hemoglobin 26.8 25-34 pg Mean Corpuscular Hemoglobin Concent 32.6 32-36 g/dl RDW Standard Deviation 50.7 36.4-46.3 fL RDW Coefficient of Variation 16.9 11.5-14.5 % Platelet Count 337 130-400 K/uL Mean Platelet Volume 10.3 7.4-10.4 fL Nucleated RBC Absolute Count (auto) 0.06 0-0 K/uL Nucleated Red Blood Cells % 0.5 % Assessment & Plan 04/18/16- I think she could go to rehab if bed available- cont supportive care for now 04/17/16- some concern for marginal po intake and bowel function- I don't think she is ready for rehab yet- try senna syrup, d/c GONZALO drain Do Not remove picc- may consider leaving it for 1-2 weeks monitor intake and bowel function 04/16/16- progressing- adv to low fiber diet and stop tpn after current bag- keep picc line for now- monitor bowel function- still some incontinence. leave all sutures/ meche 04/14/16- seems to be stable- flatus, no bm- begin clears, cont tpn. to reg floor if IV meds ok- can take some po. d/c keys. walk in hallway. add senna syrup- may need rehab 04/13/16- some bowel function- passing flatus- will give ice and popsicles cont tpn, adv diet very slowly. try to mobilize- pt doing much than expected 04/10/16- s/p expl laparotomy- extensive, dense adhesions- enterolysis. No enterotomies or bowel resection. 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 No ischemia. wean from vent, pain control, will give dose of lasix, order ppn- will probably need picc/ or IJ line. NG will not function well with bypass- can d/c when extubated 04/09/16- adm with small bowel obstruction- film pending. Still concerned pt may need abd exploration , lysis of adhesions- reassess this am check labs 04/17/16- some concern for marginal po intake and bowel function- I don't think she is ready for rehab yet- try senna syrup, d/c GONZALO drain Do Not remove picc- may consider leaving it for 1-2 weeks monitor intake and bowel function 04/16/16- progressing- adv to low fiber diet and stop tpn after current bag- keep picc line for now- monitor bowel function- still some incontinence. leave all sutures/ meche 04/14/16- seems to be stable- flatus, no bm- begin clears, cont tpn. to reg floor if IV meds ok- can take some po. d/c keys. walk in hallway. add senna syrup- may need rehab 04/13/16- some bowel function- passing flatus- will give ice and popsicles cont tpn, adv diet very slowly. try to mobilize- pt doing much than expected 04/10/16- s/p expl laparotomy- extensive, dense adhesions- enterolysis. No enterotomies or bowel resection. 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 No ischemia. wean from vent, pain control, will give dose of lasix, order ppn- will probably need picc/ or IJ line. NG will not function well with bypass- can d/c when extubated 04/09/16- adm with small bowel obstruction- film pending. Still concerned pt may need abd exploration , lysis of adhesions- reassess this am check labs
[2016-04-18 07:35] VITALS: BP 140/69; PULSE 77; TEMP 36.9; O2SAT 95
[2016-04-18] MEDS: METOPROLOL TARTRATE 25 MG TAB PO SCH (07:52)
[2016-04-18] MEDS: SENNA 8.8 MG/5 ML UDP PO SCH (07:52)
[2016-04-18] MEDS: AMLODIPINE BESYLATE 5 MG TAB PO SCH (07:52)
[2016-04-18] MEDS: PANTOprazole SOD 40 MG TAB PO SCH (07:52)
[2016-04-18] MEDS: ONDANSETRON INJ 2 MG/ML 2 ML VIAL IV PRN (09:09)
--- NOTE | 2016-04-18 11:32 | Discharge Instructions ---
Discharge Instructions Admission Reason for Admission: Bowel Obstruction, Hypertensive Urgency Discharge Discharge Diagnosis / Problem: bowel obstruction Discharge Goals Goal(s): Decrease discomfort, Improve function, Improve disease control Activity Recommendations Activity Limitations: as noted below Lifting Limitations: no more than 10 pounds Exercise/Sports Limitations: until after follow-up appointment May Resume Sexual Activity: after follow-up appointment Shower/Bathe: no limitations (may shower) Driving or Machine Use: 1 week SPECIAL CARE INSTRUCTIONS: * Cover incisions and change daily for comfort/drainage. * May use ibuprofen for pain as tolerated. * Expect some swelling and bruising. Call your doctor if: * Temperature above 101 degrees * Pain not relieved by pain medicine ordered * There is increased drainage or redness from any incision * You have any unanswered questions or concerns [phone]. FOLLOW UP VISIT: If not already scheduled, please call the office for a follow-up visit. for next Wed- check up- wound check OFFICE PHONE NUMBER: Dr. Maldonado Office . Current Hospital Diet Patient's current hospital diet: Low Fiber Diet Discharge Diet Recommended Diet: Regular Diet Procedures Procedures Performed: Exploratory Laparotomy, Lysis of Adhesions- extensive Pending Studies Studies pending at discharge: no Laboratory Results Lipid Panel Test 04/16/16 05:10 Range/Units Triglycerides Level 146 0-150 mg/dl Medical Emergencies . Who to Call and When: Medical Emergencies: If at any time you feel your situation is an emergency, please call 911 immediately. . Non-Emergent Contact Non-Emergency issues call your: Primary Care Provider, Surgeon . "Provider Documentation" section prepared by Arsh Maldonado. VTE Core Measure Inpt VTE Proph given/why not?: Unfractionated heparin SQ, SCD's
--- NOTE | 2016-04-18 13:06 | Progress Note ---
Medicine Progress Note Date & Time of Visit: Apr 18, 2016 at 12:45. Subjective Pt was seen and examined Lying in bed comfortable with no distress with granddaughters at beside Pt said that she had 2 BM today she said that her abdominal pain is much better today She said that she tolerated her diet, but she had some nausea Pt said that she feels good she denies any chest pain, palpitation, dizziness and sob Objective Last 8 Hrs Date Time Temp Pulse Resp B/P Pulse Ox O2 Delivery O2 Flow Rate FiO2 04/18/16 08:20 Room Air 04/18/16 07:35 36.9 77 18 140/69 95 Room Air Physical Exam: General- No acute distress Head- atraumatic Eyes- PERRL, EOMI ENT- oropharynx clear Neck- supple, no JVD Lungs- clear to auscultation and percussion Heart- regular rhythm; no murmur Abdomen- Mild tenderness with palpation, normal bowel sound Extremities- no calf tenderness Neuro- alert, oriented x 3; PERRL, EOMI; no facial palsy Skin- warm & dry Laboratory Results: Last 24 Hours Test 04/18/16 05:36 White Blood Count 12.50 K/uL Red Blood Count 3.66 M/uL Hemoglobin 9.8 g/dL Hematocrit 30.1 % Mean Corpuscular Volume 82.2 fL Mean Corpuscular Hemoglobin 26.8 pg Mean Corpuscular Hemoglobin Concent 32.6 g/dl RDW Standard Deviation 50.7 fL RDW Coefficient of Variation 16.9 % Platelet Count 337 K/uL Mean Platelet Volume 10.3 fL Nucleated RBC Absolute Count (auto) 0.06 K/uL Nucleated Red Blood Cells % 0.5 % Assessment & Plan RECURRENT SMALL BOWEL OBSTRUCTION Clinical picture and CT consistent with partial small bowel obstruction, Most likely secondary to adhesions from previous surgeries. H/O Gastric Bypass years ago S/P exploratory laparotomy- extensive, dense adhesions- enterolysis. Tolerates low fiber diet, can advance as tolerated She had BM D/C TPN Surgery on board Follow up appt with surgery next Wednesday to check the wound As per surgery keep the PICC line for 1 to 2 weeks DIARRHEA Last episode of diarrhea was last night Stool for C- Diff negative Had 2 BM HYPERTENSIVE URGENCY Likely secondary to Anxiety History of hypertension, managed with HCTZ + amlodipine. BP 200/118 on admission BP elevated Resume HCTZ continue monitor BP Stable NON SUSTAINED VT Seen on monitor Was started on BB stable Acute Renal Failure Resolved LEUKOCYTOSIS WBC = 17,440.on admission Likely secondary to Bowel obstruction -no perforation. Afebrile, UA wnl WBC trending down to 12K Received IV broad spectrum Antibiotic VTE PROPHYLAXIS heparin subQ SCDs RESUSCITATION STATUS Full code Consultants: Surgery Current Inpatient Medications: Current Inpatient Medications Medications (Trade) Dose Ordered Sig/Martha Route Start Time Stop Time Status Last Admin Dose Admin Hydromorphone HCl 1 mg 1 mg Q3H PRN IV 04/08/16 17:45 04/22/16 17:44 04/17/16 13:32 1 MG Acetaminophen 100 ml @ 400 mls/hr Q8H PRN IV 04/08/16 17:45 05/08/16 17:44 04/12/16 06:02 400 MLS/HR Promethazine HCl/ Sodium Chloride (Phenergan Inj/ Nss 50ml) 51 ml @ 204 mls/hr Q6H PRN IV 04/09/16 15:15 05/09/16 15:14 Heparin Sodium (Porcine) (Heparin Sq 5000 Unit/0.5ml) 5,000 unit Q12H SQ 04/09/16 16:00 05/09/16 15:59 Future hold 04/18/16 06:01 5,000 UNIT Ondansetron HCl 4 mg 4 mg Q6H PRN IV 04/09/16 15:15 05/09/16 15:14 04/18/16 09:09 4 MG Promethazine HCl/ Sodium Chloride (Phenergan Inj/ Nss 50ml) 50.5 ml @ 204 mls/hr Q6H PRN IV 04/09/16 15:30 05/09/16 15:29 04/11/16 00:49 204 MLS/HR Albuterol/ Ipratropium (Duoneb) 3 ml Q2H PRN INH 04/10/16 11:00 05/10/16 10:59 Hydromorphone HCl (Dilaudid Inj) 0.5 mg Q3H PRN IV 04/11/16 14:15 04/25/16 14:14 04/14/16 10:38 0.5 MG Hydralazine HCl (HydrALAZINE INJ) 10 mg Q6H PRN IV. 04/12/16 04:30 05/12/16 04:29 04/16/16 16:24 10 MG Amlodipine Besylate (Norvasc Tab) 5 mg QAM PO 04/13/16 09:00 05/13/16 08:59 04/18/16 07:52 5 MG Heparin Sodium (Porcine) (Heparin 10 Unit/ ml 5 ml Flush) 5 ml PRN PRN FLUSH 04/12/16 20:45 05/12/16 20:44 04/18/16 06:08 5 ML Metoprolol Tartrate (Lopressor Tab) 25 mg BID PO 04/13/16 21:00 05/13/16 20:59 04/18/16 07:52 25 MG Senna (Senokot Syrup) 8.8 mg BID PO 04/14/16 09:00 05/14/16 08:59 Oxycodone/ Acetaminophen (Percocet 5-325mg Tab) 1 tab Q4H PRN PO 04/15/16 06:30 04/29/16 06:29 Oxycodone/ Acetaminophen (Percocet 5-325mg Tab) 2 tab Q4H PRN PO 04/15/16 06:30 04/29/16 06:29 04/15/16 15:03 2 TAB Pantoprazole Sodium (Protonix Tab) 40 mg QAM PO 04/16/16 09:00 05/16/16 08:59 04/18/16 07:52 40 MG
[2016-04-18] MEDS ORDERED: ONDA4TAB10 SL (13:16)
[2016-04-18] MEDS ORDERED: LPR25 PO (13:16)
[2016-04-18] MEDS ORDERED: PRT40 PO (13:16)
[2016-04-18] MEDS ORDERED: SNKUDL5 PO (13:16)
[2016-04-18] MEDS ORDERED: OXYC-57 PO (13:20)
--- NOTE | 2016-04-18 13:31 | Discharge Summary ---
Discharge Summary Date of Service Apr 18, 2016. Discharge Summary Admission Date: Apr 08, 2016 at 16:07 Discharge Date: Apr 18, 2016 Discharge Disposition: Rehab Principal Diagnosis: RECURRENT SMALL BOWEL OBSTRUCTION Secondary Diagnoses/Problems: HTN Diarrhea Episode of non sustained VT Leukocytosis Acute renal failure Procedures: Exploratory Laparotomy, Lysis of Adhesions- extensive Consultations: Surgery Critical care PT/OT Medication Reconciliation New Medications: Ondasetron Odt (Zofran Odt) 4 Mg Tab 4 MG SL Q8 for Nausea or Vomiting for 7 Days, #21 TAB Metoprolol Tartrate (Lopressor) 25 Mg Tab 25 MG PO BID for 30 Days, #60 TAB Oxycodone/Acetaminophen 5MG/325MG (Percocet 5MG/325MG) Tab 1 TAB PO Q12 PRN for Pain for 7 Days, #14 TAB PAIN Pantoprazole (Pantoprazole Sodium) 40 Mg Tab 40 MG PO QAM for 30 Days, #30 TAB Senna (Senna-Grx) 8.8 Mg/5 Ml Syrp 8.8 MG PO BID for 5 Days Continued Medications: Amlodipine Besylate (Norvasc) 2.5 Mg Tab 2.5 MG PO DAILY, TAB Atorvastatin (Lipitor) 20 Mg Tab 1 TAB PO DAILY, TAB 5 Refills Hydrochlorothiazide (Hctz) 12.5 Mg Cap 12.5 MG PO DAILY, TAB Methocarbamol (Robaxin) 500 Mg Tab 500 MG PO QID, TAB Admission Information HPI (per Admitting provider): 70 YO female followed by Dr. Escamilla. History of Indigo-en-Y gastric bypass for obesity several years ago. History of hypertension and other medical problems noted below. Developed onset of abdominal pain 2 nights prior to admission. Pain initially localized in the upper abdomen, but became more diffuse. Developed nausea and vomiting. Last bowel movement was about 24 hours prior to admission. Passed some flatus earlier today. No hematemesis, melena, hematochezia. Tried acetaminophen without relief. [place] warm last night, but no documented fever. . Physical Exam (per Admitting): General Appearance: WD/WN, + mild distress Head: normocephalic, atraumatic Eyes: normal inspection, PERRL, EOMI, sclerae normal ENT: normal ENT inspection, hearing grossly normal, pharynx normal Neck: supple, no adenopathy, thyroid normal, no JVD, trachea midline Respiratory/Chest: lungs clear, no respiratory distress, no accessory muscle use Cardiovascular: regular rate, rhythm, no edema, no gallop, no JVD, no murmur , normal peripheral pulses Abdomen/GI: + pertinent finding (distended, intermittent bowel sounds, diffuse moderate tenderness without rebound or guarding, no masses or organomegaly appreciated, RUQ scar with about 1 cm open area with minimal drainage) Extremities/Musculoskelatal: no calf tenderness, normal capillary refill, + pedal edema (trace), + pertinent finding (well-healed scars bilat knees) Neurologic/Psych: internal medicine specialist II-XII nml as tested (PERRL, EOMI), no motor/sensory deficits (strength upper and lower extremities grossly intact), alert, normal mood/affect, normal reflexes, oriented x 3 Skin: normal color, warm/dry Lymphatic: no adenopathy Hospital Course RECURRENT SMALL BOWEL OBSTRUCTION Clinical picture and CT consistent with partial small bowel obstruction, Most likely secondary to adhesions from previous surgeries. H/O Gastric Bypass years ago S/P exploratory laparotomy- extensive, dense adhesions- enterolysis on 04/09/16 Tolerates low fiber diet, can advance as tolerated She had BM D/C TPN Surgery on board Follow up appt with surgery next Wednesday to check the wound As per surgery keep the PICC line for 1 to 2 weeks DIARRHEA Last episode of diarrhea was last night Stool for C- Diff negative Had 2 BM HYPERTENSIVE URGENCY Likely secondary to Anxiety History of hypertension, managed with HCTZ + amlodipine. BP 200/118 on admission BP elevated Resume HCTZ continue monitor BP Stable NON SUSTAINED VT Seen on monitor Was started on BB stable Acute Renal Failure Resolved LEUKOCYTOSIS WBC = 17,440.on admission Likely secondary to Bowel obstruction -no perforation. Afebrile, UA wnl WBC trending down to 12K Received IV broad spectrum Antibiotic VTE PROPHYLAXIS heparin subQ SCDs RESUSCITATION STATUS Full code Total time spent on discharge = 35 minutes This includes examination of the patient, discharge planning, medication reconciliation, and communication with other providers. Discharge Instructions Discharge Instructions Admission Reason for Admission: Bowel Obstruction, Hypertensive Urgency Discharge Discharge Diagnosis / Problem: bowel obstruction Discharge Goals Goal(s): Decrease discomfort, Improve function, Improve disease control Activity Recommendations Activity Limitations: as noted below Lifting Limitations: no more than 10 pounds Exercise/Sports Limitations: until after follow-up appointment May Resume Sexual Activity: after follow-up appointment Shower/Bathe: no limitations (may shower) Driving or Machine Use: 1 week SPECIAL CARE INSTRUCTIONS: * Cover incisions and change daily for comfort/drainage. * May use ibuprofen for pain as tolerated. * Expect some swelling and bruising. Call your doctor if: * Temperature above 101 degrees * Pain not relieved by pain medicine ordered * There is increased drainage or redness from any incision * You have any unanswered questions or concerns [phone]. FOLLOW UP VISIT: If not already scheduled, please call the office for a follow-up visit. for next Wed- check up- wound check OFFICE PHONE NUMBER: Dr. Maldonado Office . Current Hospital Diet Patient's current hospital diet: Low Fiber Diet Discharge Diet Recommended Diet: Regular Diet Procedures Procedures Performed: Exploratory Laparotomy, Lysis of Adhesions- extensive Pending Studies Studies pending at discharge: no Laboratory Results Lipid Panel Test 04/16/16 05:10 Range/Units Triglycerides Level 146 0-150 mg/dl Medical Emergencies . Who to Call and When: Medical Emergencies: If at any time you feel your situation is an emergency, please call 911 immediately. . Non-Emergent Contact Non-Emergency issues call your: Primary Care Provider, Surgeon . "Provider Documentation" section prepared by Arsh Maldonado. VTE Core Measure Inpt VTE Proph given/why not?: Unfractionated heparin SQ, SCD's Addendum: Sachin Rizvi M.D. on 04/18/16 @ 13:23 Discharge Inst - Addendum Addendum Provider: Addendum Notes were documented by provider Sachin Rizvi. Please call your primary care physician to schedule follow up appointment once discharge from rehab. Monitor Blood Pressure Monitor electrolytes Keep the PICC for now until next appointment with Surgery next Wednesday Sign out to Dr. Torrez (Sachin Rizvi M.D.) Additional Copies To [facility]-FairhillDavid reynolds Michael, D.O.
[2016-04-18 14:45] VITALS: BP 140/69; PULSE 77; TEMP 36.9; O2SAT 95
[2016-04-18] MEDS: OXYCODONE/ACETAMINOPHEN 5-325 TAB PO PRN (15:23)
== END 2016-04-18 15:43 | DRG 335 ==
LOC: ENRESERVTM → ENRESERVDT → EDBD 10:30 → C.EDB 10:32 → C.2T 16:07 → C.MSICU 04-09 15:06 → C.MSW 04-12 12:35 → C.2T 04-12 14:41 → C.MSW 04-14 12:27
PROVIDERS: ADMIT Hospitalist; ATTEND Internal Medicine
PROC: 5A0935Z Assistance with Respiratory Ventilation, Less than 24 Consecutive Hours (ICD-10-PCS; 2016-04-09)
PROC: 0DN80ZZ Release Small Intestine, Open Approach (ICD-10-PCS; principal; 2016-04-09 11:00)
PROC: 02HV33Z Insertion of Infusion Device into Superior Vena Cava, Percutaneous Approach (ICD-10-PCS; 2016-04-10)
DX: K56.5 Intestinal adhesions [bands] with obstruction (postinfection) (principal); J95.821 Acute postprocedural respiratory failure; Z68.42 Body mass index [BMI] 45.0-49.9, adult; N17.9 Acute kidney failure, unspecified; E46 Unspecified protein-calorie malnutrition; I47.2 Ventricular tachycardia; E66.01 Morbid (severe) obesity due to excess calories; E78.5 Hyperlipidemia, unspecified; I12.9 Hypertensive chronic kidney disease with stage 1 through stage 4 chronic kidney disease, or unspecified chronic kidney disease; N18.9 Chronic kidney disease, unspecified; R19.7 Diarrhea, unspecified; Z79.899 Other long term (current) drug therapy; Z98.84 Bariatric surgery status; Z87.891 Personal history of nicotine dependence

== ENCOUNTER 2016-09-25 13:46 | Inpatient (IN) | payer OTHER ==
[~2016-09-25] VITALS: Ht 165.1 cm; Wt 117.0 kg
[~2016-09-25 13:46] MED LIST changes: +ATOR-22 PO; -CEPH500C2 PO; -CYAN3INJ IM; +LPR25 PO; +OXYC-57 PO; -PRAV20TA PO; +PRT40 PO; +SNKUDL5 PO
[2016-09-25] MEDS ORDERED: ROPI2TAB6 PO (15:19)
[2016-09-25] MEDS ORDERED: TRAZ50TA35 PO (15:19)
[2016-09-25] MEDS ORDERED: BACL10TA PO (15:31)
[2016-09-25] MEDS ORDERED: SODIUM CHLORIDE 0.9% 1000ML 1,000 ML IV SCH (15:41)
--- NOTE | 2016-09-25 15:55 | DIAGNOSTIC IMAGING REPORT ---
CHEST ONE VIEW PORTABLE HISTORY: Dizziness. Stroke symptoms. COMPARISON: Chest 04/12/2016. FINDINGS: The heart remains mildly enlarged. The lungs are clear. No pleural effusions. No pneumothorax. IMPRESSION: No acute process. Stable mild cardiomegaly. Electronically signed by: Mark Tamez M.D. 09/25/2016 3:54 PM Dictated Date/Time: 09/25/2016 3:53 PM
[2016-09-25 16:28] LABS: BASO % 0.1 %; BASO ABS # 0.01 K/uL (0-0.2); COMPLETE YES; IG% 0.4 %; LYMPH % 22.3 %; LYMPH ABS # 2.14 K/uL (1.2-3.4); MEAN CELL VOLUME 79.6 fL (80-100); MEAN CORPUSCULAR HEMOGLOBIN 24.7 pg (25-34); MEAN PLATELET VOLUME 10.4 fL (7.4-10.4); NEUT % 67.2 %; PLATELET COUNT 316 K/uL (130-400); WHITE BLOOD COUNT 9.58 K/uL (4.8-10.8)
[2016-09-25 16:41] LABS: PROTHROMBIN TIME (PATIENT) 10.2 SECONDS (9.0-12.0)
[2016-09-25 16:54] LABS: BUN/CREATININE RATIO 7.3 (10-20); CALCIUM 8.9 mg/dl (8.5-10.1); CREATININE 1.2 mg/dl (0.60-1.20); POTASSIUM 3.1 mmol/L (3.5-5.1)
[2016-09-25 16:59] LABS: CKMB/CK RATIO 1.3 (0-3.0)
[2016-09-25 17:03] LABS: URINE APPEARANCE CLEAR (CLEAR); URINE BILIRUBIN NEG (NEG); URINE COLOR YELLOW; URINE NITRITE NEG (NEG); URINE SPECIFIC GRAVITY 1.006 (1.000-1.030); UROBILINOGEN NEG (NEG); ZZURINE CULT IF INDIC CATH NO
--- NOTE | 2016-09-25 17:11 | DIAGNOSTIC IMAGING REPORT ---
HEAD CT NONCONTRAST CT DOSE: 537.48 mGy.cm HISTORY: Dizziness Stroke TECHNIQUE: Multiaxial CT images of the head were performed without the use of intravenous contrast. Automated exposure control was utilized for this study. A dose lowering technique was utilized adhering to the principles of ALARA. Comparison: Head CT 07/27/2012. Findings: The paranasal sinuses and mastoid air cells are clear. There is an old sammi hole within the right parietal bone. Otherwise, the calvarium and skull base are intact. Stable 13 mm arachnoid cyst within the right middle cranial fossa. Mild atrophy and microvascular ischemic changes are again noted. There is no hematoma, midline shift, or acute infarct. Old bilateral basal ganglia lacunar infarcts. Impression: No significant change compared to the prior study. No acute intracranial abnormality. Electronically signed by: Mark Tamez M.D. 09/25/2016 5:09 PM Dictated Date/Time: 09/25/2016 5:07 PM
[2016-09-25] MEDS ORDERED: POTASSIUM CHLORIDE 10 MEQ / 100ML WTR IV STA (17:22)
[2016-09-25 17:28] LABS: MANUAL MICROSCOPIC REQUIRED? NO; REVIEW REQ? NO
--- NOTE | 2016-09-25 19:00 | EMERGENCY ROOM VISIT NOTE ---
History Report prepared by Jordan: Mattie Silva Under the Supervision of: Dr. Randall Cee M.D. First contact with patient: 15:27 Chief Complaint: DIZZY Stated Complaint: DIZZY Nursing Triage Summary: Pt states she woke up late, at 0900 and took her meds. pt c/o feeling dizzy and lightheaded since 0930 and 1000 this am. She spoke with 3 health care providers. Denies pain. "I don't know if it's from not eating. I haven't gotten there yet" . States she's slept late the last 2 days, but she went to bed at 1000 and then was up at midnight and then couldn't sleep. History of Present Illness The patient is a 70 year old female who presents to the Emergency Room with complaints of dizziness beginning an hour and a half after she woke up this morning. The patient states that she did not eat today and that her dizziness worsened as the day progressed. She states that she feels off-balance. She reports that she is able to walk, but not walk straight. The patient states that she also had dry mouth today and that her lower mouth feels numb, which began an hour and a half ago. She states that she also had a headache that began this morning. The patient denies fevers, hearing loss, ringing in her ears , unilateral weakness, abdominal pain, diarrhea, vomiting, urinary symptoms, and chest pain. She states that she was once on Lovenox, but is not on any blood thinners right now. Source of History: patient Onset: an hour and a half after she woke up this morning Position: other (global) Quality: other (dizziness ) Timing: worsening Associated Symptoms: + headache, No fevers, No chest pain, No vomiting, No diarrhea, No urinary symptoms Review of Systems See HPI for pertinent positives & negatives. A total of 10 systems reviewed and were otherwise negative. Past Medical & Surgical Medical Problems: (1) Anemia in chronic kidney disease (2) CKD (chronic kidney disease), stage III (3) History of Lyme disease (4) Hypertension Surgical Problems: (1) H/O gastric bypass (2) Hx of cholecystectomy (3) Status post bilateral hip replacements (4) Status post gastric bypass for obesity (5) Status post hernia repair (6) Status post hysterectomy Family History COPD (chronic obstructive pulmonary disease) MOTHER Diabetes mellitus GRANDMOTHER Seizure disorder FATHER Social History Smoking Status: Former Smoker Alcohol Use: none Drug Use: none Marital Status: Occupation Status: retired Current/Historical Medications Scheduled Amlodipine Besylate (Norvasc), 2.5 MG PO QAM Atorvastatin (Lipitor), 20 MG PO QPM Baclofen (Lioresal), 10 MG PO TID Hydrochlorothiazide (Hctz), 12.5 MG PO QAM Ropinirole (Requip), 2 MG PO HS Trazodone Hcl (Trazodone), 25-50 MG PO HS Allergies Coded Allergies: Oseltamivir (Verified Allergy, Mild, 09/25/16) Aspirin (Verified Adverse Reaction, Unknown, NO ASA DUE TO GASTRIC BYPASS , 09/25/16) NSAIDs (Unverified Adverse Reaction, Unknown, GI SXS, no NSAIDS due to gastric bypass, 09/25/16) Physical Exam Vital Signs Date Time Temp Pulse Resp B/P (MAP) Pulse Ox O2 Delivery O2 Flow Rate FiO2 09/25/16 16:31 70 20 152/70 98 Room Air 76 134/88 71 115/86 09/25/16 16:29 95 Room Air 09/25/16 16:29 69 18 179/77 98 Room Air 09/25/16 13:50 36.7 92 18 160/72 94 Room Air Physical Exam Constitutional: Vital signs reviewed. Eyes: Pupils are equal round reactive to light. Conjunctiva are noninjected. ENT: Pharynx is clear without erythema or exudate. Mucous membranes are moist. Neck supple without meningeal signs. Respiratory: Clear to auscultation bilaterally. Breath sounds are equal bilaterally. Cardiovascular: Regular rate and irregularly regular rhythm. No rubs or gallops. GI: Soft, nondistended and nontender. Bowel sounds are present. Musculoskeletal: No peripheral edema. No lower extremity tenderness. Integumentary: No cyanosis. Neurological: The patient is awake and alert. Cranial nerves II-XII are intact. Motor is 5 out of 5 all extremities. Sensation is intact to light touch all extremities. Normal speech. No pronator drift. No limb ataxia. The patient has trouble with testing for dysdiadochokinesis. This appears to be more a problem with comprehension of the exam itself rather than performance. Psychiatric: Normal affect. Medical Decision & Procedures ER Provider Diagnostic Interpretation: X-ray results as stated below per interpretation by me and the radiologist: CHEST ONE VIEW PORTABLE HISTORY: Dizziness. Stroke symptoms. COMPARISON: Chest 04/12/2016. FINDINGS: The heart remains mildly enlarged. The lungs are clear. No pleural effusions. No pneumothorax. IMPRESSION: No acute process. Stable mild cardiomegaly. CT results as stated below per my review and radiologist interpretation. HEAD CT NONCONTRAST CT DOSE: 537.48 mGy.cm HISTORY: Dizziness Stroke TECHNIQUE: Multiaxial CT images of the head were performed without the use of intravenous contrast. Automated exposure control was utilized for this study. A dose lowering technique was utilized adhering to the principles of ALARA. Comparison: Head CT 07/27/2012. Findings: The paranasal sinuses and mastoid air cells are clear. There is an old sammi hole within the right parietal bone. Otherwise, the calvarium and skull base are intact. Stable 13 mm arachnoid cyst within the right middle cranial fossa. Mild atrophy and microvascular ischemic changes are again noted. There is no hematoma, midline shift, or acute infarct. Old bilateral basal ganglia lacunar infarcts. Impression: No significant change compared to the prior study. No acute intracranial abnormality. Electronically signed by: Mark Tamez M.D. 09/25/2016 5:09 PM Dictated Date/Time: 09/25/2016 5:07 PM Electronically signed by: Mark Tamez M.D. 09/25/2016 3:54 PM Dictated Date/Time: 09/25/2016 3:53 PM Laboratory Results 09/25/16 16:01 Red Blood Count 4.90, Mean Corpuscular Volume 79.6, Mean Corpuscular Hemoglobin 24.7, Mean Corpuscular Hemoglobin Concent 31.0, Mean Platelet Volume 10.4, Neutrophils (%) (Auto) 67.2, Lymphocytes (%) (Auto) 22.3, Monocytes (%) (Auto) 8.0, Eosinophils (%) (Auto) 2.0, Basophils (%) (Auto) 0.1, Neutrophils # (Auto) 6.43, Lymphocytes # (Auto) 2.14, Monocytes # (Auto) 0.77, Eosinophils # (Auto) 0.19, Basophils # (Auto) 0.01 09/25/16 16:01 Test 09/25/16 16:01 09/25/16 16:05 09/25/16 16:45 White Blood Count 9.58 K/uL (4.8-10.8) Red Blood Count 4.90 M/uL (4.2-5.4) Hemoglobin 12.1 g/dL (12.0-16.0) Hematocrit 39.0 % (37-47) Mean Corpuscular Volume 79.6 fL (80-100) Mean Corpuscular Hemoglobin 24.7 pg (25-34) Mean Corpuscular Hemoglobin Concent 31.0 g/dl (32-36) Platelet Count 316 K/uL (130-400) Mean Platelet Volume 10.4 fL (7.4-10.4) Neutrophils (%) (Auto) 67.2 % Lymphocytes (%) (Auto) 22.3 % Monocytes (%) (Auto) 8.0 % Eosinophils (%) (Auto) 2.0 % Basophils (%) (Auto) 0.1 % Neutrophils # (Auto) 6.43 K/uL (1.4-6.5) Lymphocytes # (Auto) 2.14 K/uL (1.2-3.4) Monocytes # (Auto) 0.77 K/uL (0.11-0.59) Eosinophils # (Auto) 0.19 K/uL (0-0.5) Basophils # (Auto) 0.01 K/uL (0-0.2) RDW Standard Deviation 54.7 fL (36.4-46.3) RDW Coefficient of Variation 18.7 % (11.5-14.5) Immature Granulocyte % (Auto) 0.4 % Immature Granulocyte # (Auto) 0.04 K/uL (0.00-0.02) Prothrombin Time 10.2 SECONDS (9.0-12.0) Prothromb Time International Ratio 1.0 (0.9-1.1) Activated Partial Thromboplast Time 26.9 SECONDS (21.0-31.0) Partial Thromboplastin Ratio 1.0 Anion Gap 5.0 mmol/L (3-11) Est Creatinine Clear Calc Drug Dose 55.8 ml/min Estimated GFR () 53.0 Estimated GFR (Non- 45.8 BUN/Creatinine Ratio 7.3 (10-20) Calcium Level 8.9 mg/dl (8.5-10.1) Total Creatine Kinase 71 U/L (26-192) Creatine Kinase MB 0.9 ng/ml (0.5-3.6) Creatine Kinase MB Ratio 1.3 (0-3.0) Troponin I 0.020 ng/ml (0-0.045) Bedside Glucose 101 mg/dl (70-90) Urine Color YELLOW Urine Appearance CLEAR (CLEAR) Urine pH 7.0 (4.5-7.5) Urine Specific [place] 1.006 (1.000-1.030) Urine Protein NEG (NEG) Urine Glucose (UA) NEG (NEG) Urine Ketones NEG (NEG) Urine Occult Blood NEG (NEG) Urine Nitrite NEG (NEG) Urine Bilirubin NEG (NEG) Urine Urobilinogen NEG (NEG) Urine Leukocyte Esterase NEG (NEG) Laboratory results as reviewed by me. Medications Administered Medications (Trade) Dose Ordered Sig/Martha Route Start Time Stop Time Status Last Admin Dose Admin Sodium Chloride 1,000 ml @ 50 mls/hr Q20H IV 09/25/16 15:41 10/25/16 15:40 09/25/16 15:41 50 MLS/HR Potassium Chloride (Kcl 10 Meq / Wtr) 10 meq NOW STAT IV 09/25/16 17:22 09/25/16 17:23 DC 09/25/16 17:56 10 MEQ ECG Indication: other (dizziness) Rate (beats per minute): 70 Rhythm: atrial fibrillation Findings: nonspecific-ST abn, no acute ischemic change ED Course 1529: The patient was evaluated in room C9. A complete history and physical exam was performed. 1541: Ordered Sodium Chloride 1,000 ml @ 50 mls/hr IV. 1722: Ordered Potassium Chloride 10 meq IV. 1733: The patient is still dizzy. I reviewed the test results with her. 1747: I spoke with Gale Jett PA-C. We discussed the patient and her results. Medical Decision This is a 70-year-old female presents with dizziness. Differential diagnosis includes vertigo, metabolic derangement, TIA, CVA, intracranial hemorrhage, intracranial mass, cardiacI, infection. I did perform a limited focused review of portions of the patient's old chart on the electronic medical record. The patient was admitted in March for a small bowel obstruction. I did evaluate the patient as noted above. IV access was established. The patient was placed on a continuous clinical research monitor. I did order and personally review the patient's 12-lead EKG and chest x-ray as described above. She has new onset atrial fibrillation. I did order and review the patient's blood work as noted in the electronic medical record. She has hypokalemia. I did order IV KCl. I did order a CT of the head. I did review the images myself as well as the radiology report as described above. There is no evidence of stroke. I did discuss the test results with the patient. She is still dizzy. I did recommend hospitalization for further evaluation of her ataxia as well as her new onset atrial fibrillation. I did discuss the case with the hospitalist and wrapper caser. Medication Reconcilliation Current Medication List: was personally reviewed by me Blood Pressure Screening Patient's blood pressure: Elevated blood pressure Consults Time Called: 1700 Consulting Physician: Gale De Jesus PA-C Returned Call: 1747 I spoke with Gale Jett PA-C. We discussed the patient and her results. Impression Primary Impression: New onset atrial fibrillation Additional Impressions: Ataxia Hypokalemia Scribe Attestation The scribe's documentation has been prepared under my direct and personally reviewed by me in its entirety. I confirm that the note above accurately reflects all work, treatment, procedures, and medical decision making performed by me. Departure Information Dispostion Being Evaluated By Hospitalist Referrals Jolynn Wilder DO (PCP) Patient Instructions My [facility] Problem Qualifiers
[2016-09-25] MEDS ORDERED: ONDANSETRON INJ 2 MG/ML 2 ML VIAL IV PRN (19:15)
[2016-09-25] MEDS ORDERED: MoRPHine SULFATE 2 MG/ML CARP IV PRN (19:15)
[2016-09-25] MEDS ORDERED: POLYETHYLENE (MIRALAX) 17 GM PACK PO PRN (19:15)
[2016-09-25] MEDS ORDERED: ACETAMINOPHEN 325 MG TAB PO PRN (19:15)
[2016-09-25] MEDS ORDERED: NITROGLYCERIN 0.4 MG SL PER TAB CHARGE SL PRN (19:15)
[2016-09-25] MEDS ORDERED: CYNI1000 IM (19:18)
[2016-09-25] MEDS ORDERED: ASPIRIN 81 MG CHEW PO STA (19:18)
[2016-09-25] MEDS ORDERED: HydrALAZINE HCL 20 MG/ML VIAL IV. PRN (19:30)
[2016-09-25] MEDS ORDERED: POTASSIUM CHLORIDE IV SCH (19:45)
[2016-09-25] MEDS ORDERED: SODIUM CHLORIDE IV SCH (19:45)
[2016-09-25] MEDS ORDERED: POTASSIUM CHLORIDE PWD 20 MEQ PACK PO ONE (19:45)
--- NOTE | 2016-09-25 20:01 | History and Physical ---
History & Physical Date & Time of Service: Sep 25, 2016 at 19:23 Chief Complaint: DIZZY Primary Care Physician: Jolynn Wilder, History of Present Illness Source: patient, family, clinic records, hospital records 70 yo F with HTN, old cerebrovascular disease seen on imaging only and h/o gastric bypass presents tonight after sudden onset of dizziness while in her house earlier today. She states that she made four very stressful phone calls in a row trying to deal with large medical bills and she became very upset and suddenly had dizziness. She states that she hasn't eaten all day. She reports having a headache but denies visual changes, difficulty speaking or finding words. She reports numbness around her mouth and states that it is dry. She was able to walk after her dizziness began and called for help, then walked around the outside of the house to avoid the steps which was 100 ft, by herself and without issues. Later family states that she appeared unsteady on her feet with walking. No facial droop was noted and she has no recollection of any strokes in the past. She admits to having a craniotomy, but there is no record of this. I see that in 2005 she was on Lovenox for post-operative DVT prophylaxis, and after a couple of days off of it developed a headache. CT in the ER at that time revealed a subacute vs chronic subdural and neurosurgery was consulted with recommendations for conservative management only. Her son reports some issues with intermittent memory loss. BP on arrival was elevated. In the ER, EKG reveals new onset atrial fibrillation with SVR. She denies palpitations, current or recent chest pain or shortness of breath. She is not tachypneic or hypoxic and has had no recent periods of immoobilization. She also denies any recent infectious symptoms, specifically fevers, chills, UTI symptoms-theses are all absent. Head CT was negative for acute findings but did reveal CVD as above. K was 3.1 and replacement was ordered. CXR was clear. UA was unremarkable. She did note that she has been on a recent two weeks course of prednisone for back pain issues, which she stopped one week ago. She also states that her muscle relaxer is new for her. She denies any OTC meds. Past Medical/Surgical History Medical Problems: (1) Anemia in chronic kidney disease Status: Chronic (2) CKD (chronic kidney disease), stage III Status: Chronic (3) History of Lyme disease Status: Chronic (4) Hypertension Status: Chronic Surgical Problems: (1) Status post bilateral hip replacements Status: Chronic (2) Status post gastric bypass for obesity Permanent Comment: Indigo-en-Y Status: Chronic (3) Status post hernia repair Status: Chronic (4) Status post hysterectomy Status: Chronic Family History COPD (chronic obstructive pulmonary disease) MOTHER Diabetes mellitus GRANDMOTHER Seizure disorder FATHER Social History Smoking Status: Former Smoker (quit 20 years ago) Smokeless Tobacco Use: No Alcohol Use: none Drug Use: none Marital Status: Housing status: lives alone Occupational Status: retired Immunizations History of Influenza Vaccine: Yes Influenza Vaccine Date: Nov 06, 2015 History of Tetanus Vaccine?: Yes Tetanus Immunization Date: Nov 06, 2015 History of Pneumococcal: Yes Pneumococcal Date: Mar 18, 2016 History of Hepatitis B Vaccine: No Multi-Drug Resistant Organisms History of MDRO: No Allergies Coded Allergies: Oseltamivir (Verified Allergy, Mild, 09/25/16) Aspirin (Verified Adverse Reaction, Unknown, NO ASA DUE TO GASTRIC BYPASS , 09/25/16) NSAIDs (Unverified Adverse Reaction, Unknown, GI SXS, no NSAIDS due to gastric bypass, 09/25/16) Home Medications Scheduled Amlodipine Besylate (Norvasc), 2.5 MG PO QAM Atorvastatin (Lipitor), 20 MG PO QPM Baclofen (Lioresal), 10 MG PO TID Cyanocobalamin (Cyanocobalamin), 1,000 MCG IM MONTHLY Hydrochlorothiazide (Hctz), 12.5 MG PO QAM Ropinirole (Requip), 2 MG PO HS Trazodone Hcl (Trazodone), 25-50 MG PO HS Review of Systems At least ten systems were reviewed and negative except as indicated in HPI and chronic incontinence. Physical Exam Vital Signs Date Time Temp Pulse Resp B/P (MAP) Pulse Ox O2 Delivery O2 Flow Rate FiO2 09/25/16 19:12 73 18 110/70 95 09/25/16 16:31 70 20 152/70 98 Room Air 76 134/88 71 115/86 09/25/16 16:29 95 Room Air 09/25/16 16:29 69 18 179/77 98 Room Air 09/25/16 13:50 36.7 92 18 160/72 94 Room Air GEN: morbid obesity, in no acute distress, alert and appropriate, very talkative and expressive, no issues moving around the bed without assistance, no tachypnea or conversational dyspnea, not ill-appearing. HEENT: NC/AT, pinpoint and equal bilaterally, normal sclerae, MMM, pharynx non- acute, edentulous CARDIO: reg rate, irreg rhythm, S1/2 heard without m/g/r, 2+ pulses throughout , no JVD noted. LUNGS: CTA bilaterally, no crackles, rales or wheezes, good diaphragmatic excursion ABD: soft, non-tender, non-distended, no rebound or guarding, +BS, no CVA tenderness EXTREMITY: RP and DP palpable 2+ bilat, no LE swelling or edema, extremities are warm and well-perfused NEURO: CN 2-12 intact, EOMI, sensation intact throughout, coordination intact ( finger to nose)-did not stand her up bc of fall risk (orthostatic +) (reflexes) BR 2+ bilat, could not elicit LE reflexes (pt tensing and prior surgeries on knees) MUSC: 5/5 strength throughout, no focal deficits SKIN: warm and dry Diagnostics Laboratory Results Results Past 24 Hours Test 09/25/16 16:01 09/25/16 16:05 09/25/16 16:45 09/25/16 19:04 Range/Units White Blood Count 9.58 4.8-10.8 K/uL Red Blood Count 4.90 4.2-5.4 M/uL Hemoglobin 12.1 12.0-16.0 g/dL Hematocrit 39.0 37-47 % Mean Corpuscular Volume 79.6 80-100 fL Mean Corpuscular Hemoglobin 24.7 25-34 pg Mean Corpuscular Hemoglobin Concent 31.0 32-36 g/dl Platelet Count 316 130-400 K/uL Mean Platelet Volume 10.4 7.4-10.4 fL Neutrophils (%) (Auto) 67.2 % Lymphocytes (%) (Auto) 22.3 % Monocytes (%) (Auto) 8.0 % Eosinophils (%) (Auto) 2.0 % Basophils (%) (Auto) 0.1 % Neutrophils # (Auto) 6.43 1.4-6.5 K/uL Lymphocytes # (Auto) 2.14 1.2-3.4 K/uL Monocytes # (Auto) 0.77 0.11-0.59 K/uL Eosinophils # (Auto) 0.19 0-0.5 K/uL Basophils # (Auto) 0.01 0-0.2 K/uL RDW Standard Deviation 54.7 36.4-46.3 fL RDW Coefficient of Variation 18.7 11.5-14.5 % Immature Granulocyte % (Auto) 0.4 % Immature Granulocyte # (Auto) 0.04 0.00-0.02 K/uL Prothrombin Time 10.2 9.0-12.0 SECONDS Prothromb Time International Ratio 1.0 0.9-1.1 Activated Partial Thromboplast Time 26.9 21.0-31.0 SECONDS Partial Thromboplastin Ratio 1.0 Sodium Level 137 136-145 mmol/L Potassium Level 3.1 3.5-5.1 mmol/L Chloride Level 99 98-107 mmol/L Carbon Dioxide Level 33 21-32 mmol/L Anion Gap 5.0 3-11 mmol/L Blood Urea Nitrogen 9 7-18 mg/dl Creatinine 1.20 0.60-1.20 mg/dl Est Creatinine Clear Calc Drug Dose 55.8 ml/min Estimated GFR () 53.0 Estimated GFR (Non- 45.8 BUN/Creatinine Ratio 7.3 10-20 Random Glucose 87 70-99 mg/dl Calcium Level 8.9 8.5-10.1 mg/dl Total Creatine Kinase 71 26-192 U/L Creatine Kinase MB 0.9 0.5-3.6 ng/ml Creatine Kinase MB Ratio 1.3 0-3.0 Troponin I 0.020 0-0.045 ng/ml Bedside Glucose 101 70-90 mg/dl Urine Color YELLOW Urine Appearance CLEAR CLEAR Urine pH 7.0 4.5-7.5 Urine Specific [place] 1.006 1.000-1.030 Urine Protein NEG NEG Urine Glucose (UA) NEG NEG Urine Ketones NEG NEG Urine Occult Blood NEG NEG Urine Nitrite NEG NEG Urine Bilirubin NEG NEG Urine Urobilinogen NEG NEG Urine Leukocyte Esterase NEG NEG Diagnostic Radiology CHEST ONE VIEW PORTABLE HISTORY: Dizziness. Stroke symptoms. COMPARISON: Chest 04/12/2016. FINDINGS: The heart remains mildly enlarged. The lungs are clear. No pleural effusions. No pneumothorax. IMPRESSION: No acute process. Stable mild cardiomegaly. HEAD CT NONCONTRAST CT DOSE: 537.48 mGy.cm HISTORY: Dizziness Stroke TECHNIQUE: Multiaxial CT images of the head were performed without the use of intravenous contrast. Automated exposure control was utilized for this study. A dose lowering technique was utilized adhering to the principles of ALARA. Comparison: Head CT 07/27/2012. Findings: The paranasal sinuses and mastoid air cells are clear. There is an old sammi hole within the right parietal bone. Otherwise, the calvarium and skull base are intact. Stable 13 mm arachnoid cyst within the right middle cranial fossa. Mild atrophy and microvascular ischemic changes are again noted. There is no hematoma, midline shift, or acute infarct. Old bilateral basal ganglia lacunar infarcts. Impression: No significant change compared to the prior study. No acute intracranial abnormality. EKG atrial fibrillation, HR 70, no ST changes Impression Assessment and Plan 70 yo F with HTN and recent emotional distress presents with lightheadedness and dizziness found to be in new-onset atrial fibrillation 1. Dizziness-apparently with ataxic gait, not completely assessed on exam 2/2 fall risk, but she was able to walk after onset of symptoms at home and is not vomiting from vertigo. She also has intact coordination--suspect the lightheadedness is from a combination of not eating, new onset atrial fibrillation, and emotional distress from the mornings phone calls. She is an easily excitable person as I interviewed her this evening. Other etiologies include but are not limited to ACS (doubtful but in the presence of known cerebrovascular disease on imaging and new onset afib will rule out with serial cardiac enzymes), acute stroke (also doubt this with no focal findings, clear mentation and her only real concerning symptom being her perioral numbness and dizziness, which could also simply be orthostatic hypotension from age related autonomic neuropathy or simply not eating today. CT head negative, so ordered MRIMRA and routine TTE with bubble study. Gave empiric ASA 325mg. She is already taking lipitor-continued this. Started on heparin drip fro stroke prophylaxis. CHADs-VASC score is 4, so long-term anticoagulation is likely warranted, but will defer this decision to Cardiology who has been consulted. Admitted to telemetry for monitoring. 2. Atrial fibrillation-TSH pending, low risk for PE, ACS not likely but ruling out, TTE in am, BP elevated on arrival with increased stress earlier this morning. Heparin drip started, no rate control needed at this time. 3. HTN-currently controlled, cont HCTZ, amlodipine. Hydralazine PRN overnight 4. muscle spasms-suspect statin or diuretic as a cause of this as she had two leg cramps while talking with me tonight along with K 3.1 on HCTZ. Will cont both until further workup is complete. Replace K now. 5. Hypokalemia-likely 2/2 diuretic vs poor PO intake 6. Orthostatic Hypotension-encourage PO intake, IVF with lytes given tonight. OH vitals q shift. 7. CKD III-creat at baseline 8. h/o gastric bypass FULL CODE-per conversation with she and her son on admission DVT prophy-heparin drip Dispo-to telemetry [facility] Level [facility] Care Telemetry Resuscitation Status FULL RESUSCITATION VTE Prophylaxis VTE Risk Assessment Done? Y/N: Yes Risk Level: High Given or contraindicated: Other Anticoagulation
[2016-09-25] MEDS ORDERED: PHARMACIST DISCHARGE MED REC CONSULT PRN (20:15)
[2016-09-25 20:45] VITALS: BP 148/78; PULSE 69; TEMP 36.6; O2SAT 91; Ht 165.1 cm; Wt 117.0 kg
[2016-09-25] MEDS ORDERED: ATORVASTATIN 20 MG TAB PO SCH (21:00)
[2016-09-25] MEDS ORDERED: POTASSIUM CHLORIDE INJ 40 MEQ in SODIUM CHLORIDE 0.9% 500ML 500 ML IV SCH (21:00)
[2016-09-25] MEDS ORDERED: ROPINIROLE HCL 1 MG TAB PO SCH (21:00)
[2016-09-25] MEDS ORDERED: TRAZODONE HCL 50 MG TAB PO SCH (21:00)
[2016-09-25] MEDS: BACLOFEN 10 MG TAB PO SCH (21:26)
[2016-09-25 22:35] LABS: CKMB/CK RATIO 1.3 (0-3.0)
[2016-09-25 23:56] VITALS: BP 131/77; PULSE 76; TEMP 36.7; O2SAT 97
[2016-09-26] VITALS (7 sets, daily range): BP systolic 102–148; BP diastolic 63–77; PULSE 67–75; TEMP 36.2–37; O2SAT 97–99
[2016-09-26] MEDS: HEPARIN 25,000 UNIT/500ML D5W 500 ML IV PRN ×3 (00:14→15:36)
[2016-09-26 04:56] LABS: HEMATOCRIT 36.1 % (37-47); MEAN CELL VOLUME 80.8 fL (80-100); MEAN CORPUSCULAR HEMOGLOBIN 24.8 pg (25-34); MEAN CORPUSCULAR HGB CONC 30.7 g/dl (32-36); MEAN PLATELET VOLUME 10.5 fL (7.4-10.4); PLATELET COUNT 282 K/uL (130-400); RED BLOOD COUNT 4.47 M/uL (4.2-5.4); WHITE BLOOD COUNT 8.24 K/uL (4.8-10.8)
[2016-09-26 05:40] LABS: BUN/CREATININE RATIO 7.9 (10-20); CALCIUM 8.6 mg/dl (8.5-10.1); CHOLESTEROL/HDL RATIO 3.3; CREATININE 1.2 mg/dl (0.60-1.20); POTASSIUM 4.2 mmol/L (3.5-5.1)
[2016-09-26 06:50] LABS: PARTIAL THROMBOPLASTIN RATIO 2.1
[2016-09-26] MEDS ORDERED: PERFLUTREN LIPID MICROSPHERE (DEFINITY) IV ONE (06:58)
--- NOTE | 2016-09-26 07:15 | DIAGNOSTIC IMAGING REPORT ---
Brain MRI WITH AND WITHOUT CONTRAST HISTORY: dizzy, lightheaded, ataxic gait, new onset afib, stroke r/o TECHNIQUE: Multiplanar multisequence MRI of the brain was performed both before and after the intravenous administration of contrast. COMPARISON STUDY: Head CT 09/25/2016. FINDINGS: There is no mass, hematoma, midline shift, or acute infarct. The paranasal sinuses are clear. The mastoid air cells are clear. The ventricles and sulci demonstrate mild age-related involutional changes. Scattered foci of T2 hyperintensity seen within the periventricular and subcortical white matter are nonspecific but suggestive of moderate microvascular ischemic changes. The major vascular flow voids at the skull base are well-maintained. Prominence of the anterior aspect of the right middle cranial fossa favors an arachnoid cyst. This measures 18 mm. This remains unchanged. Mara hole is again noted within the right parietal bone. IMPRESSION: No acute intracranial abnormality. Chronic changes as described above. Scattered foci of T2 hyperintensity seen within the periventricular and subcortical white matter are nonspecific but favor microvascular ischemic change. Electronically signed by: Mark Tamez M.D. 09/26/2016 7:14 AM Dictated Date/Time: 09/26/2016 7:09 AM
--- NOTE | 2016-09-26 07:18 | DIAGNOSTIC IMAGING REPORT ---
Brain MRA HISTORY: dizzy, lightheaded, ataxic gait, new onset afib, stroke r/o TECHNIQUE: 3-D [id number] MRA of the brain was performed without contrast. COMPARISON STUDY: None. FINDINGS: Suboptimal evaluation due to motion artifact. Visualized intracranial internal carotid arteries, distal vertebral arteries, and basilar artery are widely patent. There is no significant stenosis, occlusion, or aneurysm seen within the bilateral ACAs, MCAs, or heating technician. The left SPIKE MAKER originates from the left posterior communicating artery consistent with a normal variant. Mid to distal bilateral MCAs are suboptimally evaluated due to motion artifact but are likely patent. IMPRESSION: Motion artifact. No definite stenosis, occlusion, or aneurysm within the pilot station of [place]. Electronically signed by: Mark Tamez M.D. 09/26/2016 7:17 AM Dictated Date/Time: 09/26/2016 7:14 AM
--- NOTE | 2016-09-26 07:21 | DIAGNOSTIC IMAGING REPORT ---
NECK MRA HISTORY: dizzy, lightheaded, ataxic gait, new onset afib, stroke r/o TECHNIQUE: [id number] and gadolinium-enhanced MRA of the neck was performed both before and after the intravenous administration of contrast. All measurements were calculated based on NASCET criteria. COMPARISON STUDY: None. FINDINGS: The aortic arch and proximal great vessels are widely patent. There is no significant stenosis, occlusion, or dissection identified within the bilateral common carotid, internal carotid, or vertebral arteries. IMPRESSION: No significant stenosis, occlusion, or dissection identified within the carotid or vertebral arteries. Electronically signed by: Mark Tamez M.D. 09/26/2016 7:20 AM Dictated Date/Time: 09/26/2016 7:17 AM
[2016-09-26] MEDS: BACLOFEN 10 MG TAB PO SCH ×2 (07:37→13:56)
[2016-09-26 08:04] LABS: ESTIMATED AVERAGE GLUCOSE 146 mg/dl; HA1C FLAG Normal (Normal)
[2016-09-26] MEDS ORDERED: AMLODIPINE BESYLATE 5 MG TAB PO SCH (09:00)
[2016-09-26] MEDS ORDERED: HYDROCHLOROTHIAZIDE 25 MG TAB PO SCH (09:00)
[2016-09-26 09:07] LABS: CALCIUM 8.6 mg/dl (8.5-10.1); CREATININE 1.1 mg/dl (0.60-1.20); MAGNESIUM 2.1 mg/dl (1.8-2.4); POTASSIUM 3.9 mmol/L (3.5-5.1)
[2016-09-26] MEDS ORDERED: WARFARIN SOD 5 MG TAB PO SCH (16:00)
--- NOTE | 2016-09-26 16:16 | ECHOCARDIOGRAM REPORT ---
*NOTICE TO RECEIVING CONSTITUTION PARTY AGENCY This information is strictly Confidential and protected under [place] law. [place] law prohibits you from making any further disclosure of this information unless further disclosure is expressly permitted by the written consent of the person to whom it pertains or is authorized by law. A general authorization for the release of medical or other information is not sufficient for this purpose. Hospital accepts no responsibility if the information is made available to any other person, INCLUDING THE PATIENT. Interpretation Summary * Name: BEL RUSSELL Study Date: 09/26/2016 06:32 AM BP: 102/77 mmHg * Patient Location: C.2T\S\S239\S\2 HR: 70 * : 1945 (M/d/yyyy) Gender: Female Height: 65 in * Age: 70 yrs Ethnicity: CA Weight: 257 lb * Ordering Physician: Debbie Fairbanks * Referring Physician: Self, Referred * Performed By: Flash Rodriguez RCS * * Reason For Study: A-Fib * BSA: 2.2 m2 * -- Conclusions -- * Sinus rhythm was present during the echocardiogram. * The left ventricular wall motion is normal. * Ejection Fraction = 65-70%. * Aortic valve sclerosis mild, without significant aortic valvular stenosis. * Grade I diastolic dysfunction, (abnormal relaxation pattern). Procedure Details * A complete two-dimensional transthoracic echocardiogram was performed (2D, M-mode, Doppler and color flow Doppler). Left Ventricle * The left ventricle is normal in size. * There is normal left ventricular wall thickness. * Left ventricular systolic function is normal. * Ejection Fraction = 65-70%. * The left ventricular wall motion is normal. Right Ventricle * The right ventricle is normal size. * The right ventricular systolic function is normal as assessed by tricuspid annular plane systolic excursion (TAPSE) (normal >1.5 cm). Atria * The left atrial size is normal. * Right atrial size is normal. * There is no evidence of atrial septal defect, but resolution does not allow assessment for a patent foramen ovale. Mitral Valve * The mitral valve is normal. * There is no mitral valve stenosis. * Significant mitral regurgitation is absent. Tricuspid Valve * The tricuspid valve is normal. * There is no tricuspid stenosis. * Significant tricuspid regurgitation is absent. Aortic Valve * The aortic valve is trileaflet. * Aortic valve sclerosis mild, without significant aortic valvular stenosis. * Aortic stenosis is absent. * There is no significant aortic regurgitation. Pulmonic Valve * The pulmonary valve is not well seen, but the Doppler examination is normal without significant regurgitation or stenosis. Great Vessels * The aortic root and proximal ascending aorta are normal sized. Pericardium/Pleural * There is no pericardial effusion. Great Vessels * Normal inferior vena cava diameter and respiratory variation suggests normal central venous pressure. Left Ventricular Diastolic Function * Grade I diastolic dysfunction, (abnormal relaxation pattern). MMode 2D Measurements and Calculations IVSd 1.0 cm LVIDd 4.9 cm LVIDs 3.1 cm LVPWd 0.99 cm IVS/LVPW 1.1 FS 35.3 % EDV(Teich) 110.4 ml ESV(Teich) 39.1 ml EF(Teich) 64.6 % EDV(cubed) 114.4 ml ESV(cubed) 30.9 ml EF(cubed) 73.0 % LV mass(C)d 178.2 grams LV mass(C)dI 81.0 grams/m\S\2 SV(Teich) 71.3 ml SI(Teich) 32.4 ml/m\S\2 SV(cubed) 83.5 ml SI(cubed) 37.9 ml/m\S\2 Ao root diam 2.9 cm Ao root area 6.8 cm\S\2 LVOT diam 2.0 cm LVOT area 3.1 cm\S\2 LVAd ap4 28.3 cm\S\2 LVLd ap4 7.9 cm EDV(MOD-sp4) 85.4 ml EDV(sp4-el) 86.3 ml LVAs ap4 15.1 cm\S\2 LVLs ap4 5.9 cm ESV(MOD-sp4) 32.1 ml ESV(sp4-el) 32.4 ml EF(MOD-sp4) 62.4 % EF(sp4-el) 62.5 % LVAd ap2 20.0 cm\S\2 LVLd ap2 7.4 cm EDV(MOD-sp2) 43.2 ml EDV(sp2-el) 45.6 ml LVAs ap2 10.2 cm\S\2 LVLs ap2 6.1 cm ESV(MOD-sp2) 15.1 ml ESV(sp2-el) 14.7 ml EF(MOD-sp2) 65.1 % EF(sp2-el) 67.8 % LVLd %diff -5.94 % EDV(MOD-bp) 63.0 ml LVLs %diff 2.0 % ESV(MOD-bp) 21.9 ml EF(MOD-bp) 65.3 % SV(MOD-sp4) 53.3 ml SI(MOD-sp4) 24.2 ml/m\S\2 SV(MOD-sp2) 28.1 ml SI(MOD-sp2) 12.8 ml/m\S\2 SV(MOD-bp) 41.1 ml SI(MOD-bp) 18.7 ml/m\S\2 SV(sp4-el) 53.9 ml SI(sp4-el) 24.5 ml/m\S\2 SV(sp2-el) 30.9 ml SI(sp2-el) 14.0 ml/m\S\2 Doppler Measurements and Calculations MV E max tawana 90.3 cm/sec MV A max tawana 126.4 cm/sec MV E/A 0.71 MV dec time 0.29 sec Ao V2 max 168.3 cm/sec Ao max PG 11.3 mmHg Ao max PG (full) 9.3 mmHg RHINA(V,A) 0.98 cm\S\2 RHINA(V,D) 0.98 cm\S\2 LV V1 max PG 2.0 mmHg LV V1 max 53.7 cm/sec
--- NOTE | 2016-09-26 16:25 | Cardiology Consultation ---
Cardiology Consultation Date of Consultation: Sep 26, 2016 History of Present Illness Patient is a 70 year old female seen in cardiology consultation per the request of Dr Fairbanks for the evaluation of atrial fibrillation. The patient typically follows with [facility]. She has no past history of heart disease. Does not follow with cardiology on a chronic basis. Apparently yesterday she had been under a lot of psychological stress dealing with her bills and became upset and had transient onset of dizziness. She reported that she had not had anything to eat all day with the exception of her pills. She presented to the emergency department and her initial blood pressure was 160/72. An EKG was performed on 09/26/19 08/28/1627 and had initially been interpreted in the emergency department as being atrial fibrillation with controlled ventricular rate. Per my impression, sinus rhythm with occasional premature atrial complexes is present with noted baseline artifact. The P waves are a little bit difficult to see due to the baseline artifact, but are evident especially in lead V3 were a sinus beat is noted and a PAC and then another sinus beat. I reviewed the patient's telemetry from yesterday, overnight, and so far this morning, and sinus rhythm with occasional supraventricular and ventricular ectopy is noted along with occasional artifact. The patient states that she has no past history of atrial fibrillation. I reviewed her problem list in her outpatient [facility] chart and atrial fibrillation has not been a past diagnosis. She denies subjective palpitations. She states her dizziness has resolved completely and she is eager for discharge. History Past Medical History: 1. History of gastric bypass 2. Hypertension 3. Stage III chronic kidney disease Past Surgical History: (1) H/O gastric bypass (2) Hx of cholecystectomy (3) Status post bilateral hip replacements (4) Status post gastric bypass for obesity (5) Status post hernia repair (6) Status post hysterectomy Social History: She is a former smoker having quit 20 years ago she lives alone, but has family members here offering support. Family History: Mother with COPD, father had seizure disorder Review Of Systems See above for pertinent positives & negatives. A total of 10 systems reviewed and were otherwise negative. Allergies Coded Allergies: Oseltamivir (Verified Allergy, Mild, 09/25/16) Aspirin (Verified Adverse Reaction, Unknown, NO ASA DUE TO GASTRIC BYPASS , 09/25/16) NSAIDs (Unverified Adverse Reaction, Unknown, GI SXS, no NSAIDS due to gastric bypass, 09/25/16) Medications Reported Home Medications Medications Dose Route/Sig Max Daily Dose Days Date Category Dose Instructions Cyanocobalamin 1,000 Mcg/Ml Inj 1,000 Mcg IM MONTHLY 09/25/16 Reported next dose due beginning of Oct Lioresal (Baclofen) 10 Mg Tab 10 Mg PO TID 09/25/16 Reported Trazodone (Trazodone HCl) 50 Mg Tab 25-50 Mg PO HS 09/25/16 Reported Requip (Ropinirole HCl) 2 Mg Tab 2 Mg PO HS 09/25/16 Reported WITH FOOD Lipitor (Atorvastatin Calcium) 20 Mg Tab 20 Mg PO QPM 04/08/16 Reported Norvasc (Amlodipine Besylate) 2.5 Mg Tab 2.5 Mg PO QAM 01/07/12 Reported Hctz (Hydrochlorothiazide) 12.5 Mg Cap 12.5 Mg PO QAM 01/07/12 Reported Physical Exam Vital Signs (Last 8hrs): Last 8 Hrs Date Time Temp Pulse Resp B/P (MAP) Pulse Ox O2 Delivery O2 Flow Rate FiO2 09/26/16 16:00 99 Room Air 09/26/16 12:47 75 99 09/26/16 12:00 Room Air 09/26/16 11:44 36.2 69 20 129/63 (85) 98 Room Air General Appearance: Alert and Oriented x3. NAD. Head: Normocephalic Atraumatic. Eyes: PERRLA, EOMI, conjunctiva and sclera clear Neck: Supple. No carotid bruits noted. No JVD. No HJD. Respiratory: Breath sounds clear to auscultation bilaterally. No w/r/r. Cardiovascular: Reg rate and rhythm. S1 and S2 noted. No murmurs, rubs, gallops. PMI non displace. Abdomen: Normal bowel sounds, soft nontender. no abdominal bruits. Extremities: No edema, no clubbing or cyanosis. distal pulses 2/4 bilaterally. Neuro: No focal deficits. Psychiatric: Normal affect. Data Last Resulted 09/26/16 03:58 Last Resulted 09/26/16 06:19 Past 24 Hours Test 09/25/16 21:57 09/26/16 03:58 Range/Units Creatine Kinase MB 1.2 1.8 0.5-3.6 ng/ml Creatine Kinase MB Ratio 1.3 2.0 0-3.0 Total Creatine Kinase 90 88 26-192 U/L Troponin I 0.020 0.022 0-0.045 ng/ml EKG and telemetry as outlined above Transthoracic echocardiogram reveals normal wall motion, normal to hyperdynamic LVEF, and mild aortic valve sclerosis without stenosis. Grade 1 diastolic dysfunction Assessment & Plan Impression: Sinus rhythm with supraventricular ectopy, no evidence of atrial fibrillation Dizziness, perhaps related to emotional stress, no acute intracranial abnormality on MRI of the brain with and without contrast Recommendations: No indication for anticoagulation given the lack of atrial fibrillation. She has history of gastric bypass surgery and therefore I recommend continued avoidance of aspirin and other nonsteroidal anti-inflammatories. Continue home blood pressure medications. The patient and discussed stopping her statin therapy with Dr. Fairbanks as the patient was concerned this was contributing to back pain. I think this is fine, she should just follow-up with her primary care provider. No ongoing cardiology follow-up is necessary at this time unless future concerns arise. Case discussed with Dr Fairbanks. Yanna Mckay DO
--- NOTE | 2016-09-26 16:43 | Discharge Instructions ---
Discharge Instructions Date of Service Sep 26, 2016. Admission Reason for Admission: New Onset Atrial Fibrillation Discharge Discharge Diagnosis / Problem: dizziness-resolved Discharge Goals Goal(s): Prevent Disease Progression Activity Recommendations Activity Limitations: per Instructions/Follow-up section . Instructions / Follow-Up Instructions / Follow-Up Please take all medications as instructed. Note changes to some of the medications you take at home. It is recommended that you follow-up with Dr. Wilder within one week of discharge for follow-up from this hospitalization to ensure you are continuing to feel well. As the scheduling line is closed at this time, someone will call you with an appointment time later, or you can call on Wednesday yourself to the scheduling line. Continued physical therapy going home is recommended. I would like to order Home Health nursing services for you for regular PT at your home in the short- term. This will be setup likely tomorrow and someone will call you to set up everything to get this going. Please stay off of your ATORVASTATIN for now to see if that is contributing to your muscle cramps. Your magnesium was checked and was normal and so was your thyroid function. Your potassium was slightly low, however, and this may be another possible cause. Also, vitamin D will need to be checked on follow-up to see if this is low. Dr. Wilder can help to facilitate these labs. It was a pleasure taking care of you! Call if you have any questions or problems. You can reach a [facility] [address] [facility] hospitalist on duty at [facility] 24 hours a day by calling [phone]. Take care of yourself. Debbie Fairbanks DO [facility] [address] Hospitalist Current Hospital Diet Patient's current hospital diet: AHA Diet (Heart Healthy) Discharge Diet Recommended Diet: AHA Diet (Heart Healthy) Procedures Procedures Performed: TTE: Sinus rhythm was present during the echocardiogram. * The left ventricular wall motion is normal. * Ejection Fraction = 65-70%. * Aortic valve sclerosis mild, without significant aortic valvular stenosis. * Grade I diastolic dysfunction, (abnormal relaxation pattern). Pending Studies Studies pending at discharge: no Laboratory Results Hemoglobin A1c Test 09/26/16 03:58 Range/Units Estimated Average Glucose 146 mg/dl Hemoglobin A1c 6.7 H 4.5-5.6 % Lipid Panel Test 09/26/16 03:58 Range/Units Triglycerides Level 156 H 0-150 mg/dl Cholesterol Level 122 0-200 mg/dl HDL Cholesterol 37 mg/dl Cholesterol/HDL Ratio 3.3 LDL Cholesterol, Calculated 54 mg/dl Medical Emergencies . Who to Call and When: Medical Emergencies: If at any time you feel your situation is an emergency, please call 911 immediately. . Non-Emergent Contact Non-Emergency issues call your: Primary Care Provider . . "Provider Documentation" section prepared by Debbie Fairbanks. . VTE Core Measure Inpt VTE Proph given/why not?: Other Anticoagulation
[2016-09-26] MEDS ORDERED: METH500T PO (16:50)
--- NOTE | 2016-09-26 16:56 | Discharge Summary ---
Discharge Summary Date of Service Sep 26, 2016. Discharge Summary Admission Date: Sep 25, 2016 at 19:11 Discharge Date: Sep 26, 2016 Discharge Disposition: Home with services Principal Diagnosis: Dizziness Sinus rhythm with supraventricular ectopy, no evidence of atrial fibrillation HTN Hypokalemia Muscle cramps Orthostatic hypotension CKD III h/o gastric bypass Procedures: TTE: Sinus rhythm was present during the echocardiogram. * The left ventricular wall motion is normal. * Ejection Fraction = 65-70%. * Aortic valve sclerosis mild, without significant aortic valvular stenosis. * Grade I diastolic dysfunction, (abnormal relaxation pattern). Vaccinations: None. Consultations: Cardiology Pending Studies/Follow-Up: see instructions below Medication Reconciliation Continued Medications: Amlodipine Besylate (Norvasc) 2.5 Mg Tab 2.5 MG PO QAM, TAB Cyanocobalamin (Cyanocobalamin) 1,000 Mcg/Ml Inj 1000 MCG IM MONTHLY next dose due beginning of Sept Hydrochlorothiazide (Hctz) 12.5 Mg Cap 12.5 MG PO QAM, TAB Ropinirole (Requip) 2 Mg Tab 2 MG PO HS, TAB WITH FOOD Trazodone Hcl (Trazodone) 50 Mg Tab 25-50 MG PO HS, TAB Discontinued Medications: Atorvastatin (Lipitor) 20 Mg Tab 20 MG PO QPM, TAB 5 Refills Baclofen (Lioresal) 10 Mg Tab 10 MG PO TID, TAB Admission Information HPI (per Admitting provider): 70 yo F with HTN, old cerebrovascular disease seen on imaging only and h/o gastric bypass presents tonight after sudden onset of dizziness while in her house earlier today. She states that she made four very stressful phone calls in a row trying to deal with large medical bills and she became very upset and suddenly had dizziness. She states that she hasn't eaten all day. She reports having a headache but denies visual changes, difficulty speaking or finding words. She reports numbness around her mouth and states that it is dry. She was able to walk after her dizziness began and called for help, then walked around the outside of the house to avoid the steps which was 100 ft, by herself and without issues. Later family states that she appeared unsteady on her feet with walking. No facial droop was noted and she has no recollection of any strokes in the past. She admits to having a craniotomy, but there is no record of this. I see that in 2005 she was on Lovenox for post-operative DVT prophylaxis, and after a couple of days off of it developed a headache. CT in the ER at that time revealed a subacute vs chronic subdural and neurosurgery was consulted with recommendations for conservative management only. Her son reports some issues with intermittent memory loss. BP on arrival was elevated. In the ER, EKG reveals new onset atrial fibrillation with SVR. She denies palpitations, current or recent chest pain or shortness of breath. She is not tachypneic or hypoxic and has had no recent periods of immoobilization. She also denies any recent infectious symptoms, specifically fevers, chills, UTI symptoms-theses are all absent. Head CT was negative for acute findings but did reveal CVD as above. K was 3.1 and replacement was ordered. CXR was clear. UA was unremarkable. She did note that she has been on a recent two weeks course of prednisone for back pain issues, which she stopped one week ago. She also states that her muscle relaxer is new for her. She denies any OTC meds. Physical Exam (per Admitting): GEN: morbid obesity, in no acute distress, alert and appropriate, very talkative and expressive, no issues moving around the bed without assistance, no tachypnea or conversational dyspnea, not ill-appearing. HEENT: NC/AT, pinpoint and equal bilaterally, normal sclerae, MMM, pharynx non- acute, edentulous CARDIO: reg rate, irreg rhythm, S1/2 heard without m/g/r, 2+ pulses throughout , no JVD noted. LUNGS: CTA bilaterally, no crackles, rales or wheezes, good diaphragmatic excursion ABD: soft, non-tender, non-distended, no rebound or guarding, +BS, no CVA tenderness EXTREMITY: RP and DP palpable 2+ bilat, no LE swelling or edema, extremities are warm and well-perfused NEURO: CN 2-12 intact, EOMI, sensation intact throughout, coordination intact ( finger to nose)-did not stand her up bc of fall risk (orthostatic +) (reflexes) BR 2+ bilat, could not elicit LE reflexes (pt tensing and prior surgeries on knees) MUSC: 5/5 strength throughout, no focal deficits SKIN: warm and dry Hospital Course The patient was admitted to the telemetry floor and ACS was ruled out with serial cardiac enzymes that were negative. An MRI of the brain and an MRA of the head and neck were ordered and revealed no acute stroke. A heparin drip was started and coumadin was ordered for her as her CHADS-VASC score was 4, making her high risk for stroke in the setting of atrial fibrillation. Cardiology was consulted and after reviewing the initial EKG in the ER and the telemetry overnight decided that she did not ever have atrial fibrillation, and instead the rhythm was consistent with sinus rhythm with PACs with baseline artifact. Telemetry revealed sinus rhythm with occasional supraventricular and ventricular ectopy with occasional artifact. A resting echo was performed and was normal. The anticoagulation was stopped, however, she did receive one dose of coumadin prior to discharge. No further cardiology follow-up was recommended. Her lipitor was stopped 2/2 her muscle cramps with other etiologies being low potassium 2/2 HCTZ use (seen on admission), poss low vit D or iron in setting of gastric bypass. Will recommend to PCP to obtain annual labs to monitor vitamin/mineral levels in post-gastric bypass patient. On day of discharge she was ambulating at baseline, but PT recommended continuation of PT either with HH or through an outpatient program. She was tolerating PO. Her numbness and dizziness had resolved and she was sent home in stable condition with close PCP follow-up recommended. Total time spent on discharge = 60 minutes This includes examination of the patient, discharge planning, medication reconciliation, and communication with other providers. [place] [address] Discharge Medical Patient Name: Krysta Yi Unit Number: [id number] Date of : 1945 Patient Status: Admitted Inpatient Attending Doctor: Debbie Fairbanks DO DI: Medical v4 Discharge Instructions Date of Service Sep 26, 2016. Admission Reason for Admission: New Onset Atrial Fibrillation Discharge Discharge Diagnosis / Problem: dizziness-resolved Discharge Goals Goal(s): Prevent Disease Progression Activity Recommendations Activity Limitations: per Instructions/Follow-up section . Instructions / Follow-Up Instructions / Follow-Up Please take all medications as instructed. Note changes to some of the medications you take at home. It is recommended that you follow-up with Dr. Wilder within one week of discharge for follow-up from this hospitalization to ensure you are continuing to feel well. As the scheduling line is closed at this time, someone will call you with an appointment time later, or you can call on Wednesday yourself to the scheduling line. Continued physical therapy going home is recommended. I would like to order Home Health nursing services for you for regular PT at your home in the short- term. This will be setup likely tomorrow and someone will call you to set up everything to get this going. Please stay off of your ATORVASTATIN for now to see if that is contributing to your muscle cramps. Your magnesium was checked and was normal and so was your thyroid function. Your potassium was slightly low, however, and this may be another possible cause. Also, vitamin D will need to be checked on follow-up to see if this is low. Dr. Wilder can help to facilitate these labs. It was a pleasure taking care of you! Call if you have any questions or problems. You can reach a [facility] hospitalist on duty at [facility] 24 hours a day by calling [phone]. Take care of yourself. Debbie Fairbanks DO [facility] Hospitalist Current Hospital Diet Patient's current hospital diet: [facility] Diet (Heart Healthy) Discharge Diet Recommended Diet: AHA Diet (Heart Healthy) Procedures Procedures Performed: TTE: Sinus rhythm was present during the echocardiogram. * The left ventricular wall motion is normal. * Ejection Fraction = 65-70%. * Aortic valve sclerosis mild, without significant aortic valvular stenosis. * Grade I diastolic dysfunction, (abnormal relaxation pattern). Pending Studies Studies pending at discharge: no Laboratory Results Hemoglobin A1c Test 09/26/16 03:58 Range/Units Estimated Average Glucose 146 mg/dl Hemoglobin A1c 6.7 H 4.5-5.6 % Lipid Panel Test 09/26/16 03:58 Range/Units Triglycerides Level 156 H 0-150 mg/dl Cholesterol Level 122 0-200 mg/dl HDL Cholesterol 37 mg/dl Cholesterol/HDL Ratio 3.3 LDL Cholesterol, Calculated 54 mg/dl Medical Emergencies . Who to Call and When: Medical Emergencies: If at any time you feel your situation is an emergency, please call 911 immediately. . Non-Emergent Contact Non-Emergency issues call your: Primary Care Provider . . "Provider Documentation" section prepared by Debbie Fairbanks. . VTE Core Measure Inpt VTE Proph given/why not?: Other Anticoagulation Additional Copies To Jolynn Wilder,DO
== END 2016-09-26 17:37 | disposition home or self-care (01) | DRG 309 ==
LOC: C.EDB 13:49 → C.2T 19:11 → ENRESERV 19:32
PROVIDERS: ADMIT Hospitalist; ATTEND Hospitalist
DX: I48.91 Unspecified atrial fibrillation (principal); Z68.41 Body mass index [BMI] 40.0-44.9, adult; R42 Dizziness and giddiness; I12.9 Hypertensive chronic kidney disease with stage 1 through stage 4 chronic kidney disease, or unspecified chronic kidney disease; N18.3 Chronic kidney disease, stage 3 (moderate); D63.1 Anemia in chronic kidney disease; E87.6 Hypokalemia; M62.838 Other muscle spasm; I95.1 Orthostatic hypotension; E66.01 Morbid (severe) obesity due to excess calories; Z79.899 Other long term (current) drug therapy; Z87.891 Personal history of nicotine dependence; Z98.84 Bariatric surgery status

== ENCOUNTER → 2017-05-04 | Outpatient (CLI) | payer OTHER ==
[~2017-05-04] MED LIST changes: -ATOR-22 PO; +CYNI1000 IM; -LPR25 PO; -OXYC-57 PO; -PRT40 PO; +ROPI2TAB6 PO; -SNKUDL5 PO; +TRAZ50TA35 PO
--- NOTE | 2017-05-04 16:03 | DIAGNOSTIC IMAGING REPORT ---
THORACIC SPINE 3 VIEWS ROUTINE HISTORY: 71 years-old Female THORACIC BACK PAIN acute mid back pain COMPARISON: CT chest 11/02/2012 TECHNIQUE: 3 views of the thoracic spine FINDINGS: Bones appear at least mildly demineralized which limits evaluation for acute nondisplaced fracture. No definite acute fracture or subluxation identified. Multilevel intervertebral disc space narrowing with endplate spurring and facet arthrosis. Post surgical changes of the shoulders. Heart appears mildly enlarged. Atherosclerosis of the aorta. IMPRESSION: No acute fracture or subluxation. The above report was generated using voice recognition software. It may contain grammatical, syntax or spelling errors. Electronically signed by: Juan Valenzuela M.D. 05/04/2017 4:01 PM Dictated Date/Time: 05/04/2017 3:58 PM
== END | disposition home or self-care (01) ==
LOC: C.RADBC 15:18
PROVIDERS: ATTEND Physician Assistant
DX: M54.6 Pain in thoracic spine (principal)

== ENCOUNTER 2022-01-08 10:48 | Inpatient (IN) ==
[2022-01-08 11:23] LABS: Basophils # (auto) 0.06 K/uL (0-0.2); Basophils % (auto) 0.7 %; Eosinophils # (auto) 0.11 K/uL (0-0.50); Eosinophils % (auto) 1.3 %; Hematocrit (blood only) 33.9 % (34.1-44.9); Hemoglobin 10.1 g/dl (12.0-16.0); Immature Granulocytes # (auto) 0.03 K/uL (0.00-0.02); Immature Granulocytes % (auto) 0.3 %; Lymphocytes # (auto) 2.04 K/uL (1.2-3.4); Lymphocytes % (auto) 23.2 %; Mean Corpuscular Hemoglobin 23.7 pg (25.0-34.0); Mean Corpuscular Hgb Conc 29.8 g/dL (32.0-36.0); Mean Corpuscular Volume 79.4 fL (80.0-100.0); Monocytes # (auto) 0.51 K/uL (0.24-0.82); Monocytes % (auto) 5.8 %; Neutrophils # (auto) 6.05 K/uL (1.4-6.5); Neutrophils % (auto) 68.7 %; Platelet Count 328 K/uL (130-400); RDW Coefficient of Variation 17.7 % (11.5-14.5); RDW Standard Deviation 50.7 fL (36.4-46.3); Red Blood Count 4.27 M/uL (3.93-5.22)
--- NOTE | 2022-01-08 11:44 | Emergency Department Note ---
Impression & Plan Acute CHF (congestive heart failure), Hypoxia ED Provider Note Name: BEL RUSSELL Age: 76 Sex: F Arrives Via: Walk-In Informant: Patient, Family ED Provider: Norman Durand MD Chief Complaint: Shortness of breath Impression: As per impressions above Medical Decision Makin-year-old female with a history hypertension, CKD, anxiety/depression and some chronic pain issues who is only on gabapentin and losartan daily. She arrives for evaluation of worsening shortness of breath. She has been treated for pneumonia for the last few weeks without much improvement. Worsening breathing and feeling increasing shortness of breath. Chest x-ray with bilateral congestive findings consistent with congestive heart failure. EKG is without evidence of ischemia. Her laboratory findings reveal mildly elevated troponin and a significant elevated BNP. She is a bit on the hypertensive side as well. She was given IV Lasix and will hold off on further antihypertensive until she diuresis as she has no other concerning symptoms at this time. No clear teresa dence that there is an ongoing infection and patient is comfortable with plan for hospitalization. Hospitalist consulted for further management. Prior Medical Record and Triage/Nursing Notes reviewed by Me Additional history obtained from records from [facility] Differentials:Reactive airway disease, pneumonia, pneumothorax, COPD, CHF, infections, cardiac ischemia, pulmonary embolism, musculoskeletal, gastrointestinal, as well as other pathologies. Vital Signs: reviewed and remarkable for hypertension, hypoxia on room air Interventions: Lasix 40 mg IV Labs:Reviewed and remarkable for BNP, elevated Trope mildly Imaging:CXR Bilateral congestive failure EKG:As per dye interpretation. Indication shortness of breath. Sinus tachycardia with a right bundle branch block 109 bpm and a QTC of 450. There is no previous EKG for comparison. There is no ectopy nor ischemic findings Consults:Dr Richard WU Hospitalist Plan: Disposition:Hospitalization. Condition: Good History of Present Illness:76-year-old female arrives for evaluation of shortness of breath. Patient with periodic respiratory illness over the last year. She was treated for pneumonia on December 20 of this month with antibiotics. Patient notes the last few days worsening cough, congestion, shortness of breath and dyspnea on exertion. She notes she is feeling tired and fatigued. Denies any fevers, chills, vomiting, back pain, abdominal pain, urina ry/bowel symptoms, leg swelling, calf pain, headaches, neck pain, chest pain, syncope or other concerning signs or symptoms. No medications prior to arrival though she had been using an inhaler the last few days without much improvement. Exertion makes worse rest makes better. ROS: See above HPI for pertinent positives & negatives. A total of 10 systems reviewed and were otherwise negative. Past Medical History:Hypertension, CKD, chronic pain, anxiety depression Past Surgical History:Hernia repair, gastric bypass, bowel obstruction repair, bilateral hip replacement Family History:See Below Social History:See Below Home Medications:See Below Allergies:See Below Vitals:Blood Pressure: 157/82, Pulse 97, RR 24, T 36.7C, O2 97% on 2L NC Physical Exam: GENERAL: Patient is anxious appearing and in mild distress. EYES: No scleral icterus, unremarkable pupils. ENT: Mucous membranes moist, no nasal congestion. NECK: No masses appreciated, nomeningismus, trachea is midline. RESPIRATORY: Some coarse breath sounds throughout and periodic mild cough without wheeze appreciated. CARDIOVASCULAR: Regular rate and rhythm.No murmurs, rubs, gallops appreciated. GASTROINTESTINAL: Abdomen soft, non-tender, no peritonitis.Bowel sounds positive.No masses appreciated. BACK: No midline tenderness, no CVA tenderness EXTREMITIES: Normal motion all extremities, no cyanosis, no edema. NEUROLOGIC: Alert and oriented, no acute motor or sensory deficits, no focal weakness, cranial nerves grossly intact. SKIN: No rash, no jaundice, no diaphoresis. PSYCH: Appropriate GCS: 15 ED Course: Times/Reassessments: Patient feels much better on 2 L nasal cannula she is breathing comfortable Norman Durand MD Past Med/Surg History Medical History (Updated 01/08/22 @ 13:13 by Norman Durand MD) Anemia in chronic kidney disease Anxiety CKD (chronic kidney disease), stage III Depression Elevated parathyroid hormone History of Lyme disease Hypertension Hypertensive urgency Osteopenia Vitamin D deficiency Surgical History (Updated 06/19/20 @ 11:40 by Marcelo Raymundo MD) History of laparoscopy Hx of cholecystectomy Status post bilateral hip replacements Status post gastric bypass for obesity "Indigo-en-Y" Status post hernia repair Status post hysterectomy Family History (Updated 09/18/18 @ 16:04 by Chihco Hartman) Other No significant family history Social History Smoking Status: Former smoker Feels Safe at Home: Yes Allergies Allergies Allergy/AdvReac Type Severity Reaction Status Date / Time oseltamivir Allergy Intermediate Hives Verified 01/08/22 12:09 aspirin AdvReac Unknown NO ASA DUE Verified 06/19/20 08:08 TO GASTRIC BYPASS NSAIDS (Non-Steroidal AdvReac Unknown GI SXS, no Verified 06/19/20 08:08 Anti-Inflamma NSAIDS due to gastric bypass Home Meds Home Medications Medication Instructions Recorded Confirmed albuterol sulfate 90 mcg/actuation 1 inh inhalation Q4H PRN Shortness 01/08/22 01/08/22 aerosol inhaler Of Breath Or Wheezing amoxicillin 875 mg-potassium 1 tab PO BID 01/08/22 01/08/22 clavulanate 125 mg tablet cholecalciferol (vitamin D3) 1,250 50,000 unit PO WK 01/08/22 01/08/22 mcg (50,000 unit) capsule doxycycline hyclate 100 mg capsule 100 mg PO DAILY 01/08/22 01/08/22 gabapentin 100 mg capsule 200 mg PO HS 01/08/22 01/08/22 losartan 25 mg tablet 25 mg PO DAILY 01/08/22 01/08/22 Results & Data (ED) Vital Signs Vital Signs - 24 hr 01/08/22 10:53 01/08/22 11:10 01/08/22 11:10 Temperature 36.7 C Temperature Source Temporal Artery Scan Pulse Rate 96 H Pulse Rate [Apical] Respiratory Rate 20 Respiratory Effort / Characteristics Non-Labored Labored Labored Respiratory Depth Normal Respiratory Pattern Blood Pressure 157/82 H Blood Pressure [Right Arm] Blood Pressure Mean 107 Blood Pressure Mean [Right Arm] Blood Pressure Position [Right Arm] Pulse Oximetry 94 87 L Oxygen Delivery Method Room Air Room Air Oxygen Flow Rate Sepsis Recent Fever Within 48 Hours No Sepsis New/Unexplained Change in Mental Status No Sepsis Action Taken by Nursing No Action Required Oxygen Flow Rate - Titration Pulse Oximetry Post Tiitration 01/08/22 11:10 01/08/22 11:10 01/08/22 11:47 Temperature Temperature Source Pulse Rate 97 H Pulse Rate [Apical] 88 Respiratory Rate 24 22 Respiratory Effort / Characteristics Non-Labored Spontaneous Respiratory Depth Normal Respiratory Pattern Regular Blood Pressure Blood Pressure [Right Arm] 179/111 H Blood Pressure Mean Blood Pressure Mean [Right Arm] 133 Blood Pressure Position [Right Arm] Pulse Oximetry 87 L 97 98 Oxygen Delivery Method Room Air Nasal Cannula Nasal Cannula Oxygen Flow Rate 2 2 Sepsis Recent Fever Within 48 Hours Sepsis New/Unexplained Change in Mental Status Sepsis Action Taken by Nursing Oxygen Flow Rate - Titration 2 Pulse Oximetry Post Tiitration 97 01/08/22 11:10 01/08/22 12:46 Temperature Temperature Source Pulse Rate Pulse Rate [Apical] 88 Respiratory Rate 20 Respiratory Effort / Characteristics Respiratory Depth Respiratory Pattern Blood Pressure Blood Pressure [Right Arm] 190/119 H Blood Pressure Mean Blood Pressure Mean [Right Arm] 142 Blood Pressure Position [Right Arm] Sitting Pulse Oximetry 87 L 97 Oxygen Delivery Method Room Air Oxygen Flow Rate Sepsis Recent Fever Within 48 Hours Sepsis New/Unexplained Change in Mental Status Sepsis Action Taken by Nursing Oxygen Flow Rate - Titration 2 Pulse Oximetry Post Tiitration 96 Laboratory Data Result diagrams: 01/08/22 11:14 01/08/22 11:14 Lab Results 01/08/22 01/08/22 01/08/22 Range/Units 11:14 11:14 11:14 WBC 8.80 (4.8-10.8) K/ul RBC 4.27 (3.93-5.22) M/uL Hgb 10.1 L (12.0-16.0) g/dl Hct 33.9 L (34.1-44.9) % MCV 79.4 L (80.0-100.0) fL MCH 23.7 L (25.0-34.0) pg MCHC 29.8 L (32.0-36.0) g/dL RDW Std Deviation 50.7 H (36.4-46.3) fL RDW Coeff of Juliana 17.7 H (11.5-14.5) % Plt Count 328 (130-400) K/uL MPV 11.0 (9.4-12.3) fL Immature Gran % (Auto) 0.3 % Neut % (Auto) 68.7 % Lymph % (Auto) 23.2 % [place] % (Auto) 5.8 % Eos % (Auto) 1.3 % Baso % (Auto) 0.7 % Neut # (Auto) 6.05 (1.4-6.5) K/uL Lymph # (Auto) 2.04 (1.2-3.4) K/uL [place] # (Auto) 0.51 (0.24-0.82) K/uL Eos # (Auto) 0.11 (0-0.50) K/uL Baso # (Auto) 0.06 (0-0.2) K/uL Immature Gran # (Auto) 0.03 H (0.00-0.02) K/uL PT 11.0 (9.0-12.0) Seconds INR 1.0 (0.9-1.1) APTT 28.0 (21.0-31.0) Seconds PTT Ratio 1.0 Sodium 136 (136-145) mmol/L Potassium 4.0 (3.5-5.1) mmol/L Chloride 103 (98-107) mmol/L Carbon Dioxide 23 (21-32) mmol/L Anion Gap 10 (3-11) BUN 13 (6-23) mg/dl Creatinine 1.08 (0.6-1.2) mg/dl Est Cr Clr Drug Dosing 54.7 ml/min Est GFR ( Amer) 57.7 ml/min Est GFR (Non-Af Amer) 49.8 ml/min BUN/Creatinine Ratio 12.0 (10-20) Glucose 146 H (70-99(Fasting)) mg/dl Calcium 9.3 (8.5-10.1) mg/dl Magnesium 1.9 (1.7-2.4) mg/dl Total Bilirubin 0.6 (0.2-1.0) mg/dl AST 15 (13-39) U/L ALT 8 (7-52) U/L Alkaline Phosphatase 64 (34-104) U/L Troponin I High Sens 36.2 H (0-14) pg/ml B-Natriuretic Peptide (0-100) pg/ml Total Protein 7.4 (6.0-8.3) gm/dl Albumin 3.9 (3.4-5.0) gm/dl Globulin 3.5 (2.5-4.0) gm/dl Albumin/Globulin Ratio 1.1 (0.9-2) SARS-CoV-2 (PCR) (Negative) Influenza Type A (PCR) (Neg) Influenza Type B (PCR) (Neg) RSV (RT-PCR) (Neg) 01/08/22 01/08/22 Range/Units 11:14 11:46 WBC (4.8-10.8) K/ul RBC (3.93-5.22) M/uL Hgb (12.0-16.0) g/dl Hct (34.1-44.9) % MCV (80.0-100.0) fL MCH (25.0-34.0) pg MCHC (32.0-36.0) g/dL RDW Std Deviation (36.4-46.3) fL RDW Coeff of Juliana (11.5-14.5) % Plt Count (130-400) K/uL MPV (9.4-12.3) fL Immature Gran % (Auto) % Neut % (Auto) % Lymph % (Auto) % [place] % (Auto) % Eos % (Auto) % Baso % (Auto) % Neut # (Auto) (1.4-6.5) K/uL Lymph # (Auto) (1.2-3.4) K/uL [place] # (Auto) (0.24-0.82) K/uL Eos # (Auto) (0-0.50) K/uL Baso # (Auto) (0-0.2) K/uL Immature Gran # (Auto) (0.00-0.02) K/uL PT (9.0-12.0) Seconds INR (0.9-1.1) APTT (21.0-31.0) Seconds PTT Ratio Sodium (136-145) mmol/L Potassium (3.5-5.1) mmol/L Chloride (98-107) mmol/L Carbon Dioxide (21-32) mmol/L Anion Gap (3-11) BUN (6-23) mg/dl Creatinine (0.6-1.2) mg/dl Est Cr Clr Drug Dosing ml/min Est GFR ( Amer) ml/min Est GFR (Non-Af Amer) ml/min BUN/Creatinine Ratio (10-20) Glucose (70-99(Fasting)) mg/dl Calcium (8.5-10.1) mg/dl Magnesium (1.7-2.4) mg/dl Total Bilirubin (0.2-1.0) mg/dl AST (13-39) U/L ALT (7-52) U/L Alkaline Phosphatase (34-104) U/L Troponin I High Sens (0-14) pg/ml B-Natriuretic Peptide 2171 H (0-100) pg/ml Total Protein (6.0-8.3) gm/dl Albumin (3.4-5.0) gm/dl Globulin (2.5-4.0) gm/dl Albumin/Globulin Ratio (0.9-2) SARS-CoV-2 (PCR) NEGATIVE (Negative) Influenza Type A (PCR) Negative (Neg) Influenza Type B (PCR) Negative (Neg) RSV (RT-PCR) Negative (Neg) Administered Medications Discontinued Medications Furosemide (Furosemide 40 Mg/4 Ml Vial) 40 mg IV ONE ONE Stop: 01/08/22 12:25 Last Admin: 01/08/22 12:39 Dose: 40 mg Documented By: LOLA Imaging Data Radiologist's Impression: Chest X-Ray 01/08/22 11:10 SINGLE VIEW CHEST CLINICAL HISTORY: Dyspnea. FINDINGS: An AP, portable, upright chest radiograph is compared to study dated 09/25/2016. The heart is enlarged noting atherosclerotic calcification of the thoracic ureter. There is pulmonary vascular congestion. There are left large right pleural effusions with bibasilar consolidation. No pneumothorax is seen. The skeletal structures are osteopenic. The bony thorax is grossly intact. Arthritic change is seen in the shoulders and there are surgical anchors present within both humeral heads. Chronic widening of the acromioclavicular joints is similar to previous. IMPRESSION: 1. Cardiomegaly with evidence of congestive failure. 2. Small pleural effusions with dependent consolidation. ACT 112: Negative or not required by law. Electronically signed by: Luis Dorsey M.D. 01/08/2022 11:57 AM Discharge Plan Visit Data Chief Complaint: Shortness of Breath/Dyspnea Stated Complaint: TROUBLE BREATHING ED Provider: Norman Durand Discharge Problem: Acute CHF (congestive heart failure), Hypoxia Forms Stand Alone Forms: My [facility] [employer] Prescriptions Prescriptions: No Action doxycycline hyclate 100 mg capsule 100 mg PO DAILY losartan 25 mg tablet 25 mg PO DAILY gabapentin 100 mg capsule 200 mg PO HS albuterol sulfate 90 mcg/actuation HFA aerosol inhaler 1 inh INHALATION Q4H PRN (Reason: Shortness Of Breath Or Wheezing) amoxicillin-pot clavulanate 875-125 mg tablet 1 tab PO BID cholecalciferol (vitamin D3) 1,250 mcg (50,000 unit) capsule 50,000 unit PO WK Referrals Referrals: Flora Barkley DO [Primary Care Provider] - : Acute CHF (congestive heart failure) Qualifiers: Heart failure type: systolic Qualified Code(s): I50.21 - Acute systolic (co ngestive) heart failure
[2022-01-08 11:47] LABS: Albumin Globulin Ratio 1.1 (0.9-2); Albumin Level 3.9 gm/dl (3.4-5.0); Bilirubin,Total 0.6 mg/dl (0.2-1.0); Calcium 9.3 mg/dl (8.5-10.1); Creatinine Clr Calc Pharmacy 54.7 ml/min; Est GFR (African American) 57.7 ml/min; Est GFR (Non-African American) 49.8 ml/min; Globulin 3.5 gm/dl (2.5-4.0); Magnesium 1.9 mg/dl (1.7-2.4); Total Protein 7.4 gm/dl (6.0-8.3)
[2022-01-08 11:48] LABS: Troponin I High Sensitivity 36.2 pg/ml (0-14)
--- NOTE | 2022-01-08 11:58 | XRay Report ---
SINGLE VIEW CHEST CLINICAL HISTORY: Dyspnea. FINDINGS: An AP, portable, upright chest radiograph is compared to study dated 09/25/2016. The heart i s enlarged noting atherosclerotic calcification of the thoracic ureter. There is pulmonary vascular c ongestion. There are left large right pleural effusions with bibasilar consolidation. No pneumothorax is seen. The skeletal structures are osteopenic. The bony thorax is grossly intact. Arthritic change is seen in the shoulders and there are surgical anchors present within both humeral heads. Chronic w idening of the acromioclavicular joints is similar to previous. IMPRESSION: 1. Cardiomegaly with evidence of congestive failure. 2. Small pleural effusions with dependent consolidation. ACT 112: Negative or not required by law. Electronically signed by: Luis Dorsey M.D. 01/08/2022 11:57 AM
[2022-01-08] MEDS ORDERED: FUROSEMIDE 40 MG/4 ML VIAL IV ONE (12:24)
[2022-01-08 12:35] LABS: Influenza A virus by PCR Negative (Neg); Influenza B virus by PCR Negative (Neg); RSV by PCR Negative (Neg); SARS CoV2 RNA(COVID-19) Ceph NEGATIVE (Negative)
--- NOTE | 2022-01-08 12:47 | History & Physical Report ---
Date of Service January 08, 2022 Assessment & Plan (1) Acute CHF (congestive heart failure): Plan: -Admit to med tele -Patient is currently afebrile, hemodynamically stable-hypertensive, and stable on 2L NC -BNP noted to be 2171 today, no previous BNP to compare to, noted to have cardiomegaly and pulmonary edema on CXR today -No previous history of CHF, she does have a murmur on exam today, possibly new? -Was previously on HCTZ and Lisinopril but was taken off approximately 6 months ago due to developing gout and was not put on another diuretic -No previous history of SD to suggest ischemic cardiomyopathy -Patient is noted to be hypertensive here at 209/105, could be a component of hypertensive urgency/emergency/flash pulmonary edema -Initial high sensitivity troponin noted to be 36.2, patient is without chest pain and no acute ST segment or t-wave changes on ECG. -Was given 40 mg IV lasix in the ED, will continue with 20 mg IV BID for now as she is not on lasix outpatient -Monitor on tele -Will get TTE to evaluate for structural causes -AM CBC and BMP (2) Hypoxia: Plan: -Noted to be hypoxic at 87% on RA -No history of previous lung disease -Likely due to currently pulmonary edema. Was recently treated for CAP with a course of Doxycycline which she completed, no consolidations noted on CXR today -Currently stable on 2L NC -Will continue with IV diuresis, incentive spirometry, flutter therapy, prn albuterol -Wean off O2 as able (3) Elevated troponin: Plan: -Initial troponin noted to be 36.2, repeat on admission at 41.6 -No acute ECG changes and patient is without chest pain -Will trend another troponin to continue to monitor -Monitor on tele (4) Hypertension: Plan: -Patient noted to be hypertensive as high as 209/105 -Only on 25 mg PO losartan daily outpatient -Giving 5 mg IV labetalol now and will also start 25 mg BID of PO metoprolol tartrate -Will also add prn hydralazine for systolic BP > 180 mmhg -Will FU with TTE (5) Vitamin D deficiency: Plan: continue vitamin D (6) CKD (chronic kidney disease), stage III: Plan: -Stable Plan The patient was seen with and discussed with Dr. Ramos at the time of the admission History of Present Illness Chief Complaint: SOB Primary Care Provider: Flora Barkley DO Krysta is a 76 year old female with a PMH significant for pre-diabetes, HTN, CKD, anemia, previous lyme disease, anxiety, and depression who presented to the [facility] ED on 01/08/22 with a chief complaint of SOB. In the ED the patient was found to be afebrile, hemodynamically stable but hypoxic at 87% on RA; she was placed on 2L NC and remained stable. Labs were remarkable for WBC WNL, stable Hgb at 10.1, MCV of 79.4, MCHC of 2938, stable renal function and electrolytes, glucose of 146, high sensitivity troponin of 36.2, BNP is pending, and negative covid, Influenza, and RSV screening. Ches xray shows "1. Cardiomegaly with evidence of congestive failure. 2. Small pleural effusions with dependent consolidation.". Prior to admission the patient was given 40 mg IV lasix. At the time of the exam the patient was resting comfortably in bed in no acute distress currently stable on 2L NC. She states that she had been in her normal state of health until approximately 6 months ago. She states at that time she was taken off of Hydrochlorothiazide due to developing gout. At that time she was switched to Losartan for blood pressure control. She has had intermittent episodes of SOB since then, which have progressed. She notes more SOB with exertion or bending down and improvement when she is at rest. She was recently treated for a left lower lobe pneumonia diagnosed at [facility], she completed her course of doxycycline early this week but was still feeling SOB. She told her family that she was still feeling SOB today so they brought her to the ED. When asked, she states that she has been eating a lot of ice recently as she had to stop eating popsicles because of her blood sugar. She denies high sodium intake and previous SD's, she does not feel as though she had been getting more edematous recently. When asked, she does not check her blood pressure at home. She has noted a non-productive cough since being diagnosed with Pneumonia. She denies recent fevers, chills, headache, changes in vision, hearing taste, and smell, chest pain, abdominal pain, nausea, vomiting, diarrhea, dysuria, hematuria, and recent falls. I spoke to her regarding code status, she would like to be a full code. Please refer to Dr. Ramos's attestation for any changes to the treatment plan Allergies Allergy/AdvReac Type Severity Reaction Status Date / Time oseltamivir Allergy Intermediate Hives Verified 01/08/22 12:09 aspirin AdvReac Unknown NO ASA DUE Verified 06/19/20 08:08 TO GASTRIC BYPASS NSAIDS (Non-Steroidal AdvReac Unknown GI SXS, no Verified 06/19/20 08:08 Anti-Inflamma NSAIDS due to gastric bypass Home Medications Medication Instructions Recorded Confirmed Type albuterol sulfate 90 mcg/actuation 1 inh inhalation Q4H PRN Shortness 01/08/22 01/08/22 History aerosol inhaler Of Breath Or Wheezing amoxicillin 875 mg-potassium 1 tab PO BID 01/08/22 01/08/22 History clavulanate 125 mg tablet cholecalciferol (vitamin D3) 1,250 50,000 unit PO WK 01/08/22 01/08/22 History mcg (50,000 unit) capsule doxycycline hyclate 100 mg capsule 100 mg PO DAILY 01/08/22 01/08/22 History gabapentin 100 mg capsule 200 mg PO HS 01/08/22 01/08/22 History losartan 25 mg tablet 25 mg PO DAILY 01/08/22 01/08/22 History Past Med/Surg History Medical History (Updated 01/08/22 @ 13:26 by Bill Armstrong PA-C) Anemia in chronic kidney disease Anxiety CKD (chronic kidney disease), stage III Depression Elevated parathyroid hormone History of Lyme disease Hypertension Hypertensive urgency Osteopenia Vitamin D deficiency Surgical History (Updated 06/19/20 @ 11:40 by Marcelo Raymundo MD) History of laparoscopy Hx of cholecystectomy Status post bilateral hip replacements Status post gastric bypass for obesity "Indigo-en-Y" Status post hernia repair Status post hysterectomy Family History (Updated 09/18/18 @ 16:04 by Chicho Hartman) Other No significant family history Social History Smoking Status: Former smoker Feels Safe at Home: Yes Review of Systems Review of Systems: Denies current fever, chills, headache, changes in vision, hearing, taste, and smell, chest pain, cough, abdominal pain, nausea, vomiting, diarrhea, hematemesis, melena, dysuria, hematuria, and recent falls. All systems have been reviewed and are otherwise negative. Physical Exam Physical Exam: Physical Exam: General: In no acute distress, stated age, chronically ill-appearing HEENT: Normocephalic, atraumatic, no scleral icterus, pupils around round, symmetrical, and reactive to light, moist mucus membranes, trachea midline, no thyromegaly Chest/Pulm: No respiratory distress, symmetrical chest expansion, decreased breath sounds in the BL lower lung jamil, expiratory wheezing noted in all other lung jamil Cardiac: RRR, systolic murmur noted Abdomen: Negative for ascites and bruising, normoactive bowel sounds, soft, non-tender to palpation throughout Musculoskeletal: Symmetrical and without signs of acute trauma, upper and lower extremities with full ROM, no atrophy, spasticity, or flaccidity Extremities: Radial, dorsalis pedis, and posterior tibial pulses are intact and symmetrical, no pitting edema noted in the BL LE's Skin: Warm, dry, no rashes , lesions, or scars noted Neuro: Alert and oriented to person, place, month, year, and president, no focal defects, CN II-XII tested and intact, finger to nose test negative, no tremors noted Psych: No acute distress, calm and cooperative during the exam Results & Data Results & Data ([facility]) Vital Signs (Past 12 Hours) Vital Signs Temp Pulse Pulse Resp BP BP Pulse Ox 01/08/22 11:10 87 L 01/08/22 11:47 88 22 179/111 H 98 01/08/22 11:10 97 H 24 97 01/08/22 11:10 87 L 01/08/22 11:10 87 L 01/08/22 10:53 36.7 C 96 H 20 157/82 H 94 O2 Del Method O2 Flow Rate 01/08/22 11:10 Room Air 01/08/22 11:47 Nasal Cannula 2 01/08/22 11:10 Nasal Cannula 2 01/08/22 11:10 Room Air 01/08/22 11:10 Room Air 01/08/22 10:53 Room Air Laboratory Results Abnormal lab results 01/08/22 01/08/22 01/08/22 Range/Units 11:14 11:14 11:14 Hgb 10.1 L (12.0-16.0) g/dl Hct 33.9 L (34.1-44.9) % MCV 79.4 L (80.0-100.0) fL MCH 23.7 L (25.0-34.0) pg MCHC 29.8 L (32.0-36.0) g/dL RDW Std Deviation 50.7 H (36.4-46.3) fL RDW Coeff of Juliana 17.7 H (11.5-14.5) % Immature Gran # (Auto) 0.03 H (0.00-0.02) K/uL Glucose 146 H (70-99(Fasting)) mg/dl Troponin I High Sens 36.2 H (0-14) pg/ml B-Natriuretic Peptide 2171 H (0-100) pg/ml Diagnostic Findings Chest X-Ray 01/08/22 11:10 SINGLE VIEW CHEST CLINICAL HISTORY: Dyspnea. FINDINGS: An AP, portable, upright chest radiograph is compared to study dated 09/25/2016. The heart is enlarged noting atherosclerotic calcification of the thoracic ureter. There is pulmonary vascular congestion. There are left large right pleural effusions with bibasilar consolidation. No pneumothorax is seen. The skeletal structures are osteopenic. The bony thorax is grossly intact. Arthritic change is seen in the shoulders and there are surgical anchors present within both humeral heads. Chronic widening of the acromioclavicular joints is similar to previous. IMPRESSION: 1. Cardiomegaly with evidence of congestive failure. 2. Small pleural effusions with dependent consolidation. ACT 112: Negative or not required by law. Electronically signed by: Luis Dorsey M.D. 01/08/2022 11:57 AM ECG Additional Comments: Sinus tachycardia, Right Henefer deviation, Low Voltage QRS, cannot rule out anterior infarct, age undetermined, Code Status & VTE Plan Code Status Full code Supervising Physician Co-Signing Physician Notes Patient was seen and examined independently I discussed the case with Bill HOOKER I reviewed pertinent past medical social family history and also the plan of care and agree with the plan of care. Patient presents with shortness of breath after recently having antihypertensive change. She is markedly hypertensive in the emergency department having some tachycardia associated with it. Her blood pressures been 200/100 at times she over herself was in no chest pain she does admit to feeling short of breath she has elevation of her troponin and abnormal changes on chest x-ray which may lead us to believe this is heart failure. She has elevated BNP. Examination reveals a systolic murmur at right upper sternal border, however does not reveal overt crackles she has few crackles at the bases prolonged expiratory phase she is a distant history of smoking question whether this is a mixed picture with some heart failure and some possible chronic respiratory failure. Diuresis, blood pressure control, echocardiogram will be obtained. Any exceptions will be noted below PG Care Time/CCT Total # of Minutes Spent Total Time Spent with Patient: Total time spent is greater than 50% in coordination of care (as documented) at patient's floor/unit and/or counseling patient: [place] [address] Initial Inpt Care Lvl 2 Patient Type Established Medical Decision Making Moderate Complexity Diagnoses Acute CHF (congestive heart failure) I50.21 Heart failure type: systolic Hypoxia R09.02 Elevated troponin R77.8 Hypertension I10 Vitamin D deficiency E55.9 CKD (chronic kidney disease), stage III N18.3 (1) Acute CHF (congestive heart failure) Heart failure type: systolic Qualified Code(s): I50.21 - Acute systolic (congestive) heart failure
[2022-01-08] MEDS ORDERED: LABETALOL HCL IV 5 MG/ML 20ML IV STA (13:32)
[2022-01-08] MEDS ORDERED: hydrALAZINE HCL 20 MG/ML VIAL IV PRN (13:42)
[2022-01-08] MEDS: METOPROLOL TARTRATE 25 MG TAB PO SCH (14:15)
[2022-01-08] MEDS ORDERED: ALBUTEROL HFA 8 GM INHALER INH PRN (15:58)
[2022-01-08] MEDS: ENOXAPARIN INJ 40 MG/0.4 ML SYR SQ SCH (18:44)
[2022-01-08] MEDS ORDERED: LOPERAMIDE HCL 2 MG CAP PO STA (21:30)
[2022-01-08] MEDS: FUROSEMIDE INJ 20 MG/2 ML VIAL IV SCH (22:22)
[2022-01-08] MEDS: GABAPENTIN 100 MG CAP PO SCH (22:22)
[2022-01-08] MEDS: ACETAMINOPHEN 325 MG TAB PO PRN (22:33)
[2022-01-09] MEDS: METOPROLOL TARTRATE 25 MG TAB PO SCH ×3 (01:17→20:36)
[2022-01-09] MEDS: ENOXAPARIN INJ 40 MG/0.4 ML SYR SQ SCH ×2 (04:56→17:21)
[2022-01-09 06:04] LABS: Hematocrit (blood only) 32.6 % (34.1-44.9); Mean Corpuscular Hemoglobin 23.5 pg (25.0-34.0); Mean Corpuscular Hgb Conc 30.7 g/dL (32.0-36.0); Mean Corpuscular Volume 76.7 fL (80.0-100.0); Mean Platelet Volume 11.7 fL (9.4-12.3); Platelet Count 355 K/uL (130-400); RDW Coefficient of Variation 17.5 % (11.5-14.5); RDW Standard Deviation 48.4 fL (36.4-46.3); Red Blood Count 4.25 M/uL (3.93-5.22); White Blood Count 9.98 K/ul (4.8-10.8)
[2022-01-09 06:43] LABS: BUN Creatinine Ratio 13.3 (10-20); Calcium 9.4 mg/dl (8.5-10.1); Est GFR (Non-African American) 40.6 ml/min; Potassium 3.7 mmol/L (3.5-5.1)
[2022-01-09] MEDS: FUROSEMIDE INJ 20 MG/2 ML VIAL IV SCH ×2 (08:35→20:50)
[2022-01-09] MEDS: LOSARTAN POTASSIUM 25 MG TAB PO SCH (08:36)
--- NOTE | 2022-01-09 10:00 | Electrocardiogram Report ---
Test Reason : Blood Pressure : / mmHG Vent. Rate : 107 BPM Atrial Rate : 107 BPM P-R Int : 170 ms QRS Dur : 092 ms QT Int : 340 ms P-R-T Axes : 069 157 072 degrees QTc Int : 453 ms Sinus tachycardia with occasional Premature ventricular complexes Right axis deviation Low voltage QRS Poor R wave progression, consider anterior IA vs. lead placement vs. LVH Abnormal ECG When compared with ECG of 26-SEP-2016 06:25, Premature ventricular complexes are now Present Vent. rate has increased BY 36 BPM QRS axis Shifted right Nonspecific T wave abnormality no longer evident in Anterior leads Confirmed by Pierre Bowens ([id number]) on 01/09/2022 10:00:33 AM Referred By: REFERRED SELF Confirmed By:Pierre Bowens
--- NOTE | 2022-01-09 11:46 | Hospitalist Progress Note ---
Date of Service January 09, 2022 Assessment & Plan (1) Acute CHF (congestive heart failure): Plan: -Patient presents to the hospital on account of worsening SOB -Found to be in suspected acute CHF excaerbation, new onset -Chest x ray showed evidence of pulmo congestion, BNP was 2171, BP was above 200's systolic -2 D ECHO has been orderd -Will continue IV lasix, monitor I/O, daily weight -Was previously on HCTZ and Lisinopril but was taken off approximately 6 months ago due to developing gout and was not put on another diuretic -No previous history of [place] to suggest ischemic cardiomyopathy -Patient is noted to be hypertensive here at 209/105, could be a component of hypertensive urgency/emergency/flash pulmonary edema -Initial high sensitivity troponin noted to be 36.2, patient is without chest pain and no acute ST segment or t-wave changes on ECG. -Was given 40 mg IV lasix in the ED, will continue with 20 mg IV BID for now as she is not on lasix outpatient -Monitor on tele -Will get TTE to evaluate for structural causes -AM CBC and BMP (2) Hypoxia: Plan: -On admission, Noted to be hypoxic at 87% on RA -No history of previous lung disease -Likely due to currently pulmonary edema. -Initially placed on 2L oxygen -Now resolved, patient saturating well on room air (3) Hypertensive urgency: Plan: -On admission, Patient noted to be hypertensive as high as 209/105 -Only on 25 mg PO losartan daily outpatient -Given 5 mg IV labetalol stat and started on 25 mg BID of PO metoprolol tartrate -Will also add prn hydralazine for systolic BP > 180 mmhg -Will FU with TTE -BP is now under better control, 139/69 (4) Elevated troponin: Plan: -Most likely due to demand ischemia -Initial troponin noted to be 36.2, repeat on admission at 41.6, still trending up at 51 -No acute ECG changes and patient is without chest pain -Will trend another troponin to continue to monitor -Monitor on tele (5) Hypertension: (6) Vitamin D deficiency: Plan: continue vitamin D (7) CKD (chronic kidney disease), stage III: Plan: -Stable (8) Elevated troponin: Plan continue hospitalization Admission and Anticipated Discharge Date Admission Date: January 08, 2022 Subjective patient seen and examined, denies chest pain or SOB Review of Systems Review of Systems: All systems reviewed are negative, apart from the ones contained in the history. Physical Exam Physical Exam: The patient is awake, alert and oriented 3, well developed and well nourished, normocephalic and atraumatic, lying in bed and in no acute distress. HEENT--PERRL, EOMI, mucous membranes and oropharynx mildly dry Neck--supple. No JVD. No bruits. Thyroid normal, trachea midline, no adenopathy. Heart--normal S1 and S2. systolic murmur Lungs--clear bilaterally, no respiratory distress, no accessory muscle use. Abdomen--normal bowel sounds and soft. Mild epigastric and left sided abdominal pain Extremities--no cyanosis or clubbing. No edema. Dermatologic--normal skin turgor, normal color, no abnormal lymph nodes, no rash. Neurologic--cranial nerves II through XII grossly intact. Rheumatologic--normal range of motion. Psychiatric--normal affect. Results & Data Results & Data ([facility]) Vital Signs (Past 12 Hours) Vital Signs Temp Pulse Resp BP Pulse Ox O2 Del Method 01/09/22 10:50 97.9 F 61 20 139/69 95 Room Air 01/09/22 08:00 98.1 F 70 20 136/73 93 Room Air 01/09/22 05:09 97.9 F 69 20 162/88 H 91 Room Air PG Care Time/CCT Total # of Minutes Spent Total Time Spent with Patient: Total time spent is greater than 50% in coordination of care (as documented) at patient's floor/unit and/or counseling patient: Coding Level of Care Code 02821 Subseq Hosp Care Lvl 2 Diagnoses Acute CHF (congestive heart failure) I50.21 Heart failure type: systolic Hypoxia R09.02 Hypertensive urgency I16.0 Elevated troponin R77.8 Hypertension I10 Vitamin D deficiency E55.9 CKD (chronic kidney disease), stage III N18.3 Elevated troponin R77.8 Time Spent (min) 35 (1) Acute CHF (congestive heart failure) Heart failure type: systolic Qualified Code(s): I50.21 - Acute systolic (congestive) heart failure
[2022-01-09] MEDS: MULTIVITAMIN CHEWABLE TAB PO SCH (17:20)
[2022-01-09] MEDS: GABAPENTIN 100 MG CAP PO SCH (20:36)
[2022-01-09] MEDS: MELATONIN 3 MG TAB PO PRN (20:49)
[2022-01-10] MEDS: ENOXAPARIN INJ 40 MG/0.4 ML SYR SQ SCH ×2 (05:15→17:02)
[2022-01-10 07:31] LABS: Hematocrit (blood only) 32.6 % (34.1-44.9); Mean Corpuscular Hemoglobin 23.5 pg (25.0-34.0); Mean Corpuscular Hgb Conc 30.7 g/dL (32.0-36.0); Mean Corpuscular Volume 76.5 fL (80.0-100.0); Mean Platelet Volume 11.6 fL (9.4-12.3); Platelet Count 341 K/uL (130-400); RDW Coefficient of Variation 17.2 % (11.5-14.5); RDW Standard Deviation 47.2 fL (36.4-46.3); Red Blood Count 4.26 M/uL (3.93-5.22)
[2022-01-10] MEDS: MULTIVITAMIN CHEWABLE TAB PO SCH (07:37)
[2022-01-10] MEDS: METOPROLOL TARTRATE 25 MG TAB PO SCH ×2 (07:37→20:18)
[2022-01-10] MEDS: LOSARTAN POTASSIUM 25 MG TAB PO SCH (07:37)
[2022-01-10] MEDS: FUROSEMIDE INJ 20 MG/2 ML VIAL IV SCH ×2 (07:44→20:40)
[2022-01-10 07:54] LABS: BUN Creatinine Ratio 18.8 (10-20); Calcium 9.1 mg/dl (8.5-10.1); Creatinine Clr Calc Pharmacy 43.4 ml/min; Est GFR (African American) 44.9 ml/min; Est GFR (Non-African American) 38.7 ml/min; Potassium 3.5 mmol/L (3.5-5.1)
--- NOTE | 2022-01-10 09:42 | XCELERA ---
[id number]
--- NOTE | 2022-01-10 11:07 | Hospitalist Progress Note ---
Date of Service January 10, 2022 Assessment & Plan (1) Acute CHF (congestive heart failure): Plan: -Patient presents to the hospital on account of worsening SOB -Found to be in acute CHF exacerbation, new onset -Chest x ray showed evidence of pulmo congestion, BNP was 2171, BP was above 200's systolic -2 D ECHO confirmed EF 20-25%, Grade II Diastolic dysfunction and hypokinesis -Will continue IV lasix, monitor I/O, daily weight -Will consult cardiology -Of note, patient Was previously on HCTZ and Lisinopril but was taken off approximately 6 months ago due to suspicion for, gout and was not put on another diuretic (by the way, she dose not have gout) -No previous history of [place] to suggest ischemic cardiomyopathy (2) Hypoxia: Plan: -Now resolved, patient saturating well on room air -On admission, Noted to be hypoxic at 87% , then placed on2 L of oxygen -No history of previous lung disease -Likely due to flash pulmonary edema (3) Hypertensive urgency: Plan: -Resolved -On admission, Patient noted to be hypertensive as high as 209/105 -Only on 25 mg PO losartan daily outpatient -Given 5 mg IV labetalol stat and started on 25 mg BID of PO metoprolol tartrate -Will also add prn hydralazine for systolic BP > 180 mmhg -Will FU with TTE -BP is now under better control, 139/69 (4) Elevated troponin: Plan: -Most likely due to demand ischemia -Initial troponin noted to be 36.2, repeat on admission at 41.6, still trending up at 51 -No acute ECG changes and patient is without chest pain -Will trend another troponin to continue to monitor -Monitor on tele (5) Hypertension: (6) Vitamin D deficiency: Plan: continue vitamin D (7) CKD (chronic kidney disease), stage III: Plan: -Stable Plan continue hospitalization Admission and Anticipated Discharge Date Admission Date: January 08, 2022 Subjective patient seen and examined, denies chest pain or SOB Review of Systems Review of Systems: All systems reviewed are negative, apart from the ones contained in the history. Physical Exam Physical Exam: The patient is awake, alert and oriented 3, well developed and well nourished, normocephalic and atraumatic, lying in bed and in no acute d istress. HEENT--PERRL, EOMI, mucous membranes and oropharynx mildly dry Neck--supple. No JVD. No bruits. Thyroid normal, trachea midline, no adenopathy. Heart--normal S1 and S2. systolic murmur Lungs--clear bilaterally, no respiratory distress, no accessory muscle use. Abdomen--normal bowel sounds and soft. Mild epigastric and left sided abdominal pain Extremities--no cyanosis or clubbing. No edema. Dermatologic--normal skin turgor, normal color, no abnormal lymph nodes, no rash. Neurologic--cranial nerves II through XII grossly intact. Rheumatologic--normal range of motion. Psychiatric--normal affect. Results & Data Results & Data ([facility]) Vital Signs (Past 12 Hours) Vital Signs Temp Pulse Resp BP Pulse Ox O2 Del Method 01/10/22 09:37 97.2 F L 73 20 150/87 H 96 Room Air 01/10/22 04:00 98.1 F 76 18 156/86 H 93 Room Air 01/10/22 01:06 Room Air 01/09/22 23:48 59 L 18 157/83 H 94 Room Air PG Care Time/CCT Total # of Minutes Spent Total Time Spent with Patient: Total time spent is greater than 50% in coordination of care (as documented) at patient's floor/unit and/or counseling patient: Coding Level of Care Code 76625 Subseq Hosp Care Lvl 2 Diagnoses Acute CHF (congestive heart failure) I50.21 Heart failure type: systolic Hypoxia R09.02 Hypertensive urgency I16.0 Elevated troponin R77.8 Hypertension I10 Vitamin D deficiency E55.9 CKD (chronic kidney disease), stage III N18.3 Time Spent (min) 35 (1) Acute CHF (congestive heart failure) Heart failure type: systolic Qualified Code(s): I50.21 - Acute systolic (congestive) heart failure
--- NOTE | 2022-01-10 12:32 | Cardiology Consultation ---
Date of Consultation January 10, 2022 Assessment & Plan (1) Elevated troponin: (2) Acute CHF (congestive heart failure): (3) Cardiomyopathy: Plan 1. Congestive heart failure: Pulmonary vascular congestion likely is responsible for all of her breathing symptoms. Unclear if she truly had pneumonia leading up to her current admission. Did not have the objective reports upon which to make a determination in this regard. However, she did not have other subjective signs of infection such as fevers or chills and had minimal improvement with the use of the antibiotics. She is certainly better due to her diuresis. She lost nearly 1 L fluid yesterday. He is currently on 20 mg of Lasix twice daily. Renal function is mildly worse today but not markedly so. Think this regimen can be continued monitoring her renal function electrolytes closely. I would have low threshold for being more aggressive with 40 mg of Lasix twice daily. 2. Cardiomyopathy: Unclear etiology. No symptoms to suggest coronary disease or coronary insufficiency although she has some risk factors for coronary artery disease. At some point she will need evaluation for ischemia either noninvasive or invasive. Some of this may depend on the length of her hospitalization. Notably hypertensive at the time of admission. This is a possible etiology. Will also run some serum studies while she is in the hospital to exclude less common etiologies. Would be suspicious of a nutritional deficiency as well given her anemia and history of gastric bypass. I would switch her metoprolol tartrate to metoprolol succinate 50 mg daily. I would change her losartan to low-dose Entresto. 3. Elevated troponin: Very mild elevation. Patient markedly hypertensive at the time of admission. Do not think this is suggestive of an acute or recent infarct. History of Present Illness Reason for Consultation: Dyspnea Requesting Physician: Hilaria Attending Physician: Anthony Manrique MD History of Present Illness The patient is a 76-year-old woman without a known history of cardiac disease who presented to the hospital with worsening dyspnea. Patient states that for approximately 2 weeks she has been short of breath. She initially presented to an outpatient urgent care center and was diagnosed with pneumonia. She had 10 days of antibiotics with mild improvement in her symptoms. Over the 2 days leading up to admission she feels that her symptoms actually worsened. There was no associated chest pain or chest pressure. She denied orthopnea or paroxysmal nocturnal dyspnea. She denies any lower extremity edema. She cannot recall similar symptoms in the past although she is admittedly very sedentary. She had difficulty describing any significant physical activity that she performs on a regular basis. Her daughter was present for today's interview and provided some supplemental history. There is some concern regarding her sodium intake. The patient apparently does little cooking at home and often times eats out her orders food. She denied other symptoms such as dizziness or lightheadedness. No history of syncope. No palpitations or rapid heartbeats. Since admission the patient is feeling notably better. She was able to ambulate to the bathroom today without significant dyspnea. She feels back to her baseline but according to her daughter she is not quite back to normal yet. Allergies Allergy/AdvReac Type Severity Reaction Status Date / Time oseltamivir Allergy Intermediate Hives Verified 01/08/22 12:09 aspirin AdvReac Unknown NO ASA DUE Verified 06/19/20 08:08 TO GASTRIC BYPASS NSAIDS (Non-Steroidal AdvReac Unknown GI SXS, no Verified 06/19/20 08:08 Anti-Inflamma NSAIDS due to gastric bypass Home Medications Medication Instructions Recorded Confirmed Type albuterol sulfate 90 mcg/actuation 1 inh inhalation Q4H PRN Shortness 01/08/22 01/08/22 History aerosol inhaler Of Breath Or Wheezing amoxicillin 875 mg-potassium 1 tab PO BID 01/08/22 01/08/22 History clavulanate 125 mg tablet cholecalciferol (vitamin D3) 1,250 50,000 unit PO WK 01/08/22 01/08/22 History mcg (50,000 unit) capsule doxycycline hyclate 100 mg capsule 100 mg PO DAILY 01/08/22 01/08/22 History gabapentin 100 mg capsule 200 mg PO HS 01/08/22 01/08/22 History losartan 25 mg tablet 25 mg PO DAILY 01/08/22 01/08/22 History Patient History Medical History (Updated 01/10/22 @ 12:28 by Prashant Kramer MD) Anemia in chronic kidney disease Anxiety CKD (chronic kidney disease), stage III Depression Elevated parathyroid hormone History of Lyme disease Hypertension Hypertensive urgency Osteopenia Vitamin D deficiency Surgical History (Updated 06/19/20 @ 11:40 by Marcelo Raymundo MD) History of laparoscopy Hx of cholecystectomy Status post bilateral hip replacements Status post gastric bypass for obesity "Indigo-en-Y" Status post hernia repair Status post hysterectomy Family History (Updated 09/18/18 @ 16:04 by Chicho Hartman) Other No significant family history Social History Smoking Status: Former smoker Second Hand Exposure: No; Do You Dip or Chew Tobacco: No; Tobacco Cessation Education Requested by Patient: No Hx Alcohol Use: No Hx Substance Use: No Preferred Language: Greenlandic Communication Ability: Effective Industrial Recruiter Required: No Beliefs That Will Affect Care: None Current Living Situation: Alone Other Information That Helps Us Care for You: No Feels Safe at Home: Yes Safety Concerns: Feels Safe At This Time Assistive Devices: Glasses Review of Systems Review of Systems: Per HPI. Some bowel trouble alternating between mild constipation and loose stools. Occasional indigestion associated with hot peppers and red sauce. Some difficulty breathing when bending over. Physical Exam Physical Exam: She is alert and oriented x3. Mood affect appear normal. She answered all questions appropriately. HEENT: Sclerae are anicteric. Pupils are equal and reactive to light and accommodation. Extraocular movements were intact. Neuro: Cranial nerves intact Lungs: Normal respiratory effort. Some crackles in the bases bilaterally. No bronchial breath sounds or expiratory wheezing. Cardiac: The rhythm was regular. S1 and S2 were normal. There are no murmurs on examination. The PMI was not markedly displaced on palpation. Extremities: Patient has bilateral radial pulses that are equal in intensity. There is no evidence cyanosis or clubbing. There was no evidence of significant peripheral edema bilaterally. Skin: There are no rashes noted on examination today. Results & Data ([facility]) Vital Signs (Past 12 Hours) Vital Signs Temp Pulse Pulse Resp BP Pulse Ox O2 Del Method 01/10/22 11:20 36.4 C L 60 20 120/57 L 96 Room Air 01/10/22 08:00 72 01/10/22 08:00 Room Air 01/10/22 09:37 36.2 C L 73 20 150/87 H 96 Room Air 01/10/22 04:00 36.7 C 76 18 156/86 H 93 Room Air 01/10/22 01:06 Room Air Laboratory Results Abnormal Lab Results 01/09/22 01/10/22 01/10/22 11:58 06:30 06:30 WBC 9.70 RBC 4.26 Hgb 10.0 L Hct 32.6 L MCV 76.5 L MCH 23.5 L MCHC 30.7 L RDW Std Deviation 47.2 H RDW Coeff of Juliana 17.2 H Plt Count 341 MPV 11.6 Sodium 135 L Potassium 3.5 Chloride 97 L Carbon Dioxide 30 Anion Gap 8 BUN 25 H Creatinine 1.33 H Est Cr Clr Drug Dosing 43.4 Est GFR ( Amer) 44.9 Est GFR (Non-Af Amer) 38.7 BUN/Creatinine Ratio 18.8 Glucose 107 H Calcium 9.1 Troponin I High Sens 41.5 H Diagnostic Findings Echocardiogram performed today revealed moderate to severely reduced LV systolic function with ejection fraction of 25-30%. Stage II diastolic dysfunction. Moderate left ventricular dilation. ECG Additional Comments: EKG the time admission revealed sinus tachycardia with right axis deviation and occasional PVCs. PG Care Time/CCT Total # of Minutes Spent Total Time Spent with Patient: Total time spent is greater than 50% in coordination of care (as documented) at patient's floor/unit and/or counseling patient: Coding Level of Care Code 73415 Initial Inpt Care Lvl 3 Diagnoses Elevated troponin R77.8 Acute CHF (congestive heart failure) I50.21 Heart failure type: systolic Cardiomyopathy I42.9 (1) Acute CHF (congestive heart failure) Heart failure type: systolic Qualified Code(s): I50.21 - Acute systolic (congestive) heart failure
[2022-01-10] MEDS: ACETAMINOPHEN 325 MG TAB PO PRN (16:39)
[2022-01-10] MEDS: GABAPENTIN 100 MG CAP PO SCH (20:18)
[2022-01-10] MEDS: MELATONIN 3 MG TAB PO PRN (20:40)
[2022-01-11] MEDS: ENOXAPARIN INJ 40 MG/0.4 ML SYR SQ SCH (05:12)
[2022-01-11 06:00] LABS: Hematocrit (blood only) 31.9 % (34.1-44.9); Hemoglobin 9.6 g/dl (12.0-16.0); Mean Corpuscular Hemoglobin 23.5 pg (25.0-34.0); Mean Corpuscular Hgb Conc 30.1 g/dL (32.0-36.0); Mean Platelet Volume 11.4 fL (9.4-12.3); Platelet Count 304 K/uL (130-400); RDW Coefficient of Variation 17.1 % (11.5-14.5); RDW Standard Deviation 47.5 fL (36.4-46.3); Red Blood Count 4.09 M/uL (3.93-5.22); White Blood Count 8.72 K/ul (4.8-10.8)
[2022-01-11 06:28] LABS: Calcium 8.9 mg/dl (8.5-10.1); Creatinine Clr Calc Pharmacy 42.1 ml/min; Est GFR (African American) 42.9 ml/min; Potassium 3.9 mmol/L (3.5-5.1)
[2022-01-11 06:41] LABS: Ferritin 10.8 ng/ml (8-388)
[2022-01-11] MEDS: LOSARTAN POTASSIUM 25 MG TAB PO SCH (07:30)
[2022-01-11] MEDS: MULTIVITAMIN CHEWABLE TAB PO SCH (07:30)
[2022-01-11] MEDS: FUROSEMIDE INJ 20 MG/2 ML VIAL IV SCH (08:33)
--- NOTE | 2022-01-11 08:54 | Cardiology Progress Note ---
Date of Service January 11, 2022 Assessment & Plan (1) Elevated troponin: (2) Acute CHF (congestive heart failure): (3) Cardiomyopathy: Plan 1. Congestive heart failure: improved. She seems back to baseline. Lung examination improved. Renal function stable but slightly abnormal suggesting an element of intravascular depletion. I think she would be stable for discharge based on her improvement. I think she could be sent home on 20 milligrams of Lasix daily close follow-up monitoring her electrolytes and renal function. 2. Cardiomyopathy: Serum studies still pending. Thyroid studies normal. While she does not have symptoms of ischemia she will require an evaluation of her coronaries. I discussed this with the patient today and we will plan on coronary angiography. If the patient remains in the hospital this could be performed as an inpatient depending on her renal function. However, she seems to be stable for discharge and we could certainly arrange is on an outpatient basis after she is seen for follow-up in the clinic. One metoprolol succinate currently. She can continue losartan we can switch her to interest 0 in the outpatient setting to avoid symptoms associated with her recent diuresis and mild renal insufficiency. 3. Elevated troponin: Not indicative of any recent acute coronary syndrome Admission and Anticipated Discharge Date Admission Date: January 08, 2022 Subjective This morning patient claimed he feeling well. She has been ambulatory to the bathroom quite frequently without symptoms of dizziness or lightheadedness. Her breathing appears to be close to baseline. She reports significant improvement in her breathing since admission. Review of Systems Review of Systems: Per HPI Physical Exam Physical Exam: She is alert and oriented x3. Mood affect appear normal. She answered all questions appropriately. HEENT: Sclerae are anicteric. Pupils are equal and reactive to light and accommodation. Extraocular movements were intact. Neuro: Cranial nerves intact Lungs: Normal respiratory effort. Some crackles in the bases bilaterally. No bronchial breath sounds or expiratory wheezing. Cardiac: The rhythm was regular. S1 and S2 were normal. There are no murmurs on examination. The PMI was not markedly displaced on palpation. Extremities: Patient has bilateral radial pulses that are equal in intensity. There is no evidence cyanosis or clubbing. There was no evidence of significant peripheral edema bilaterally. Skin: There are no rashes noted on examination today. Results & Data ([facility]) Vital Signs (Past 12 Hours) Vital Signs Temp Pulse Pulse Resp BP Pulse Ox O2 Del Method 01/11/22 07:47 36.4 C L 64 20 153/73 H 92 Room Air 01/11/22 02:50 36.5 C 60 20 126/70 94 Room Air 01/10/22 22:02 63 01/10/22 23:06 36.5 C 60 20 131/76 93 Room Air Laboratory Results Abnormal Lab Results 01/11/22 01/11/22 01/11/22 05:41 05:41 05:41 WBC 8.72 RBC 4.09 Hgb 9.6 L Hct 31.9 L MCV 78.0 L MCH 23.5 L MCHC 30.1 L RDW Std Deviation 47.5 H RDW Coeff of Juliana 17.1 H Plt Count 304 MPV 11.4 Sodium 136 Potassium 3.9 Chloride 97 L Carbon Dioxide 31 Anion Gap 8 BUN 29 H Creatinine 1.38 H Est Cr Clr Drug Dosing 42.1 Est GFR ( Amer) 42.9 Est GFR (Non-Af Amer) 37.0 BUN/Creatinine Ratio 21.0 H Glucose 104 H Calcium 8.9 Iron 19 L Ferritin 10.8 Triglycerides 176 H Cholesterol 144 LDL Cholesterol, Calc 85 VLDL Cholesterol, Calc 35 H HDL Cholesterol 24 Cholesterol/HDL Ratio 6.0 H TSH 1.235 Diagnostic Findings Echocardiogram performed today revealed moderate to severely reduced LV systolic function with ejection fraction of 25-30%. Stage II diastolic dysfunction. Moderate left ventricular dilation. ECG Additional Comments: EKG the time admission revealed sinus tachycardia with right axis deviation and occasional PVCs. PG Care Time/CCT Total # of Minutes Spent Total Time Spent with Patient: Total time spent is greater than 50% in coordination of care (as documented) at patient's floor/unit and/or counseling patient: Coding Level of Care Code 21971 Subseq Hosp Care Lvl 2 Diagnoses Elevated troponin R77.8 Acute CHF (congestive heart failure) I50.21 Heart failure type: systolic Cardiomyopathy I42.9 (1) Acute CHF (congestive heart failure) Heart failure type: systolic Qualified Code(s): I50.21 - Acute systolic (congestive) heart failure
[2022-01-11] MEDS ORDERED: METOPROLOL SUCC 50MG EXT REL TAB PO SCH (09:00)
[2022-01-11] MEDS: ACETAMINOPHEN 325 MG TAB PO PRN (09:24)
--- NOTE | 2022-01-11 11:13 | Discharge Summary ---
Date of Service January 11, 2022 Admission HPI Per Admitting Provider Krysta is a 76 year old female with a PMH significant for pre-diabetes, HTN, CKD, anemia, previous lyme disease, anxiety, and depression who presented to the [facility] ED on 01/08/22 with a chief complaint of SOB. In the ED the patient was found to be afebrile, hemodynamically stable but hypoxic at 87% on RA; she was placed on 2L NC and remained stable. Labs were remarkable for WBC WNL, stable Hgb at 10.1, MCV of 79.4, MCHC of 2938, stable renal function and electrolytes, glucose of 146, high sensitivity troponin of 36.2, BNP is pending, and negative covid, Influenza, and RSV screening. Ches xray shows "1. Cardiomegaly with evidence of congestive failure. 2. Small pleural effusions with dependent consolidation.". Prior to admission the patient was given 40 mg IV lasix. At the time of the exam the patient was resting comfortably in bed in no acute distress currently stable on 2L NC. She states that she had been in her normal state of health until approximately 6 months ago. She states at that time she was taken off of Hydrochlorothiazide due to developing gout. At that time she was switched to Losartan for blood pressure control. She has had intermittent episodes of SOB since then, which have progressed. She notes more SOB with exertion or bending down and improvement when she is at rest. She was recently treated for a left lower lobe pneumonia diagnosed at [facility], she completed her course of doxycycline early this week but was still feeling SOB. She told her family that she was still feeling SOB today so they brought her to the ED. When asked, she states that she has been eating a lot of ice recently as she had to stop eating popsicles because of her blood sugar. She denies high sodium intake and previous CO's, she does not feel as though she had been getting more edematous recently. When asked, she does not check her blood pressure at home. She has noted a non-productive cough since being diagnosed with Pneumonia. She denies recent fevers, chills, headache, changes in vision, hearing taste, and smell, chest pain, abdominal pain, nausea, vomiting, diarrhea, dysuria, hematuria, and recent falls. I spoke to her regarding code status, she would like to be a full code. Principal Diagnosis Acute CHF exacerbation Discharge Exam The patient is awake, alert and oriented 3, well developed and well nourished, normocephalic and atraumatic, lying in bed and in no acute distress. HEENT--PERRL, EOMI, mucous membranes and oropharynx mildly dry Neck--supple. No JVD. No bruits. Thyroid normal, trachea midline, no adenopathy. Heart--normal S1 and S2. systolic murmur Lungs--clear bilaterally, no respiratory distress, no accessory muscle use. Abdomen--normal bowel sounds and soft. Mild epigastric and left sided abdominal pain Extremities--no cyanosis or clubbing. No edema. Dermatologic--normal skin turgor, normal color, no abnormal lymph nodes, no rash. Neurologic--cranial nerves II through XII grossly intact. Rheumatologic--normal range of motion. Psychiatric--normal affect. Discharge Data Allergies Allergy/AdvReac Type Severity Reaction Status Date / Time oseltamivir Allergy Intermediate Hives Verified 01/08/22 12:09 aspirin AdvReac Unknown NO ASA DUE Verified 06/19/20 08:08 TO GASTRIC BYPASS NSAIDS (Non-Steroidal AdvReac Unknown GI SXS, no Verified 06/19/20 08:08 Anti-Inflamma NSAIDS due to gastric bypass Consultations 01/08/22 12:32 ED Decision to Admit Stat 01/10/22 11:01 Consult Cardiology Routine Hospital Course (1) Acute CHF (congestive heart failure): -Patient presents to the hospital on account of worsening SOB -Found to be in acute CHF exacerbation, new onset -Chest x ray showed evidence of pulmo congestion, BNP was 2171, BP was above 200's systolic -2 D ECHO confirmed EF 20-25%, Grade II Diastolic dysfunction and hypokinesis -Per cardiology, discharge on PO lasix 20mg daily, metoprolol Succinate 50mg daily, Losartan 25mg daily For outpatient follow up with cardiology for possible cardiac cath and initiation of Entresto in lieu of Losartan -Of note, patient Was previously on HCTZ and Lisinopril but was taken off approximately 6 months ago due to suspicion for, gout and was not put on another diuretic (by the way, she dose not have gout) -No previous history of CO to suggest ischemic cardiomyopathy (2) Hypoxia: -Now resolved, patient saturating well on room air -On admission, Noted to be hypoxic at 87% , then placed on2 L of oxygen -No history of previous lung disease -Likely due to flash pulmonary edema (3) Hypertensive urgency: -Resolved -On admission, Patient noted to be hypertensive as high as 209/105 -Only on 25 mg PO losartan daily outpatient -Given 5 mg IV labetalol stat and started on 25 mg BID of PO metoprolol tartrate -Will also add prn hydralazine for systolic BP > 180 mmhg -Will FU with TTE -BP is now under better control, 139/69 (4) Elevated troponin: -Most likely due to demand ischemia -Initial troponin noted to be 36.2, repeat on admission at 41.6, still trending up at 51 -No acute ECG changes and patient is without chest pain -Will trend another troponin to continue to monitor -Monitor on tele (5) Hypertension: (6) Vitamin D deficiency: continue vitamin D (7) CKD (chronic kidney disease), stage III: -Stable Plan d/c home Home Health Attestation I certify that this patient is under my care and that I, or a physicians legal assistant working with me, had a face to-face encounter that meets the home health [id number] encounter requirements with this patient. The encounter with the patient was in whole, or in part, for the following medical condition, which is the primary reason for home health care (list m edical condition): I certify that, based on my findings, the following services are medically necessary home health services: My clinical findings support the need for the above services because: Further, I certify that my clinical findings support that this patient is homebound (i.e. absences from home require considerable and taxing effort and are for medical reasons or mormon services or infrequently or of short duration when for other reasons) because: Certification for Home Health Services: Based on the above findings, I certify that this patient is confined to the home and needs intermittent detention care, physical therapy and/or speech t herapy or continues to need occupational therapy. The patient is under my care, and I have initiated the establishment of the plan of care. This patient will be followed by a physician who will periodically review the plan of care. Total Time Total Time Spent Total Time Spent (In Minutes): 35 Discharge Plan Discharge Items Patient Disposition: Home - Self-Care Reason For Visit: SOB Discharge Diagnosis: Acute CHF exacerbation Activity: Resume your previous activity Non-emergency contact: Primary Care Provider and Toe Stapler Call non-emergency contact if: you have any medication questions Follow-up/Referrals: Flora Barkley, [Primary Care Provider] - Diet: Low Sodium (2gm) Addtl Attending Provider Instructions: please make appointment to follow up with cardiology as soon as possible Pending Studies at Discharge: No Stand-Alone Forms: My [facility] [employer], Smoking Cessation Medications and DC Order Prescriptions: New metoprolol succinate 50 mg Tablet Extended Release 24 Hr 50 mg PO QAM 30 Days Qty: 30 0RF furosemide [Lasix] 20 mg tablet 20 mg PO DAILY 30 Days Qty: 30 0RF Continued losartan 25 mg tablet 25 mg PO DAILY gabapentin 100 mg capsule 200 mg PO HS albuterol sulfate 90 mcg/actuation HFA aerosol inhaler 1 inh INHALATION Q4H PRN (Reason: Shortness Of Breath Or Wheezing) cholecalciferol (vitamin D3) 1,250 mcg (50,000 unit) capsule 50,000 unit PO WK Discontinued doxycycline hyclate 100 mg capsule 100 mg PO DAILY amoxicillin-pot clavulanate 875-125 mg tablet 1 tab PO BID Discharge Orders: Discharge Order (Routine); Ordered 01/11/22 Ordered By: Anthony Manrique Admission Data Admit Date/Time: 01/08/22 12:47 Attending Provider: Anthony Manrique Admit Provider: Randall Ramos Primary Care Provider: Flora Barkley Other Providers: Randall Ramos ; Prashant Kramer Coding Level of Care Code D/C DAY MANAGEMENT >30 MINS Diagnoses Acute CHF (congestive heart failure) I50.21 Heart failure type: systolic Hypoxia R09.02 Hypertensive urgency I16.0 Elevated troponin R77.8 Hypertension I10 Vitamin D deficiency E55.9 CKD (chronic kidney disease), stage III N18.3 Time Spent (min) 35
[2022-01-12] MEDS ORDERED: ERGOCALCIFEROL 50,000 UNITS 1250 MCG CAP PO SCH (09:00)
[2022-01-12] MEDS ORDERED: NON-FORMULARY MEDICATION (Cholecalciferol (Vitamin D3) 1,250 mcg (50,000 unit) capsule) PO SCH (09:00)
[2022-01-12] MEDS ORDERED: VALSARTAN/SACUBITRIL 26/24MG TAB PO SCH (21:00)
[2022-01-13 13:52] LABS: Albumin 3.3 g/dL (3.8-4.8); Alpha 1 Globulin 0.4 g/dL (0.2-0.3); Alpha 2 Globulin 0.8 g/dL (0.5-0.9); Beta-1-Globulin 0.5 g/dL (0.4-0.6); Beta-2-Globulin 0.3 g/dL (0.2-0.5); Gamma Globulin 1.1 g/dL (0.8-1.7); Monoclonal Protein Band 1 DNR g/dL (NONE DETECTED); Monoclonal Protein Band 2 DNR g/dL (NONE DETECTED); Monoclonal Protein Band 3 DNR g/dL (NONE DETECTED); Total Protein 6.4 g/dL (6.1-8.1)
--- NOTE | 2022-01-14 13:14 | Coding Query ---
CONGESTIVE HEART FAILURE To Promote full compliance with coding requirements relating to patient care, physician participation is requested in all cases of radio division officer uncertainty. Please assist us with the following questions. A diagnosis of Congestive Heart Failure is documented in the patient's medical record. To accurately code this diagnosis and to compare patient severity, we ask that you specify the type of heart failure by placing an X within the parenthesis (x). Thank you . Marcelo Lynn, LATEX DIPPER [employer] SYSTOLIC HEART FAILURE ( ) Acute (x ) Chronic ( ) Acute on Chronic ( ) Rheumatic ( ) Unknown DIASTOLIC HEART FAILURE ( ) Acute ( ) Chronic ( ) Acute on Chronic ( ) Rheumatic ( ) Unknown COMBINED SYSTOLIC AND DIASTOLIC HEART FAILURE ( ) Acute ( ) Chronic ( ) Acute on Chronic ( ) Rheumatic ( ) Unknown Was the CHF Present On Admission? Please check the appropriate box: ( ) Present on Admission ( ) Not Present On Admission ( ) Clinically undetermined MTDD
== END 2022-01-11 12:50 | disposition home or self-care (01) | DRG 291 ==
LOC: ED 10:48 → 2N 12:47 → SUATTDRO 12:47 → 2N 15:33

== ENCOUNTER 2024-04-30 12:16 | Inpatient (IN) ==
--- OUTSIDE RECORDS SUMMARY | 2024-04-30 12:22 | External Medical Summary | Summary of Care ---
Author Name Unknown Organization [facility] Address [address] [place] [address] Phone [phone] Care Team Providers Care Career Transition Specialist Name Role Phone Francine ALVAREZ MD, Daniel Manrique Primary Care Provider [phone] Reason for Visit * Reason Comments Follow Up Encounter Details Date Type Department Care Team (Latest Contact Info) Description 04/04/2024 10:30 AM EST Office Visit Cardiology, [facility] [address] [place] [id number] Flora Hernandez PA-C [address] [place] [id number] Non-ischemic cardiomyopathy (HCC)*; HTN, GOAL BELOW 140/90; Chronic systolic heart failure (HCC); Mild CAD; Dyslipidemia, goal LDL below 70 Allergies Active Allergy Reactions Criticality Noted Date Comments Oseltamivir Phosphate 11/08/2009 rash documented as of this encounter (statuses as of 04/04/2024) Medications Aspirin 81 MG Oral Tablet Delayed Release Take 1 Tablet by mouth in the morning. 06/14/19 24 Active Cyanocobalamin 1000 MCG/ML Injection Solution (Cyanocobalamin)In dications:Postgast oneida surgery syndrome Inject 1,000 mcg into a large muscle every 30 days. 1 mL 11 08/04/19 24 Active Syringe 25G X 1" 3 ML Use monthly for B-12 injection 3 Each 3 08/05/19 24 Active Rosuvastatin Calcium 10 MG Oral Tablet (Crestor) Take 1 Tablet by mouth in the morning. 90 Tablet 3 09/03/19 24 Active Entresto 97-103 MG Oral Tablet (sacubitril-valsar patterson 97-103 mg per tab)Indications:Ch ronic systolic heart failure (HCC),Nonischemic cardiomyopathy (HCC),Coronary artery disease involving [place] coronary artery of k[place] heart without angina pectoris,HTN, goal below 140/90 Take 1 Tablet by mouth in the morning and 1 Tablet before bedtime. 180 Tablet 3 09/03/19 24 Active Indapamide 1.25 MG Oral TabletIndications: HTN, goal below 140/90 Take 1 Tablet by mouth in the morning. 90 Tablet 1 02/03/20 24 Active Metoprolol Succinate ER 50 MG Oral Tablet Extended Release 24 Hour (toPROL XL) Take 1 Tablet by mouth at bedtime. 90 Tablet 3 04/04/19 25 Active Metoprolol Succinate ER 50 MG Oral Tablet Extended Release 24 Hour (toPROL XL) Take 1 Tablet by mouth at bedtime. 90 Tablet 3 02/23/19 24 025 Discontin ued(Refil l) documented as of this encounter (statuses as of 04/04/2024) Active Problems Problem Noted Date Diagnosed Date Mild CAD 04/04/2024 Non-ischemic cardiomyopathy 04/04/2024 Dyslipidemia, goal LDL below 70 04/04/2024 Chronic kidney disease, stage 3a 09/27/2023 Overview: Per CKD protocol Chronic systolic heart failure 08/20/2022 Status post bilateral hip replacements 7 S/P lumbar fusion 01/14/2017 History of small bowel obstruction 01/14/2017 Morbid obesity due to excess calories 10/05/2016 Low back pain 05/02/2014 HTN, GOAL BELOW 140/90 01/07/2009 Overview (01/07/2009): Modified per HTN protocol #16. 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 0 to 44.9 in adult 12/29/2016 11/12/2022 Overview: Per Obesity protocol #1 Iron deficiency anemia 08/01/201301/14 Overview (11/16/2016): ICD-10 update of inactive term Lyme disease with largest sk in lesion of 2 inches or more 09/24/2012 09/22/2016 MEDICATION USE AGREEMENT 06/04/2011 Anemia of chronic renal failure 02/24/2011 01/14/2017 Anemia in ESRD (end-stage renal disease) 12/26/2010 11/13/2016 KIDNEY DZ,CHRONIC (GFR 30-59) STAGE III 09/05/2009 09/30/2023 Overview (09/05/2009): Per CKD Protocol, #1 Obesity, Class II, BMI 35-39 .9, isolated (see actual BMI) 05/13/2009 12/07/2016 Overview (05/13/2009): Per Obesity Taxonomy Other postoperative infection 11/16/2006 10/05/2016 Open wound of trunk 10/05/2006 04/10/19 09 HYPERTENSION NOS 11/25/2005 01/07/2009 Overview (01/07/2009): Modified per HTN protocol #16. ADVANCE DIRECTIVE INFORMATION 07/04/2004 10/05/2016 Overview (07/04/2004): No, Advance Directive brochure given to patient at prior appointment. INTEST POSTOP NONABSORB 01/16/200309/16 Morbid obesity, BMI not known 04/27/2002 05/13/2009 Overview (05/13/2009): Per Obesity Taxonomy SPRAIN ROTATOR CUFF, right shoulder 01/13/00 1 10/05/2016 Need for prophylactic hormon e replacement therapy (postmenopausal) 01/14/2017 documented as of this encounter (statuses as of 04/04/2024) Immunizations Name Administration Dates Next Due COVID-19 mRNA, LNP-s, No Pre serve, 10 mcg, Ages 5-11 (BellaDati) 12/09/2021 COVID-19 mRNA, LNP-s, No Pre serve, 2-Dose Series (BellaDati) 11/28/2020,05/06/2020,04/15/2020 COVID-19, LNP-s, No Preserve , Mc-sucrose, Ages 12+ (Pfizer) 06/09/2021 COVID-19, MRNA-LNP, PF, 30 M CG/0.3 mL, 12 YRS AND ABOVE, IM ([facility]-Comirnat) 10/23/2023 H1N1 2009 Influenza, IM 02/12/2009,02/12/2009 PPD 10/19/2012 Pneumococcal Conjugate Vacc, 13 Valent (Prevnar) 11/24/2013 Pneumococcal Polysaccharide PPV23 (Pneumovax) 03/18/2016,11/19/2010 Season Influenza, Quad, PF, Adjuvanted, 65+ Yrs, IM (FLUAD) 11/24/2019 Seasonal Influenza Vac., MDV , IM, 0.5 mL (Fluzone) 12/09/2021,11/24/2019,12/07/2016,11/05,10/31/2014,11/24/2013,11/23/2012 ,12/06/2011,11/18/2010,11/18/2009,10/16,12/07/2007,11/25/2005 Seasonal Influenza, High Dos e, Trivalent, PF, IM (Fluzone HD) 10/23/2023,12/01/2018 Seasonal Influenza, PF, 6 M & above, IM , (FluLaval or Fluzone) 11/19/2017,12/07/2016 Seasonal Influenza, Quadriva lent Hd (Fluzone Hd) 11/12/2022 Seasonal Influenza, Quadriva lent, No Preserve, IM 11/06/2015 TD - Tetanus/Diptheria (ADULT) 11/06/2015,2015 TD, Preservative Free 11/06/2015 TDAP (age 10 and older)(Boostrix) 01/24/2020 TDAP, Age 7 and older, IM (Adacel) 02/14/2005 Varicella Zoster Vaccine (Adult) 02/10/2012 Zoster Vaccine Recombinant (Shingrix) 01/24/2020 ,11/24/2019 documented as of this encounter Social History Tobacco Use Types Packs/Day Years Used Date Smoking Tobacco: Former Cigarettes 1 30 1 - 11/24/1997 Smokeless Tobacco: Never Alcohol Use Standard Drinks/Week Comments Yes 0 (1 standard drink = 0.6 oz pur e alcohol) occ PHQ-2 Answer Date Recorded PHQ Adult Total Score 0 12/13/2023 Hunger Vital Sign Answer Date Recorded Within the past 12 months, y ou worried that your food would run out before you got the money to buy more. Never true 02/10/20 23 Within the past 12 months, t he food you bought just didn't last and you didn't have money to get more. Never true 02/09/2023 Childcare Answer Date Recorded Do you feel overwhelmed with taking care of a child, family member or friend? No 02/09/2023 Does your family need help f inding childcare? (Household - for ages 0-17 years) Not on file 02/09/2023 Clothing Answer Date Recorded Have you been unable to get clothing when it was really needed? No 02/09/2023 Is your family able to get c lothes or diapers when needed? (Household - for ages 0-17 years) Not on file 02/09/2023 Personal Safety Answer Date Recorded Do you feel unsafe or have concerns for your saf ety? No 02/09/2023 Do you have concerns for you r family's safety? (Household - for ages 0-17 years) Not on file 02/09/2023 Utilities Answer Date Recorded Do you have trouble paying y our heating, water, or electric bill? No 02/09/2023 Is your family able to pay t he heat, water, or electric bill? (Household - for ages 0-17 years) Not on file 02/09/2023 Does your family have access to good internet? (Household - for ages 0-17 years) Not on file 02/09/2023 Employment Status Answer Date Recorded Are you unemployed or without regular income? No 02/09/2023 Does the household have a re gular source of income? (Household - for ages 0-17 years) Not on file 02/09/2023 Social Connections Answer Date Recorded How often do you feel lonely or isolated from th ose around you? Never 02/09/2023 Financial Resource Strain Answer Date R ecorded Do you have any trouble payi ng for your medications, or do you think you might in the future? No 02/09/2023 Does your family have troubl e paying for medicine? (Household - for ages 0-17 years) Not on file 02/09/2023 Transportation Needs Answer Date Record ed READ ONLY Do you have troubl e getting a ride to medical visits or work? Never True 02/09/2023 Does your family have a hard time getting a ride to doctors visits? (Household - for ages 0-17 years) Not on file 02/09/2023 Has lack of transportation k ept you from medical appointments, meetings, work, or from getting things needed for daily living? Check all that apply. (Adult - for ages 18 years and over) Not on file 02/09/2023 Do you (or your family) have trouble finding or paying for a ride (transportation)? (Household - for ages 0-17 years) Not on file 02/09/2023 Housing Stability Answer Date Recorded Do you currently live in a s helter or have no steady place to sleep at night? No 02/09/2023 READ ONLY Do you think you a re at risk of becoming homeless? No 02/09/2023 Does your family worry about paying for your home or becoming homeless? (Household - for ages 0-17 years) Not on file 1 04/12/2022 Are you homeless or worried that you might be in the future? (Adult - for ages 18 years and over) Not on file Are you (or your family) jarett eless or worried that you might be in the future? (Household - for ages 0-17 years) Not on file Food Insecurity Answer Date Recorded Do you need food for this week? No 02/09/2023 Are you able to get enough f ood for your family? (Household - for ages 0-17 years) Not on file 02/09/2023 Does your family need food t his week? (Household - for ages 0-17 years) Not on file 02/09/2023 Do you always have enough fo od for your family? (Household - for ages 0-17 years) Not on file 02/09/2023 Comments No Sex and Gender Information Value Date Recorded Sex Assigned at Female 05/28/2023 9:18 AM EDT Legal Sex Female 7:05 AM EST Gender Identity Female 05/28/2023 9:18 AM EDT Sexual Orientation Straight 05/28/2023 9: 18 AM EDT documented as of this encounter Last Filed Vital Signs Vital Sign Reading Time Taken Comments Blood Pressure 138/64 04/04/2024 10:27 AM EST Pulse 78 04/04/2024 10:27 AM EST Temperature - - Respiratory Rate - - Oxygen Saturation - - Inhaled Oxygen Concentration - - Weight 116.6 kg (257 lb) 04/04/2024 10:27 AM EST Height - - Body Mass Index 42.77 12/13/2023 9:06 AM EDT documented in this encounter Progress Notes * Flora Hernandez PA-C - 04/04/2024 10:40 AM EST 04/04/2024 Cardiology F/U: Patient is a 78-year-old female here today for Cardiology follow-up. Last clinic evaluation approximately 9 months ago with CHANTELL Patel. Former patient of Dr. Cerrato. This is her 1st visit with the undersigned. History includes: Chronic systolic heart failure History of nonischemic cardiomyopathy LVEF of 25-30%, 12/2021 LVEF improved 50-54%, per echo 08/2022, 11/2023 Mild nonobstructive CAD (20-30% proximal, late to mid LAD and 30% mid RCA) per cardiac catheterization, 01/21/2022 at [facility] Hypertension CKD stage 3 History of bariatric surgery History of Present Illness Krysta Yi is a 78 year old female with non-ischemic cardiomyopathy who presents for a routinefollow-up. She has a history of non-ischemic cardiomyopathy, initially diagnosed in 2021 with an ejection fraction of 25-30%. Her heart function has improved, with a normal ejection fraction noted on an echocardiogram in November 2023. No recent chest pain, shortness of breath, or palpitations. She is taking her medications, including baby aspirin and Entresto, but is unsure about her use of metoprolol. She has a history of hypertension and does not monitor her blood pressure at home. She has dyslipidemia managed with rosuvastatin. 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 She also discusses local community changes, such as the closing of [facility]. No chest pain, shortness of breath, palpitations, dizziness, syncope or near syncope. No orthopnea,PND, or increased lower extremity edema. No fever, chills, cough, hematochezia, melena, or hemoptysis. Review of Systems: See HPI for pertinent positives. All others negative, other than those noted in HPI. Patient Active Problem List Diagnosis Postgastric surgery syndrome ADJ DISORDER W/DEPRES MOOD GENERAL OSTEOARTHROSIS HTN, GOAL BELOW 140/90 Low back pain Morbid obesity due to excess calories (HCC) Status post bilateral hip replacements S/P lumbar fusion History of small bowel obstruction Chronic systolic heart failure (HCC) Chronic kidney disease, stage 3a (HCC) Social History Tobacco Use Smoking status: Former Current packs/day: 0.00 Average packs/day: 1 pack/day for 30.0 years (30.0 ttl pk-yrs) Types: Cigarettes Start date: 11/25/1967 Quit date: 11/24/1997 Years since quittin.3 Smokeless tobacco: Never Vaping Use Vaping status: Never Used Substance Use Topics Alcohol use: Yes Comment: occ Drug use: No Family History Problem Relation Name Age of Onset Lung Disorder Mother copd Neurological Disorder Father epilepsy Diabetes Grandmother (Paternal) Cancer Grandmother (Maternal) brain tumor Lung Disorder Grandfather (Maternal) black lung Past Surgical History: Procedure Laterality Date COLONOSCOPY, DIAGNOSTIC (RECTUM) 12/30/2011 COLONOSCOPY FLEXIBLE PROXIMAL DIAGNOSTIC performed by Suri Turner DO at [facility]COPY [facility] COLONOSCOPY, DIAGNOSTIC (STOMA) 01/16/02 Colonoscopy CYSTOSCOPY 06/17/04 and URODYNAMICS DECOMPRESS LUMBAR SPINAL CORD SEG 07/2004 [id number] EXPLORATION OF ABDOMEN 06/14/06 EXPLORATORY LAPAROTOMY performed by MIGDALIA HILL at OR [facility] EXPLORATION OF ABDOMEN 03/2016 Ex lap for SBO. Dr Maldonado. [facility]. GASTRIC BYPASS FOR OBESITY 12/20/02 IMPLANT MESH W/ ABD HERNIA REPR/DEBRIDE 06/14/06 IMPLANTATION MESH WITH INCISIONAL HERNIA performed by MIGDALIA HILL at OR [facility] LASERING OF SECONDARY CATARACT Left 11/2016 Dr. Davis MAMMOGRAM OUTSIDE PROCEDURE 08/02/2007 birad code 2 REPAIR RUPTURED ROTATOR CUFF, ACUTE Bilateral REPAIR RUPTURED ROTATOR CUFF, CHRON R redone TOTAL ABD HYSTERECTOMY W/WO REMOVAL OF TUBE(S) TOTAL HIP REPLACEMENT & PROSTHESIS 02/2005 L TOTAL HIP REPLACEMENT & PROSTHESIS 2010 R UMBIL HERNIA REPAIR (REDUCIBLE) AGE 5+YR 06/14/06 REPAIR UMBILICAL HERNIA AGE 5 AND OVER performed by MIGDALIA HILL at OR [facility] Review of patient's allergies indicates: Allergen Reactions Oseltamivir Phosphate rash Current Outpatient Medications Medication Sig Dispense Refill Metoprolol Succinate ER 50 MG Oral Tablet Extended Release 24 Hour (toPROL XL) Take 1 Tablet by mouth at bedtime. 90 Tablet 3 Aspirin 81 MG Oral Tablet Delayed Release Take 1 Tablet by mouth in the morning. Cyanocobalamin 1000 MCG/ML Injection Solution (Cyanocobalamin) Inject 1,000 mcg into a large muscleevery 30 days. 1 mL 11 Syringe 25G X 1" 3 ML Use monthly for B-12 injection 3 Each 3 Rosuvastatin Calcium 10 MG Oral Tablet (Crestor) Take 1 Tablet by mouth in the morning. 90 Tablet 3 Entresto 97-103 MG Oral Tablet (sacubitril-valsartan 97-103 mg per tab) Take 1 Tablet by mouth in the morning and 1 Tablet before bedtime. 180 Tablet 3 Indapamide 1.25 MG Oral Tablet Take 1 Tablet by mouth in the morning. 90 Tablet 1 No current facility-administered medications for this visit. Physical Exam: BP 138/64 | Pulse 78 | Wt 116.6 kg (257 lb) | BMI 42.77 kg/m | BSA 2.31 m Blood pressure my repeat 152/90 BP Readings from Last 4 Encounters: 04/04/24 138/64 12/13/23 132/70 06/14/23 124/64 06/11/23 124/80 General: No acute distress. A+Ox3. HEENT: Normocephalic. Atraumatic. Conjunctiva and sclera clear. NECK: No carotid bruits. No JVD. Carotid upstrokes are brisk. Heart: RRR. S1 and S2 noted without murmur, rubs, gallops. Lungs: Clear to auscultation. No wheezes, rhonchi, rales. Abdomen: Normal bowel sounds. Soft. Nontender. No masses or organomegaly. No abdominal bruits. Extremities: No edema. No clubbing or cyanosis. Pulses: radial=2/4, posterior tibial=2/4, dorsalis pedis = 2/4. NEURO: No focal deficits. PSYCH: Normal. Lab data/imaging study review: EKG performed today and reviewed personally: NSR LAD No change from previous Echocardiogram report reviewed dated November 2023: Interpretation Summary The LV wall thickness is moderately increased (concentric). The left ventricular wall motion is normal. The qualitative LV ejection fraction is 55-59% (normal). The left ventricular diastolic function is mildly abnormal (grade I). The aortic valve is mildly calcified. Aortic stenosis is absent. There is moderate mitral annular calcification. Echocardiogram August 2022: The examination is adequate to evaluate the referral indication. The LV wall thickness is moderately increased (concentric). The left ventricular wall motion is normal. The qualitative LV ejection fraction is 50-54% (normal). The left atrium is normal sized (< 35 ml/m^2). The left ventricular diastolic function is mildly abnormal (grade I). Mild aortic valve sclerosis is present. Mild mitral regurgitation is present. There is mild calcification of the sinotubular junction. Cardiac catheterization at [facility] 01/21/2022 Findings: LM -Short, normal caliber, no significant disease LAD -medium caliber vessel, 20 to 30% proximal stenosis, 30% late-mid stenosis after small D3. Distal vessel without significant disease and wraps around apex. Large D1 without significant disease. Circumflex -medium caliber, proximal luminal irregularities. Small mid to distal AV groove circumflex without disease. Medium OM1 without disease. RCA -dominant, medium caliber, calcified, proximal luminal irregularities, 30% mid segment disease.Distal vessel, RPDA, RPLB without significant disease. Summary: 1. Mild nonobstructive coronary artery disease - 20-30% proximal, late-mid LAD - 30% mid RCA 2. Normal left and right-sided filling pressures 3. Normal pulmonary artery pressures 4. Normal cardiac output Echo 01/10/2022 at [facility] LVEF 25-30% Grade 2 diastolic dysfunction Moderate to severe global hypokinesis of the LV Mild aortic sclerosis without stenosis [id number]-rf-[id number] mitral annular calcification Latest Reference Range & Units 11/12/22 00:00 TRIGLYCERIDES-OUTSIDE LAB <150 MG/DL 178 ! (E) CHOL/HDL RATIO-OUTSIDE LAB <5.0 3.4 (E) CHOLESTEROL-Outside Lab <200 MG/DL 139 (E) HDL-OUTSIDE LAB >=50 MG/DL 41 ! (E) LDL (CALCULATED)-OUTSIDE LAB <100 MG/DL 73 (E) !: Data is abnormal (E): External lab result Latest Reference Range & Units 09/09/23 13:13 SODIUM 135 - 146 mmol/L 138 POTASSIUM 3.5 - 5.1 mmol/L 4.3 CHLORIDE 98 - 107 mmol/L 100 CO2 22 - 32 mmol/L 25 BUN 6 - 20 mg/dL 22 (H) CREATININE 0.5 - 1.0 mg/dL 1.2 (H) EGFR >=60 mL/min 46 (L) ANION GAP 7 - 15 mmol/L 13 GLUCOSE 70 - 120 mg/dL 137 (H) CALCIUM 8.4 - 10.2 mg/dL 9.5 Phosphorus 2.5 - 4.8 mg/dL 3.9 (H): Data is abnormally high (L): Data is abnormally low Assessment & Plan Non-ischemic Cardiomyopathy Non-ischemic cardiomyopathy diagnosed in 2021 with initial ejection fraction of 25-30%. Repeat serial echocardiograms with improvement, most recently in November 2023 showed normal LVEF. No recent chest pain, dyspnea, or palpitations. Adheres to Entresto, rosuvastatin, metoprolol, and aspirin. -metoprolol refilled - Perform EKG today - stable - Continue Entresto, rosuvastatin, metoprolol, aspirin - Send metoprolol refill to [facility] - Annual follow-up in one year Coronary artery disease involving k[place] coronary artery of [place] heart without angina pectoris -Mild nonobstructive CAD (20-30% proximal, late to mid LAD and 30% mid RCA) per cardiac catheterization, 01/21/2022 at [facility] -Stable, no angina Hypertension Well-controlled on indapamide and metoprolol. No recent home monitoring reported. - Continue current medications Dyslipidemia Managed with rosuvastatin. - Continue rosuvastatin - Include lipid panel in fasting blood work before next appointment with Dr. Escamilla [facility] - Obtain fasting blood work at [facility] before next appointment with PCP - Annual EKG today - stable The patient is to continue all current medications as listed above. No changes were made at today'svisit. Patient is being evaluated in the cardiology office for ongoing care/risk management for HFpEF; history of non ischemic cardiomyopathy; Mild CAD; HTN; dyslipidemia. I spent a total of 30 minutes on the date of service in preparation, delivery, and documentation ofthe care provided to Krysta Yi excluding any time spent in the performance of separately billed services. The patient agrees to the above plan and will call with additional questions or concerns. ER with all emergencies advised. Follow-up: Return in about 1 year (around 04/04/2025). | Check-out note: Fasting blood work at [facility] the week before PCP appt Flora Hernandez PA-C Department of Cardiology Text in this note was generated using an ambient documentation service. I discussed the use of a device to record and summarize our discussion today. All persons present during the encounter consented to its use. This chart was completed in part utilizing [employer] Speech Voice Recognition Software. Grammatical errors, random word insertions, prounoun errors, and incomplete sentences are an occasional consequence of this system due to software limitations, ambient noise, and hardware issues. Any formal questions or concerns about the content, text, or information contained within the body of this dictation should be directly addressed to the provider for clarification. documented in this encounter Procedure Notes * Moustapha Mckay, - 04/04/2024 11:03 AM ESTAssociated Order(s): EKG REASON FOR STUDY: routine;routine CONCLUSIONS: Normal sinus rhythm Left axis deviation Abnormal ECG When compared with ECG of 02-Sep-2022 10:15, No significant change was found Ventricular Rate: 69 Atrial Rate: 69 [place] Interval: 182 QRS Duration: 92 QT/QTc: 418/447 ms P-R-T Vancleve: 21 : -55 : 69 degrees documented in this encounter Nursing Notes * Hollie Romero CMA - 04/04/2024 10:23 AM EST Examination Room: 1 Name: Krysta Yi Date of : (1945) Reason for Visit: 6m Interim Hospitalization(s): none Problems/Concerns: denied Chest Pain/SOB: denied My [facility] is a way you can talk to your provider online through e-mail. Would you like to sign up? I can activate it for you? DECLINES Patient was instructed to not get up on the exam table until directed and assisted by their provider; patient is to remain seated in the chair/ wheelchair/ exam table for fall prevention and safety reasons. Patient is aware to have assistance to step down off exam table with personnel. Patient voiced full comprehension of instructions. documented in this encounter Plan of Treatment Upcoming Encounters Date Type Department Care Team (Late st Contact Info) Description 06/14/2024 9:00 AM EDT Office Visit Family Practice [facility] [address] [place] [address] Daniel Escamilla III, MD [address] [facility] [place] [id number] 04/09/2025 9:30 AM EST Office Visit Cardiology, [facility] [address] [place] [id number] Flora Hernandez PA-C [address] [place] [id number] Health Maintenance Due Date Last Done Comments GFR 03/11/2024 09/09/2023, 10/17, 10/27/2016, Additional history exists COVID-19 Vaccine ( season) 2024 10/23/2023, 12/09/2021, 06/09/2021, Additional history exists Albumin/Creatinine Ratio 09/08/2024 024, 11/12/2022, 11/06/2015, Additional history exists Depression Screening 12/12/2024 12/13/2023 DTap/Tdap Vaccines (6 - Td or Tdap) 01/23/2030 01/24/2020, 11/06/2015, 11/06/2015, Additional history exists Pneumococcal Vaccine: 50+ Years Completed 03/18/2016, 11/24/2013, 11/19/2010 Zoster Vaccines Completed 01/24/2020, 10/2019, 02/10/2012 Influenza Vaccine (FLU shot) Completed 08/2023, 11/12/2022, 12/09/2021, Additional history exists HPV (Gardasil) Vaccine Aged Out No lo nger eligible based on patient's age to complete this topic Hepatitis B Vaccine Aged Out No longe r eligible based on patient's age to complete this topic MENINGOCOCCAL (MENACTRA/MENVEO) Aged Out No longer eligible based on patient's age to complete this topic Meningitis B Vaccine (Bexsero/Trumemba) Aged Out No longer eligible based on patient's age to complete this topic documented as of this encounter Medical Devices Implanted Type Area Field Machinist Device Identifier Shelf Expiration Date Model / Serial / Lot [id number] - [id number] Implanted:Qty: 1 on 06/14/2006 at OR [facility] [place] N/A: Abdomen CR BARD : DAVOL 01/15/2010 [id number] / / [id number] documented as of this encounter Procedures Procedure Name Priority Date/Time Associated Diagnosis Comments [place] ECG ROUTINE ECG W/LEAST 12 LDS W/I&R Routine 04/04/2024 11:03 AM EST HTN, GOAL BELOW 140/90 Chronic systolic heart failure (HCC) documented in this encounter Results * EKG (04/04/2024 11:03 AM EST) 04/04/2024 11:0 3 AM EST Narrative Procedure Note Moustapha Mckay DO - 04/04/2024 11:03 AM EST REASON FOR STUDY: routine;routine CONCLUSIONS: Normal sinus rhythm Left axis deviation Abnormal ECG When compared with ECG of 02-Sep-2022 10:15, No significant change was found Ventricular Rate: 69 Atrial Rate: 69 [place] Interval: 182 QRS Duration: 92 QT/QTc: 418/447 ms P-R-T Vancleve: 21 : -55 : 69 degrees us Flora Hernandez PA-C EKG Final Result Performing Organization Address City/State/[facility] [place] Phone Number [facility] documented in this encounter Visit Diagnoses Diagnosis Non-ischemic cardiomyopathy (HCC)- Primary Other primary cardiomyopathies HTN, GOAL BELOW 140/90 Unspecified essential hypertension Chronic systolic heart failure (HCC) Chronic systolic heart failure Mild CAD Dyslipidemia, goal LDL below 70 Other and unspecified hyperlipidemia documented in this encounter Care Teams Career Transition Specialist Relationship Specialty Start Date End Date Daniel Escamilla III, MD [address] [facility] [place] [address] PCP - General Family Medicine 08/20/22 documented as of this encounter
--- OUTSIDE RECORDS SUMMARY | 2024-04-30 12:23 | External Medical Summary | Summary of Care ---
Author Name Unknown Organization [facility] Address [address] [place] [address] Phone [phone] Care Team Providers Care Stone Decorator Name Role Phone Francine ALVAREZ MD, John E Primary Care Provider Reason for Visit * Reason Onset Date Comments Medication Refill 02/02/2024 Encounter Details Date Type Department Care Team (Late st Contact Info) Description 02/02/2024 Refill Family Practice [facility] [address] [place] [address] Adithya Mejía III, MD [address] [place] [address] HTN, GOAL BELOW 140/90 Allergies Active Allergy Reactions Criticality Noted Date Comments Oseltamivir Phosphate 11/08/2009 rash documented as of this encounter (statuses as of 02/03/2024) Medications Metoprolol Succinate ER 50 MG Oral Tablet Extended Release 24 Hour (toPROL XL) Take 1 Tablet by mouth at bedtime. 90 Tablet 3 02/23/19 24 Active Aspirin 81 MG Oral Tablet Delayed Release [...] failure (HCC),Nonischemic cardiomyopathy (HCC),Coronary artery disease involving [place] coronary artery of [place] heart without angina pectoris,HTN, goal below 140/90 Take 1 Tablet by mouth in the morning and 1 Tablet before bedtime. 180 Tablet 3 09/03/19 24 Active Indapamide 1.25 MG Oral TabletIndications: HTN, goal below 140/90 Take 1 Tablet by mouth in the morning. 90 Tablet 1 02/03/20 24 Active Indapamide 1.25 MG Oral TabletIndications: HTN, goal below 140/90 Take 1 Tablet by mouth in the morning. 90 Tablet 11/05/19 24 024 Discontin ued(Refil l) documented as of this encounter (statuses as of 02/03/2024) Active Problems Problem Noted Date Diagnosed Date Chronic kidney disease, stage 3a 09/27/2023 Overview: [...] as of this encounter (statuses as of 02/03/2024) Resolved Problems Problem Noted Date Diagnosed Date [...] Obesity Taxonomy SPRAIN ROTATOR CUFF, right shoulder 01/13/0003/04/200 1 10/05/2016 Need for prophylactic hormon e replacement therapy (postmenopausal) 01/14/2017 documented as of this encounter (statuses as of 02/03/2024) Immunizations Name Administration Dates Next Due COVID-19 mRNA, LNP-s, No Pre serve, 10 mcg, Ages 5-11 ([employer]) 12/09/2021 COVID-19 mRNA, LNP-s, No Pre serve, 2-Dose Series ([employer]) 11/28/2020,05/06/2020,04/15/2020 COVID-19, LNP-s, No Preserve , Mc-sucrose, Ages 12+ (Pfizer) 06/09/2021 COVID-19, MRNA-LNP, PF, 30 M CG/0.3 mL, 12 YRS AND ABOVE, IM (PFIZER-Comirnat) 10/23/2023 H1N1 2009 Influenza, IM 02/12/2009,02/12/2009 PPD [...] AM EDT documented as of this encounter Miscellaneous Notes * Telephone Encounter - Long Mendoza RP - 02/03/2024 3:13 PM ESTSigned Prescriptions: Disp Refills Indapamide 1.25 MG Oral Tablet 90 Tab*1 Sig: Take 1 Tablet by mouth in the morning. Authorizing Provider: ADITHYA MEJÍA III User: LONG MENDOZA * Telephone Encounter - Roslyn Lynn PHARM Tech - 02/02/2024 3:57 PM EST Did you pend patient's preferred pharmacy and medication before forwarding?yes Pharmacy: [facility] Pending Prescriptions: Disp Refills Indapamide 1.25 MG Oral Tablet 90 Tab*0 Sig: Take 1 Tablet by mouth in the morning. Last Visit: 12/13/2023 (in office), Visit date not found (telemedicine) Next Visit: 06/14/2024 If no future appointments scheduled, and last appointment is greater than a year ago, please schedule patient for a follow-up appointment Last date the medication was ordered: 11/05/2023 Is this request for a controlled substance?No Urine Drug Screen: Results for orders placed or performed in visit on 02/17/15 OPIOIDS/BENZO COMPLIANCE MONITORING W/INTERP Result Value COMPLIANCE INTERP (NOTE) URINE DRUG SCREEN RESULT Amphetamine NEGATIVE Barbiturates NEGATIVE Benzodiazepines NEGATIVE Cannabinoids NEGATIVE Cocaine Metabolite NEGATIVE METHADONE METABOLITE NEGATIVE Morphine / Codeine NEGATIVE OXYCODONE NEGATIVE COMMENT THE ABOVE SCREENING RESULTS ARE PRESUMPTIVE AND CAN ONLY BE USED FOR MEDICAL PURPOSES. CONFIRMATORY TESTING IS AVAILABLE UPON REQUEST. Cutoff Concentration URINE VALID INTERP NORMAL CREATININE CRISTIANO 43 NITRITE CRISTIANO 1 pH CRISTIANO 5.0 Results for orders placed or performed in visit on 10/30/11 TOX SCREEN, URINE, W/ CONFIRMATION Result Value Amphetamine NEGATIVE Barbiturates NEGATIVE Benzodiazepines POSITIVE (A) Cannabinoids NEGATIVE Cocaine Metabolite NEGATIVE Morphine / Codeine NEGATIVE OXYCODONE POSITIVE (A) METHADONE MEDICAL NEGATIVE TOX COMMENT SEE COMMENT DETECTION LIMIT SEE COMMENT *Note: Due to a large number of results and/or encounters for the requested time period, some results have not been displayed. A complete set of results can be found in Results Review. Patient Phone Numbers Labs: Lab Results Component Value Date/Time CREAT 1.2 (H) 09/09/2023 01:13 PM CREAT 1.11 (A) 11/12/2022 12:00 AM CREAT 1.2 (H) 10/27/2016 12:49 PM POTASSIUM 4.3 09/09/2023 01:13 PM POTASSIUM 4.6 11/12/2022 12:00 AM POTASSIUM 4.2 10/27/2016 12:49 PM TSH 2.19 11/24/2013 02:59 PM LDL 153 (H) 12/07/2016 04:43 PM LDL 88 11/06/2015 09:10 AM LDLCALC 73 11/12/2022 12:00 AM ALT 8 (L) 10/27/2016 12:49 PM HGBA1C 5.9 09/08/2002 07:29 AM documented in this encounter Plan of Treatment Upcoming Encounters Date Type Department Care Team (Late st Contact Info) Description 04/04/2024 10:30 AM EST Office Visit Cardiology, [facility] [address] [address] Flora Hernandez PA-C [address] [address] 06/14/2024 9:00 AM EDT Office Visit Family [facility] [address] [place] [address] Adithya Mejía III, MD [address] [place] [address] [address] Health Maintenance Due Date Last Done Comments Adult Wellness Visit 11/21/2011 GFR 03/11/2024 09/09/2023, 10/17, 10/27/2016, Additional history exists Albumin/Creatinine Ratio 09/08/2024 024, 11/12/2022, 11/06/2015, Additional history exists Depression Screening 12/12/2024 12/13/2023 DTap/Tdap Vaccines (6 - Td or Tdap) 01/23/2030 01/24/2020, 11/06/2015, 11/06/2015, Additional history exists Pneumococcal Vaccine: 65+ Years Completed 03/18/2016, 11/24/2013, 11/19/2010 Zoster Vaccines Completed 01/24/2020, 10/2019, 02/10/2012 COVID-19 Vaccine Completed 10/23/2023, , 06/09/2021, Additional history exists Influenza Vaccine (FLU shot) Completed 08/2023, 11/12/2022, [...] this encounter Medical Devices Implanted Type Area Podiatric Foot And Ankle Specialist Device Identifier Shelf Expiration Date Model / Serial / Lot [id number] - [id number] Implanted:Q[place] 1 on [place]14/2006 [place] [facility] [place] Abdomen CR BARD : DAVOL 01/15/2010 [id number] / / [id number] documented as of this encounter Visit Diagnoses Diagnosis HTN, GOAL BELOW 140/90 Unspecified essential hypertension documented in this encounter Care Teams Stone Decorator Relationship Specialty Start Date End Date Adithya Mejía III, MD [address] [place] [address] PCP - General Family Medicine 08/20/22 documented as of this encounter
--- OUTSIDE RECORDS SUMMARY | 2024-04-30 12:23 | External Medical Summary | Summary of Care ---
Author Name Unknown Organization [facility] Address [address] [place] [address] Phone [phone] Care Team Providers Care Ct Technician Name Role Phone Francine ALVAREZ MD, Daniel Manrique Primary Care Provider Encounter Details Date Type Department Care Team (Late st Contact Info) Description 02/15/2024 Result Scan Unspecified Department <No scans attached> Allergies Active Allergy Reactions Criticality Noted Date Comments Oseltamivir Phosphate 11/08/2009 rash documented as of this encounter (statuses as of 02/17/2024) Medications Metoprolol Succinate ER 50 MG Oral Tablet Extended Release 24 Hour (toPROL XL) Take 1 Tablet by mouth at bedtime. 90 Tablet 3 4 Active Aspirin 81 MG Oral Tablet Delayed Release Take 1 Tablet by mouth in the morning. 4 Active Cyanocobalamin 1000 MCG/ML Injection Solution (Cyanocobalamin)In dications:Postgast oneida surgery syndrome Inject 1,000 mcg into a large muscle every 30 days. 1 mL 11 4 Active Syringe 25G X 1" 3 ML Use monthly for B-12 injection 3 Each 3 4 Active Rosuvastatin Calcium 10 MG Oral Tablet (Crestor) Take 1 Tablet by mouth in the morning. 90 Tablet 3 4 Active Entresto 97-103 MG Oral Tablet (sacubitril-valsar patterson 97-103 mg per tab)Indications:Ch ronic systolic heart failure (HCC),Nonischemic cardiomyopathy (HCC),Coronary artery disease involving [place] coronary artery of [place] heart without angina pectoris,HTN, goal below 140/90 Take 1 Tablet by mouth in the morning and 1 Tablet before bedtime. 180 Tablet 3 4 Active Indapamide 1.25 MG Oral TabletIndications: HTN, goal below 140/90 Take 1 Tablet by mouth in the morning. 90 Tablet 1 4 Active documented as of this encounter (statuses as of 02/17/2024) Active Problems Problem Noted Date Diagnosed Date [...] as of this encounter (statuses as of 02/17/2024) Resolved Problems Problem Noted Date Diagnosed Date [...] Obesity Taxonomy SPRAIN ROTATOR CUFF, right shoulder 01/13/0003/04/ 1 10/05/2016 Need for prophylactic hormon e replacement therapy (postmenopausal) 01/14/2017 documented as of this encounter (statuses as of 02/17/2024) Immunizations Name Administration Dates Next Due COVID-19 mRNA, LNP-s, No Pre serve, 10 mcg, Ages 5-11 ([employer]) 12/09/2021 COVID-19 mRNA, LNP-s, No Pre serve, 2-Dose Series ([employer]) 11/28/2020,05/06/2020,04/15/2020 COVID-19, LNP-s, No Preserve , Mc-sucrose, Ages 12+ ([employer]) 06/09/2021 COVID-19, MRNA-LNP, PF, 30 M CG/0.3 mL, 12 YRS AND ABOVE, IM ([employer]-Comirnat) 10/23/2023 H1N1 2009 Influenza, IM 02/12/2009,02/12/2009 PPD [...] AM EDT documented as of this encounter Plan of Treatment Upcoming Encounters Date Type Department Care Team (Late st Contact Info) Description 04/04/2024 10:30 AM EST Office Visit Cardiology, [facility] [address] [address] Flora Hernandez PA-C [address] [phone] 06/14/2024 9:00 AM EDT Office Visit Family [facility] [address] [facility] [place] [address] Daniel Escamilla III, MD [address] [facility] [address] Health Maintenance Due Date Last Done Comments [...] this encounter Medical Devices Implanted Type Area Pvc Loader Device Identifier Shelf Expiration Date Model / Serial / Lot [id number] - [id number] Implanted:Qty: 1 on 06/14/2006 at OR [facility] [place] N/A: Abdomen CR BARD : DAVOL 01/15/2010 [id number] / / [id number] documented as of this encounter Procedures Procedure Name Priority Date/Time Associated Diagnosis Comments RADIOLOGY SCANNED RESULT 02/15/2024 RADIOLOGY SCANNED RESULT 02/15/2024 RADIOLOGY SCANNED RESULT 02/15/2024 documented in this encounter Results * RADIOLOGY SCANNED RESULT (02/15/2024) 02/15/2024 us No Physician Data Unknown DIAGNOSTIC RADIOLOGY S ERVICES Final Result * RADIOLOGY SCANNED RESULT (02/15/2024) 02/15/2024 us No Physician Data Unknown DIAGNOSTIC RADIOLOGY S ERVICES Final Result * RADIOLOGY SCANNED RESULT (02/15/2024) 02/15/2024 us No Physician Data Unknown DIAGNOSTIC RADIOLOGY S ERVICES Final Result documented in this encounter Care Teams Ct Technician Relationship Specialty Start Date End Date Daniel Escamilla III, MD [address] [place] [address] PCP - General Family Medicine 08/20/22 documented as of this encounter
--- OUTSIDE RECORDS SUMMARY | 2024-04-30 12:23 | External Medical Summary | Summary of Care ---
Author Name Unknown Organization [facility] Address [address] [place] [address] Phone [phone] Care Team Providers Care Teradata Developer Name Role Phone Francine ALVAREZ MD, John E Primary Care Provider [phone] Reason for Visit * Reason Comments Follow Up Encounter Details Date Type Department Care Team (Late st Contact Info) Description 12/13/2023 9:00 AM EDT Office Visit Family Practice [facility] [address] [facility] [place] [address] Daniel Escamilla III, MD [address] [place] [address] HTN, GOAL BELOW 140/90*; Chronic systolic heart failure (HCC); Chronic kidney disease, stage 3a (HCC); Morbid obesity due to excess calories (HCC); Postgastric surgery syndrome Allergies Active Allergy Reactions Criticality Noted Date Comments Oseltamivir Phosphate 11/08/2009 rash documented as of this encounter (statuses as of 12/17/2023) Medications Medication Sig Dispensed Refills Start Date End Date Status Metoprolol Succinate ER 50 MG Oral Tablet Extended Release 24 Hour (toPROL XL) Take 1 Tablet by mouth at bedtime. 90 Tablet 3 02/23/2023 Active Aspirin 81 MG Oral Tablet Delayed Release Take 1 Tablet by mouth in the morning. 06/14/2023 Active Cyanocobalamin 1000 MCG/ML Injection Solution (Cyanocobalamin)Yue cations:Postgastric surgery syndrome Inject 1,000 mcg into a large muscle every 30 days. 1 mL 11 08/04/2023 Active Syringe 25G X 1" 3 ML Use monthly for B-12 injection 3 Each 3 08/05/2023 Active Rosuvastatin Calcium 10 MG Oral Tablet (Crestor) Take 1 Tablet by mouth in the morning. 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 180 Tablet 3 09/03/2023 Active Indapamide 1.25 MG Oral TabletIndications:HT N, goal below 140/90 Take 1 Tablet by mouth in the morning. 90 Tablet 11/05/2023 Active Diclofenac Sodium 1 % External Gel (Voltaren)Indication s:Hip pain, left Apply topically to affected area 3 times a day. Apply to left posterior hip 150 g 5 05/15/2023 4 Discontinue d(Patient preference/ discontinua tion) Lidocaine 4 % External Patch (Salonpas Pain Relieving) Place 1 Patch over 12 hours topically on the skin daily. 30 Patch 06/11/2023 Discontinue d(Patient preference/ discontinua tion) traMADol HCl 50 MG Oral Tablet (Ultram)Indications: Hip pain, left Take 1 Tablet by mouth every 6 hours as needed for Pain, Severe. 30 Tablet 06/11/2023 4 Discontinue d(Patient preference/ discontinua tion) Gabapentin 100 MG Oral Capsule (Neurontin) Take 1 Capsule by mouth in the morning. 04/20/2023 4 Discontinue d(Patient preference/ discontinua tion) documented as of this encounter (statuses as of 12/17/2023) Active Problems Problem Noted Date Diagnosed Date Chronic kidney disease, stage 3a 09/27/2023 Overview: Per CKD protocol Chronic systolic heart failure 08/20/2022 Status post bilateral hip replacements 7 S/P lumbar fusion 01/14/2017 History of small bowel obstruction 01/14/2017 Morbid obesity due to excess calories 10/05/2016 Low back pain 05/02/2014 HTN, GOAL BELOW 140/90 01/07/2009 Overview: Modified per HTN protocol #16. Postgastric surgery syndrome 01/16/2003 Overview: ICD-10 update of inactive term ADJ DISORDER W/DEPRES MOOD GENERAL OSTEOARTHROSIS documented as of this encounter (statuses as of 12/17/2023) Resolved Problems Problem Noted Date Diagnosed Date Resolved Date Body mass index (BMI) of 40. 0 to 44.9 in adult 12/29/2016 11/12/2022 Overview: Per Obesity protocol #1 Iron deficiency anemia 08/01/201301/14 Overview: ICD-10 update of inactive term Lyme disease with largest sk in lesion of 2 inches or more 09/24/2012 09/22/2016 MEDICATION USE AGREEMENT 06/04/2011 Anemia of chronic renal failure 02/24/2011 01/14/2017 Anemia in ESRD (end-stage renal disease) 12/26/2010 11/13/2016 KIDNEY DZ,CHRONIC (GFR 30-59) STAGE III 09/05/2009 09/30/2023 Overview: Per CKD Protocol, #1 Obesity, Class II, BMI 35-39 .9, isolated (see actual BMI) 05/13/2009 12/07/2016 Overview: Per Obesity Taxonomy Other postoperative infection 11/16/2006 10/05/2016 Open wound of trunk 10/05/2006 04/10/19 09 HYPERTENSION NOS 11/25/2005 01/07/2009 Overview: Modified per HTN protocol #16. ADVANCE DIRECTIVE INFORMATION 07/04/2004 10/05/2016 Overview: No, Advance Directive brochure given to patient at prior appointment. INTEST POSTOP NONABSORB 01/16/200309/16 Morbid obesity, BMI not known 04/27/2002 05/13/2009 Overview: Per Obesity Taxonomy SPRAIN ROTATOR CUFF, right shoulder 01/13/0003/04/200 1 10/05/2016 Need for prophylactic hormon e replacement therapy (postmenopausal) 01/14/2017 documented as of this encounter (statuses as of 12/17/2023) Immunizations Name Administration Dates Next Due COVID-19 mRNA, LNP-s, No Pre serve, 10 mcg, Ages 5-11 ([employer]) 12/09/2021 COVID-19 mRNA, LNP-s, No Pre serve, 2-Dose Series ([employer]) 11/28/2020,05/06/2020,04/15/2020 COVID-19, LNP-s, No Preserve , Mc-sucrose, Ages 12+ ([employer]) 06/09/2021 COVID-19, MRNA-LNP, PF, 30 M CG/0.3 mL, 12 YRS AND ABOVE, IM (PFIZER-Comirnaty) 10/23/2023 H1N1 2009 Influenza, IM 02/12/2009,02/12/2009 PPD [...] 30 1 - 11/24/1997 Smokeless Tobacco: Never Tobacco Cessation:Counseling Given: No Alcohol Use Standard Drinks/Week Comments Yes 0 (1 standard drink = 0.6 oz pur e alcohol) occ PHQ-2 Answer Date Recorded PHQ Adult Total Score 0 11/12/2022 Sex and Gender Information Value Date Recorded Sex Assigned at Female 05/28/2023 9:18 AM EDT Gender Identity Female 05/28/2023 9:18 AM EDT Sexual Orientation Straight 05/28/2023 9: 18 AM EDT Job Start Date Occupation Industry Not on file Not on file Not on file documented as of this encounter Last Filed Vital Signs Vital Sign Reading Time Taken Comments Blood Pressure 132/70 12/13/2023 9:06 AM EDT Pulse 79 12/13/2023 9:06 AM EDT Temperature 36.6 C (97.8 F) 12/13/2023 9:06 AM ED T Respiratory Rate 20 12/13/2023 9:06 AM EDT Oxygen Saturation 97% 12/13/2023 9:06 AM EDT Inhaled Oxygen Concentration - - Weight 115.1 kg (253 lb 12.8 oz) 12/13/2023 9:06 AM EDT Height 165.1 cm (5' 5") 12/13/2023 9:06 AM EDT Body Mass Index 42.23 12/13/2023 9:06 AM EDT documented in this encounter Progress Notes * Daniel Escamilla III, MD - 12/13/2023 9:09 AM EDT Subjective: Krysta Yi is a 78 year old female. Chief Complaint Patient presents with Follow Up HPI: Follow-up hypertension chronic systolic heart failure morbid obesity CKD 3 post gastric surgery bypass has echocardiogram tomorrow Cardiology appointment was canceled will need to reschedule no bleeding urine or bowels no exertional chest pain goes [facility] denies shortness of breath no swelling concerned about the election last Cardiology notes reviewed PMH: Patient Active Problem List Diagnosis Postgastric surgery syndrome ADJ DISORDER W/DEPRES MOOD GENERAL OSTEOARTHROSIS HTN, GOAL BELOW 140/90 Low back pain Morbid obesity due to excess calories ([facility]) Status post bilateral hip replacements S/P lumbar fusion History of small bowel obstruction Chronic systolic heart failure ([facility]) Chronic kidney disease, stage 3a ([facility]) Current Outpatient Medications Medication Sig Dispense Refill [...] by mouth in the morning. 90 Tablet 0 No current facility-administered medications for this visit. Review of patient's allergies indicates: Allergen Reactions Oseltamivir Phosphate rash Past Medical History: Diagnosis Date Body mass index (BMI) of 40.0 to 44.9 in adult ([facility]) 12/29/2016 Per Obesity protocol #1 GENERAL OSTEOARTHROSIS History of small bowel obstruction 01/14/2017 HTN, goal below 140/90 01/07/2009 Modified per HTN protocol #16. KIDNEY DZ,CHRONIC (GFR 30-59) STAGE III 09/05/2009 Per CKD Protocol, #1 Low back pain 05/02/2014 Morbid obesity due to excess calories (HCC) 10/05/2016 Postgastric surgery syndrome 01/16/2003 ICD-10 update of inactive term S/P lumbar fusion 01/14/2017 Status post bilateral hip replacements 01/14/2017 Subdural hemorrhage (HCC) Past Surgical History: Procedure Laterality Date COLONOSCOPY, DIAGNOSTIC (RECTUM) 12/30/2011 COLONOSCOPY FLEXIBLE PROXIMAL DIAGNOSTIC performed by Suri Turner DO at [facility] COLONOSCOPY, DIAGNOSTIC (STOMA) 01/16/02 Colonoscopy CYSTOSCOPY 06/17/04 and URODYNAMICS DECOMPRESS LUMBAR SPINAL CORD SEG 07/2004 [id number] EXPLORATION OF ABDOMEN 06/14/06 EXPLORATORY LAPAROTOMY performed by MIGDALIA HILL at OR [facility] EXPLORATION OF ABDOMEN 03/2016 Ex lap for SBO. Dr Maldonado. [facility]. GASTRIC BYPASS FOR OBESITY 12/20/02 IMPLANT MESH W/ ABD HERNIA REPR/DEBRIDE 06/14/06 IMPLANTATION MESH WITH INCISIONAL HERNIA performed by MIGDALIA HILL at OR [facility] LASERING OF SECONDARY CATARACT Left 11/2016 Dr. [...] OVER performed by MIGDALIA HILL at OR [facility] Objective: The patient is a 78 year old female BP 132/70 (BP Site: Left Arm, BP Position: Sitting, BP Cuff Size: Regular) | Pulse 79 | Temp 36.6 C (97.8 F) (Tympanic) | Resp 20 | Ht 1.651 m (5' 5") | Wt 115.1 kg (253 lb 12.8 oz) | SpO2 97% | BMI 42.23 kg/m | BSA 2.3 m General: alert, healthy, and no distress Eye Exam: PERRLA, extraocular movements intact, conjunctiva are pink and non- injected, sclera clear Oropharynx: no exudate, no erythema, lips, buccal mucosa, and tongue normal, and mucous membranes are moist Heart: regular rate & rhythm, no murmur, and no gallops Lungs: lungs clear to auscultation Extremities: no edema, no clubbing, no cyanosis ASSESSMENT: (I10) HTN, GOAL BELOW 140/90 (primary encounter diagnosis) (I50.22) Chronic systolic heart failure (HCC) (N18.31) Chronic kidney disease, stage 3a (HCC) (E66.01) Morbid obesity due to excess calories (HCC) (K91.1) Postgastric surgery syndrome PLAN: Will discuss with Cardiology SGLT2s continue present meds check comprehensive lipids CBC A1c RSV vaccine discussed encouraged will check with her pharmacy Total time 43 minutes Follow up in 6 month(s). Daniel Escamilla III, MD documented in this encounter Nursing Notes * Bree Avila MED ASSIST - 12/13/2023 8:57 AM EDT Krysta Yi presents for 6 month recheck. She is updated with flu and COVID vaccines. She is feeling joint point with ambulation and would like to know what can help. Medications & HM reviewed. documented in this encounter Plan of Treatment Upcoming Encounters Date Type Department Care Team (Late st Contact Info) Description 04/04/2024 10:30 AM EST Office Visit Cardiology, [facility] [address] [place] [address] Flora Hernandez PA-C [address] [place] [address] 06/14/2024 9:00 AM EDT Office Visit Family Practice [facility] [address] [place] [address] Daniel Escamilla III, MD [address] [facility] [place] [address] Scheduled Orders Name Type Priority Associated Diagnoses Orde r Schedule COMPREHENSIVE METABOLIC PANEL Lab Routine HTN, GOAL BELOW 140/90 Chronic systolic heart failure (HCC) Chronic kidney disease, stage 3a (HCC) Expected: 12/13/2023 (Approximate), Expires: 12/12/2024 LIPID PANEL WITH DIRECT LDL IF TG IS HIGH Lab Routine HTN, GOAL BELOW 140/90 Chronic systolic heart failure (HCC) Chronic kidney disease, stage 3a (HCC) Expected: 12/13/2023, Expires: 12/12/2024 CBC Lab Routine HTN, GOAL BELOW 140/90 Chronic systolic heart failure (HCC) Chronic kidney disease, stage 3a (HCC) Expected: 12/13/2023 (Approximate), Expires: 12/12/2024 HEMOGLOBIN A1C Lab Routine Morbid obesity due to excess calories (HCC) Expected: 12/13/2023 (Approximate), Expires: 12/12/2024 Health Maintenance Due Date Last Done Comments [...] this encounter Medical Devices Implanted Type Area [place] Device Identifier Shelf Expiration Date Model / Serial / Lot [id number] - [id number] Implanted:Qty: 1 on 06/14/2006 at OR [facility] N/A: Abdomen CR BARD : DAVOL 01/15/2010 [id number] / / [id number] documented as of this encounter Visit Diagnoses Diagnosis HTN, GOAL BELOW 140/90- Primary Unspecified essential hypertension Chronic systolic heart failure (HCC) Chronic systolic heart failure Chronic kidney disease, stage 3a (HCC) Morbid obesity due to excess calories (HCC) Postgastric surgery syndrome Postgastric surgery syndromes documented in this encounter Care Teams Teradata Developer Relationship Specialty Start Date End Date Daniel Escamilla III, MD [address] [facility] [place] [address] PCP - General Family Medicine 08/20/22 documented as of this encounter
--- OUTSIDE RECORDS SUMMARY | 2024-04-30 12:23 | External Medical Summary | Summary of Care ---
Author Name Unknown Organization [facility] Address [address] [place] [address] Phone [phone] Care Team Providers Care Streetcar Dispatcher Name Role Phone Francine ALVAREZ MD, Daniel Manrique Primary Care Provider [phone] Reason for Visit * Reason Onset Date Comments Test Results 12/20/2023 Encounter Details Date Type Department Care Team (Late st Contact Info) Description 12/20/2023 Telephone Cardiology, [facility] [address] [facility] [place] [address] Aidan Sampson PAAbby [address] [place] [address] Test Results Allergies Active Allergy Reactions Criticality Noted Date Comments Oseltamivir Phosphate 11/08/2009 rash documented as of this encounter (statuses as of 12/20/2023) Medications Medication Sig Dispensed Refills Start Date End Date Status Metoprolol Succinate ER 50 MG Oral Tablet Extended Release 24 Hour (toPROL XL) Take 1 Tablet by mouth at bedtime. 90 Tablet 3 02/23/2023 Active Aspirin 81 MG Oral Tablet Delayed Release Take 1 Tablet by mouth in the morning. 06/14/2023 Active Cyanocobalamin 1000 MCG/ML Injection Solution (Cyanocobalamin)Indic ations:Postgastric surgery syndrome Inject 1,000 mcg into a large muscle every 30 days. 1 mL 11 08/04/2023 Active Syringe 25G X 1" 3 ML Use monthly for B-12 injection 3 Each 3 08/05/2023 Active Rosuvastatin Calcium 10 MG Oral Tablet (Crestor) Take 1 Tablet by mouth in the morning. 90 Tablet 3 09/03/2023 Active Entresto 97-103 MG Oral Tablet (sacubitril-valsartan 97-103 mg per tab)Indications:Chron ic systolic heart failure (HCC),Nonischemic cardiomyopathy (HCC),Coronary artery disease involving [place] coronary artery of [place] heart without angina pectoris,HTN, goal below 140/90 Take 1 Tablet by mouth in the morning and 1 Tablet before bedtime. 180 Tablet 3 09/03/2023 Active Indapamide 1.25 MG Oral TabletIndications:HTN , goal below 140/90 Take 1 Tablet by mouth in the morning. 90 Tablet 11/05/2023 Active documented as of this encounter (statuses as of 12/20/2023) Active Problems Problem Noted Date Diagnosed Date [...] as of this encounter (statuses as of 12/20/2023) Resolved Problems Problem Noted Date Diagnosed Date [...] Obesity Taxonomy SPRAIN ROTATOR CUFF, right shoulder 01/13/0018/200 1 10/05/2016 Need for prophylactic hormon e replacement therapy (postmenopausal) 01/14/2017 documented as of this encounter (statuses as of 12/20/2023) Immunizations Name Administration Dates Next Due COVID-19 mRNA, LNP-s, No Pre serve, 10 mcg, Ages 5-11 ([employer]) 12/09/2021 COVID-19 mRNA, LNP-s, No Pre serve, 2-Dose Series ([employer]) 11/28/2020,05/06/2020,04/15/2020 COVID-19, LNP-s, No Preserve , Mc-sucrose, Ages 12+ ([employer]) 06/09/2021 COVID-19, MRNA-LNP, PF, 30 M CG/0.3 [...] on file documented as of this encounter Miscellaneous Notes * Telephone Encounter - Bill Corbett LPN - 12/20/2023 10:30 AM EST Called and sent a letter to make patient aware. ----- Message from Aidan Sampson sent at 12/20/2023 7:44 AM EST ----- In basket coverage for Mrs. Hernandez TAL ECHO forwarded by previous provider Ms. Johnson ECHO looks OK. Heart function is normal, EF 55 to 59%. Calcified mitral and aortic valves noted though without significant stenosis or regurgitation and unchanged compared to prior ECHO at [facility] in December 2021 documented in this encounter Plan of Treatment Upcoming Encounters Date Type Department Care Team (Late st Contact Info) Description 04/04/2024 10:30 AM EST Office Visit Cardiology, [facility] [address] [place] [address] Flora Hernandez PA-C [address] [place] [address] 06/14/2024 9:00 AM EDT Office Visit Family Practice [facility] [address] [place] [address] Daniel Escamilla III, MD [address] [place] [address] Health Maintenance Due Date Last Done Comments [...] this encounter Medical Devices Implanted Type Area Sheet Metal Layout Mechanic Device Identifier Shelf Expiration Date Model / Serial / Lot [id number] - [id number] Implanted:Qty: 1 on 06/14/2006 at OR [facility] N/A: Abdomen CR BARD : DAVOL 01/15/2010 [id number] / / [id number] documented as of this encounter Care Teams Streetcar Dispatcher Relationship Specialty Start Date End Date Daniel Escamilla III, MD [address] [place] [address] PCP - General Family Medicine 08/20/22 documented as of this encounter
--- OUTSIDE RECORDS SUMMARY | 2024-04-30 12:23 | External Medical Summary | Summary of Care ---
Author Name Unknown Organization [facility] Address [address] [place] [address] Phone [phone] Care Team Providers Care Special Tester Name Role Phone Francine ALVAREZ MD, John E Primary Care Provider [phone] Reason for Visit * Reason Onset Date Comments Medication Refill 11/05/2023 Encounter Details Date Type Department Care Team (Late st Contact Info) Description 11/05/2023 Refill Family Practice [facility] [address] [place] [address] Adithya Mejía III, MD [address] [place] [address] HTN, GOAL BELOW 140/90 Allergies Active Allergy Reactions Criticality Noted Date Comments Oseltamivir Phosphate 11/08/2009 rash documented as of this encounter (statuses as of 11/05/2023) Medications Medication Sig Dispensed Refills Start Date End Date Status Metoprolol Succinate ER 50 MG Oral Tablet Extended Release 24 Hour (toPROL XL) Take 1 Tablet by mouth at bedtime. 90 Tablet 3 02/23/2023 Active Diclofenac Sodium 1 % External Gel (Voltaren)Indication s:Hip pain, left Apply topically to affected area 3 times a day. Apply to left posterior hip 150 g 5 05/15/2023 Active Lidocaine 4 % External Patch (Salonpas Pain Relieving) Place 1 Patch over 12 hours topically on the skin daily. 30 Patch 06/11/2023 Active traMADol HCl 50 MG Oral Tablet (Ultram)Indications: Hip pain, left Take 1 Tablet by mouth every 6 hours as needed for Pain, Severe. 30 Tablet 06/11/2023 Active Gabapentin 100 MG Oral Capsule (Neurontin) Take 1 Capsule by mouth in the morning. 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 180 Tablet 3 09/03/2023 Active Indapamide 1.25 MG Oral TabletIndications:HT N, goal below 140/90 Take 1 Tablet by mouth in the morning. 90 Tablet 11/05/2023 Active Indapamide 1.25 MG Oral TabletIndications:HT N, goal below 140/90 TAKE 1 TABLET BY MOUTH IN THE MORNING 90 Tablet 09/06/2023 4 Discontinue d(Refill) documented as of this encounter (statuses as of 11/05/2023) Active Problems Problem Noted Date Diagnosed Date [...] as of this encounter (statuses as of 11/05/2023) Resolved Problems Problem Noted Date Diagnosed Date [...] as of this encounter (statuses as of 11/05/2023) Immunizations Name Administration Dates Next Due COVID-19 mRNA, LNP-s, No Pre serve, 10 mcg, Ages 5-11 (Pfizer) 12/09/2021 COVID-19 mRNA, LNP-s, No Pre serve, 2-Dose Series ([employer]) 11/28/2020,05/06/2020,04/15/2020 COVID-19, LNP-s, No Preserve , Mc-sucrose, Ages 12+ (Pfizer) 06/09/2021 H1N1 2009 Influenza, IM 02/12/2009,02/12/2009 PPD 10/19/2012 Pneumococcal Conjugate Vacc, 13 Valent (Prevnar) 11/24/2013 Pneumococcal Polysaccharide PPV23 (Pneumovax) 03/18/2016,11/19/2010 Season Influenza, Quad, PF, Adjuvanted, 65+ Yrs, IM (FLUAD) 11/24/2019 Seasonal Influenza, High Dos e, Trivalent, PF, IM (Fluzone HD) 12/01/2018 Seasonal Influenza, PF, 6 M & above, IM , (FluLaval or Fluzone) 11/19/2017,12/07/2016 Seasonal Influenza, Quadriva lent Hd (Fluzone Hd) 11/12/2022 Seasonal Influenza, Quadriva lent, No Preserve, IM 11/06/2015 Seasonal Influenza, Trivalen t, (IIV3), with Preserv, (Fluzone) 12/09/2021,11/24/2019,12/07/2016,11/05,10/31/2014,11/24/2013,11/23/2012 ,12/06/2011,11/18/2010,11/18/2009,10/16,12/07/2007,11/25/2005 TD - Tetanus/Diptheria (ADULT) 11/06/2015,2015 TD, Preservative [...] encounter Miscellaneous Notes * Telephone Encounter - Adithya Mejía III, MD - 11/05/2023 9:35 AM EDTSigned Prescriptions: Disp Refills Indapamide 1.25 MG Oral Tablet 90 Tab*0 Sig: Take 1 Tablet by mouth in the morning.Authorizing Provider: ADITHYA MEJÍA III * Telephone Encounter - Caridad Mallory, boilermaking supervisor - 11/05/2023 8:04 AM EDT Did you pend patient's preferred pharmacy and medication before forwarding?yes Pharmacy: [facility] [address] [facility] Pending Prescriptions: Disp Refills Indapamide 1.25 MG Oral Tablet 90 Tab*0 Sig: Take 1 Tablet by mouth in the morning. Last Visit: 06/11/2023 (in office), Visit date not found (telemedicine) Next Visit: 12/13/2023 If no future appointments scheduled, and last appointment is greater than a year ago, please schedule patient for a follow-up appointment Last date the medication was ordered: 09/06/2023 Is this request for a controlled substance?No [...] found in Results Review. Patient Phone Numbers [facility] [phone] Labs: Lab Results Component Value Date/Time CREAT [...] 9:00 AM EDT Office Visit [facility] [address] [facility] [place] [address] Adithya Mejía III, MD [address] [facility] [place] [address] 12/14/2023 11:00 AM EDT Cardiac Studies Cardiac Studies, [facility] [address] [facility] [place] [address] Health Maintenance Due Date Last Done Comments Adult Wellness Visit 11/21/2011 COVID-19 Vaccine ( season) 2023 12/09/2021, 06/09/2021, 11/28/2020, Additional history exists Influenza Vaccine (FLU shot) (#1) 2023 11/12/2022, 12/09/2021, 11/24/2019, Additional history exists Depression Screening 11/13/2023 11/12/2022 GFR 03/11/2024 09/09/2023, 10/17, 10/27/2016, Additional history exists Albumin/Creatinine Ratio 09/08/2024 024, 11/12/2022, 11/06/2015, Additional history exists DTap/Tdap Vaccines (6 - Td or Tdap) 01/23/2030 01/24/2020, 11/06/2015, 11/06/2015, Additional history exists Pneumococcal Vaccine: 65+ Years Completed 03/18/2016, 11/24/2013, 11/19/2010 Zoster Vaccines Completed 01/24/2020, 10/2019, 02/10/2012 HPV (Gardasil) Vaccine Aged Out No lo nger eligible based on patient's age to complete this topic Hepatitis B Vaccine Aged Out No longe r eligible based on patient's age to complete this topic MENINGOCOCCAL (MENACTRA/MENVEO) Aged Out No longer eligible based on patient's age to complete this topic documented as of this encounter Medical Devices Implanted Type Area Ski Guide Device Identifier Shelf Expiration Date Model / Serial / Lot [id number] - [id number] Implanted:Qty: 1 on 06/14/2006 at OR [facility] [place] N/A: Abdomen CR BARD : DAVOL 01/15/2010 [id number] / / [id number] documented as of this encounter Visit Diagnoses Diagnosis HTN, GOAL BELOW 140/90 Unspecified essential hypertension documented in this encounter Care Teams Special Tester Relationship Specialty Start Date End Date Adithya Mejía III, MD [address] [facility] [place] [address] PCP - General Family Medicine 08/20/22 documented as of this encounter
--- OUTSIDE RECORDS SUMMARY | 2024-04-30 12:23 | External Medical Summary | Summary of Care ---
Author Name Unknown Organization [facility] Address [address] [facility] [place] [address] Phone [phone] Care Team Providers Care Manager Contract Name Role Phone Francine ALVAREZ MD, Daniel Manrique Primary Care Provider [phone] Encounter Details Date Type Department Care Team (Late st Contact Info) Description 12/16/2023 Orders Only PATIENT PORTAL DO NOT DELETE THIS DEPT USED BY [place] [id number] Allergies Active Allergy Reactions Criticality Noted Date Comments Oseltamivir Phosphate 11/08/2009 rash documented as of this encounter (statuses as of 12/16/2023) Medications Medication Sig Dispensed Refills Start Date [...] failure (HCC),Nonischemic cardiomyopathy (HCC),Coronary artery disease involving [place] coronary artery of [place] heart without angina pectoris,HTN, goal below 140/90 Take 1 Tablet by mouth in the morning and 1 Tablet before bedtime. 180 Tablet 3 09/03/2023 Active Indapamide 1.25 MG Oral TabletIndications:HTN , goal below 140/90 Take 1 Tablet by mouth in the morning. 90 Tablet 11/05/2023 Active documented as of this encounter (statuses as of 12/16/2023) Active Problems Problem Noted Date Diagnosed Date [...] as of this encounter (statuses as of 12/16/2023) Resolved Problems Problem Noted Date Diagnosed Date [...] as of this encounter (statuses as of 12/16/2023) Immunizations Name Administration Dates Next Due COVID-19 mRNA, LNP-s, No Pre serve, 10 mcg, Ages 5-11 (Pfizer) 12/09/2021 COVID-19 mRNA, LNP-s, No Pre serve, 2-Dose Series ([employer]) 11/28/2020,05/06/2020,04/15/2020 COVID-19, LNP-s, No Preserve , Mc-sucrose, Ages 12+ (Pfizer) 06/09/2021 COVID-19, MRNA-LNP, 23-24, P F, 30 MCG/0.3 mL, 12 YRS AND ABOVE, IM (PFIZER-Comirnaty) [...] on file documented as of this encounter Plan of Treatment Upcoming Encounters Date Type Department Care Team (Late st Contact Info) Description 04/04/2024 10:30 AM EST Office Visit Cardiology, [facility] [address] [place] [address] Flora Hernandez PA-C [address] [place] [address] 06/14/2024 9:00 AM EDT Office Visit Family Practice [facility] [place] [address] [facility] [place] [address] Daniel Escamilla III, MD [address] [facility] [place] [address] Health Maintenance Due Date Last Done Comments [...] this encounter Medical Devices Implanted Type Area Review Scheduling Coordinator Device Identifier Shelf Expiration Date Model / Serial / Lot [id number] - [id number] Implanted:Qty: 1 on 06/14/2006 at OR [facility] [place] N/A: Abdomen CR BARD : DAVOL 01/15/2010 [id number] / / [id number] documented as of this encounter Care Teams Manager Contract Relationship Specialty Start Date End Date Daniel Escamilla III, MD [address] [facility] [place] [address] PCP - General Family Medicine 08/20/22 documented as of this encounter
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
[2024-04-30] MEDS: ACETAMINOPHEN 1,000 MG/100 ML VIAL IV STA (12:53)
[2024-04-30] MEDS: PROMETHAZINE 12.5 MG/50.5 ML BAG IV STA (12:53)
[2024-04-30 13:02] LABS: Appearance Urine Cloudy (Clear); Bacteria Urine Automated 2+ (None Seen); Bilirubin Urine Negative (Negative); Blood Urine Negative (Negative); Cast Urine Automated 0-2 /lpf (0-2); Color Urine Dark Yellow; Epithelial Cell Urine Auto >20 /hpf (0-2); Glucose Urine UA Negative (Negative); Ketones Urine Trace (Negative); Leukocyte Esterase Urine 1+ (Negative); Nitrite Urine Negative (Negative); Protein Urine 1+ (Negative); RBC Urine Automated 0-2 /hpf (0-2); Specific Gravity Urine 1.021 (1.000-1.030); Urobilinogen Urine Negative (Negative); WBC Urine Automated 0-5 /hpf (0-5); pH Urine 5.5 (4.5-7.5)
--- NOTE | 2024-04-30 13:02 | XRay Report ---
HISTORY: Chest pain and headache. TECHNIQUE: Portable AP radiograph of the chest. COMPARISON: Chest radiograph dated 01/08/2022. FINDINGS: No focal lung consolidation.No pneumothorax or effusion. Cardiomegaly. Left-sided aortic arch. Midline trachea. No acute osseous abnormality. Surgical anchors in the humeral heads from prior bilateral rotator cuff repair. Resection of the right distal clavicle. IMPRESSION: * No acute cardiopulmonary findings. * Cardiomegaly. Electronically signed by Daniel Collazo 04-30-2024 13:02 PM
[2024-04-30 13:03] LABS: Basophils # (auto) 0.06 K/uL (0.00-0.20); Basophils % (auto) 0.6 %; Eosinophils # (auto) 0.08 K/uL (0.00-0.50); Eosinophils % (auto) 0.7 %; Hematocrit (blood only) 43.2 % (37.0-47.0); Immature Granulocytes # (auto) 0.05 K/uL (0.01-0.20); Immature Granulocytes % (auto) 0.5 %; Lymphocytes # (auto) 1.38 K/uL (1.20-3.40); Lymphocytes % (auto) 12.9 %; Mean Corpuscular Hemoglobin 28.7 pg (25.0-34.0); Mean Corpuscular Hgb Conc 32.4 g/dL (32.0-36.0); Mean Corpuscular Volume 88.5 fL (80.0-100.0); Mean Platelet Volume 11.3 fL (9.4-12.4); Monocytes # (auto) 1.19 K/uL (0.11-0.59); Monocytes % (auto) 11.1 %; Neutrophils # (auto) 7.94 K/uL (1.40-6.50); Neutrophils % (auto) 74.2 %; Platelet Count 275 K/uL (130-400); RDW Coefficient of Variation 15.1 % (11.5-14.5); RDW Standard Deviation 49.1 fL (36.4-46.3); Red Blood Count 4.88 M/uL (4.20-5.40)
[2024-04-30 13:22] LABS: Albumin Level 3.8 gm/dl (3.4-5.0); BUN Creatinine Ratio 16.1 (10-20); Bilirubin,Total 1.1 mg/dl (0.2-1.0); Calcium 9.5 mg/dl (8.6-10.3); Creatinine Clr Calc Pharmacy 51.9 ml/min; Globulin 3.8 gm/dl (2.5-4.0); Potassium 3.7 mmol/L (3.5-5.1); Total Protein 7.6 gm/dl (6.0-8.3)
[2024-04-30 13:36] LABS: INR 1.1 (0.9-1.1); Partial Thromboplastin Ratio 1.2; Partial Thromboplastin Time 31 Seconds (21-31); Prothrombin Time 11.4 Seconds (9.0-12.0)
--- NOTE | 2024-04-30 13:57 | CT Scan Report ---
HISTORY: Headache TECHNIQUE: CT of the head without contrast. Images are presented in axial, sagittal, and coronal reformats. COMPARISON: Brain MRI dated 09/25/2016. Head CT dated 09/25/2016. FINDINGS: No evidence of intracranial hemorrhage, abnormal extra-axial fluid collection, mass effect, or midline shift. Moderate volume loss and presumed chronic microvascular ischemic changes. New focal area of white matter hypodensity involving the medial aspect of the right occipital lobe on series 2 image 14 could represent late acute or subacute infarct. There is loss of flores-white differentiation. Further evaluation is recommended with brain MRI. Intracranial atherosclerotic vascular calcifications. Ventricular caliber is appropriate. Fourth ventricle is midline. Basal cisterns are patent. Globes and orbits are unremarkable. Soft tissues about the skull base and scalp are unremarkable. Paranasal sinuses and mastoid air cells are clear. Postsurgical changes of the right parietal calvarium. No acute calvarial fracture. IMPRESSION: 1. New focal area of hypodensity involving the medial right occipital lobe with loss of flores-white differentiation (series 2 image 13-14). This is suspicious for an area of late acute or subacute infarct. Further evaluation is recommended with brain MRI with diffusion-weighted imaging. 2. Moderate volume loss and presumed chronic microvascular ischemic changes. 3. Additional chronic and/or incidental findings as detailed above. Findings and recommendations were discussed with the ordering provider Dr. Stevie Kenney at 1:55 PM on 04/30/2024. Electronically signed by Daniel Collazo 04-30-2024 13:57 PM
[2024-04-30] MEDS: OPTIRAY 320 125ml IV ONE (15:25)
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
--- NOTE | 2024-04-30 16:12 | CT Scan Report ---
EXAM: CTA head with CLINICAL HISTORY: TECHNIQUE: Contiguous CTA axial images were obtained through the head after the administration of intravenous contrast. Sagittal and coronal reformations are supplied. PRIORS: Noncontrast head CT today FINDINGS: The vertebral arteries form the basilar artery at the skull base. Mild to moderate atherosclerotic plaque involving the cavernous portion of the internal carotid arteries with approximately 50% stenosis. No hemodynamically significant stenosis identified. [place] is patent. No thrombus or hemodynamically significant stenosis. No aneurysmal dilatation or sloan aneurysm. No enhancing mass in the brain. Postsurgical change present involving the right occipital parietal bone. IMPRESSION: No CTA evidence of an acute vascular abnormality. Mild to moderate atherosclerotic disease of the bilateral cavernous internal carotid arteries. Electronically signed by Maricruz Ruiz 04-30-2024 4:11 PM
[2024-04-30] MEDS ORDERED: METOPROLOL TARTRATE 1 MG/ML VIAL IV PRN (16:33)
[2024-04-30] MEDS: ASPIRIN CHEW 324 MG PO STA (16:42)
[2024-04-30] MEDS: METOPROLOL TARTRATE 25 MG TAB PO ONE (16:42)
[2024-04-30] MEDS: Heparin IV Adult Wt-Based Standard *NO* INITIAL Bolus Protocol IV STA (17:47)
--- NOTE | 2024-04-30 18:05 | Magnetic Resonance Report ---
EXAM: MR brain wo con CLINICAL HISTORY: Headache. TECHNIQUE: MRI of the brain was performed without IV contrast with multiplanar sequences obtained. COMPARISON: CT, CTA brain 04/30/2024 has been reviewed, MRI 09/25/2016. FINDINGS: Brain Parenchyma: Interval new right occipital parasagiital cortical and subcortical area of diffusion restriction with low ADC map, high T2 and FLAIR signal intensity, with mild effacement of the overlying sulci. Multiple foci and small areas of an altered signal are seen involving the bilateral fronto-parietal subcortical and periventricular white matter, eliciting high T2/FLAIR signal intensities; some of them are low on T1 WIS, no perifocal edema or mass effect. no corresponding diffusion restriction with isointense and high ADC denoting chronicity. Bilateral deep white matter periventricular confluent areas and sheets of bright T2 and FLAIR signal denote small arterial disease([place] 3). Bilateral prominent Virchow's Saul spaces of the basal ganglia and centrum semiovale. Right cerebellar linear areas of chronic infarcts. No shift of midline structures. No intracerebral or extra-axial hematomas or masses. Ventricles and Sulci: Accentuated cortical sulci, Sylvian fissures, and extra-axial CSF spaces are associated with mild symmetrical dilatation of the supra-tentorial ventricular system. Still noted right parietal prominent extra-axial CSF space, could be a small arachnoid cyst. Brainstem : Normal appearance of the brainstem without focal lesions or abnormal enhancement. Skull and Calvarium: Right posterior parietal craniectomy defect, with no related masses or areas of abnormal signal. interval stable. Paranasal sinuses and mastoid air cells:- clear. IMPRESSION: 1. Interval new right occipital acute non hemorrhagic infarction. 2. Chronic microvascular ischemic angiopathy, Age-related brain involuational changes. Mild progression. 3. Right posterior parietal craniectomy defect, with no related masses or areas of abnormal signal. Interval stable. 4. Right cerebellar linear areas of chronic infarcts. New. [facility] was called at at 4:49 PM WIRE SETTER on 04/30/2024 and the results were verbally communicated to Breana (Nurse). She will inform the doctor about the findings. Electronically signed by Dada Mcgraw 04-30-2024 6:04 PM
[2024-04-30] MEDS: HEPARIN 25000 UNIT/500 ML D5W 25,000 UNITS/500 ML BAG IV SCH (18:19)
[2024-04-30] MEDS ORDERED: ACETAMINOPHEN 325 MG TAB PO PRN (20:44)
[2024-04-30] MEDS ORDERED: ALBUTEROL HFA 8 GM INHALER INH PRN (20:44)
[2024-04-30] MEDS ORDERED: PHARMACIST DISCHARGE MED REC CONSULT PRN (20:44)
[2024-04-30] MEDS: METOPROLOL TARTRATE 25 MG TAB PO SCH (21:48)
[2024-05-01 01:48] LABS: ANTI-Xa, UFH(UnfractionatedHep 0.47 IU/ml (0.3-0.7)
--- NOTE | 2024-05-01 08:01 | CT Scan Report ---
EXAM: CT head/brain wo con CLINICAL HISTORY: Follow-up on CVA - on ac TECHNIQUE: An axial non-contrast CT scan of the brain was performed from the skull base to the high parietal region. One of the following dose reduction techniques were utilized for this exam: Automated exposure control, adjustment of the mA and/or kV according to patient size, and use of iterative reconstruction. COMPARISON: 04/30/2024. FINDINGS: Brain Parenchyma: Still noted right occipital parafalcine hypodenisity of subacute infarction. No hemorrgaic transformation. Bilateral periventricular and subcortical white matter hypoattenuation in keeping with chronic microangiopathy. Ventricular System: Both lateral ventricles are prominent. No evidence of hydrocephalus or ventricular enlargement. Subarachnoid Spaces: widened sulci and cisterns. No evidence of subarachnoid hemorrhage or extra-axial fluid collections. Cerebellum and Brainstem: Right cerebellar linear areas of chronic infarcts. No masses, lesions, or areas of abnormal signal. Orbits: Normal appearance of the globes, optic nerves, and extraocular muscles. No evidence of orbital masses or abnormal signal. Sinuses: Clear paranasal sinuses. No evidence of sinusitis or mucosal thickening. Mastoid Air Cells: Clear mastoid air cells. No evidence of mastoiditis. Skull: Right posterior parietal craniectomy defect. IMPRESSION: 1. Stable appearance of the followin. Right occipital acute non-hemorrhagic infarction. 3. Chronic microvascular ischemic angiopathy, Age-related brain involuational changes. 4. Right posterior parietal craniectomy defect. 5. Right cerebellar linear areas of chronic infarcts. Electronically signed by Dada Mcgraw 05-01-2024 08:01 AM
[2024-05-01 08:26] LABS: Basophils # (auto) 0.04 K/uL (0.00-0.20); Basophils % (auto) 0.5 %; Eosinophils # (auto) 0.17 K/uL (0.00-0.50); Eosinophils % (auto) 2.2 %; Hematocrit (blood only) 39.8 % (37.0-47.0); Hemoglobin 13.2 g/dl (12.0-16.0); Immature Granulocytes # (auto) 0.04 K/uL (0.01-0.20); Immature Granulocytes % (auto) 0.5 %; Lymphocytes # (auto) 1.41 K/uL (1.20-3.40); Lymphocytes % (auto) 18.1 %; Mean Corpuscular Hemoglobin 29.2 pg (25.0-34.0); Mean Corpuscular Hgb Conc 33.2 g/dL (32.0-36.0); Mean Corpuscular Volume 88.1 fL (80.0-100.0); Mean Platelet Volume 11.3 fL (9.4-12.4); Monocytes # (auto) 0.87 K/uL (0.11-0.59); Monocytes % (auto) 11.2 %; Neutrophils # (auto) 5.25 K/uL (1.40-6.50); Neutrophils % (auto) 67.5 %; Platelet Count 268 K/uL (130-400); RDW Coefficient of Variation 15.1 % (11.5-14.5); RDW Standard Deviation 48.7 fL (36.4-46.3); Red Blood Count 4.52 M/uL (4.20-5.40); White Blood Count 7.78 K/ul (4.8-10.8)
[2024-05-01 08:45] LABS: BUN Creatinine Ratio 15.7 (10-20); Chol HDL Ratio 3.1 (0-5); Potassium 3.7 mmol/L (3.5-5.1)
[2024-05-01] MEDS: ATORVASTATIN 40 MG TAB PO SCH (08:59)
[2024-05-01] MEDS: ROSUVASTATIN CALCIUM 20 MG TAB PO SCH (09:00)
[2024-05-01] MEDS: ASPIRIN 81 MG ECTAB PO SCH (09:00)
--- NOTE | 2024-05-01 10:27 | Hospitalist Progress Note ---
Date of Service May 01, 2024 Assessment & Plan (1) Stroke-like symptom: (2) Cardiomyopathy: (3) Hypertension: Plan 78-year-old female with a past medical history of chronic systolic heart failure, nonischemic cardiomyopathy, CAD, obesity, CKD stage III who presents to the ED on 04/30/2024 with complaints of continuing occipital headache and loss of left peripheral vision Acute CVA New onset Atrial fibrillation CT head on admission noted infarct in medial right occipital lobe Brain MRI noted new acute right occipital infarct. Also right cerebellar linear areas of chronic infarcts CTA head/neck showedd calcified atherosclerotic plaques in proximal ICA with approx 50-69% stenosis, mild to mod atherosclerotic disease of b/l cavernosus ICA Repeat CT head today show stable right occipital acute nonhemorrhagic infarction. Stable appearance Patient found to have new Afib on presentation Currently on heparin drip. Will need to transition to eliquis eventually Awaiting Neurology eval PT/OT TTE noted EF 50-55%, mod dilated LA Back to sinus rhythm Rosuvastatin 20mg daily Cardiology consulted History systolic CHF: Continue to hold [employer] entresto Code status: Full I spent a total of 55 minutes coordinating, documenting and providing care for this patient excluding time spent in performance of separately billed services Admission and Anticipated Discharge Date Admission Date: April 30, 2024 Subjective Patient seen and examined Report right sided headache. Reported left peripheral visual deficit improved Denied any other complaints on ROS Physical Exam Constitutional: + well hydrated and + obese; no acute di stress Eyes: PERRL, conjunctivae normal, anicteric sclerae ENMT: external ear and nose normal, oropharynx normal Respiratory: normal respiratory effort, lungs clear to auscultation Cardiovascular: Rate/Rhythm: regular rate and regular rhythm Gastrointestinal (Abdomen): normal bowel sounds, soft, nontender, no hepatosplenomegaly Musculoskeletal: No pedal edema Neurologic: PERRL, EOMI, accommodation nl, no face palsy, no dysarthria Deficits in left peripheral visual feed Psychiatric: A+Ox3, euthymic affect Results & Data Results & Data Vital Signs (Past 12 Hours) Vital Signs Temp Pulse Resp BP Pulse Ox O2 Del Method 05/01/24 07:56 36.8 C 71 20 134/80 96 Room Air 05/01/24 03:26 36.6 C 80 17 136/88 98 Room Air 04/30/24 23:12 36.7 C 80 16 133/76 98 Room Air Laboratory Results Abnormal lab results 04/30/24 04/30/24 04/30/24 Range/Units 15:03 17:25 23:13 RDW Std Deviation (36.4-46.3) fL RDW Coeff of Juliana (11.5-14.5) % [place] # (Auto) (0.11-0.59) K/uL Sodium (136-145) mmol/L Chloride (98-107) mmol/L Hemoglobin A1c (4.5-5.6) % Troponin I High Sens 44.7 H 45.3 H 45.7 H (0-14) pg/ml 05/01/24 Range/Units 07:46 RDW Std Deviation 48.7 H (36.4-46.3) fL RDW Coeff of Juliana 15.1 H (11.5-14.5) % [place] # (Auto) 0.87 H (0.11-0.59) K/uL Sodium 135 L (136-145) mmol/L Chloride 97 L (98-107) mmol/L Hemoglobin A1c 6.1 H (4.5-5.6) % Troponin I High Sens (0-14) pg/ml
--- NOTE | 2024-05-01 10:47 | Cardiology Consultation ---
Date of Consultation May 01, 2024 Assessment & Plan (1) Occipital stroke: (2) Paroxysmal atrial fibrillation: (3) Hypertension: (4) Carotid artery disease: Plan Patient admitted with headache and blurred vision, findings of subacute/late right occipital stroke. Neuro consulted. During admission, short runs of PAF noted on telemetry, possibly contributing cause. Patient admits to intermittent non compliance of her metoprolol at home at bedtime (Prior dose 50 mg HS) Change metoprolol succinate to 25 mg BID. Started on IV heparin. Echo pending. Minimally elevated troponin, likely due to acute CVA, not indicative of ACS. History of non ischemic cardiomyopathy. LVEF 50-55% per echo in Nov 2023. Repeat head CT this morning without hemorrhagic conversion. CHADSVASC score of 8 (female, age, CHF, HTN, CVA, Vascular disease) and chronic anticoagulation will be needed on discharge. Would recommend Eliquis 5 mg BID as long it is affordable. Also found to have b/l carotid vascular disease. Continue ASA and statin. LDL goal < 70. Case discussed with Dr. Simmons I spent a total of 60 minutes on the date of service in preparation, delivery, and documentation of the care provided to this patient, excluding any time spent in the performance of separately billed services. Flora Hernadnez PA-C Department of Cardiology, [facility] This chart was completed in part utilizing Speech Voice Recognition Software. Grammatical errors, random word insertions, pronoun errors, and incomplete sentences are an occasional consequence of this system due to software limitations, ambient noise, and hardware issues. Any formal questions or concerns about the content, text, or information contained within the body of this dictation should be directly addressed to the provider for clarification. Supervising Physician Co-Signing Physician Notes I have personally performed a history and physical examination on the patient. I have reviewed the advance practitioner's documentation, and I agree with, and take responsibility for the plan of care. 78-year-old female admitted with visual changes and evidence of right-sided occipital cerebrovascular accident. History of nonischemic cardiomyopathy with normalization of LV function. Telemetry revealing short salvos of paroxysmal atrial fibrillation and atrial tachycardia. [id number] VASC score of 8 (female, age, CHF, HTN, CVA, Vascular disease) Asymptomatic without palpitations. Echocardiogram revealing preserved LV function with moderate left atrial enlargement. There is no significant valvular pathology, however, moderate aortic valve sclerosis and moderate mitral annular calcification visualized. CTA of the neck demonstrating moderate bilateral carotid stenosis. Recommendations: * Continue IV anticoagulation with transition to oral Eliquis at discharge * Continue metoprolol succinate 25 mg twice daily * LDL goal less than 70 mg/dL * Continue Crestor 20 mg daily * Repeat carotid duplex 6-12 months post discharge Randall Simmons DO, [facility] History of Present Illness Reason for Consultation: PAF; Stroke Requesting Physician: Bia Hospitalist Attending Physician: Dr. Simmons History of Present Illness Patient presenting to [facility] with complaints of headache and blurred vision over the last several days. Head CT on admission demonstrated right occipital lobe late acute/sub acute inf arct. No hemorrhage. Neuro consulted. During admission, patient was found to have brief episodes of PAF on telemetry, possibly etiology of acute CVA. B/L carotid stenosis noted as well 50-69%. Patient had been taking ASA 81 mg daily as an outpatient. IV Heparin added. Atorvastatin added at 40 mg. Patient was to be taking Crestor as an outpatient but she is not certain. She reports she was taking metoprolol 50 mg at bedtime, but admits to intermittent non compliance. At time of consult, patient resting in bed comfortably. Blurred vision has resolved. Still has right sided headache. No dizziness. No nausea or vomiting. Repeat head CT this morning with stable findings, no hemorrhagic conversion. History includes: 1. Chronic systolic heart failure 2. History of nonischemic cardiomyopathy LVEF of 25-30%, 12/2021 a. LVEF improved 50-54%, per echo 08/2022, 11/2023 3. Mild nonobstructive CAD (20-30% proximal, late to mid LAD and 30% mid RCA) per cardiac catheterization, 01/21/2022 at [facility] 4. Hypertension 5. CKD stage 3 6. History of bariatric surgery Allergies Allergy/AdvReac Type Severity Reaction Status Date / Time oseltamivir Allergy Intermediate Hives Verified 01/08/22 12:09 aspirin AdvReac Unknown NO ASA DUE Verified 06/19/20 08:08 TO GASTRIC BYPASS NSAIDS (Non-Steroidal AdvReac Unknown GI SXS, no Verified 06/19/20 08:08 Anti-Inflamma NSAIDS due to gastric bypass Home Medications Medication Instructions Recorded Confirmed Type albuterol sulfate 90 mcg/actuation 1 inh inhalation Q4H PRN Shortness 01/08/22 04/30/24 History aerosol inhaler Of Breath Or Wheezing aspirin 81 mg chewable tablet 81 mg PO DAILY 04/30/24 04/30/24 History cyanocobalamin (vitamin B-12) 1,000 mcg IM MONTHLY 04/30/24 04/30/24 History 1,000 mcg/mL injection solution indapamide 1.25 mg tablet 1.25 mg PO DAILY 04/30/24 04/30/24 History metoprolol succinate 50 mg 50 mg PO HS 04/30/24 04/30/24 History tablet,extended release 24 hr rosuvastatin 10 mg tablet 10 mg PO DAILY 04/30/24 04/30/24 History sacubitril 97 mg-valsartan 103 mg 1 tab PO BID 04/30/24 04/30/24 History tablet (Entresto) Patient History Medical History Cardiomyopathy Acute CHF (congestive heart failure) Osteopenia Vitamin D deficiency Elevated parathyroid hormone Depression Anxiety History of Lyme disease Anemia in chronic kidney disease CKD (chronic kidney disease), stage III Hypertensive urgency Surgical History Status post bilateral hip replacements Status post hernia repair Status post gastric bypass for obesity "Indigo-en-Y" History of laparoscopy Status post hysterectomy Hx of cholecystectomy Family History Other No significant family history Social History Smoking Status: Never smoker Second Hand Exposure: No; Do You Dip or Chew Tobacco: No; Hx Alcohol Use: Yes Alcohol type: hard liquor Hx Substance Use: No Preferred Language: Yakut Communication Ability: Effective Vapor Coater Required: No Beliefs That Will Affect Care: None Current Living Situation: Alone Feels Safe at Home: Yes Safety Concerns: Feels Safe At This Time Assistive Devices: Walker Review of Systems Review of Systems: All systems reviewed & are unremarkable except as noted in HPI & below Physical Exam Constitutional: WD/WN, vitals as above well developed; no acute distress Results & Data Vital Signs (Past 12 Hours) Vital Signs Temp Pulse Resp BP Pulse Ox O2 Del Method 05/01/24 07:56 36.8 C 71 20 134/80 96 Room Air 05/01/24 03:26 36.6 C 80 17 136/88 98 Room Air 04/30/24 23:12 36.7 C 80 16 133/76 98 Room Air Laboratory Results Cardiac Enzymes 04/30/24 04/30/24 04/30/24 Range/Units 12:42 15:03 17:25 AST 17 (13-39) U/L Troponin I High Sens 39.0 H 44.7 H 45.3 H (0-14) pg/ml 04/30/24 Range/Units 23:13 AST (13-39) U/L Troponin I High Sens 45.7 H (0-14) pg/ml Coagulation 04/30/24 Range/Units 12:42 PT 11.4 (9.0-12.0) Seconds APTT 31 (21-31) Seconds Lipids 05/01/24 Range/Units 07:46 Triglycerides 108 (0-150) mg/dl Cholesterol 90 (0-200) mg/dl HDL Cholesterol 29 mg/dl Cholesterol/HDL Ratio 3.1 (0-5) CBC 05/01/24 Range/Units 07:46 WBC 7.78 (4.8-10.8) K/ul RBC 4.52 (4.20-5.40) M/uL Hgb 13.2 (12.0-16.0) g/dl Hct 39.8 (37.0-47.0) % Plt Count 268 (130-400) K/uL Neut # (Auto) 5.25 (1.40-6.50) K/uL Lymph # (Auto) 1.41 (1.20-3.40) K/uL [place] # (Auto) 0.87 H (0.11-0.59) K/uL Eos # (Auto) 0.17 (0.00-0.50) K/uL Baso # (Auto) 0.04 (0.00-0.20) K/uL Comprehensive Metabolic Panel 04/30/24 05/01/24 Range/Units 12:42 07:46 Sodium 134 L 135 L (136-145) mmol/L Potassium 3.7 3.7 (3.5-5.1) mmol/L Chloride 97 L 97 L (98-107) mmol/L Carbon Dioxide 29 28 (21-32) mmol/L BUN 19 18 (6-23) mg/dl Creatinine 1.18 1.15 (0.6-1.2) mg/dl Glucose 110 H 93 (70-99(Fasting)) mg/dl Calcium 9.5 9.0 (8.6-10.3) mg/dl AST 17 (13-39) U/L ALT 7 (7-52) U/L Alkaline Phosphatase 76 (34-104) U/L Total Protein 7.6 (6.0-8.3) gm/dl Albumin 3.8 (3.4-5.0) gm/dl Intake and Output 04/30/24 05/01/24 05/01/24 22:59 06:59 14:59 Other: # Unmeasured Voids 1 Weight 110.818 kg 110.818 kg Weight Measurement Method Built in Bedscale Built in Bedscale Diagnostic Findings Telemetry reviewed: NSR with very brief episodes of PAF yesterday 04/30 in the afternoon. Most of the episodes were 15-30 seconds in duration. EKG yesterday dated 04/30/24: NSR with runs of afib Occ PVC EKG this morning: NSR LAD Sinus has replaced PAF Head CT report reviewed from this morning IMPRESSION: 1. Stable appearance of the followin. Right occipital acute non-hemorrhagic infarction. 3. Chronic microvascular ischemic angiopathy, Age-related brain involutional changes. 4. Right posterior parietal craniectomy defect. 5. Right cerebellar linear areas of chronic infarcts. Medications Administered Current Inpatient Medications Acetaminophen (Acetaminophen 325 Mg Tab) 650 mg PO Q4H PRN PRN Reason: Pain or Fever Stop: 05/30/24 20:43 Albuterol (Albuterol Hfa 8 Gm Inhaler) 1 puffs INH Q4H PRN PRN Reason: Shortness Of Breath Or Wheezing Stop: 05/30/24 20:43 Aspirin (Aspirin 81 Mg Ectab) [facility] Stop: 05/31/24 08:59 Last Admin: 05/01/24 09:00 Dose: 81 mg Atorvastatin Calcium (Atorvastatin 40 Mg Tab) 80 mg PO QAM [facility] Stop: 05/31/24 08:59 Last Admin: 05/01/24 08:59 Dose: 80 mg Heparin Sodium/Dextrose (Heparin 88123 Unit/500 Ml D5w) 25,000 units in 500 mls @ 28 mls/hr IV .[id number] [facility]; Protocol Stop: 05/30/24 17:44 Last Admin: 04/30/24 18:19 Dose: 1,400 units/hr, 28 mls/hr Metoprolol Succinate (Metoprolol Succ 25mg Ext Rel Tab) 25 mg PO BID [facility] Stop: 05/31/24 20:59 Metoprolol Tartrate (Metoprolol Tartrate 1 Mg/Ml Vial) 5 mg IV Q6 PRN PRN Reason: sustained HR > 130 Stop: 05/30/24 17:59 Miscellaneous Information (Pharmacist Discharge Med Rec Consult) 1 each N/A UD PRN PRN Reason: Consult Stop: 05/30/24 20:43 Rosuvastatin Calcium (Rosuvastatin Calcium 20 Mg Tab) 20 mg PO QAM [facility] Stop: 05/31/24 08:59 Last Admin: 05/01/24 09:00 Dose: 20 mg
[2024-05-01 11:39] LABS: Estimated Average Glucose 128 mg/dl; Hemoglobin A1C 6.1 % (4.5-5.6)
--- NOTE | 2024-05-01 13:19 | Pharmacy Report ---
- Date of Service May 01, 2024 - Pharmacy CVA/TIA Medication Review Medications to Prevent Stroke handout has been added to the patients discharge packet. Antiplatelet(s) * Aspirin 81 mg daily Cholesterol * High intensity statin: rosuvastatin 20 mg daily DVT Prophylaxis * SCD knee Therapeutic Anticoagulation * Hx Afib/Aflutter noted, and patient is currently receiving heparin drip Type 2 Diabetes * Patient does not have T2DM
--- NOTE | 2024-05-01 13:59 | Electrocardiogram Report ---
Test Reason : Blood Pressure : */* mmHG Vent. Rate : 80 BPM Atrial Rate : 80 BPM P-R Int : 166 ms QRS Dur : 90 ms QT Int : 378 ms P-R-T Axes : 89 -63 60 degrees QTcB Int : 435 ms Normal sinus rhythm Left axis deviation Incomplete right bundle branch block Minimal voltage criteria for LVH, may be normal variant Abnormal ECG When compared with ECG of 08-Jan-2022 11:01, Premature ventricular complexes are no longer Present Questionable change in initial forces of Anteroseptal leads Confirmed by Prashant Kramer ([id number]) on 05/01/2024 1:59:25 PM Referred By: Confirmed By: Prashant Kramer
--- NOTE | 2024-05-01 14:02 | Electrocardiogram Report ---
Test Reason : Blood Pressure : */* mmHG Vent. Rate : 122 BPM Atrial Rate : * BPM P-R Int : * ms QRS Dur : 100 ms QT Int : 372 ms P-R-T Axes : * -61 76 degrees QTcB Int : 530 ms Atrial fibrillation with rapid ventricular response with premature ventricular or aberrantly conducte d complexes Left axis deviation Minimal voltage criteria for LVH, may be normal variant Abnormal ECG When compared with ECG of 30-Apr-2024 12:41, (unconfirmed) Atrial fibrillation has replaced Sinus rhythm Vent. rate has increased by 42 bpm Confirmed by Prashant Kramer ([id number]) on 05/01/2024 2:02:15 PM Referred By: REFERRED SELF Confirmed By: Prashant Kramer
--- NOTE | 2024-05-01 14:21 | Neurology Consultation ---
Date of Consultation May 01, 2024 Telehealth Consultation Telehealth Information Telehealth Information: I performed this visit using a real-time telehealth connection between my location and the patients location ([facility]). After connec ting through interactive tele-video, patient was identified by name and date of and/or wristband check.Patient (or authorized healthcare freight representative) was informed that this was a telemedicine visit and it was being conducted confidentially over secure lines. My office door was closed and no one else was present in the room with me.Patient (or authorized healthcare freight representative) provided consent to proceed with the visit, expressed an understanding of privacy and security of the telemedicine visit, and gave permission to have a hospital freight representative in the room in order to assist with the visit and to conduct portions of the visit, as needed. I informed the patient (or authorized healthcare freight representative) that I reviewed their record and presented the opportunity for them to ask any questions regarding the visit today. The patient agreed to participate. History of Present Illness Reason for Consultation: R occipital stroke Requesting Physician: Dr. Valle Attending Physician: Venessa Valle MD History of Present Illness Pt presents with about one week of left peripheral vision loss. Found to have subacute r occipital stroke which fits symptoms. Also in brief episodes of afib. on heparin drip overnight with repeat CT Head in AM Allergies Allergy/AdvReac Type Severity Reaction Status Date / Time oseltamivir Allergy Intermediate Hives Verified 01/08/22 12:09 aspirin AdvReac Unknown NO ASA DUE Verified 06/19/20 08:08 TO GASTRIC BYPASS NSAIDS (Non-Steroidal AdvReac Unknown GI SXS, no Verified 06/19/20 08:08 Anti-Inflamma NSAIDS due to gastric bypass Home Medications Medication Instructions Recorded Confirmed Type albuterol sulfate 90 mcg/actuation 1 inh inhalation Q4H PRN Shortness 01/08/22 04/30/24 History aerosol inhaler Of Breath Or Wheezing aspirin 81 mg chewable tablet 81 mg PO DAILY 04/30/24 04/30/24 History cyanocobalamin (vitamin B-12) 1,000 mcg IM MONTHLY 04/30/24 04/30/24 History 1,000 mcg/mL injection solution indapamide 1.25 mg tablet 1.25 mg PO DAILY 04/30/24 04/30/24 History metoprolol succinate 50 mg 50 mg PO HS 04/30/24 04/30/24 History tablet,extended release 24 hr rosuvastatin 10 mg tablet 10 mg PO DAILY 04/30/24 04/30/24 History sacubitril 97 mg-valsartan 103 mg 1 tab PO BID 04/30/24 04/30/24 History tablet (Entresto) Patient History Medical History Cardiomyopathy Acute CHF (congestive heart failure) Osteopenia Vitamin D deficiency Elevated parathyroid hormone Depression Anxiety History of Lyme disease Anemia in chronic kidney disease CKD (chronic kidney disease), stage III Hypertensive urgency Surgical History Status post bilateral hip replacements Status post hernia repair Status post gastric bypass for obesity "Indigo-en-Y" History of laparoscopy Status post hysterectomy Hx of cholecystectomy Family History Other No significant family history Social History Smoking Status: Never smoker Second Hand Exposure: No; Do You Dip or Chew Tobacco: No; Hx Alcohol Use: Yes Alcohol type: hard liquor Hx Substance Use: No Preferred Language: Samoan Communication Ability: Effective Signal Intelligence Analyst Required: No Beliefs That Will Affect Care: None Current Living Situation: Alone Feels Safe at Home: Yes Safety Concerns: Feels Safe At This Time Assistive Devices: Walker Results & Data Vital Signs (Past 12 Hours) Vital Signs Temp Pulse Resp BP Pulse Ox O2 Del Method 05/01/24 11:12 36.7 C 70 20 125/87 96 Room Air 05/01/24 07:56 36.8 C 71 20 134/80 96 Room Air 05/01/24 03:26 36.6 C 80 17 136/88 98 Room Air
--- NOTE | 2024-05-01 14:41 | Neurology Consultation ---
Date of Consultation May 01, 2024 Assessment & Plan (1) Paroxysmal atrial fibrillation: 78-year-old female with a past medical history of chronic systolic heart failure, nonischemic cardiomyopathy, CAD, obesity, CKD stage III who presented on 04/30 with left sided peripheral vision x 1 week changes found to have right occipital stroke in setting of new onset Afib. She also has b/l carotid disease less than 70%. Etiology of stroke is likely related to afib v atheroembolic process. She was managed on heparin overnight with stable CT Head from this AM. Safe for AC from neuro standpoint (2) Carotid artery disease: -- continue ASA 81 mg and crestor 20 mg (3) Occipital stroke: -- SBP goal normotension -- Start Eliquis 5 mg bid, can stop heparin (4) Stroke-like symptom: -- PT/OT -- Can treat headache with PRN fioricet, IV magnesium and IVF if continues to be resistant to tylenol, could also consider starting gabapentin 300 mg qhs. -- Medically ready for discharge from neuro standpoint (5) Hypertensive urgency: -- assisted BP goal < 130/80 Telehealth Consultation Telehealth Information Telehealth Information: I performed this visit using a real-time telehealth connection between my location and the patients location ([facility]). After connecting through interactive tele-video, patient was identified by name and date of and/or wristband check.Patient (or authorized healthcare hostess party sales representative) was informed that this was a telemedicine visit and it was being conducted confidentially over secure lines. My office door was closed and no one else was present in the room with me.Patient (or authorized healthcare hostess party sales representative) provided consent to proceed with the visit, expressed an understanding of privacy and security of the telemedicine visit, and gave permission to have a hospital hostess party sales representative in the room in order to assist with the visit and to conduct portions of the visit, as needed. I informed the patient (or authorized healthcare hostess party sales representative) that I reviewed their record and presented the opportunity for them to ask any questions regarding the visit today. The patient agreed to participate. History of Present Illness Reason for Consultation: R occipital stroke Requesting Physician: Dr. Valle Attending Physician: Venessa Valle MD History of Present Illness Pt presented for vision changes in left sided vision for the last week alongside headache. CT Head showed a subacute stroke and MRI confirmed subacute R occipital stroke. CTA showed b/l carotid stenosis but no LVO. She was also found with new onset Afib and managed with heparin overnight. Repeat CT Head this AM did not show hemorrhagic conversion. Today she states that her vision is improving, believes she can see out of the left side of vision. her main complaint is a headache that has not improved with tylenol. Otherwise she denies weakness, numbness, speech changes. Allergies Allergy/AdvReac Type Severity Reaction Status Date / Time oseltamivir Allergy Intermediate Hives Verified 01/08/22 12:09 aspirin AdvReac Unknown NO ASA DUE Verified 06/19/20 08:08 TO GASTRIC BYPASS NSAIDS (Non-Steroidal AdvReac Unknown GI SXS, no Verified 06/19/20 08:08 Anti-Inflamma NSAIDS due to gastric bypass Home Medications Medication Instructions Recorded Confirmed Type albuterol sulfate 90 mcg/actuation 1 inh inhalation Q4H PRN Shortness 01/08/22 04/30/24 History aerosol inhaler Of Breath Or Wheezing aspirin 81 mg chewable tablet 81 mg PO DAILY 04/30/24 04/30/24 History cyanocobalamin (vitamin B-12) 1,000 mcg IM MONTHLY 04/30/24 04/30/24 History 1,000 mcg/mL injection solution indapamide 1.25 mg tablet 1.25 mg PO DAILY 04/30/24 04/30/24 History metoprolol succinate 50 mg 50 mg PO HS 04/30/24 04/30/24 History tablet,extended release 24 hr rosuvastatin 10 mg tablet 10 mg PO DAILY 04/30/24 04/30/24 History sacubitril 97 mg-valsartan 103 mg 1 tab PO BID 04/30/24 04/30/24 History tablet (Entresto) Patient History Medical History Cardiomyopathy Acute CHF (congestive heart failure) Osteopenia Vitamin D deficiency Elevated parathyroid hormone Depression Anxiety History of Lyme disease Anemia in chronic kidney disease CKD (chronic kidney disease), stage III Hypertensive urgency Surgical History Status post bilateral hip replacements Status post hernia repair Status post gastric bypass for obesity "Indigo-en-Y" History of laparoscopy Status post hysterectomy Hx of cholecystectomy Family History Other No significant family history Social History Smoking Status: Never smoker Second Hand Exposure: No; Do You Dip or Chew Tobacco: No; Hx Alcohol Use: Yes Alcohol type: hard liquor Hx Substance Use: No Preferred Language: Beninese Communication Ability: Effective Survival Equipment Repairer Required: No Beliefs That Will Affect Care: None Current Living Situation: Alone Feels Safe at Home: Yes Safety Concerns: Feels Safe At This Time Assistive Devices: Walker Review of Systems Negative aside from HPI Physical Exam Pt resting comfortably in bed, participates in exam, alert and oriented x 3. No gaze deficit, no facial droop. Able to name objects, read with no detectable vf deficit. Able to lift arms and legs off bed without ataxia, sensory grossly intact. Results & Data Vital Signs (Past 12 Hours) Vital Signs Temp Pulse Resp BP Pulse Ox O2 Del Method 05/01/24 11:12 36.7 C 70 20 125/87 96 Room Air 05/01/24 07:56 36.8 C 71 20 134/80 96 Room Air 05/01/24 03:26 36.6 C 80 17 136/88 98 Room Air Laboratory Results LDL- HgBa1 -- Diagnostic Findings MRI Brain 05/01 - r occipital acute stroke CTA with b/l carotid disease/ arch athero Repeat CT Head 05/01 without hemorrhagic conversion
--- NOTE | 2024-05-01 14:42 | Electrocardiogram Report ---
Test Reason : Blood Pressure : */* mmHG Vent. Rate : 71 BPM Atrial Rate : 71 BPM P-R Int : 158 ms QRS Dur : 96 ms QT Int : 422 ms P-R-T Axes : -7 -54 51 degrees QTcB Int : 458 ms Normal sinus rhythm Left axis deviation Poor R wave progression, consider anterior [place] vs. lead placement vs. LVH Abnormal ECG When compared with ECG of 30-Apr-2024 16:05, (unconfirmed) Sinus rhythm has replaced Atrial fibrillation Vent. rate has decreased by 51 bpm Confirmed by Prashant Kramer ([id number]) on 05/01/2024 2:42:27 PM Referred By: REFERRED SELF Confirmed By: Prashant Kramer
[2024-05-01 15:03] LABS: Magnesium 1.8 mg/dl (1.7-2.4)
[2024-05-01 15:19] LABS: Thyroid Stimulating Hormone 1.546 uIu/ml (0.300-4.500)
[2024-05-01] MEDS: HEPARIN: STOP ORDER ONE (17:11)
[2024-05-01] MEDS: APIXABAN 5 MG TABLET PO SCH (20:39)
[2024-05-01] MEDS: METOPROLOL SUCC 25MG EXT REL TAB PO SCH (20:39)
[2024-05-02] MEDS ORDERED: APIXABAN 5 MG TABLET PO SCH
[2024-05-02 02:34] VITALS: TEMP 98.2
[2024-05-02 07:28] VITALS: RESP 18
[2024-05-02 07:46] LABS: Basophils # (auto) 0.04 K/uL (0.00-0.20); Basophils % (auto) 0.7 %; Eosinophils # (auto) 0.13 K/uL (0.00-0.50); Eosinophils % (auto) 2.2 %; Hematocrit (blood only) 39.8 % (37.0-47.0); Hemoglobin 13.1 g/dl (12.0-16.0); Immature Granulocytes # (auto) 0.04 K/uL (0.01-0.20); Immature Granulocytes % (auto) 0.7 %; Lymphocytes # (auto) 0.82 K/uL (1.20-3.40); Lymphocytes % (auto) 14.2 %; Mean Corpuscular Hemoglobin 28.7 pg (25.0-34.0); Mean Corpuscular Hgb Conc 32.9 g/dL (32.0-36.0); Mean Corpuscular Volume 87.1 fL (80.0-100.0); Monocytes # (auto) 0.79 K/uL (0.11-0.59); Monocytes % (auto) 13.7 %; Neutrophils # (auto) 3.96 K/uL (1.40-6.50); Neutrophils % (auto) 68.5 %; Platelet Count 252 K/uL (130-400); Red Blood Count 4.57 M/uL (4.20-5.40); White Blood Count 5.78 K/ul (4.8-10.8)
[2024-05-02 07:50] LABS: BUN Creatinine Ratio 18.5 (10-20); Calcium 8.9 mg/dl (8.6-10.3); Creatinine Clr Calc Pharmacy 48.3 ml/min; Potassium 3.5 mmol/L (3.5-5.1)
--- NOTE | 2024-05-02 10:35 | Discharge Summary ---
Date of Service May 02, 2024 Admission HPI Per Admitting Provider The patient is a 78 year old female with a pmh of HTN, HLD, chronic systolic heart failure, nonischemic cardiomyopathy, CAD, obesity, gastric sleeve surgery who presents to the ED on 04/30/24 w/ complaints of a headache that will not go away x 1 week. Reports the headache is intermittent and hurts with coughing. Also reports loss of peripheral vision in the L eye x 4 days. The patient reports falling outside of a liquor store 1 week ago. She denies any injury. She denies any further weakness or numbness. No neurodeficits on exam aside from loss of the left peripheral vision. Patient reports compliance at home with medications. On exam, patient's heart rate was intermittently spiking in the 130s. Repeat EKG shows rapid A-fib in the 130s. Very brief episodes noted. Patient was asymptomatic. This is a new diagnosis. On arrival to the ED, labs are remarkable for NA 134, chloride 97, glucose 110, bili 1.1, troponin 44.7 Chest x-ray negative CT showed: 1. New focal area of hypodensity involving the medial right occipital lobe with loss of flores-white differentiation (series 2 image 13-14). This is suspicious for an area of late acute or subacute infarct. Further evaluation is recommended with brain MRI with diffusion-weighted imaging. 2. Moderate volume loss and presumed chronic microvascular ischemic changes. 3. Additional chronic and/or incidental findings as detailed above. Head CT No CTA evidence of an acute vascular abnormality. Mild to moderate atherosclerotic disease of the bilateral cavernous internal carotid arteries Neck CTA showed 1. No CTA evidence of an acute vascular injury or hemodynamically significant stenosis stenosis 2. Calcified atherosclerotic plaque in the proximal internal carotid arteries with approximately 50 to 69% stenosis. The patient will be admitted for further management of subacute stroke Admission Exam Per Admitting Provider Eyes: PERRL, conjunctivae normal, anicteric sclerae ENMT: external ear and nose normal, oropharynx normal Neck: trachea midline, no thyromegaly Respiratory: normal respiratory effort, lungs clear to auscultation Cardiovascular: RRR, no murmur, no edema Gastrointestinal (Abdomen): normal bowel sounds, soft, nontender, no hepatosplenomegaly Skin: no rashes, warm and dry Neurologic: PERRL, EOMI, accommodation nl, no face palsy, no dysarthria (Occipital headache, loss of left peripheral vision) Psychiatric: A+Ox3, euthymic affect Lymphatic: no cervical or axillary lymphadenopathy Principal Diagnosis Acute CVA New Atrial Fibrillation Discharge Exam Constitutional + well hydrated and + obese; no acute distress Eyes PERRL, conjunctivae normal, anicteric sclerae ENMT external ear and nose normal, oropharynx normal Respiratory normal respiratory effort, lungs clear to auscultation Cardiovascular Rate/Rhythm: regular rate and regular rhythm Gastrointestinal (Abdomen) normal bowel sounds, soft, nontender, no hepatosplenomegaly Musculoskeletal No pedal edema Neurologic PERRL, EOMI, accommodation nl, no face palsy, no dysarthria +Left peripheral visual deficits Normal power in extremities Psychiatric A+Ox3, euthymic affect Discharge Data Allergies Allergy/AdvReac Type Severity Reaction Status Date / Time oseltamivir Allergy Intermediate Hives Verified 01/08/22 12:09 aspirin AdvReac Unknown NO ASA DUE Verified 06/19/20 08:08 TO GASTRIC BYPASS NSAIDS (Non-Steroidal AdvReac Unknown GI SXS, no Verified 06/19/20 08:08 Anti-Inflamma NSAIDS due to gastric bypass Consultations 04/30/24 14:47 ED Decision to Admit Stat 04/30/24 20:44 Consult Neurology Routine 05/01/24 08:06 Consult Cardiology Routine 05/01/24 13:42 Consult Neurology Routine Ordered Studies 04/30/24 12:35 CT head/brain wo con Stat 04/30/24 13:57 MR brain wo con Stat 04/30/24 14:47 CT angio head w con Stat CT angio neck with con Stat 05/01/24 07:00 CT head/brain wo con DAILY Hospital Course (1) Stroke-like symptom: (2) Cardiomyopathy: (3) Hypertension: Plan 78-year-old female with a past medical history of chronic systolic heart failure, nonischemic cardiomyopathy, CAD, obesity, CKD stage III who presents to the ED on 04/30/2024 with complaints of continuing occipital headache and loss of left peripheral vision Acute CVA New onset Atrial fibrillation CT head on admission noted infarct in medial right occipital lobe Brain MRI noted new acute right occipital infarct. Also right cerebellar linear areas of chronic infarcts CTA head/neck showed calcified atherosclerotic plaques in proximal ICA with approx 50-69% stenosis, mild to mod atherosclerotic disease of b/l cavernosus ICA Repeat CT head on 05/01/24 show stable right occipital acute nonhemorrhagic infarction. Stable appearance Patient found to have new Afib on presentation Was initially started on heparin drip then transitioned to eliquis Neurology evaluated and recommended continuing Aspirin and eliquis Her rosuvastatin was increased to 20mg daily TTE noted EF 50-55%, mod dilated LA Back to sinus rhythm Cardiology evaluated while inpatient Her metoprolol succinate was changed to 25mg BID Patient is to follow up with Cardiology in 2 weeks Her PCP to arrange carotid duplex in 6 months Per her request, I called her pharm and notified her what 30 day supply will cost her with her insurance Prescriptions sent. She reported she will not be able to get to her pharm till tomorrow due to transport problems. Our pharm provided dose for eliquis tonight and tomorrow AM Provided education regarding anticoagulation and new diagnoses Total Time Total Time Spent Total Time Spent (In Minutes): 45 Total Time Includes: Examination of the Patient, Discharge Planning, Medication Reconciliation, Communication With Other Providers and Other Discharge Plan Discharge Items Patient Disposition: Home - Self-Care Reason For Visit: Headache, visual deficits Discharge Diagnosis: Acute Stroke New Atrial Fibrillation Activity: Resume your previous activity Non-emergency contact: Primary Care Provider and Dope Weigh Operator Call non-emergency contact if: you have any medication questions Follow-up/Referrals: Mahogany Fuentes PA-C [Primary Care Provider] - Diet: Heart Healthy Addtl Attending Provider Instructions: Mrs Kassidy Gonzalez presented to the hospital complaining of headache and visual problems. You were evaluated and found to have a stroke as well as abnormal heart rhythm (Atrial fibrillation) The following medication changes were made: -Your Metoprolol succinate was changed to 25mg twice a day -Your Rosuvastatin was increased to 20mg daily -You were started on blood thinner called Eliquis 5mg twice a day Continue taking your aspirin 81mg daily Stop taking other NSAIDS such as ibuprofen, motrin, advil, naproxen etc as we discussed. Your Primary Doctor can arrange Carotid duplex in 6-12 months Please ensure follow up with your Primary Doctor and Dope Weigh Operator. It was a pleasure taking care of you Pending Studies at Discharge: No Stand-Alone Forms: My [facility] [place], Smoking Cessation, Medications to Prevent Stroke Medications and DC Order Prescriptions: New Eliquis 5 mg Tablet 5 mg PO BID Qty: 60 0RF metoprolol succinate 25 mg Tablet Extended Release 24 Hr 25 mg PO BID 30 Days Qty: 60 0RF Continued albuterol sulfate 90 mcg/actuation HFA aerosol inhaler 1 inh INHALATION Q4H PRN (Reason: Shortness Of Breath Or Wheezing) cyanocobalamin (vitamin B-12) 1,000 mcg/mL solution 1,000 mcg IM MONTHLY Entresto 97-103 mg tablet 1 tab PO BID aspirin 81 mg Tablet,Chewable 81 mg PO DAILY indapamide 1.25 mg tablet 1.25 mg PO DAILY Changed rosuvastatin 10 mg tablet 20 mg PO DAILY 30 Days Qty: 60 0RF Discontinued metoprolol succinate 50 mg tablet extended release 24 hr 50 mg PO HS Discharge Orders: Discharge Order (Routine); Ordered 05/02/24 Ordered By: Venessa Lezama/Other Patient Handouts: Apixaban Oral Tablet, Metoprolol Oral Tablet, Prediabetes, 5 Steps for Eating Healthier, AFib, ED Stroke (Completed) Admission Data Admit Date/Time: 04/30/24 15:35 Attending Provider: Venessa Valle I. Admit Provider: David Portillo Primary Care Provider: Mahogany Fuentes Other Providers: David Portillo; Lion Acosta; Randall Simmons; Claudia Velasquez Other Interventions: Discharge Summary Assessment (RN) Last Done: 05/02/24 10:54
[2024-05-02] MEDS: STROKE PATIENT DISCHARGE STA (10:50)
[2024-05-02 11:22] VITALS: BP 106/69; PULSE 66; O2SAT 96
--- NOTE | 2024-05-02 12:30 | Cardiology Progress Note ---
Date of Service May 02, 2024 Assessment & Plan (1) Occipital stroke: (2) Paroxysmal atrial fibrillation: (3) Hypertension: (4) Carotid artery disease: Plan 05/01/24 Patient admitted with headache and blurred vision, findings of subacute/late right occipital stroke. Neuro consulted. During admission, short runs of PAF noted on telemetry, possibly contributing cause. Patient admits to intermittent non compliance of her metoprolol at home at bedtime (Prior dose 50 mg HS) Change metoprolol succinate to 25 mg BID. Started on IV heparin. Echo pending. Minimally elevated troponin, likely due to acute CVA, not indicative of ACS. History of non ischemic cardiomyopathy. LVEF 50-55% per echo in Nov 2023. Repeat head CT this morning without hemorrhagic conversion. CHADSVASC score of 8 (female, age, CHF, HTN, CVA, Vascular disease) and chronic anticoagulation will be needed on discharge. Would recommend Eliquis 5 mg BID as long it is affordable. Also found to have b/l carotid vascular disease. Continue ASA and statin. LDL goal < 70. 05/02/24: patient admitted after occipital stroke, possible etiology is PAF IV heparin transitioned to oral Eliquis 5 mg BID Continue metoprolol 25 mg BID on discharge. Echo with preserved LVEF, no wall motion abnormalities or significant valvualr idsease B/L carotid disease also noted. ASA and statin on discharge. Repeat carotid duplex in 6 months. LDL goal < 70. Stable for discharge today from cardiac perspective. No further cardiac testing warranted. Case discussed with Dr. Simmons I spent a total of 30 minutes on the date of service in preparation, delivery, and documentation of the care provided to this patient, excluding any time spent in the performance of separately billed services. Flora Hernandez PA-C Department of Cardiology, [facility] This chart was completed in part utilizing Speech Voice Recognition Software. Grammatical errors, random word insertions, pronoun errors, and incomplete sentences are an occasional consequence of this system due to software limitations, ambient noise, and hardware issues. Any formal questions or concerns about the content, text, or information contained within the body of this dictation should be directly addressed to the provider for clarification. Admission and Anticipated Discharge Date Admission Date: April 30, 2024 Supervising Physician Co-Signing Physician Notes I have personally performed a history and physical examination on the patient. I have reviewed the advance practitioner's documentation, and I agree with, and take responsibility for the plan of care. 78-year-old female admitted with visual changes and evidence of right-sided occipital cerebrovascular accident. History of nonischemic cardiomyopathy with normalization of LV function. Telemetry revealing short salvos of paroxysmal atrial fibrillation and atrial tachycardia. [id number] VASC score of 8 (female, age, CHF, HTN, CVA, Vascular disease) Today, patient feeling better from a cardiovascular perspective. Denies palpitations. Headache has resolved. Tolerating metoprolol and Eliquis. Notes concerns regarding transportation. Recommendations: * Continue IV anticoagulation with transition to Eliquis at discharge * Continue metoprolol succinate 25 mg twice daily * LDL goal less than 70 mg/dL * Continue Crestor 20 mg daily * Repeat carotid duplex 6-12 months post discharge * Outpatient cardiology follow-up in 2 to 4 weeks. * Cardiology will sign off, please call if additional concerns/questions. Randall Simmons DO, [facility] Subjective Patient resting in bed. Still has mild left eye visual field deficit. Headache improved. No chest pain or dyspnea. No orthopnea or PND. No dizziness or palpitations Review of Systems Review of Systems: All systems reviewed & are unremarkable except as noted in HPI & below Physical Exam Constitutional: WD/WN, vitals as above well developed; no acute distress Neck: trachea midline, no thyromegaly Respiratory: normal respiratory effort, lungs clear to auscultation Cardiovascular: Rate/Rhythm: regular rate and regular rhythm Heart Sounds: normal S1 and normal S2; no murmur Vessels: no JVD Extremities: no edema Gastrointestinal (Abdomen): normal bowel sounds, soft, nontender, no hepatosplenomegaly Neurologic: PERRL, EOMI, accommodation nl, no face palsy, no dysarthria Results & Data Vital Signs (Past 12 Hours) Vital Signs Temp Pulse Pulse Resp BP Pulse Ox O2 Del Method 05/02/24 11:17 66 18 106/69 96 Room Air 05/02/24 07:52 62 05/02/24 07:27 36.8 C 62 18 145/82 H 94 Room Air 05/02/24 02:33 36.8 C 74 16 116/82 94 Room Air Laboratory Results CBC 05/02/24 Range/Units 06:51 WBC 5.78 (4.8-10.8) K/ul RBC 4.57 (4.20-5.40) M/uL Hgb 13.1 (12.0-16.0) g/dl Hct 39.8 (37.0-47.0) % Plt Count 252 (130-400) K/uL Neut # (Auto) 3.96 (1.40-6.50) K/uL Lymph # (Auto) 0.82 L (1.20-3.40) K/uL Power # (Auto) 0.79 H (0.11-0.59) K/uL Eos # (Auto) 0.13 (0.00-0.50) K/uL Baso # (Auto) 0.04 (0.00-0.20) K/uL Comprehensive Metabolic Panel 05/02/24 Range/Units 06:51 Sodium 134 L (136-145) mmol/L Potassium 3.5 (3.5-5.1) mmol/L Chloride 98 (98-107) mmol/L Carbon Dioxide 28 (21-32) mmol/L BUN 22 (6-23) mg/dl Creatinine 1.19 (0.6-1.2) mg/dl Glucose 102 H (70-99(Fasting)) mg/dl Calcium 8.9 (8.6-10.3) mg/dl Intake and Output 05/01/24 05/02/24 05/02/24 22:59 06:59 14:59 Intake Total 500 / 1230 Output Total Balance 500 / 1230 - -1 Intake: IV 500 / 1000 Heparin 05907 Unit/500 ml D5w 500 / 1000 25,000 units In 500 ml @ 1,400 UNITS/HR 28 mls/hr IV .[id number] [facility] Rx#:[id number] Output: # Bowel Movements Other: # Unmeasured Voids Weight 110.817 kg 110.817 kg Weight Measurement Method Built in [facility] Patient Weight 05/03/24 06:59 Weight 110.817 kg Diagnostic Findings Telemetry reviewed: NSR in the 60-80's; Atrial ectopy noted. Several short non sustained runs of possible atrial tach vs atrial fib lasting 10-15 seconds through the night. No sustained episodes. EKG today: NSR at [address]/T wave abnormality No change from previous Echo report reviewed from 05/01/24: LVEF 50-55% LA is moderately dilated Aortic valve sclerosis without stenosis Moderate MAC Medications Administered Current Inpatient Medications Acetaminophen (Acetaminophen 325 Mg Tab) 650 mg PO Q4H PRN PRN Reason: Pain or Fever Stop: 05/30/24 20:43 Albuterol (Albuterol Hfa 8 Gm Inhaler) 1 puffs INH Q4H PRN PRN Reason: Shortness Of Breath Or Wheezing Stop: 05/30/24 20:43 Apixaban (Apixaban 5 Mg Tablet) 5 mg PO BID [facility] Stop: 05/31/24 20:59 Last Admin: 05/02/24 08:43 Dose: 5 mg Aspirin (Aspirin 81 Mg Ectab) [facility] Stop: 05/31/24 08:59 Last Admin: 05/02/24 08:43 Dose: 81 mg Metoprolol Succinate (Metoprolol Succ 25mg Ext Rel Tab) 25 mg PO BID [facility] Stop: 05/31/24 20:59 Last Admin: 05/02/24 08:43 Dose: 25 mg Metoprolol Tartrate (Metoprolol Tartrate 1 Mg/Ml Vial) 5 mg IV Q6 PRN PRN Reason: sustained HR > 130 Stop: 05/30/24 17:59 Miscellaneous Information (Pharmacist Discharge Med Rec Consult) 1 each N/A UD PRN PRN Reason: Consult Stop: 05/30/24 20:43 Rosuvastatin Calcium (Rosuvastatin Calcium 20 Mg Tab) [facility] Stop: 05/31/24 08:59 Last Admin: 05/02/24 08:43 Dose: 20 mg
--- NOTE | 2024-05-02 14:53 | Electrocardiogram Report ---
Test Reason : Blood Pressure : */* mmHG Vent. Rate : 63 BPM Atrial Rate : 63 BPM P-R Int : 178 ms QRS Dur : 98 ms QT Int : 448 ms P-R-T Axes : 80 -57 64 degrees QTcB Int : 458 ms Normal sinus rhythm Left axis deviation Voltage criteria for left ventricular hypertrophy Poor R wave progression, consider anterior [place] vs. lead placement vs. LVH Nonspecific T wave abnormality Abnormal ECG When compared with ECG of 01-May-2024 04:48, No significant change was found Confirmed by Prashant Kramer ([id number]) on 05/02/2024 2:52:46 PM Referred By: REFERRED SELF Confirmed By: Prashant Kramer
== END 2024-05-02 15:10 | disposition home or self-care (01) | DRG 65 ==
LOC: ED 12:16 → EDINP 15:07 → SUATTDRO 15:35 → EDINP 15:35 → 2S 20:22